=== PATIENT | female | born 1955 | race Caucasian/White ===

== ENCOUNTER 2020-04-21 20:27 | Emergency (ER) | payer BC, SELFPAY ==
[2020-04-21 20:29] VITALS: BP 122/68; PULSE 72; RESP 17; TEMP 36.3; O2SAT 94; BMI 30.5
--- NOTE | 2020-04-21 20:32 | ED_ITS ---
HPI - Seizure General: Chief Complaint: Seizure Stated Complaint: possible seizures Time Seen by Provider: 04/21/20 20:28 Source: patient and EMS Mode of arrival: EMS Limitations: no limitations History of Present Illness: HPI Narrative: 64-year-old female who is here from group home with a seizure. Patient has a history of seizures from a brain tumor removal and is on Keppra. She had a seizure last roughly 2 minutes. Patient is now awake and alert and at baseline. Denies any worsening improving factors. Denies any headache. complaint: seizure Onset (ago): hour(s) Description of Episode: tonic-clonic movement -: minutes(s) Witnessed: Yes - by Bystander Seizure History: Yes Associated symptoms: Deny chest pain, chills or fever(s) Review of Systems Const: Denies: fever(s), chills, body aches or change in appetite Eyes: Denies: blurry vision or eye discomfort ENMT: Denies: throat pain or dental pain Card: Denies: chest pain Resp: Denies: dyspnea GI: Denies: abdominal pain, nausea, vomiting or diarrhea : Denies: dysuria Musc: Denies: neck pain or back pain Skin/Breast: Denies: rash Neuro: Reports: seizure-like activity Psych: Denies: depression Haim/Lymph: Denies: easy bruising All/Imm: Denies: urticaria PFSH ED PFSH: Medical History Acid reflux Anxiety Cognitive impairment Dependent for wheelchair mobility Dependent on walker for ambulation Fibromyalgia Generalized epilepsy Hemiparesis affecting left side as late effect of cerebrovascular accident Hypothyroidism, unspecified Lives in assisted living facility Metabolic syndrome Surgical History History of bilateral tubal ligation 1986 History of brain surgery 2002 History of cholecystectomy August 2005 History of colonoscopy 2006 and 2012 History of eye surgery Right 2004 History of hysterectomy with unilateral oophorectomy Right 1991 History of removal of Port-a-Cath 2004 Family History Father Hypertension Mother Hypertension CAD (coronary artery disease) Social History Smoking and tobacco status: never smoked Alcohol intake: never Lives independently: No Housing: Assisted Living Facility Marital status: Number of children: 2 Current gender identity: Female Physical Exam Const: COMMON NORMALS: no acute distress, patient oriented x3 and healthy appearing HENMT: COMMON NORMALS: normocephalic and atraumatic HEAD & SCALP: normocephalic and atraumatic Eye: COMMON NORMALS: Equal, round and reactive pupils present and EOMs intact bilaterally PUPIL: Yes Equal, round and reactive pupils present Neck/C-Spine: COMMON NORMALS: full ROM and supple Chest: COMMONS NORMALS: normal inspection of the chest and normal palpation of entire chest wall Resp: COMMON NORMALS: normal respiratory effort, No retractions, No use of accessory muscles and clear to auscultation bilaterally AUSCULTATION: clear t o auscultation bilaterally Cardio: COMMON NORMALS: regular rate, regular rhythm and No murmurs present (Cardio) RATE: regular rate RHYTHM: regular rhythm GI: COMMON NORMALS: Normal to inspection, nondistended, normoactive bowel sounds present, Soft to palpation, non-tender and no masses PALPATION: Yes Soft to palpation Extremity: COMMON NORMALS: normal to inspection and full ROM Neuro: COMMON NORMALS: patient oriented x3, moves all extremities and no focal motor deficits Psych: COMMON NORMALS: mental status grossly normal, Normal thought process present and cooperative THOUGHT PROCESS: Normal thought process present Skin: COMMON NORMALS: no rashes or lesions noted and no wounds GENERAL SKIN EXAM: no rashes or lesions noted Course Vital Signs: Vital signs: Vital Signs Temperature 97.3 F L 04/21/20 20:29 Pulse Rate 60 04/21/20 21:23 Respiratory Rate 16 04/21/20 21:23 Blood Pressure 99/69 04/21/20 21:23 Pulse Oximetry 96 04/21/20 21:23 MDM - Seizure MDM Narrative: Medical decision making narrative: Jayde presents here with seizure and does have a history of seizures. Patient is back to baseline here and CT head and electrolytes are normal. Patient is stable for discharge back to group home. Patient is to return if worsening. Lab Data: Labs: Lab Results 04/21/20 Range/Units 20:44 Sodium 140 (136-145) mmol/L Potassium 4.6 (3.5-5.1) mmol/L Chloride 102 (98-107) mmol/L Carbon Dioxide 29 (22-29) mmol/L Anion Gap 13.6 (5-19) BUN 18 (8-23) mg/dL Creatinine 1.0 H (0.5-0.9) mg/dL GFR Calculation 56.0 L (90-130) mL/min Glucose 113 (65-115) mg/dL Calculated Osmolal ity 287 (285-295) mOsm/k g Calcium 9.1 (8.5-10.5) mg/dL Imaging Data^: CT Head: Attestation: I personally reviewed and interpreted this imaging study as follows: Radiologist's impression: [address] [place] [address] CT Scan Report Signed Patient: Jayde Curtis Unit #: [id number] : 1955 Age/Sex: 64 / F ADM Date: 04/21/20 Loc: ER Room/Bed: Attending Dr: Ordering Provider/Ordering MD: Viv Castorena MD Date of Service: 04/21/20 Procedure(s): CT head wo con* [id number] Accession Number(s): [id number] Report Number: [id number] PROCEDURE INFORMATION: Exam: CT Head Without Contrast Exam date and time: 04/21/2020 8:38 PM Age: 64 years old Clinical indication: Condition or disease; Convulsions or seizures; Prior surgery; Surgery type: Brain; Additional info: Seizure TECHNIQUE: Imaging protocol: Computed tomography of the head without contrast. Radiation optimization: All CT scans at this facility use at least one of these dose optimization techniques: automated exposure control; mA and/or kV adjustment per patient size (includes targeted exams where dose is matched to clinical indication); or iterative reconstruction. COMPARISON: CT head wo con* [id number] 09/14/2017 9:49 AM RADIATION DOSE METRICS: Total DLP (mGy-cm): 774.86 FINDINGS: Brain: Moderate diffuse cortical volume loss. Stable encephalomalacia in the right temporal and frontal lobes. Patchy moderate hypodensities throughout supratentorial periventricular and subcortical white matter. Stable calcifications in the shana. No intracranial hemorrhage. Ventricles: Normal. No ventriculomegaly. Bones/joints: Chronic right craniotomy defect. Sinuses: Visualized sinuses are unremarkable. No fluid levels. Mastoid air cells: Visualized mastoid air cells are well aerated. Vasculature: No hyperdense artery. Soft tissues: Unremarkable. CT/CT head wo con* [id number] IMPRESSION: 1. No acute intracranial abnormality. 2. Moderate microangiopathy. 3. Stable encephalomalacia in the right temporal and frontal lobes. Discharge Plan Discharge Patient Disposition: Home Clinical Impression: Generalized seizure Condition: Stable Prescriptions: No Action calcium carbonate [Calcium 600] 600 mg calcium (1,500 mg) tablet 600 mg PO QDAY RF: 0 carbidopa-levodopa [Sinemet] 25-100 mg tablet 2 tab PO TID RF: 0 clopidogrel [Plavix] 75 mg tablet 75 mg PO QDAY RF: 0 donepezil [Aricept] 10 mg tablet 10 mg PO QDAY RF: 0 estradiol 10 mcg insert 10 mcg VAGINAL .Q3day RF: 0 famotidine 20 mg tablet 20 mg PO BID RF: 0 fluoxetine 40 mg capsule 40 mg PO QAM RF: 0 levetiracetam [Keppra] 750 mg tablet 750 mg PO TID RF: 0 magnesium oxide 400 mg magnesium capsule 400 mg PO QDAY RF: 0 meclizine 12.5 mg tablet 12.5 mg PO BID RF: 0 metformin 500 mg tablet 500 mg PO BID RF: 0 metoprolol tartrate 25 mg tablet 25 mg PO BID RF: 0 multivitamin [Daily Multi-Vitamin] Tablet 1 tab PO QAM RF: 0 simvastatin 40 mg tablet 40 mg PO BEDTIME RF: 0 acetaminophen 500 mg tablet 1,000 mg PO Q6H PRN (Reason: Pain) RF: 0 triamcinolone acetonide 0.1 % cream 1 applic TOPICAL BID PRN (Reason: UNKNOWN) RF: 0 nystatin 100,000 unit/gram cream 1 applic TOPICAL BID RF: 0 guaifenesin [Diana-Tussin] 100 mg/5 mL liquid 200 mg PO Q4H PRN (Reason: Cough) RF: 0 bismuth subsalicylate [Bismatrol] 262 mg tablet,chewable 2 tab PO BID PRN (Reason: UNKNOWN) RF: 0 [id number] See Rx Instructions .ROUTE .COMPLEX RF: 0 loperamide 2 mg Capsule 2 mg PO Q4H PRN (Reason: UNKNOWN) RF: 0 cetirizine 10 mg Tablet 10 mg PO BID PRN (Reason: ITCH/HIVE) RF: 0 Scalpicin Anti-Itch 1 % Solution 1 applic TOPICAL BID PRN (Reason: Itching) RF: 0 Tums E-X 300 mg (750 mg) Tablet,Chewable See Rx Instructions .ROUTE .COMPLEX RF: 0 Vitamin D3 25 mcg (1,000 unit) Tablet 5,000 unit PO DAILY RF: 0 Systane Gel 0.4-0.3 % Drops,Gel 1 drp OPHTHALMIC (EYE) BID RF: 0 [employer] 1 cap PO DAILY RF: 0 levothyroxine 75 mcg tablet 75 mcg PO DAILY RF: 0 Sterile Lubricant 0.7 % drops, liquid gel 1 drop ophthalmic (eye) BID RF: 0 Discharge Orders: Discharge Order (Routine); Ordered 04/21/20 Ordered By: Viv Castorena Referrals: Candido Higginbotham, LANCE CREWMEMBER/MLRS SERGEANT-C [Primary Care Provider] - Discharge Diet: Advance as tolerated Discharge Activity: Resume usual activity Patient Instructions: Recurrent Seizures Adult (ED) Coding Level of Care Code ED Paperhanger And Painter for Chg Fwd Exam Comprehensive
[2020-04-21 20:38] VITALS: BP 102/67; PULSE 68; RESP 16; O2SAT 98
[2020-04-21 21:23] VITALS: BP 99/69; PULSE 60; RESP 16; O2SAT 96
[2020-04-21 21:24] LABS: Blood Urea Nitrogen 18 mg/dL (8-23); Calcium 9.1 mg/dL (8.5-10.5); Carbon Dioxide 29 mmol/L (22-29); Chloride 102 mmol/L (98-107); Glucose 113 mg/dL (65-115); Osmolality Calculated 287 mOsm/kg (285-295); Sodium 140 mmol/L (136-145)
[2020-04-21 21:25] LABS: Anion Gap 13.6 (5-19); Potassium 4.6 mmol/L (3.5-5.1)
[2020-04-21 22:00] VITALS: BP 99/57; PULSE 64; RESP 16; O2SAT 94
== END 2020-04-21 22:29 | disposition home or self-care (01) ==
PROVIDERS: Emergency Provider Emergency Medicine; PCP Nurse Practitioner
DX: G40.89 Other seizures (principal); Z79.02 Long term (current) use of antithrombotics/antiplatelets
CPT/HCPCS: 12345; 70450; 80048; 99283

== ENCOUNTER → 2021-05-24 15:29 | Outpatient (BNVA) | payer MEDICARE, SELFPAY | PROVIDERS: PCP Nurse Practitioner; Visit Provider Nurse Practitioner | DX: E03.9 Hypothyroidism, unspecified (principal); E88.81 Metabolic syndrome and other insulin resistance | CPT/HCPCS: 80053; 80061; 83721; 84443 ==

== ENCOUNTER → 2022-03-28 12:54 | Outpatient (BNVA) | payer MEDICARE, SELFPAY | PROVIDERS: PCP Nurse Practitioner; Visit Provider Nurse Practitioner | DX: E88.81 Metabolic syndrome and other insulin resistance (principal); E03.9 Hypothyroidism, unspecified | CPT/HCPCS: 80053; 80061; 83721; 84443; 85025 ==

== ENCOUNTER 2022-05-10 15:08 | Inpatient (IN) | payer MEDICARE, SELFPAY ==
[2022-05-10] VITALS (8 sets, daily range): BP systolic 110–186; BP diastolic 66–103; PULSE 70–106; RESP 16–21; TEMP 36.5–37.4; O2SAT 91–96; BMI 34.7
--- NOTE | 2022-05-10 15:18 | W.ED.AMS ---
HPI - Altered Mental Status General: Stated Complaint: AMS Time Seen by Provider: 05/10/22 15:09 Source: patient Mode of arrival: ambulatory Limitations: no limitations History of Present Illness: Associated symptoms: Deny depression Review of Systems Const: Denies: fever(s), chills, body aches or change in appetite Eyes: Denies: blurry vision or eye discomfort ENMT: Denies: throat pain or dental pain Card: Denies: chest pain Resp: Denies: dyspnea GI: Denies: abdominal pain, nausea, vomiting or diarrhea : Denies: dysuria Musc: Denies: neck pain or back pain Skin/Breast: Denies: rash Neuro: Denies: headache(s) Psych: Denies: depression Haim/Lymph: Denies: easy bruising All/Imm: Denies: urticaria PFSH ED PFSH: Medical History Acid reflux Anxiety Cognitive impairment Dependent for wheelchair mobility Dependent on walker for ambulation Fibromyalgia Generalized epilepsy Hypothyroidism, unspecified Lives in assisted living facility Metabolic syndrome Obesity (BMI 30-39.9) Refused influenza vaccine Surgical History History of bilateral tubal ligation 1986 History of brain surgery 2002 History of cholecystectomy August 2005 History of colonoscopy 2006 and 2012 History of eye surgery Right 2004 History of hysterectomy with unilateral oophorectomy Right 1991 History of removal of Port-a-Cath 2004 Family History Father Hypertension Mother Hypertension CAD (coronary artery disease) Social History Smoking and tobacco status: never smoked Second hand smoke exposure: No Smoking risk assessment/counseling performed?: No Alcohol intake: never Desire information about alcohol rehabilitation?: No Counseling given: No Desire information about substance/drug rehabilitation?: No Counseling given: No Adopted: No Caregiver/support person: Yes Lives independently: No Household members: other Housing: Assisted Living Facility Marital status: Number of children: 2 service: No Current occupational status: disabled Current occupational exposures/hazards: No Pets and animals: No History of recent travel: No Current gender identity: Female Discharge Plan Discharge Condition: Stable Prescriptions: No Action famotidine [Pepcid] 20 mg tablet 20 mg PO BID calcium carbonate [Calcium 600] 600 mg calcium (1,500 mg) tablet 600 mg PO QDAY Rx Instructions: PT UNABLE TO CONFIRM MEDICATION, GOING BY MAR FROM [facility]. carbidopa-levodopa [Sinemet] 25-100 mg tablet 2 tab PO TID Rx Instructions: PT UNABLE TO CONFIRM MEDICATION, GOING BY MAR [facility]. clopidogrel [Plavix] 75 mg tablet 75 mg PO QDAY Rx Instructions: PT UNABLE TO CONFIRM MEDICATION, GOING BY MAR [facility]. donepezil [Aricept] 10 mg tablet 10 mg PO QDAY Rx Instructions: PT UNABLE TO CONFIRM MEDICATION, GOING BY MAR FROM [facility]. fluoxetine 40 mg capsule 40 mg PO QAM Rx Instructions: PT UNABLE TO CONFIRM MEDICATION, GOING BY MAR FROM [facility]. levetiracetam [Keppra] 750 mg tablet 750 mg PO TID Rx Instructions: 3 tabs po in the morning PT UNABLE TO CONFIRM MEDICATION, GOING BY [facility] FROM [facility]. magnesium oxide 400 mg magnesium capsule 400 mg PO QDAY meclizine 12.5 mg tablet 12.5 mg PO BID metoprolol tartrate 25 mg tablet 25 mg PO BID Rx Instructions: PT UNABLE TO CONFIRM MEDICATION, GOING BY MAR FROM [facility]. multivitamin [Daily Multi-Vitamin] Tablet 1 tab PO QAM Rx Instructions: PT UNABLE TO CONFIRM MEDICATION, GOING BY [facility]. simvastatin 40 mg tablet 40 mg PO BEDTIME Rx Instructions: PT UNABLE TO CONFIRM MEDICATION, GOING BY [facility]. acetaminophen 500 mg tablet 1,000 mg PO Q6H PRN (Reason: Pain) Rx Instructions: PT UNABLE TO CONFIRM MEDICATION, GOING BY MAR FROM [facility]. triamcinolone acetonide 0.1 % cream 1 applic TOPICAL BID PRN (Reason: UNKNOWN) Rx Instructions: PT UNABLE TO CONFIRM MEDICATION, GOING BY MAR FROM [facility]. guaifenesin [Diana-Tussin] 100 mg/5 mL liquid 200 mg PO Q4H PRN (Reason: Cough) Rx Instructions: PT UNABLE TO CONFIRM MEDICATION, GOING BY MAR FROM [facility]. bismuth subsalicylate [Bismatrol] 262 mg tablet,chewable 2 tab PO BID PRN (Reason: UNKNOWN) Rx Instructions: PT UNABLE TO CONFIRM MEDICATION, GOING BY MAR FROM [facility]. nystatin 100,000 unit/gram cream 1 applic TOPICAL BID metformin 500 mg tablet 500 mg PO BID [id number] See Rx Instructions .ROUTE .COMPLEX Rx Instructions: orally USE DIRECTED. [employer] 86 % solution 10 ml topical .2 times day PRN Qty: 473 0RF levothyroxine 75 mcg tablet 75 mcg PO DAILY Qty: 30 5RF Rx Instructions: use 7 days week cetirizine 10 mg Tablet 10 mg PO BID PRN (Reason: ITCH/HIVE) Rx Instructions: DO NOT TAKE WITH BENADRYL PT UNABLE TO CONFIRM MEDICATION, GOING BY MAR FROM [facility]. Scalpicin Anti-Itch 1 % Solution 1 applic TOPICAL BID PRN (Reason: Itching) Rx Instructions: PT UNABLE TO CONFIRM MEDICATION, GOING BY MAR FROM [facility]. Vitamin D3 25 mcg (1,000 unit) Tablet 5,000 unit PO DAILY Rx Instructions: PT UNABLE TO CONFIRM MEDICATION, GOING BY MAR FROM [facility]. Systane Gel 0.4-0.3 % Drops,Gel 1 drp OPHTHALMIC (EYE) BID Rx Instructions: PT UNABLE TO CONFIRM MEDICATION, GOING BY MAR FROM [facility]. [employer] [facility] 1 cap PO DAILY Rx Instructions: PT UNABLE TO CONFIRM MEDICATION, GOING BY MAR FROM [facility]. Sterile Lubricant 0.7 % drops, liquid gel 1 drop ophthalmic (eye) BID Rx Instructions: use in both eyes loperamide 2 mg capsule 2 mg PO Q4H PRN Tums E-X 300 mg (750 mg) tablet,chewable See Rx Instructions .ROUTE .COMPLEX Rx Instructions: 750 mg orally as needed Referrals: Candido Higginbotham, AVIONICS SYSTEM ENGINEER-C [Primary Care Provider] - Coding Level of Care Code ED Aluminum Boat Inspector for [place]
--- NOTE | 2022-05-10 15:20 | XR_ITS ---
WS: [id number] Portable AP upright chest, 05/10/2022 Clinical Data: ams Comparison: Portable chest, 09/14/2017. Findings: No nodules, masses or effusions are seen. The heart is slightly enlarged. The pulmonary vas cularity is not increased. No pneumonia or pneumothorax is seen. The right diaphragm is elevated. XR/XR chest 1V portable [id number] Impression: Cardiomegaly.
--- NOTE | 2022-05-10 15:20 | CT_ITS ---
WS: [id number] CT head wo con* [id number] REASON FOR EXAM: ams IV CONTRAST ADMINISTERED: None. TOTAL EXAM DLP: 1110.[address] scans at [facility] use at least one of these dose optimization techniques: automat ed exposure control; mA and/or kV adjustment per patient size (includes targeted exams where dose is matched to clinical indication); or iterative reconstruction. FINDINGS: The examination is unchanged compared to 04/21/2020. There is no midline shift or other significant mass effect. There are no findings of intracranial hemorrhage. No acute brain parenchymal abnormality. Large area of encephalomalacia in the temporal lobe with ipsilateral ventricular dilatation. There is a craniotomy overlying the temporal lobe abnormality. Multiple calcifications in the central shana. Moderate global atrophy. Low-attenuation in the periventricular white matter compatible with small vessel chronic ischemic dem yelination. CT/CT head wo con* [id number] IMPRESSION: No acute intracranial abnormality. Stable abnormal brain status post right craniotomy. Incidental note is made of opacification of the left right maxillary sinus and mucosal thickening in the left maxillary sinus. Opacification of the ethmoid si nuses and air-fluid levels in the sphenoid sinus. These findings are indicative of chronic sinusitis and possibly acute sinusitis in the sphenoid sinus. The f indings were not present on the previous examination.
--- NOTE | 2022-05-10 15:22 | ECG_ITS ---
[facility] Test Date: 2022-05-10 Pat Name: Jayde Curtis Department: Room: Gender: Female Athletic Scout: : 1955 Requested By: Viv Castorena Order Number: [id number] Ayaka MD: Campbell Mchugh M.D. Measurements Intervals Meredith Rate: 98 P: 243 RI: 160 QRS: 114 QRSD: 92 T: 185 QT: 344 QTc: 440 Interpretive Statements ECTOPIC ATRIAL RHYTHM INDETERMINATE AXIS LOW QRS VOLTAGE IN PRECORDIAL LEADS [QRS DEFLECTION < 1.0 mV IN CHEST LEADS] PATTERN CONSISTENT WITH PULMONARY DISEASE POSSIBLE RIGHT VENTRICULAR CONDUCTION DELAY [RSR (QR) IN V1/V2] Compared to ECG 09/14/2017 10:19:04 Ectopic atrial rhythm now present Sinus rhythm no longer present Incomplete right bundle-branch block no longer present T-wave abnormality no longer present Possible ischemia no longer present Electronically Signed On 05-11-2022 0:18:13 CDT by Campbell Mchugh M.D. [id number]
--- NOTE | 2022-05-10 15:35 | ED_ITS ---
HPI - Altered Mental Status General: Chief Complaint: Altered Mental Status Stated Complaint: AMS Time Seen by Provider: 05/10/22 15:09 Source: EMS Mode of arrival: EMS Limitations: altered mental status History of Present Illness: 67-year-old female who lives at [facility] patient's daughter picked her up today because she was altered but her last known normal was yesterday took her to the clinic patient's clinic called EMS because patient's unresponsive per EMS patient will respond to painful stimuli here she will open her eyes but does not make any purposeful movements does not answer any questions she does have a history of seizures family is unsure if she had a seizure Review of Systems General: Reports: ROS unobtainable due to mental status PFSH ED PFSH: Medical History Acid reflux Anxiety Cognitive impairment Dependent for wheelchair mobility Dependent on walker for ambulation Fibromyalgia Generalized epilepsy Hypothyroidism, unspecified Lives in assisted living facility Metabolic syndrome Obesity (BMI 30-39.9) Refused influenza vaccine Surgical History History of bilateral tubal ligation 1986 History of brain surgery 2002 History of cholecystectomy August 2005 History of colonoscopy 2006 and 2012 History of eye surgery Right 2004 History of hysterectomy with unilateral oophorectomy Right 1991 History of removal of Port-a-Cath 2004 Family History Father Hypertension Mother Hypertension CAD (coronary artery disease) Social History Smoking and tobacco status: never smoked Second hand smoke exposure: No Smoking risk assessment/counseling performed?: No Alcohol intake: never Desire information about alcohol rehabilitation?: No Counseling given: No Desire information about substance/drug rehabilitation?: No Counseling given: No Adopted: No Caregiver/support person: Yes Lives independently: No Household members: other Housing: Assisted Living Facility Marital status: Number of children: 2 service: No Current occupational status: disabled Current occupational exposures/hazards: No Pets and animals: No History of recent travel: No Current gender identity: Female Physical Exam Const: GENERAL APPEARANCE: ill appearing HENMT: COMMON NORMALS: normocephalic HEAD & SCALP: normocephalic OTHER: TM on right is normal she does have blood in her canal on the left unable to see her tympanic membrane Eye: COMMON NORMALS: Equal, round and reactive pupils present PUPIL: Yes Equal, round and reactive pupils present Neck/C-Spine: COMMON NORMALS: full ROM and no meningeal signs Lymph: LYMPHATIC: no lymphadenopathy noted Chest: COMMONS NORMALS: normal inspection of the chest and normal palpation of entire chest wall Resp: COMMON NORMALS: normal respiratory effort and clear to auscultation bilaterally AUSCULTATION: clear to auscultation bilaterally Cardio: COMMON NORMALS: regular rate and regular rhythm RATE: regular rate RHYTHM: regular rhythm GI: COMMON NORMALS: Normal to inspection, nondistended, normoactive bowel sounds present, Soft to palpation and non-tender PALPATION: Yes Soft to palpation Extremity: COMMON NORMALS: normal to inspection Neuro: MENINGEAL SIGNS: Yes no meningeal signs OTHER: Patient will respond to painful stimuli open her eyes is not able answer any questions does not give any verbal responses does not make any purposeful movements Psych: COMMON NORMALS: negative for mental status grossly normal Skin: COMMON NORMALS: no rashes or lesions noted GENERAL SKIN EXAM: no rashes or lesions noted Course Vital Signs: Vital signs: Vital Signs Temperature 97.7 F 05/10/22 15:15 Pulse Rate 70 05/10/22 17:10 Respiratory Rate 16 05/10/22 17:10 Blood Pressure 186/103 05/10/22 17:10 Pulse Oximetry 96 05/10/22 17:10 Oxygen Delivery Me thod 05/10/22 15:15 MDM - Altered Mental Status Medical Decision Making Patient presents here with altered mental status she does have a history of seizures she had no witnessed seizure did give her a loading dose of Keppra here she had minimal responsiveness here will open her eyes to painful stimuli head CT here showed no acute abnormality she does have a sinusitis likely causing her tympanic membrane rupture on the left patient given Jahaira spoke to hospitalist will admit at this time for her multiple status. Lab Data : 05/10/22 15:30 05/10/22 15:30 Radiology Impressions Chest X-Ray 05/10/22 15:20 Impression: Cardiomegaly. Head CT 05/10/22 15:20 IMPRESSION: No acute intracranial abnormality. Stable abnormal brain status post right craniotomy. Incidental note is made of opacification of the left right maxillary sinus and mucosal thickening in the left maxillary sinus. Opacification of the ethmoid sinuses and air-fluid levels in the sphenoid sinus. These findings are indicative of chronic sinusitis and possibly acute sinusitis in the sphenoid sinus. The findings were not present on the previous examination. Laboratory Results WBC 9.7 10^3/uL (4.0-10.0) 05/10/22 15:30 RBC 4.73 10^6/uL (4.1-5.3) 05/10/22 15: Hgb 14.7 g/dL (11.5-15.3) 05/10/22: Hct 45.3 % (37.0-47.0) 05/10/22: MCV 95.8 fl (81-99) 05/10/22: MCH 31.1 pg (28.0-34.0) 05/10/22: MCHC 32.5 g/dL (30.0-36.0) 05/10/22: RDW 12.2 % (12.1-15.1) 05/10/22: Plt Count 349 10^3/cmm (130-400) 05/10/22: MPV 9.3 fL (7.4-10.4) 05/10/22:30 Neut % (Auto) 75.7 % 05/10/22:30 Lymph % (Auto) 11.6 % 05/10/22:30 Taney % (Auto) 10.8 % 05/10/22:30 Eos % (Auto) 1.1 % 05/10/22: Baso % (Auto) 0.4 % 05/10/22:30 Neut # (Auto) 7.33 10^3/uL (1.8-7.7) 05/10/22:30 Lymph # (Auto) 1.1 10^3/uL (0.8-4.8) 05/10/22:30 Taney # (Auto) 1.1 10^3/uL (0.2-0.9) H 05/10/22:30 Eos # (Auto) 0.1 10^3/uL (0.0-0.8) 05/10/22 15:30 Baso # (Auto) 0.0 10^3/uL (0.0-0.1) 05/10/22 15:30 Nucleated RBC % (auto) 0 % 05/10/22 15:30 Nucleated RBCs # 0.0 /100WBC 05/10/22 15:30 Specimen Type Arterial 05/10/22 16:20 Sample Site Radial, left 05/10/22 16:20 ABG pH 7.50 (7.35-7.45) H 05/10/22 16:20 ABG pCO2 28.4 mmHg (35-45) L 05/10/22 16:20 ABG pO2 117.0 mmHg (80.0-100.0) H 05/10/22 16:20 ABG HCO3 22.3 mmol/L (22-26) 05/10/22 16:20 ABG Base Excess 0.5 mmol/L (-2.0-2.0) 05/10/22 16:20 Ethan Test Pos 05/10/22 16:20 Hematocrit 47.3 % (37-47) H 05/10/22 16:20 O2 Delivery Device None 05/10/22 16:20 FiO2 21.0 % 05/10/22 16:20 Postdoctoral Scientist ID [id number] 05/10/22 16:20 Sodium 141 mmol/L (136-145) 05/10/22 15:30 Potassium 4.5 mmol/L (3.5-5.1) 05/10/22 15:30 Chloride 102 mmol/L (98-107) 05/10/22 15:30 Carbon Dioxide 24 mmol/L (22-29) 05/10/22 15:30 Anion Gap 19.5 (5-19) H 05/10/22 15:30 BUN 12 mg/dL (8-23) 05/10/22 15:30 Creatinine 0.7 mg/dL (0.5-0.9) 05/10/22 15:30 GFR Calculation 83.7 mL/min (90-130) L 05/10/22 15:30 Glucose 158 mg/dL (65-115) H 05/10/22 15:30 Calculated Osmolality 295 mOsm/kg (285-295) 05/10/22 15:30 Calcium 9.2 mg/dL (8.5-10.5) 05/10/22 15:30 Magnesium 2.0 mg/dL (1.7-2.3) 05/10/22 15:30 Total Bilirubin 0.6 mg/dL (0.15-1.2) 05/10/22 15:30 AST 14 U/L (0-32) 05/10/22 15:30 ALT 21 U/L (0-33) 05/10/22 15:30 Alkaline Phosphatase 153 U/L (35-105) H 05/10/22 15:30 Ammonia 22 umol/L (11-51) 05/10/22 16:00 Troponin T Baseline 6 ng/L (0-10) 05/10/22 15:30 Total Protein 7.2 g/dL (6.6-8.7) 05/10/22 15:30 Albumin 3.6 g/dL (3.5-5.2) 05/10/22 15:30 Globulin 3.6 g/dL (1.3-4.6) 05/10/22 15:30 Lipase 16 U/L (13-60) 05/10/22 15:30 TSH 4.21 uIU/mL (0.27-4.20) H 05/10/22 15:30 Urine Color Other (Yellow) 05/10/22 15:55 Urine Appearance Clear (CLEAR) 05/10/22 15:55 Urine pH 5 (5-7) 05/10/22 15:55 Ur Specific [place] 1.025 (1.005-1.030) 05/10/22 15:55 Urine Protein 1+ (Negative) H 05/10/22 15:55 Urine Glucose (UA) Norm (Normal) 05/10/22 15:55 Urine Ketones 1+ (Negative) H 05/10/22 15:55 Urine Blood 2+ (Negative) H 05/10/22 15:55 Urine Nitrate Negative (Negative) 05/10/22 15:55 Urine Bilirubin 1+ (Negative) H 05/10/22 15:55 Urine Urobilinogen 4 mg/dL (Negative) H 05/10/22 15:55 Ur Leukocyte Esterase Negative (Negative) 05/10/22 15:55 Urine RBC 0-4 /hpf (0-2) H 05/10/22 15:55 Urine WBC 15-25 /hpf (0-5) H 05/10/22 15:55 Ur Squamous Epith Cells 15-25 /hpf (0-5) H 05/10/22 15:55 Amorphous Sediment Not Reportable 05/10/22 15:55 Urine Bacteria 3+ /hpf (NONE) H 05/10/22 15:55 Urine Mucus Trace /hpf 05/10/22 15:55 Salicylates < 0.3 mg/dL (3-10) L 05/10/22 15:30 Urine Opiates Screen Negative ng/mL (Negative) 05/10/22 15:55 Acetaminophen < 5.0 ug/mL (10-30) L 05/10/22 15:30 Ur Barbiturates Screen Negative ng/mL (Negative) 05/10/22 15:55 Ur Phencyclidine Scrn Negative ng/mL (Negative) 05/10/22 15:55 Ur Amphetamines Screen Negative ng/mL (Negative) 05/10/22 15:55 U Benzodiazepines Scrn Positive ng/mL (Negative) H 05/10/22 15:55 Urine Cocaine Screen Negative ng/mL (Negative) 05/10/22 15:55 U Marijuana (THC) Screen Negative ng/mL (Negative) 05/10/22 15:55 Ethyl Alcohol < 10 mg/dL (0-10) 05/10/22 15:30 EKG Data EKG 1: I personally reviewed and interpreted this EKG as follows: EKG interpretation date: 05/10/22 EKG interpretation time: 17:18 Interpretation: nsr hr [address] or t wave abnormalities qrs 92 qtc 399 Discharge Plan Discharge Patient Disposition: Admitted As Inpatient Clinical Impression: Altered mental status, Sinusitis Condition: Stable Coding Level of Care Code ED Magazine Keeper for Pierce Fwd Exam Comprehensive
[2022-05-10 15:55] LABS: Basophils % 0.4 %; Eosinophils # 0.1 10^3/uL (0.0-0.8); Eosinophils % 1.1 %; Hematocrit 45.3 % (37.0-47.0); Hemoglobin 14.7 g/dL (11.5-15.3); Lymphocytes # 1.1 10^3/uL (0.8-4.8); Lymphocytes % 11.6 %; Mean Corpuscular HGB Conc 32.5 g/dL (30.0-36.0); Mean Corpuscular Hemoglobin 31.1 pg (28.0-34.0); Mean Corpuscular Volume 95.8 fl (81-99); Mean Platelet Volume 9.3 fL (7.4-10.4); Monocytes # 1.1 10^3/uL (0.2-0.9); Monocytes % 10.8 %; Neutrophils # 7.33 10^3/uL (1.8-7.7); Neutrophils % 75.7 %; Nucleated Red Blood Cells % 0 %; Platelet Count 349 10^3/cmm (130-400); Red Blood Count 4.73 10^6/uL (4.1-5.3); Red Cell Distribution Width 12.2 % (12.1-15.1); White Blood Count 9.7 10^3/uL (4.0-10.0)
[2022-05-10] MEDS: sodium chloride 0.9% 1,000 ML 999 ML IV (16:08)
[2022-05-10 16:29] LABS: ABG PCO2 28.4 mmHg (35-45); Arterial Blood Gas Hematocrit 47.3 % (37-47); Base Excess ABG 0.5 mmol/L (-2.0-2.0); Blood Gas Allen Test Pos; Blood Gas Operator Identificat glc; Blood Gas Sample Site Radial, left; Blood Gas Sample Type Arterial; HCO3 ABG 22.3 mmol/L (22-26)
[2022-05-10 16:30] LABS: Troponin(5th) Baseline 6 ng/L (0-10)
[2022-05-10 16:33] LABS: Ammonia 22 umol/L (11-51)
[2022-05-10 16:34] LABS: Alanine Aminotransferase 21 U/L (0-33); Albumin Level 3.6 g/dL (3.5-5.2); Alkaline Phosphatase 153 U/L (35-105); Anion Gap 19.5 (5-19); Aspartate Amino Transferase 14 U/L (0-32); Blood Urea Nitrogen 12 mg/dL (8-23); Calcium 9.2 mg/dL (8.5-10.5); Carbon Dioxide 24 mmol/L (22-29); Chloride 102 mmol/L (98-107); Globulin 3.6 g/dL (1.3-4.6); Glomerular Filtration Rate 83.7 mL/min (90-130); Glucose 158 mg/dL (65-115); Lipase 16 U/L (13-60); Osmolality Calculated 295 mOsm/kg (285-295); Potassium 4.5 mmol/L (3.5-5.1); Sodium 141 mmol/L (136-145); Thyroid Stimulating Hormone 4.21 uIU/mL (0.27-4.20); Total Bilirubin 0.6 mg/dL (0.15-1.2); Total Protein 7.2 g/dL (6.6-8.7)
[2022-05-10 16:35] LABS: Acetaminophen < 5.0 ug/mL (10-30); Alcohol Level < 10 mg/dL (0-10); Salicylate < 0.3 mg/dL (3-10)
[2022-05-10 17:08] LABS: Amphetamines Screen Urine Negative (Negative); Barbiturates Screen Urine Negative (Negative); Benzodiazepines Screen Urine Positive (Negative); Cocaine Screen Urine Negative (Negative); Opiate Screen Urine Negative (Negative); PCP Screen Urine Negative (Negative); THC Screen Urine Negative (Negative)
--- NOTE | 2022-05-10 17:16 | PC.NURSE ---
Please remove discharge assessment by this RN. This was entered in error.
[2022-05-10 17:24] LABS: Urine Appearance Clear (CLEAR); Urine Color Other (Yellow)
[2022-05-10 17:25] LABS: Add Urine Culture? No; Add Urine Microscopic? YES; Bacteria Urine 3+ /hpf; Bilirubin Urine 1+ (Negative); Blood Urine 2+ (Negative); Glucose Urine UA Norm (Normal); Ketones Urine 1+ (Negative); Leukocyte Esterase Urine Negative (Negative); Mucus Urine TRACE /hpf; Nitrate Urine Negative (Negative); Protein Urine 1+ (Negative); RBC Urine 0-4 /hpf (0-2); Specific Gravity, Urine 1.025 (1.005-1.030); Squamous Epithelial Cell Urine 15-25 /hpf (0-5); Urobilinogen Urine 4 mg/dL (Negative); WBC Urine 15-25 /hpf (0-5); pH Urine 5 (5-7)
[2022-05-10] MEDS: cefTRIAXone 1,000 MG in sodium chloride 0.9% (plus) 50 ML 100 MG IV (17:56)
--- NOTE | 2022-05-10 18:55 | PM.HP ---
Providers/Chief Complaint Primary Care Provider: Candido Higginbotham, HUNTERC Chief Complaint: AMS History of Present Illness 67-year-old lady with history of chronic neurologic deficits with remote history of craniotomy, brain tumor removal, cognitive impairment, epilepsy, with normally ambulation limited to short distances or transfers, with some chronic left side weakness, with epilepsy usually with generalized tonic-clonic seizures, hypothyroidism, fibromyalgia, living in assisted living, sometimes having difficulty with communication when spoken to quickly, per report may then ignore what is being said. She is brought in for assessment from assisted living today due to altered mental status this morning, with last known well last night. This morning was less cooperative, responsive, confused. It is unknown if she had had a seizure recently, there was no witnessed seizure. She reportedly had complained of a headache on 05/08 and 05/09 for which received Tylenol. Some bleeding was noted in left ear, with noted sinusitis on CT likely causing tympanic membrane rupture. Due to this in ER she received Rocephin. Subsequently additionally UA somewhat equivocal, 15-25 WBC, but also 15-25 squamous Pelo cells. 3+ bacteria. Nitrate negative. TSH minimally elevated 4.21. She herself opens her eyes, tracks when changing position, does appear to attempt answer some questions, nods no when asked if she is in pain. Does not really answer other questions, does not follow directions. Review of Systems General: Reports: ROS unobtainable due to mental status Medications/Allergies Home Medications Medication Instructions Recorded Confirmed Last Taken Type acetaminophen 500 mg tablet 1,000 mg PO Q6H PRN Pain 09/11/19 05/10/22 Unknown History bismuth subsalicylate 262 mg 2 tab PO BID PRN UNKNOWN 09/11/19 05/10/22 Unknown History chewable tablet (Bismatrol) calcium carbonate 600 mg calcium 600 mg PO QDAY 09/11/19 05/10/22 05/10/22 History (1,500 mg) tablet (Calcium) carbidopa 25 mg-levodopa 100 mg 2 tab PO TID 09/11/19 05/10/22 05/10/22 History tablet (Sinemet) clopidogrel 75 mg tablet (Plavix) 75 mg PO QDAY 09/11/19 05/10/22 05/10/22 History donepezil 10 mg tablet (Aricept) 10 mg PO BEDTIME 09/11/19 05/10/22 05/09/22 History fluoxetine 40 mg capsule 40 mg PO QAM 09/11/19 05/10/22 05/10/22 History guaifenesin 100 mg/5 mL oral 200 mg PO Q4H PRN Cough 09/11/19 05/10/22 Unknown History liquid (Diana-Tussin) levetiracetam 750 mg tablet 1,500 mg PO BID 09/11/19 05/10/22 05/10/22 History (Keppra) magnesium oxide 400 mg PO QDAY 09/11/19 05/10/22 05/10/22 History meclizine 12.5 mg tablet 12.5 mg PO BID 09/11/19 05/10/22 05/10/22 History metoprolol tartrate 25 mg tablet 25 mg PO BID 09/11/19 05/10/22 05/10/22 History multivitamin (Daily Multi-Vitamin) 1 tab PO QAM 09/11/19 05/10/22 05/10/22 History simvastatin 40 mg tablet 40 mg PO BEDTIME 09/11/19 05/10/22 05/09/22 History triamcinolone acetonide 0.1 % 1 applic topical BID PRN Rash 09/11/19 05/10/22 Unknown History topical cream carboxymethylcellulose sodium 0.7 1 drop ophthalmic (eye) BID 04/21/20 05/10/22 05/10/22 History % eye liquid gel drops (Sterile Lubricant) cetirizine 10 mg tablet 10 mg PO BID PRN ITCH/HIVE 04/21/20 05/10/22 Unknown History cholecalciferol (vitamin D3) 25 5,000 unit PO DAILY 04/21/20 05/10/22 05/10/22 History mcg (1,000 unit) tablet (Vitamin D3) peg 400-propylene glycol 0.4 %-0.3 1 drp ophthalmic (eye) BID 04/21/20 05/10/22 05/10/22 History % eye gel drops (Systane Gel) witch remedios 86 % topical solution 10 ml topical .2 times day PRN 07/24/20 05/10/22 05/10/22 Rx #473 mL famotidine 20 mg tablet (Pepcid) 20 mg PO BID 12/21/20 05/10/22 05/10/22 History calcium carbonate 300 mg (750 mg) 3 - 4 tab PO PRN PRN Acid Reflux 02/15/21 05/10/22 Unknown History chewable tablet (Tums E-X) loperamide 2 mg capsule 2 mg PO Q4H PRN Constipation 02/15/21 05/10/22 Unknown History metformin 500 mg tablet 500 mg PO BID 02/15/21 05/10/22 05/10/22 History nystatin 100,000 unit/gram topical 1 applic topical BID 02/15/21 05/10/22 Unknown History cream levothyroxine 75 mcg tablet 75 mcg PO DAILY #30 tabs 04/26/22 05/10/22 05/10/22 Rx Lactobacills gasseri-Bifidobac 1 cap PO DAILY 05/10/22 05/10/22 05/10/22 History bifidum,longum 1.5 billion cell capsule (Nobel Hygiene) zeajy-k-blublkdfzwvqa 300 unit 300 unit PO 6XD PRN 05/10/22 05/10/22 Unknown History disintegrating tablet (Beano) Gastrointestinal Spasms Or Cramping hydrocortisone 1 % topical solution 1 applic topical BID PRN Itching 05/10/22 05/10/22 Unknown History lorazepam 1 mg tablet 1 mg PO DAILY PRN Seizures 05/10/22 05/10/22 Unknown History magnesium hydroxide 400 mg/5 mL 16 ml PO BID PRN Constipation 05/10/22 05/10/22 Unknown History oral suspension (Milk of Magnesia) oxyquinoline-white 1 ea topical BEDTIME 05/10/22 05/10/22 05/09/22 History petrolatum-lanolin 0.3 % topical ointment Allergies Allergy/AdvReac Type Severity Reaction Status Date / Time amoxicillin Allergy Unknown Verified 05/10/22 16:59 aspirin Allergy Unknown Verified 05/10/22 16:59 doxepin Allergy Unknown Verified 05/10/22 16:59 hydrocodone Allergy Unknown Verified 05/10/22 16:59 metronidazole [From Flagyl] Allergy Unknown Verified 05/10/22 16:59 ondansetron [From Zofran] Allergy Unknown Verified 05/10/22 16:59 Penicillins Allergy ALGY-Hives Verified 05/10/22 16:59 Sulfa (Sulfonamide Allergy Unknown Verified 05/10/22 16:59 Antibiotics) nitrofurantoin AdvReac ADR-Itching Verified 05/10/22 16:59 [From Macrobid] PFSH Acute PFSH: Medical History Acid reflux Anxiety Cognitive impairment Dependent for wheelchair mobility Dependent on walker for ambulation Fibromyalgia Generalized epilepsy Hypothyroidism, unspecified Lives in assisted living facility Metabolic syndrome Obesity (BMI 30-39.9) Refused influenza vaccine Surgical History History of bilateral tubal ligation 1986 History of brain surgery 2002 History of cholecystectomy August 2005 History of colonoscopy 2006 and 2011 History of eye surgery Right 2004 History of hysterectomy with unilateral oophorectomy Right 1991 History of removal of Port-a-Cath 2004 Family History Father Hypertension Mother Hypertension CAD (coronary artery disease) Social History Smoking and tobacco status: never smoked Second hand smoke exposure: No Smoking risk assessment/counseling performed?: No Alcohol intake: never Desire information about alcohol rehabilitation?: No Counseling given: No Desire information about substance/drug rehabilitation?: No Counseling given: No Adopted: No Caregiver/support person: Yes Lives independently: No Household members: other Housing: Assisted Living Facility Marital status: Number of children: 2 service: No Current occupational status: disabled Current occupational exposures/hazards: No Pets and animals: No History of recent travel: No Current gender identity: Female Vitals/I&O/Wt Last Vital Signs Temp 97.7 F 05/10/22 15:15 Pulse 101 H 05/10/22 18:47 Resp 21 H 05/10/22 18:47 BP 144/72 05/10/22 18:47 Pulse Ox 92 05/10/22 18:47 O2 Del Method 05/10/22 18:47 05/10/22 05/10/22 05/10/22 06:59 14:59 22:59 Intake Total 1160 / 1160 Balance 1160 / 1160 Weight last 48 hrs Weight 86.183 kg Physical Exam Const: GENERAL APPEARANCE: not cooperative ORIENTATION/CONSCIOUSNESS: Yes awake and Yes confused HENMT: COMMON NORMALS: oropharynx normal Neck/C-Spine: COMMON NORMALS: no JVD Resp: COMMON NORMALS: normal respiratory effort and clear to auscultation bilaterally AUSCULTATION: clear to auscultation bilaterally Cardio: COMMON NORMALS: no JVD, regular rhythm, S1 normal heart sound present, S2 normal heart sound present and No murmurs present (Cardio) RHYTHM: regular rhythm HEART SOUNDS: S1 normal heart sound present and S2 normal heart sound present GI: COMMON NORMALS: Normal to inspection, nondistended, normoactive bowel sounds present, Soft to palpation and non-tender PALPATION: Yes Soft to palpation Extremity: COMMON NORMALS: no joint enlargement and no pedal edema Neuro: SENSORIUM/ORIENTATION: Yes alert OTHER: Very limited exam, does appear to track my face side to side, does not follow directions. Does appear to attempt hold of her left arm, some spontaneous movement on the right, definitely left side weaker. Appears to have right-sided facial droop. Skin: COMMON NORMALS: no rashes or lesions noted GENERAL SKIN EXAM: no rashes or lesions noted, dry skin and other (Backside was not seen) Urinary Catheter Management: Jay: Cath Placed During This Visit: yes Urinary Catheter Date of Insertion: 05/10/22 Urinary Catheter Time of Insertion: 15:58 Data : 05/10/22 15:30 05/10/22 15:30 A&P Assessment and plan (1) Acute encephalopathy: She is awake, but appears confused, at times answers to questions, but unclear how reliable her answers are. Does not really follow directions. Acute encephalopathy, unclear cause. Possible postictal state after seizure or less likely subacute neurologic event. Noted some chronic neurologic deficits. CT head with noted sinusitis. Possible UTI. Concern for left-sided otitis media. Per report 100 medications today except for carbidopa-levodopa. Cannot exclude possible postictal state. Cannot exclude possible CVA, although he is outside of tPA window. I do not readily appreciate additional neurologic deficits. Did complain of headache on 05/08 on 05/09 as per SNF and received Tylenol. At this time less likely but cannot entirely exclude MAP MOUNTER infection. She is afebrile, without leukocytosis. For now empiric coverage with ceftriaxone, vancomycin. Acyclovir. For now also transition Keppra to IV. For now n.p.o. until mental status improves, less risk of aspiration. Coverage for UTI with Rocephin. UA somewhat equivocal. We will request urine culture to be added. Status: Acute (2) Sinusitis: As above. Status: Acute (3) Otitis media: Possible otitis media. As above. Assess CT temporal bones. Status: Acute Plan Hypothyroidism: Borderline TSH. Chronic neurologic deficits Cognitive impairment Epilepsy Fibromyalgia Hypothyroidism Other comorbidities noted. Attestations Medical Necessity Statement*: Admission of over 2 midnights is anticipated for assessment of management of acute encephalopathy, possible postictal state, or possible infectious cause. Coding Level of Care Code Acute Living Manager for [facility] Ivana Diagnoses Acute encephalopathy G93.40 Sinusitis J32.9 Otitis media H66.90
[2022-05-10 20:26] LABS: Glucose Point of Care 146 mg/dL (70-110)
--- NOTE | 2022-05-10 20:39 | CTR_ITS ---
PROCEDURE INFORMATION: Exam: CT Temporal Bones Without Contrast. Exam date and time: 05/10/2022 8:50 PM Age: 67 years old Clinical indication: Prior surgery; Surgery type: Craniotomy. RT tympanic membrane; Patient HX: Left tympanic membrane perforation. History of brain cancer. ; Additional info: AMS, sinusitis TECHNIQUE: Imaging protocol: Computed tomography of the temporal bones without contrast. Radiation optimization: All CT scans at this facility use at least one of these dose optimization techniques: automated exposure control; mA and/or kV adjustment per patient size (includes targeted exams where dose is matched to clinical indication); or iterative reconstruction. COMPARISON: No relevant prior studies available. RADIATION DOSE METRICS: Total DLP (mGy-cm): 322.68 FINDINGS: Right temporal craniotomy changes are noted. Fluid is noted in maxillary, sphenoid, ethmoid, and lower frontal sinuses. Mastoid air cells are unremarkable. Material is seen in both external auditory canals at least some of which relates to cerumen. There is some extension of material into the lateral aspect of middle ear on the left which may represent small clot in the setting of tympanic membrane perforation. Otherwise, middle ears are well aerated. CT/CT temporal bone wo con* [id number] IMPRESSION: Pansinusitis. Bilateral external auditory canal material as above with a small quantity of material laterally in the left middle ear that may represent small clot in the setting of tympanic membrane perforation.
--- NOTE | 2022-05-10 21:13 | PC.PHAR ---
Vancomycin is dosed at 1500 mg IVPB every 18 hours to produce a predicted trough level of 14.74 (population based pharmacokinetic analysis). A trough level has been ordered from the lab to be obtained before the fourth dose to confirm and adjust if needed.
[2022-05-10] MEDS: heparin 5,000 unit/mL INJ 1 mL 5000 UNIT SUBCUT (21:14)
[2022-05-10 22:03] LABS: Troponin 5 6HR 6.13 ng/L (0-10)
[2022-05-10 22:08] LABS: Troponin 5 6HR Delta 0.13 ng/L (0-12)
[2022-05-10] MEDS: vancomycin 1,500 MG/300 ML PIGGYBACK 150 MG IV (22:11)
[2022-05-11] VITALS (7 sets, daily range): BP systolic 104–110; BP diastolic 60–67; PULSE 106–121; RESP 18; TEMP 37.3–37.7; O2SAT 92–99
[2022-05-11] MEDS: cefTRIAXone 2,000 MG in sodium chloride 0.9% (plus) 50 ML 100 MG IV ×2 (05:47→21:52)
[2022-05-11 07:28] LABS: Basophils % 0.3 %; Eosinophils # 0.5 10^3/uL (0.0-0.8); Eosinophils % 5.3 %; Hematocrit 40.2 % (37.0-47.0); Hemoglobin 12.9 g/dL (11.5-15.3); Lymphocytes # 1.3 10^3/uL (0.8-4.8); Lymphocytes % 13.8 %; Mean Corpuscular HGB Conc 32.1 g/dL (30.0-36.0); Mean Corpuscular Hemoglobin 31.5 pg (28.0-34.0); Mean Platelet Volume 9.1 fL (7.4-10.4); Monocytes % 10.4 %; Neutrophils % 69.9 %; Nucleated Red Blood Cells % 0 %; Platelet Count 297 10^3/cmm (130-400); Red Cell Distribution Width 12.2 % (12.1-15.1); White Blood Count 9.6 10^3/uL (4.0-10.0)
[2022-05-11 07:48] LABS: Alanine Aminotransferase 20 U/L (0-33); Albumin Level 2.7 g/dL (3.5-5.2); Alkaline Phosphatase 129 U/L (35-105); Aspartate Amino Transferase 9 U/L (0-32); Blood Urea Nitrogen 11 mg/dL (8-23); Calcium 8.6 mg/dL (8.5-10.5); Carbon Dioxide 22 mmol/L (22-29); Chloride 102 mmol/L (98-107); Globulin 3.7 g/dL (1.3-4.6); Glucose 142 mg/dL (65-115); Magnesium 1.9 mg/dL (1.7-2.3); Osmolality Calculated 286 mOsm/kg (285-295); Phosphorus 3.2 mg/dL (2.5-4.5); Sodium 137 mmol/L (136-145); Total Bilirubin 0.4 mg/dL (0.15-1.2); Total Protein 6.4 g/dL (6.6-8.7)
[2022-05-11] MEDS: heparin 5,000 unit/mL INJ 1 mL 5000 UNIT SUBCUT ×2 (08:06→21:53)
--- NOTE | 2022-05-11 11:27 | PM.PN ---
Subjective Subjective: Sleeping, opens eyes to voice, shoulder, some unintelligible soft speech, otherwise not communicative. Appears to not know when asked if she is in pain. Does not follow directions. Vitals/I&O/Wt Last Vital Signs Temp 99.2 F 05/11/22 11:22 Pulse 117 H 05/11/22 11:22 Resp 18 05/11/22 11:22 BP 106/64 05/11/22 11:22 Pulse Ox 96 05/11/22 11:22 O2 Del Method 05/11/22 11:22 05/10/22 05/11/22 05/11/22 22:59 06:59 14:59 Intake Total 1382.2 / 1382.2 582.2 / 1964.4 Output Total 500 / 500 Balance 1382.2 / 1382.2 82.2 / 1464.4 Weight last 48 hrs Weight 83.007 kg Weight 86.183 kg Physical Exam Const: COMMON NORMALS: alert; negative for patient oriented x3 GENERAL APPEARANCE: not cooperative ORIENTATION/CONSCIOUSNESS: Yes awake and Yes confused HENMT: COMMON NORMALS: oropharynx normal Neck/C-Spine: COMMON NORMALS: no JVD Resp: COMMON NORMALS: normal respiratory effort and clear to auscultation bilaterally AUSCULTATION: clear to auscultation bilaterally Cardio: COMMON NORMALS: no JVD, regular rhythm, S1 normal heart sound present, S2 normal heart sound present and No murmurs present (Cardio) RHYTHM: regular rhythm HEART SOUNDS: S1 normal heart sound present and S2 normal heart sound present GI: COMMON NORMALS: Normal to inspection, nondistended, normoactive bowel sounds present, Soft to palpation and non-tender PALPATION: Yes Soft to palpation Extremity: COMMON NORMALS: no joint enlargement and no pedal edema Neuro: COMMON NORMALS: moves all extremities; negative for patient oriented x3 SENSORIUM/ORIENTATION: Yes alert OTHER: Very limited exam, does appear to track my face side to side, does not follow directions. Does appear to attempt hold of her left arm, some spontaneous movement on the right, definitely left side weaker. Appears to have right-sided facial droop. Skin: COMMON NORMALS: no rashes or lesions noted GENERAL SKIN EXAM: no rashes or lesions noted, dry skin and other (Backside was not seen) Urinary Catheter Management: Jay: Cath Placed During This Visit: no Data : 05/11/22 07:10 05/11/22 07:10 A&P Assessment and plan (1) Acute encephalopathy: Without improvement in her mental status so far. Temporal bone CT with pansinusitis. Bilateral external auditory canal material with small quantity of material laterally in the left ear possibly small clot, in setting of tympanic membrane perforation. As otherwise so far medical is not improved, additional assessment with LP, seizure less likely, but will see if can set up for EEG given history of epilepsy, temporal lobe encephalomalacia. Continue empiric antibiotic coverage including for pansinusitis, otitis media. Possible UTI. She is awake, but appears confused, at times answers to questions, but unclear how reliable her answers are. Does not really follow directions. Acute encephalopathy, unclear cause. Possible postictal state after seizure or less likely subacute neurologic event. Noted some chronic neurologic deficits. Cannot exclude possible postictal state. Cannot exclude possible CVA, although he is outside of tPA window. I do not readily appreciate additional neurologic deficits. Did complain of headache on 05/08 on 05/09 as per SNF and received Tylenol. Status: Acute (2) Sinusitis: As above. Status: Acute (3) Otitis media: Possible otitis media. As above. Assess CT temporal bones. Status: Acute Plan Hypothyroidism: Borderline TSH. Chronic neurologic deficits Cognitive impairment Epilepsy Fibromyalgia Hypothyroidism Other comorbidities noted. Attestations Medical Necessity Statement*: Continue assessment of management of acute encephalopathy as above. 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
--- NOTE | 2022-05-11 12:24 | FL_ITS ---
WS: [id number] LUMBAR PUNCTURE CLINICAL INFORMATION: AMS COMPARISON: None. TECHNIQUE: Informed consent: The procedure and its potential risk and complications were discussed with the jamin ent. Verbal and written consent was obtained. Timeout: A timeout was performed to confirm correct patient, procedure, and site. Patient was prepped and draped in the usual sterile fashion. Lidocaine 1% was used for local anesthes ia. Utilizing fluoroscopic guidance, a 3.5 inch 22-gauge spinal needle was advanced into the subarach noid space at L2-L3 via right oblique sublaminar approach. Free flow of clear CSF was obtained. 8 cc of CSF was collected and sent the lab for further analysis. FLUOROSCOPIC TIME: 1min [id number] # of spot films: 1 FL/FL guided lumbarpunc dx* [id number] IMPRESSION: Fluoroscopically guided lumbar puncture. No immediate complications
--- NOTE | 2022-05-11 13:12 | PC.CHAP ---
Pastoral Care Encounter/Spiritual Assessment Type of Contact [] Declined solar project engineer visit [] Patient/Family/Request visit [] Outpatient visit [] Follow-up visit [] Physician referral [] Code/Alert [x] Routine visit [] Staff referral [] Actively dying [] Patient sleeping [] Family support [] [] Out of room [] Palliative care [] [] Receiving care in room [] Pre-surgical visit [] Trauma [] Long length of stay [] ICU visit [] Other: Relational/Emotional Strength [x] Patient feels connected with others/family/visitors/staff [] Distress [] Loneliness/isolation [] Abandonment Spirituality of Patient [x] Person of [place] [] Attends Pentecostal of their [place] [x] Believes in Prayer [] Reads Bible or Hindu materials [] There are Spiritual issues to be addressed Polymer Specialist Interventions x Active listening [x] Non-anxious presence [x] Spiritual/emotional support [] Crisis/trauma care [] Spiritual counseling [] Bereavement support [] Provided bereavement packet [] Provided Bible/devotional materials [] Provided toy/stuffed animal, coloring book to patient or family member [] Provided Communion [] Anointing/[place] [] Salvation [x] Completed spiritual assessment [] Other: Impact on Illness or Injury [] Angry [] Fearful [] Anxious [] Often cries [] Exhaustion [] Unable to work [] Unable to attend samaritan [] Unable to walk/stand [] Unable to read [] Unable to drive [] Unable to eat/drink [] Unable to sleep [] Unable to be with family [] Patient intubated [] Other: n Summary Time spent with patient 10 mi
[2022-05-11] MEDS: vancomycin 1,500 MG/300 ML PIGGYBACK 150 MG IV (16:54)
[2022-05-11 18:54] LABS: CSF Mononuclear # 0.001 10^3/uL (50-90); Mononuclear WBC CSF % 50 % (50-90); Polynuclear Cells ,CSF # 0.001 10^3/uL (0-10); Polynuclear WBC CSF % 50 % (0-10); Red Blood Cell CSF 0 10^3/uL (0-0); White Blood Cell CSF 2 /uL (0-5)
[2022-05-11 18:57] LABS: Appearance CSF CLEAR (CLEAR); Color CSF COLORLESS (COLORLESS)
[2022-05-11 19:03] LABS: Glucose CSF 77 mg/dL (40-70); Total Protein CSF 100 mg/dL (15-45)
[2022-05-11 19:19] LABS: Cyto Order Verification No Order
[2022-05-12] VITALS (8 sets, daily range): BP systolic 120–133; BP diastolic 63–89; PULSE 98–120; RESP 16–24; TEMP 36.4–37; O2SAT 88–98
[2022-05-12 05:14] LABS: Basophils % 0.3 %; Eosinophils # 0.5 10^3/uL (0.0-0.8); Hematocrit 41.1 % (37.0-47.0); Hemoglobin 12.8 g/dL (11.5-15.3); Lymphocytes # 1.6 10^3/uL (0.8-4.8); Lymphocytes % 17.2 %; Mean Corpuscular HGB Conc 31.1 g/dL (30.0-36.0); Mean Corpuscular Hemoglobin 31.3 pg (28.0-34.0); Mean Corpuscular Volume 100.5 fl (81-99); Mean Platelet Volume 9.1 fL (7.4-10.4); Monocytes # 0.7 10^3/uL (0.2-0.9); Monocytes % 7.4 %; Neutrophils # 6.18 10^3/uL (1.8-7.7); Neutrophils % 68.5 %; Nucleated Red Blood Cells % 0 %; Platelet Count 303 10^3/cmm (130-400); Red Blood Count 4.09 10^6/uL (4.1-5.3); Red Cell Distribution Width 12.3 % (12.1-15.1)
[2022-05-12 05:41] LABS: Alanine Aminotransferase 19 U/L (0-33); Albumin Level 2.9 g/dL (3.5-5.2); Alkaline Phosphatase 148 U/L (35-105); Anion Gap 16.7 (5-19); Aspartate Amino Transferase 10 U/L (0-32); Blood Urea Nitrogen 9 mg/dL (8-23); Calcium 8.5 mg/dL (8.5-10.5); Carbon Dioxide 22 mmol/L (22-29); Chloride 104 mmol/L (98-107); Globulin 3.6 g/dL (1.3-4.6); Glomerular Filtration Rate 123.4 mL/min (90-130); Glucose 125 mg/dL (65-115); Osmolality Calculated 288 mOsm/kg (285-295); Potassium 3.7 mmol/L (3.5-5.1); Sodium 139 mmol/L (136-145); Total Bilirubin 0.3 mg/dL (0.15-1.2); Total Protein 6.5 g/dL (6.6-8.7)
[2022-05-12] MEDS: cefTRIAXone 2,000 MG in sodium chloride 0.9% (plus) 50 ML 100 MG IV ×2 (06:02→17:56)
[2022-05-12] MEDS: heparin 5,000 unit/mL INJ 1 mL 5000 UNIT SUBCUT ×2 (09:08→21:37)
[2022-05-12] MEDS: vancomycin 1,500 MG/300 ML PIGGYBACK 150 MG IV (09:08)
--- NOTE | 2022-05-12 16:30 | P.PN_ITS ---
Subjective Subjective: Today she is doing perhaps very slightly better. She opens her eyes, makes eye contact, still unable to answer questions well. Appears to mumble when attempting to speak. Does not follow commands readily, but does mimic when shown to squeeze her hands, tends to squeeze her right hand, weaker in the left hand. Does not follow other directions for me. Vitals/I&O/Wt Last Vital Signs Temp 97.9 F 05/12/22 15:54 Pulse 98 05/12/22 15:54 Resp 18 05/12/22 15:54 BP 128/79 05/12/22 15:54 Pulse Ox 98 05/12/22 15:54 O2 Del Method 05/12/22 15:54 O2 Flow Rate 2 05/12/22 08:00 05/12/22 05/12/22 05/12/22 06:59 14:59 22:59 Intake Total 399.4 / 981.6 417.2 / 417.2 Balance 399.4 / 331.6 417.2 / 417.2 Weight last 48 hrs Weight 86.324 kg Weight 83.007 kg Physical Exam Const: COMMON NORMALS: alert; negative for patient oriented x3 GENERAL APPEARANCE: not cooperative ORIENTATION/CONSCIOUSNESS: Yes awake and Yes confused OTHER: More awake today. HENMT: COMMON NORMALS: oropharynx normal Neck/C-Spine: COMMON NORMALS: no JVD Resp: COMMON NORMALS: normal respiratory effort and clear to auscultation bilaterally AUSCULTATION: clear to auscultation bilaterally Cardio: COMMON NORMALS: no JVD, regular rhythm, S1 normal heart sound present, S2 normal heart sound present and No murmurs present (Cardio) RHYTHM: regular rhythm HEART SOUNDS: S1 normal heart sound present and S2 normal heart sound present GI: COMMON NORMALS: Normal to inspection, nondistended, normoactive bowel s ounds present, Soft to palpation and non-tender PALPATION: Yes Soft to pa lpation Extremity: COMMON NORMALS: no joint enlargement and no pedal edema Neuro: COMMON NORMALS: moves all extremities; negative for patient oriented x3 SENSORIUM/ORIENTATION: Yes alert OTHER: Very limited exam, does appear to track my face side to side, does not follow directions. Does appear to attempt hold of her left arm, some spontaneous movement on the right, definitely left side weaker. Appears to have right-sided facial droop. Skin: COMMON NORMALS: no rashes or lesions noted GENERAL SKIN EXAM: no rashes or lesions noted, dry skin and other (Backside was not seen) Urinary Catheter Management: Jay: Cath Placed During This Visit: yes Reason for Continuing Indwelling Catheter: Acute Urinary Retention or Obstruction Urinary Catheter Date of Insertion: 05/10/22 Urinary Catheter Time of Insertion: 15:58 Data : 05/12/22 04:17 05/12/22 04:17 Micro: Microbiology 05/11/22 13:03 Urine Culture - Preliminary Urine,Clean Catch A&P Assessment and plan (1) Acute encephalopathy: Slight improvement in mental status today, although very slow improvement. Follow-up culture results appreciated, does not appear to have true meningitis, also less likely viral meningitis. With possible encephalopathy secondary to infection, pansinusitis, continue antibiotics for now with ceftriaxone, vancomycin. Given speech impairment for now continue acyclovir. Change HSV culture to viral culture. Assess MRI, MRV brain. 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 We will at this time load with phenytoin for possible nonconvulsive seizure. In case improving continue phenytoin in addition to Keppra. Otherwise transferred to [facility] for further assessment by EEG, neurology, medication titration. Discussed with her daughter. Without improvement in her mental status so far. Temporal bone CT with pansinusitis. Bilateral external auditory canal material with small quantity of material laterally in the left ear possibly small clot, in setting of tympanic membrane perforation. Continue empiric antibiotic coverage including for pansinusitis, otitis media. Possible UTI. Status: Acute (2) Sinusitis: As above. Status: Acute (3) Otitis media: Possible otitis media. As above. With tympanic membrane perforation. Continue ceftriaxone, vancomycin. Pansinusitis on CT temporal bones. Status: Acute Plan Hypothyroidism: Borderline TSH. Chronic neurologic deficits Cognitive impairment Epilepsy Fibromyalgia Hypothyroidism Other comorbidities noted. Attestations Medical Necessity Statement*: Continue admission for assessment of management of acute encephalopathy of unclear etiology, possible infectious etiology, possible other cause, including possible nonconvulsive seizure. 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
[2022-05-12 23:20] LABS: Adenovirus Not Detected (NOT DETECT); Chlamydia Pneumoniae Not Detected (NOT DETECT); Coronavirus 229E,HKU1,NL63,OC4 Not Detected (NOT DETECT); Human Metapneumovirus Not Detected (NOT DETECT); Human Rhinovirus/Enterovirus Not Detected (NOT DETECT); Influenza A Not Detected (NOT DETECT); Influenza A H1 Not Detected (NOT DETECT); Influenza A H1-2009 Not Detected (NOT DETECT); Influenza A H3 Not Detected (NOT DETECT); Influenza B Not Detected (NOT DETECT); Mycoplasma Pneumoniae Not Detected (NOT DETECT); Parainfluenza Virus Type 1 Not Detected (NOT DETECT); Parainfluenza Virus Type 2 Not Detected (NOT DETECT); Parainfluenza Virus Type 3 Not Detected (NOT DETECT); Parainfluenza Virus Type 4 Not Detected (NOT DETECT); Respiratory Syncytial Virus A Not Detected (NOT DETECT); Respiratory Syncytial Virus B Not Detected (NOT DETECT); SARS-COV-2 Not Detected (NOT DETECT)
[2022-05-13] VITALS (8 sets, daily range): BP systolic 125–146; BP diastolic 62–82; PULSE 96–111; RESP 14–18; TEMP 36.3–37.2; O2SAT 90–92
[2022-05-13] MEDS: vancomycin 1,500 MG/300 ML PIGGYBACK 150 MG IV (03:29)
[2022-05-13 04:05] LABS: Basophils % 0.2 %; Eosinophils # 0.6 10^3/uL (0.0-0.8); Eosinophils % 6.6 %; Hematocrit 38.2 % (37.0-47.0); Hemoglobin 12.2 g/dL (11.5-15.3); Lymphocytes # 1.9 10^3/uL (0.8-4.8); Lymphocytes % 20.1 %; Mean Corpuscular HGB Conc 31.9 g/dL (30.0-36.0); Mean Corpuscular Hemoglobin 30.9 pg (28.0-34.0); Mean Corpuscular Volume 96.7 fl (81-99); Mean Platelet Volume 9.5 fL (7.4-10.4); Monocytes # 0.7 10^3/uL (0.2-0.9); Monocytes % 7.1 %; Neutrophils # 6.21 10^3/uL (1.8-7.7); Neutrophils % 65.1 %; Nucleated Red Blood Cells % 0 %; Platelet Count 338 10^3/cmm (130-400); Red Blood Count 3.95 10^6/uL (4.1-5.3); White Blood Count 9.6 10^3/uL (4.0-10.0)
[2022-05-13 04:28] LABS: Alanine Aminotransferase 19 U/L (0-33); Alkaline Phosphatase 149 U/L (35-105); Anion Gap 17.6 (5-19); Aspartate Amino Transferase 12 U/L (0-32); Blood Urea Nitrogen 8 mg/dL (8-23); Calcium 8.7 mg/dL (8.5-10.5); Carbon Dioxide 23 mmol/L (22-29); Chloride 102 mmol/L (98-107); Globulin 3.5 g/dL (1.3-4.6); Glucose 114 mg/dL (65-115); Osmolality Calculated 287 mOsm/kg (285-295); Potassium 3.6 mmol/L (3.5-5.1); Sodium 139 mmol/L (136-145); Total Bilirubin 0.2 mg/dL (0.15-1.2); Total Protein 6.5 g/dL (6.6-8.7)
[2022-05-13 04:32] LABS: Vancomycin Trough 7.1 ug/mL (10-15)
--- NOTE | 2022-05-13 04:49 | PC.PHAR ---
Vancomycin trough on dosage of 1500mg IVPB every 18 hours is 7.1. Dosage is increased to 1250mg IVPB every 12 hours with another trough level to be obtained before the fourth 1250mg dose.
[2022-05-13] MEDS: cefTRIAXone 2,000 MG in sodium chloride 0.9% (plus) 50 ML 100 MG IV ×2 (06:29→17:49)
[2022-05-13 07:12] LABS: Glucose Point of Care 115 mg/dL (70-110)
[2022-05-13] MEDS: heparin 5,000 unit/mL INJ 1 mL 5000 UNIT SUBCUT ×2 (09:19→19:51)
--- NOTE | 2022-05-13 10:34 | PC.SOCIAL ---
IMM Update IMM updated. Message left w/ patients daughter Maryan to updated IMM. Copy left in room. Copy dated, initialed and placed in chart.
--- NOTE | 2022-05-13 14:34 | P.PN_ITS ---
Subjective Subjective: She appears to be further improving today. She is awake, looks at me as soon as a walk-in. She is now responding, although requires repetition of questions several times. She tells me she has a cold, pointing to her nose and lower forehead. States that she is very congested. Denies headache otherwise. Follows directions to squeeze her right hand, does attempt to also squeeze left, but much weaker. Vitals/I&O/Wt Last Vital Signs Temp 99.0 F 05/13/22 12:00 Pulse 96 05/13/22 12:00 Resp 18 05/13/22 12:00 BP 131/82 05/13/22 12:00 Pulse Ox 90 05/13/22 12:00 O2 Del Method 05/13/22 12:00 O2 Flow Rate 1.5 05/13/22 00:00 05/12/22 05/13/22 05/13/22 22:59 06:59 14:59 Intake Total 542.2 / 959.4 417.2 / 1376.6 185 / 185 Output Total 1000 / 1000 525 / 1525 Balance -457.8 / -40.6 -107.8 / -148.4 185 / 185 Weight last 48 hrs Weight 85.956 kg Weight 86.324 kg Physical Exam Const: COMMON NORMALS: alert; negative for patient oriented x3 ORIENTATION/CONSCIOUSNESS: Yes awake OTHER: Mental status continues to improve. HENMT: COMMON NORMALS: oropharynx normal Neck/C-Spine: COMMON NORMALS: no JVD Resp: COMMON NORMALS: normal respiratory effort and clear to auscultation bilaterally AUSCULTATION: clear to auscultation bilaterally Cardio: COMMON NORMALS: no JVD, regular rhythm, S1 normal heart sound present, S2 normal heart sound present and No murmurs present (Cardio) RHYTHM: regular rhythm HEART SOUNDS: S1 normal heart sound present and S2 normal heart sound present GI: COMMON NORMALS: Normal to inspection, nondistended, normoactive bowel sounds present, Soft to palpation and non-tender PALPATION: Yes Soft to palpation Extremity: COMMON NORMALS: no joint enlargement and no pedal edema Neuro: COMMON NORMALS: moves all extremities; negative for patient oriented x3 SENSORIUM/ORIENTATION: Yes alert OTHER: Does not follow directions very well. Does move her right side. Left side tend s to squeeze her hand, but is weaker. Unclear how much worse this is compared to her usual left-sided deficit. Skin: COMMON NORMALS: no rashes or lesions noted GENERAL SKIN EXAM: no rashes or lesions noted, dry skin and other (Backside was not seen) Urinary Catheter Management: Jay: Cath Placed During This Visit: yes Reason for Continuing Indwelling Catheter: Chronic Indwelling Urinary Catheter on Admission Urinary Catheter Date of Insertion: 05/10/22 Urinary Catheter Time of Insertion: 15:58 Data : 05/13/22 02:45 05/13/22 02:45 Micro: Microbiology 05/11/22 15:10 CSF Culture - Preliminary Cerebrospinal Fluid 05/11/22 13:03 Urine Culture - Final Urine,Clean Catch A&P Assessment and plan (1) Acute encephalopathy: Today she is showing more improvement. She does require repetition of directions, does not follow directions very well, but does do so after some encouragement. Answer some basic questions. Tells me she is having a cold with congestion, no other headache. At this time continue empiric antibiotics for pansinusitis suspected otitis media. For now continue empiric antiepileptics with Keppra, phenytoin. EEG on Saturday. With left side weakness, appears may be worse compared to baseline MRI, MRV are requested. ST assessment, may be able to resume oral intake and medications. Temporal bone CT with pansinusitis. Bilateral external auditory canal material with small quantity of material laterally in the left ear possibly small clot, in setting of tympanic membrane perforation. Possible UTI but culture unrevealing. Status: Acute (2) Sinusitis: As above. Status: Acute (3) Otitis media: Possible otitis media. As above. With tympanic membrane perforation. Continue ceftriaxone, vancomycin. Pansinusitis on CT temporal bones. Status: Acute Plan Hypothyroidism: Borderline TSH. Chronic neurologic deficits Cognitive impairment Epilepsy Fibromyalgia Hypothyroidism Other comorbidities noted. Attestations Medical Necessity Statement*: Continue admission for assessment management of acute encephalopathy, further assessment of worse left-sided weakness compared to baseline. 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
[2022-05-13] MEDS: vancomycin 1,250 MG/250 ML PIGGYBACK 125 MG IV (15:50)
[2022-05-14] VITALS (7 sets, daily range): BP systolic 126–146; BP diastolic 76–80; PULSE 85–114; RESP 18; TEMP 36.5–37.2; O2SAT 90–99
[2022-05-14] MEDS: vancomycin 1,250 MG/250 ML PIGGYBACK 125 MG IV (03:06)
[2022-05-14 05:03] LABS: Basophils % 0.4 %; Eosinophils # 0.7 10^3/uL (0.0-0.8); Eosinophils % 7.5 %; Hematocrit 36.9 % (37.0-47.0); Hemoglobin 11.9 g/dL (11.5-15.3); Lymphocytes # 1.7 10^3/uL (0.8-4.8); Lymphocytes % 19.3 %; Mean Corpuscular HGB Conc 32.2 g/dL (30.0-36.0); Mean Corpuscular Hemoglobin 31.2 pg (28.0-34.0); Mean Corpuscular Volume 96.9 fl (81-99); Mean Platelet Volume 8.9 fL (7.4-10.4); Monocytes # 0.7 10^3/uL (0.2-0.9); Monocytes % 7.8 %; Neutrophils # 5.66 10^3/uL (1.8-7.7); Neutrophils % 62.9 %; Nucleated Red Blood Cells % 0 %; Platelet Count 309 10^3/cmm (130-400); Red Blood Count 3.81 10^6/uL (4.1-5.3); Red Cell Distribution Width 12.1 % (12.1-15.1)
[2022-05-14 05:28] LABS: Alanine Aminotransferase 17 U/L (0-33); Albumin Level 2.8 g/dL (3.5-5.2); Alkaline Phosphatase 150 U/L (35-105); Anion Gap 15.6 (5-19); Aspartate Amino Transferase 12 U/L (0-32); Blood Urea Nitrogen 9 mg/dL (8-23); Calcium 8.5 mg/dL (8.5-10.5); Carbon Dioxide 22 mmol/L (22-29); Chloride 105 mmol/L (98-107); Globulin 3.5 g/dL (1.3-4.6); Glomerular Filtration Rate 123.4 mL/min (90-130); Glucose 112 mg/dL (65-115); Osmolality Calculated 287 mOsm/kg (285-295); Potassium 3.6 mmol/L (3.5-5.1); Sodium 139 mmol/L (136-145); Total Bilirubin 0.2 mg/dL (0.15-1.2); Total Protein 6.3 g/dL (6.6-8.7)
[2022-05-14] MEDS: cefTRIAXone 2,000 MG in sodium chloride 0.9% (plus) 50 ML 100 MG IV (05:37)
--- NOTE | 2022-05-14 09:30 | MR_ITS ---
WS: [id number] MR VENOGRAPHY HEAD 3-D noncontrast imaging performed through the cerebral veins. All imaging is reviewed. HISTORY: AMS, pansinusitis COMPARISON: 03/20/2018 MRI brain with and without contrast. Normal appearance of the superior sagittal sinus, RIGHT transverse and sigmoid sinus and jugular vein . Normal signal is evident. There is lack of signal within the LEFT transverse sinus into the sigmoid sinus and jugular vein. 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 Review of the prior CT angiogram from 09/14/2017 which demonstrated a very small LEFT white sverse sinus. Also the LEFT jugular foramen is small compared to the RIGHT suggesting this is a conge nital abnormality. Also no signal abnormality was noted on the noncontrast MRI the brain in the regio n of the sinuses. LEFT jugular vein is smaller than the RIGHT. MR/[place] [id number] IMPRESSION: 1. Lack of signal and flow in the LEFT transverse sinus through the sigmoid si nus and a small caliber LEFT jugular vein. 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 Small caliber LEFT transverse sinus and sigmoid s inus was noted also on a CT angiogram from 09/14/2017. No signal abnormalities a re noted on the noncontrast MRI brain. No acute infarcts were noted on the rece nt MRI brain. 2. Normal superior sagittal sinus and RIGHT transverse sinus.
[2022-05-14] MEDS: heparin 5,000 unit/mL INJ 1 mL 5000 UNIT SUBCUT ×2 (09:50→21:42)
--- NOTE | 2022-05-14 12:33 | PM.PN ---
Subjective Subjective: This morning patient is noted noticing new complaints MRI MRV unremarkable No signs of acute stroke Most likely her encephalopathy was related to seizure Lumbar puncture CSF study negative for malignancy Vitals/I&O/Wt Last Vital Signs Temp 98.3 F 05/14/22 11:51 Pulse 100 05/14/22 11:51 Resp 18 05/14/22 11:51 BP 145/76 05/14/22 11:51 Pulse Ox 91 05/14/22 11:51 O2 Del Method 05/14/22 11:51 O2 Flow Rate 2 05/13/22 20:00 05/13/22 05/14/22 05/14/22 22:59 06:59 14:59 Intake Total 669.4 / 854.4 552.2 / 1406.6 Output Total 1000 / 1000 Balance 669.4 / 854.4 -447.8 / 406.6 Weight last 48 hrs Weight 86.908 kg Weight 85.956 kg Physical Exam Narrative: Patient is able to shake hands with right hand Left side is much weaker as compared to right, she was able to fold her right knee and lift her right leg in the air for about few seconds Left leg is much weaker No signs of edema Abdomen soft Currently on room air Right-sided mild facial droop Currently she is on room air Abdomen soft S1, S2 Afebrile No signs of meningitis or encephalitis No signs of confusion Urinary Catheter Management: Jay: Cath Placed During This Visit: yes Reason for Continuing Indwelling Catheter: Other Urinary Catheter Date of Insertion: 05/10/22 Urinary Catheter Time of Insertion: 15:58 Data : 05/14/22 04:46 05/14/22 04:46 Micro: Microbiology 05/11/22 15:10 Gram Stain - Final Cerebrospinal Fluid CSF Culture - Final 05/11/22 13:03 Urine Culture - Final Urine,Clean Catch A&P Assessment and plan (1) Otitis media: Status: Acute (2) Acute encephalopathy: Status: Acute (3) Altered mental status: Status: Acute (4) Sinusitis: Status: Acute (5) Obesity (BMI 30-39.9): Status: Chronic (6) Fibromyalgia: Status: Chronic (7) Slow transit constipation: Status: Chronic (8) Generalized epilepsy: Status: Chronic (9) Hypothyroidism, unspecified: Status: Chronic Qualifiers: Hypothyroidism type: acquired Qualified Code(s): E03.9 - Hypothyroidism, unspecified (10) Lives in assisted living facility: Status: Chronic (11) Cognitive impairment: Status: Chronic Plan Encephalopathy: Resolved Mild cognitive impairment CSF negative Had MRI MRV negative No signs of stroke However she does have right-sided weakness, right-sided facial droop, Mastoiditis No signs of encephalitis or meningitis Most likely her symptoms are related to breakthrough seizure and postictal confusion She is full code Will advance diet after speech therapy evaluation She has been getting Keppra and phenytoin She is also on acyclovir ceftriaxone and vancomycin: These antibiotics were given as empirical treatment for possible aseptic meningitis I will discontinue antibiotics and continue ceftriaxone for left mastoid effusion and otitis media 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
[2022-05-14 14:00] LABS: Prolactin 43.84 ng/mL (4.8-23.3)
--- NOTE | 2022-05-14 14:34 | MR_ITS ---
WS: [id number] MRI BRAIN WITHOUT CONTRAST HISTORY: AMS, history of tumor removal. COMPARISON: 02/23/2019, 03/20/2018, head CT 05/10/2022 TECHNIQUE: Diffusion imaging, multiplanar T1, T2 and FLAIR imaging obtained. Diffusion-weighted images are normal. Stable postoperative changes from a prior RIGHT frontotemporal craniotomy. 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 There is encephalomalaci a and fluid signal filling the resection site. No contrast was given for this examination. The enceph alomalacia and the adjacent T2 and FLAIR signal hyperintensities are unchanged in signal and extent s tom 02/23/2019. Moderate small vessel ischemic disease confluent around the ventricles. Mild ventriculomegaly of the RIGHT lateral ventricle. There is mild volume loss and atrophy of the br ain. Extra-axial spaces are prominent but stable. Previously described RIGHT frontal subdural hygroma is decreased as compared to the prior examination. No inferior displacement of cerebellar tonsils. The sella turcica and pituitary gland are unremarkabl e. On this unenhanced examination no signal abnormalities are noted along the dural venous sinuses of th e [place]. There is motion artifact causing some limitation. Paranasal sinuses: Extensive mucoperiosteal thickening and fluid in the maxillary and ethmoid air tino ls. There is also extension to the sphenoid air cells. These findings were recently described on a he ad CT and temporal bone CT. New since the MRI of 02/23/2019. Mastoid air cells: Small amount of fluid in the LEFT mastoid air cells. New since 02/23/2019. Calvarium and scalp: Prior RIGHT frontotemporal craniotomy. MR/MR head wo con* [id number] IMPRESSION: 1. No acute infarct or hemorrhage. 2. Stable postoperative changes in the RIGHT temporal lobe with resection of a prior tumor. The RIGHT frontal temporal craniotomy is stable. No significant c hange in the signal but this study was performed without IV contrast. Stable si nce 02/23/2019. 3. No signal abnormalities noted along the dural venous sinuses. 4. Extensive new pansinusitis predominantly involving the ethmoid, maxillary s phenoid sinuses. 5. New LEFT mastoid effusion.
[2022-05-15] VITALS (7 sets, daily range): BP systolic 129–147; BP diastolic 74–85; PULSE 90–106; RESP 16–20; TEMP 36.5–37.4; O2SAT 87–94
[2022-05-15 04:58] LABS: Basophils # 0.1 10^3/uL (0.0-0.1); Basophils % 0.8 %; Eosinophils # 0.7 10^3/uL (0.0-0.8); Eosinophils % 7.9 %; Hematocrit 37.7 % (37.0-47.0); Hemoglobin 12.3 g/dL (11.5-15.3); Lymphocytes % 21.7 %; Mean Corpuscular HGB Conc 32.6 g/dL (30.0-36.0); Mean Corpuscular Hemoglobin 31.2 pg (28.0-34.0); Mean Corpuscular Volume 95.7 fl (81-99); Mean Platelet Volume 9.3 fL (7.4-10.4); Monocytes # 0.7 10^3/uL (0.2-0.9); Monocytes % 7.9 %; Neutrophils # 5.27 10^3/uL (1.8-7.7); Neutrophils % 56.5 %; Nucleated Red Blood Cells % 0.2 %; Platelet Count 349 10^3/cmm (130-400); Positive C 1; Positive M 1; Red Blood Count 3.94 10^6/uL (4.1-5.3); Red Cell Distribution Width 11.9 % (12.1-15.1); White Blood Count 9.3 10^3/uL (4.0-10.0)
[2022-05-15 05:25] LABS: Vancomycin Trough 6.5 ug/mL (10-15)
[2022-05-15 05:27] LABS: Alanine Aminotransferase 17 U/L (0-33); Albumin Level 2.9 g/dL (3.5-5.2); Alkaline Phosphatase 154 U/L (35-105); Anion Gap 17.5 (5-19); Aspartate Amino Transferase 13 U/L (0-32); Blood Urea Nitrogen 10 mg/dL (8-23); Calcium 8.9 mg/dL (8.5-10.5); Carbon Dioxide 22 mmol/L (22-29); Chloride 101 mmol/L (98-107); Globulin 3.7 g/dL (1.3-4.6); Glucose 90 mg/dL (65-115); Osmolality Calculated 283 mOsm/kg (285-295); Potassium 3.5 mmol/L (3.5-5.1); Sodium 137 mmol/L (136-145); Total Bilirubin 0.2 mg/dL (0.15-1.2); Total Protein 6.6 g/dL (6.6-8.7)
[2022-05-15 05:43] LABS: Slide Review Slide Review Perform
[2022-05-15] MEDS: cefTRIAXone 1,000 MG in sodium chloride 0.9% (plus) 50 ML 100 MG IV (10:12)
[2022-05-15] MEDS: heparin 5,000 unit/mL INJ 1 mL 5000 UNIT SUBCUT ×2 (10:15→23:13)
--- NOTE | 2022-05-15 10:23 | PC.SOCIAL ---
IMM Update pg 2 of IMM updated and reviewed w/ patients daughter. Copy provided and Copy in chart dated and initialed. Copy left @ bedside.
--- NOTE | 2022-05-15 10:48 | PM.PN ---
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 Vitals/I&O/Wt Last Vital Signs Temp 98.7 F 05/15/22 08:00 Pulse 92 05/15/22 08:00 Resp 18 05/15/22 08:00 BP 131/78 05/15/22 08:00 Pulse Ox 94 05/15/22 08:00 O2 Del Method 05/15/22 08:00 O2 Flow Rate 0.5 05/15/22 08:00 05/14/22 05/15/22 05/15/22 22:59 06:59 14:59 Intake Total 255 / 275 135 / 410 Output Total 650 / 650 Balance 255 / 275 -515 / -240 Weight last 48 hrs Weight 87.453 kg Weight 86.908 kg Physical Exam Narrative: Patient laying supine She is being spoon fed by the TRUCK DRIVING INSTRUCTOR No signs of aspiration or choking Bilateral good breath sounds She is on room air She is able to raise her right hand and shake my hand She has some movement of right leg, left leg is more weaker Does not look dehydrated Abdomen is soft eomi perrla Urinary Catheter Management: Jay: Cath Placed During This Visit: yes Reason for Continuing Indwelling Catheter: Acute Urinary Retention or Obstruction Urinary Catheter Date of Insertion: 05/10/22 Urinary Catheter Time of Insertion: 15:58 Data : 05/15/22 04:06 05/15/22 04:06 Micro: Microbiology 05/11/22 15:10 Gram Stain - Final Cerebrospinal Fluid CSF Culture - Final A&P Assessment and plan (1) Otitis media: Status: Acute (2) Acute encephalopathy: Status: Acute (3) Altered mental status: Status: Acute (4) Sinusitis: Status: Acute (5) Fibromyalgia: Status: Chronic (6) Slow transit constipation: Status: Chronic Plan Breakthrough seizure: Uncontrolled I will switch her to p.o. antiepileptic regimen Mastoid effusion I will keep her on Augmentin She is able to tolerate p.o. 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
[2022-05-15] MEDS: phenytoin ER 100 mg Capsule 200 MG PO ×2 (12:28→17:32)
[2022-05-15] MEDS: levETIRAcetam 500 mg Tablet 1000 MG PO ×2 (12:28→17:33)
[2022-05-15] MEDS: lanolin oint 7 gm 1 APPLIC TOPICAL (23:14)
[2022-05-16] VITALS: BP 142/80; PULSE 90; RESP 18; TEMP 37; O2SAT 95
[2022-05-16 03:39] LABS: SARS Covid-2 Antigen Negative (Negative)
[2022-05-16 04:00] VITALS: BP 143/79; PULSE 90; RESP 17; TEMP 36.4; O2SAT 93
[2022-05-16 07:49] VITALS: BP 130/80; PULSE 95; RESP 18; TEMP 36.7; O2SAT 91
[2022-05-16] MEDS: levETIRAcetam 500 mg Tablet 1000 MG PO (08:51)
[2022-05-16] MEDS: cefTRIAXone 1,000 MG in sodium chloride 0.9% (plus) 50 ML 100 MG IV (08:51)
[2022-05-16] MEDS: phenytoin ER 100 mg Capsule 200 MG PO (08:51)
[2022-05-16] MEDS: heparin 5,000 unit/mL INJ 1 mL 5000 UNIT SUBCUT (08:51)
--- NOTE | 2022-05-16 10:35 | PM.DCS ---
Discharge Providers Date of Admission: 05/10/22 20:39 Date of Discharge: May 16, 2022 Attending Provider at Admission: Kody De La Fuente Attending Provider at Discharge: Elzbieta Wagner MD Primary Care Provider: CHAIM Elizalde Diagnoses at Discharge Discharge Diagnosis (1) Otitis media: Status: Acute (2) Acute encephalopathy: Status: Acute (3) Altered mental status: Status: Acute (4) Sinusitis: Status: Acute (5) Fibromyalgia: Status: Chronic (6) Slow transit constipation: Status: Chronic Reason for Visit Reason for Visit: AMS Brief History: This H&P was done by admitting physician Dr. De La Fuente 67-year-old lady with history of chronic neurologic deficits with remote history of craniotomy, brain tumor removal, cognitive impairment, epilepsy, with normally ambulation limited to short distances or transfers, with some chronic left side weakness, with epilepsy usually with generalized tonic-clonic seizures, hypothyroidism, fibromyalgia, living in assisted living, sometimes having difficulty with communication when spoken to quickly, per report may then ignore what is being said. She is brought in for assessment from assisted living today due to altered mental status this morning, with last known well last night.? This morning was less cooperative, responsive, confused.? It is unknown if she had had a seizure recently, there was no witnessed seizure. She reportedly had complained of a headache on 05/08 and 05/09 for which received Tylenol.? Some bleeding was noted in left ear, with noted sinusitis on CT likely causing tympanic membrane rupture.? Due to this in ER she received Rocephin.? Subsequently additionally UA somewhat equivocal, 15-25 WBC, but also 15-25 squamous Pelo cells.? 3+ bacteria.? Nitrate negative. TSH minimally elevated 4.21. She herself opens her eyes, tracks when changing position, does appear to attempt answer some questions, nods no when asked if she is in pain.? Does not really answer other questions, does not follow directions. Hospital Course Hospital Course Patient was admitted for management evaluation of encephalopathy, her likely etiology was postictal confusion. She carries history of epilepsy takes Keppra. Lumbar puncture was unremarkable other than high protein she was kept on empirical antiviral and antibiotic coverage for possible meningoencephalitis however with initiation of antiepileptics her mentation improved significantly. 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 She is able to follow commands, she is getting dysphagia level 4 extremely thick. Diet with nectar thick liquid consistency. MRI head was done which was unremarkable without any acute infarctive changes. MRV was also unremarkable. 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 She remained afebrile. Temporal bone CT scan did show pansinusitis, cerumen impaction. Physical Exam Narrative: Patient laying supine No signs of aspiration or choking Bilateral good breath sounds She is on room air She is able to raise her right hand and shake my hand She has some movement of right leg, left leg is more weaker Does not look dehydrated Abdomen is soft eomi perrla Urinary Catheter Management: Jay: Cath Placed During This Visit: yes Reason for Continuing Indwelling Catheter: Acute Urinary Retention or Obstruction Urinary Catheter Date of Insertion: 05/10/22 Urinary Catheter Time of Insertion: 15:58 Discharge Data Studies Completed and Pending Completed Studies During Hospitalization Category Date Time Status CT head wo con* [id number] Stat Cat Scan 05/10/22 15:[address] temporal bone wo con* [id number] Stat Cat Scan 05/10/22 20:39 Completed Fluoro guided lumbar puncture [FL guided lumbarpunc dx* Exams 05/11/22 12:24 Completed [id number]] Routine XR chest 1V portable [id number] Stat Exams 05/10/22 15:20 Completed MR head wo con* [id number] Routine MRI 05/14/22 14:34 [place] [id number] Routine MRI 05/14/22 09:30 Completed Pending at discharge Category Date Time Status EEG electroencephalogram Routine Exams 05/11/22 11:24 Ordered Complete Blood Count w/Auto AM LABS Lab 05/16/22 04:00 Ordered Comprehensive Metabolic Panel AM LABS Lab 05/16/22 04:00 Ordered Herpes Simplex Virus DNA Routine Lab 05/11/22 15:10 Received Viral Culture Body Flds,Tissue Routine Lab 05/11/22 15:08 Received Radiology Impressions Chest X-Ray 05/10/22 15:20 Impression: Cardiomegaly. Head CT 05/10/22 15:20 IMPRESSION: No acute intracranial abnormality. Stable abnormal brain status post right craniotomy. Incidental note is made of opacification of the left right maxillary sinus and mucosal thickening in the left maxillary sinus. Opacification of the ethmoid sinuses and air-fluid levels in the sphenoid sinus. These findings are indicative of chronic sinusitis and possibly acute sinusitis in the sphenoid sinus. The findings were not present on the previous examination. Temporal Bone CT 05/10/22 20:39 IMPRESSION: Pansinusitis. Bilateral external auditory canal material as above with a small quantity of material laterally in the left middle ear that may represent small clot in the setting of tympanic membrane perforation. Lumbar Puncture Fluoroscopy 05/11/22 12:24 IMPRESSION: Fluoroscopically guided lumbar puncture. No immediate complications Head/Brain Mag Res Venography 05/14/22 09:30 IMPRESSION: 1. Lack of signal and flow in the LEFT transverse sinus through the sigmoid sinus and a small caliber LEFT jugular vein. 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 Small caliber LEFT transverse sinus and sigmoid sinus was noted also on a CT angiogram from 09/14/2017. No signal abnormalities are noted on the noncontrast MRI brain. No acute infarcts were noted on the recent MRI brain. 2. Normal superior sagittal sinus and RIGHT transverse sinus. Head MRI 05/14/22 14:34 IMPRESSION: 1. No acute infarct or hemorrhage. 2. Stable postoperative changes in the RIGHT temporal lobe with resection of a prior tumor. The RIGHT frontal temporal craniotomy is stable. No significant change in the signal but this study was performed without IV contrast. Stable since 02/23/2019. 3. No signal abnormalities noted along the dural venous sinuses. 4. Extensive new pansinusitis predominantly involving the ethmoid, maxillary sphenoid sinuses. 5. New LEFT mastoid effusion. Laboratory Results WBC 9.3 10^3/uL (4.0-10.0) 05/15/22 04:06 Corrected WBC Cancelled 05/15/22 02:48 RBC 3.94 10^6/uL (4.1-5.3) L 05/15/22 04:06 Hgb 12.3 g/dL (11.5-15.3) 05/15/22 04:06 Hct 37.7 % (37.0-47.0) 05/15/22 04:06 MCV 95.7 fl (81-99) 05/15/22 04:06 MCH 31.2 pg (28.0-34.0) 05/15/22 04:06 MCHC 32.6 g/dL (30.0-36.0) 05/15/22 04:06 RDW 11.9 % (12.1-15.1) L 05/15/22 04:06 Plt Count 349 10^3/cmm (130-400) 05/15/22 04:06 MPV 9.3 fL (7.4-10.4) 05/15/22 04:06 Gran % Cancelled 05/15/22 02:48 Neut % (Auto) 56.5 % 05/15/22 04:06 Lymph % (Auto) 21.7 % 05/15/22 04:06 Yell % (Auto) 7.9 % 05/15/22 04:06 Eos % (Auto) 7.9 % 05/15/22 04:06 Baso % (Auto) 0.8 % 05/15/22 04:06 Neut # (Auto) 5.27 10^3/uL (1.8-7.7) 05/15/22 04:06 Lymph # (Auto) 2.0 10^3/uL (0.8-4.8) 05/15/22 04:06 Yell # (Auto) 0.7 10^3/uL (0.2-0.9) 05/15/22 04:06 Eos # (Auto) 0.7 10^3/uL (0.0-0.8) 05/15/22 04:06 Baso # (Auto) 0.1 10^3/uL (0.0-0.1) 05/15/22 04:06 Absolute Gran (auto) Cancelled 05/15/22 02:48 Nucleated RBC % (auto) 0.2 % 05/15/22 04:06 Nucleated RBCs # 0.0 /100WBC 05/15/22 04:06 Specimen Type Arterial 05/10/22 16:20 Sample Site Radial, left 05/10/22 16:20 ABG pH 7.50 (7.35-7.45) H 05/10/22 16:20 ABG pCO2 28.4 mmHg (35-45) L 05/10/22 16:20 ABG pO2 117.0 mmHg (80.0-100.0) H 05/10/22 16:20 ABG HCO3 22.3 mmol/L (22-26) 05/10/22 16:20 ABG Base Excess 0.5 mmol/L (-2.0-2.0) 05/10/22 16:20 Ethan Test Pos 05/10/22 16:20 Hematocrit 47.3 % (37-47) H 05/10/22 16:20 O2 Delivery Device None 05/10/22 16:20 FiO2 21.0 % 05/10/22 16:20 Pantograph Transferrer ID glc 05/10/22 16:20 Sodium 137 mmol/L (136-145) 05/15/22 04:06 Potassium 3.5 mmol/L (3.5-5.1) 05/15/22 04:06 Chloride 101 mmol/L (98-107) 05/15/22 04:06 Carbon Dioxide 22 mmol/L (22-29) 05/15/22 04:06 Anion Gap 17.5 (5-19) 05/15/22 04:06 BUN 10 mg/dL (8-23) 05/15/22 04:06 Creatinine 0.6 mg/dL (0.5-0.9) 05/15/22 04:06 GFR Calculation 100.0 mL/min (90-130) 05/15/22 04:06 Glucose 90 mg/dL (65-115) 05/15/22 04:06 POC Glucose 115 mg/dL (70-110) H 05/13/22 06:54 Calculated Osmolality 283 mOsm/kg (285-295) L 05/15/22 04:06 Calcium 8.9 mg/dL (8.5-10.5) 05/15/22 04:06 Phosphorus 3.2 mg/dL (2.5-4.5) 05/11/22 07:10 Magnesium 1.9 mg/dL (1.7-2.3) 05/11/22 07:10 Total Bilirubin 0.2 mg/dL (0.15-1.2) 05/15/22 04:06 AST 13 U/L (0-32) 05/15/22 04:06 ALT 17 U/L (0-33) 05/15/22 04:06 Alkaline Phosphatase 154 U/L (35-105) H 05/15/22 04:06 Ammonia 22 umol/L (11-51) 05/10/22 16:00 Troponin T Baseline 6 ng/L (0-10) 05/10/22 15:30 Troponin T Hi Sens 6Hr 6.13 ng/L (0-10) 05/10/22 21:20 Troponin T Hi Sens 6Hr Delta 0.13 ng/L (0-12) 05/10/22 21:20 Total Protein 6.6 g/dL (6.6-8.7) 05/15/22 04:06 Albumin 2.9 g/dL (3.5-5.2) L 05/15/22 04:06 Globulin 3.7 g/dL (1.3-4.6) 05/15/22 04:06 Lipase 16 U/L (13-60) 05/10/22 15:30 TSH 4.21 uIU/mL (0.27-4.20) H 05/10/22 15:30 Prolactin 43.84 ng/mL (4.8-23.3) H 05/14/22 04:46 Urine Color Other (Yellow) 05/10/22 15:55 Urine Appearance Clear (CLEAR) 05/10/22 15:55 Urine pH 5 (5-7) 05/10/22 15:55 Ur Specific [place] 1.025 (1.005-1.030) 05/10/22 15:55 Urine Protein 1+ (Negative) H 05/10/22 15:55 Urine Glucose (UA) Norm (Normal) 05/10/22 15:55 Urine Ketones 1+ (Negative) H 05/10/22 15:55 Urine Blood 2+ (Negative) H 05/10/22 15:55 Urine Nitrate Negative (Negative) 05/10/22 15:55 Urine Bilirubin 1+ (Negative) H 05/10/22 15:55 Urine Urobilinogen 4 mg/dL (Negative) H 05/10/22 15:55 Ur Leukocyte Esterase Negative (Negative) 05/10/22 15:55 Urine RBC 0-4 /hpf (0-2) H 05/10/22 15:55 Urine WBC 15-25 /hpf (0-5) H 05/10/22 15:55 Ur Squamous Epith Cells 15-25 /hpf (0-5) H 05/10/22 15:55 Amorphous Sediment Not Reportable 05/10/22 15:55 Urine Bacteria 3+ /hpf (NONE) H 05/10/22 15:55 Urine Mucus Trace /hpf 05/10/22 15:55 CSF Appearance Clear (CLEAR) 05/11/22 15:10 CSF Color Colorless (COLORLESS) 05/11/22 15:10 CSF WBC 2 /uL (0-5) 05/11/22 15:10 CSF RBC 0 10^3/uL (0-0) 05/11/22 15:10 CSF Mononuclear # Auto 0.001 10^3/uL (50-90) L 05/11/22 15:10 CSF Mononuclear WBCs % 50 % (50-90) 05/11/22 15:10 CSF Polynuclear WBCs # 0.001 10^3/uL (0-10) 05/11/22 15:10 CSF Polynuclear WBCs % 50 % (0-10) H 05/11/22 15:10 CSF Glucose 77 mg/dL (40-70) H 05/11/22 15:10 CSF Total Protein 100 mg/dL (15-45) H 05/11/22 15:10 Vancomycin Trough 6.5 ug/mL (10-15) L 05/15/22 04:06 Salicylates < 0.3 mg/dL (3-10) L 05/10/22 15:30 Urine Opiates Screen Negative ng/mL (Negative) 05/10/22 15:55 Acetaminophen < 5.0 ug/mL (10-30) L 05/10/22 15:30 Ur Barbiturates Screen Negative ng/mL (Negative) 05/10/22 15:55 Ur Phencyclidine Scrn Negative ng/mL (Negative) 05/10/22 15:55 Ur Amphetamines Screen Negative ng/mL (Negative) 05/10/22 15:55 U Benzodiazepines Scrn Positive ng/mL (Negative) H 05/10/22 15:55 Urine Cocaine Screen Negative ng/mL (Negative) 05/10/22 15:55 U Marijuana (THC) Screen Negative ng/mL (Negative) 05/10/22 15:55 Ethyl Alcohol < 10 mg/dL (0-10) 05/10/22 15:30 Coronavirus 229E (PCR) Not detected (NOT DETECT) 05/12/22 18:10 SARS-CoV-2 (PCR) Not detected (NOT DETECT) 05/12/22 18:10 SARS-CoV-2 Ag (Rapid) Negative (Negative) 05/16/22 02:55 Vitals Last Vital Signs Temp 98.1 F 05/16/22 07:49 Pulse 95 05/16/22 07:49 Resp 18 05/16/22 07:49 BP 130/80 05/16/22 07:49 Pulse Ox 91 05/16/22 07:49 O2 Del Method 05/16/22 07:49 O2 Flow Rate 1 05/16/22 04:00 Discharge Plan Discharge Patient Disposition: Xfer SNF Condition: Stable Prescriptions: New phenytoin sodium extended 100 mg Capsule 200 mg PO BID Qty: 60 3RF Continued famotidine [Pepcid] 20 mg tablet 20 mg PO BID calcium carbonate [Calcium 600] 600 mg calcium (1,500 mg) tablet 600 mg PO QDAY carbidopa-levodopa [Sinemet] 25-100 mg tablet 2 tab PO TID clopidogrel [Plavix] 75 mg tablet 75 mg PO QDAY donepezil [Aricept] 10 mg tablet 10 mg PO BEDTIME fluoxetine 40 mg capsule 40 mg PO QAM magnesium oxide 400 mg magnesium capsule 400 mg PO QDAY meclizine 12.5 mg tablet 12.5 mg PO BID metoprolol tartrate 25 mg tablet 25 mg PO BID multivitamin [Daily Multi-Vitamin] Tablet 1 tab PO QAM simvastatin 40 mg tablet 40 mg PO BEDTIME acetaminophen 500 mg tablet 1,000 mg PO Q6H PRN (Reason: Pain) triamcinolone acetonide 0.1 % cream 1 applic TOPICAL BID PRN (Reason: Rash) guaifenesin [Diana-Tussin] 100 mg/5 mL liquid 200 mg PO Q4H PRN (Reason: Cough) bismuth subsalicylate [Bismatrol] 262 mg tablet,chewable 2 tab PO BID PRN (Reason: UNKNOWN) nystatin 100,000 unit/gram cream 1 applic TOPICAL BID metformin 500 mg tablet 500 mg PO BID witch remedios 86 % solution 10 ml topical .2 times day PRN Qty: 473 0RF levothyroxine 75 mcg tablet 75 mcg PO DAILY Qty: 30 5RF cetirizine 10 mg Tablet 10 mg PO BID PRN (Reason: ITCH/HIVE) cholecalciferol (vitamin D3) [Vitamin D3] 25 mcg (1,000 unit) Tablet 5,000 unit PO DAILY Systane Gel 0.4-0.3 % Drops,Gel 1 drp OPHTHALMIC (EYE) BID Sterile Lubricant 0.7 % drops, liquid gel 1 drop ophthalmic (eye) BID Rx Instructions: use in both eyes loperamide 2 mg capsule 2 mg PO Q4H PRN (Reason: Constipation) hydrocortisone 1 % Solution 1 applic TOPICAL BID PRN (Reason: Itching) Milk of Magnesia 400 mg/5 mL Suspension 16 ml PO BID PRN (Reason: Constipation) lorazepam 1 mg Tablet 1 mg PO DAILY PRN (Reason: Seizures) Beano 300 unit Tablet,Disintegrating 300 unit PO 6XD PRN (Reason: Gastrointestinal Spasms Or Cramping) oxyquinoline-white pet-lanolin 0.3 % Ointment 1 ea TOPICAL BEDTIME Soft Machines 1.5 billion cell Capsule 1 cap PO DAILY Changed Keppra 750 mg tablet 1,000 mg PO BID Qty: 60 3RF Discontinued Tums E-X 300 mg (750 mg) tablet,chewable 3 - 4 tab PO PRN PRN (Reason: Acid Reflux) Discharge Orders: Discharge Order (Routine); Ordered 05/16/22 Ordered By: Elzbieta Wagner Referrals: [facility] [Outside] Candido Higginbotham, STAGE TECHNICIAN-C [Primary Care Provider] - 05/22/22 10:40 am Discharge Diet: As Directed Patient Instructions: Opioid Safety, Pain Management Activity Restrictions/Additional Instructions: Patient will take Keppra 1000 mg twice a day along phenytoin 200 mg twice daily She will get dysphagia level 4 diet which is extremely thick pur?ed diet with nectar thick liquids Discharge Attestations Time Spent in Discharge Care*: less than 30 min Quality Metrics Clinical Quality Measures [ No reported AMI, CVA or VTE this stay] Coding Level of Care Code Acute Chg FW DC note Diagnoses Otitis media H66.90 Acute encephalopathy G93.40 Altered mental status R41.82 Sinusitis J32.9 Fibromyalgia M79.7 Slow transit constipation K59.01
[2022-05-16 12:16] VITALS: BP 130/80; PULSE 95; RESP 18; TEMP 36.7; O2SAT 91
--- NOTE | 2022-05-16 12:18 | PC.NURSE ---
Discharge Note Patient discharged to SNF via ambulance personnel accompanied by personnel. Discharge instructions reviewed with patient and/or manufacturers service representative. Mobile pharmacy medications and/or prescriptions provided. Belongings/home medications returned.
[2022-05-17 09:49] LABS: HSV 1 DNA NOT DETECTED; HSV 2 DNA NOT DETECTED; HSV Source CEREBROSPINAL FLUID
== END 2022-05-16 12:17 | disposition skilled nursing facility (03) | DRG 101 ==
LOC: ER 17:25 → MEDSURG 20:42
PROVIDERS: Admitting Provider Internal Medicine; Emergency Provider Emergency Medicine; PCP Nurse Practitioner; Visit Provider Internal Medicine
DX: G40.409 Other generalized epilepsy and epileptic syndromes, not intractable, without status epilepticus (principal); G93.40 Encephalopathy, unspecified; I69.954 Hemiplegia and hemiparesis following unspecified cerebrovascular disease affecting left non-dominant side; G31.84 Mild cognitive impairment of uncertain or unknown etiology; E03.9 Hypothyroidism, unspecified; M79.7 Fibromyalgia; J32.4 Chronic pansinusitis; F41.9 Anxiety disorder, unspecified; Z99.3 Dependence on wheelchair; E66.9 Obesity, unspecified; Z68.35 Body mass index [BMI] 35.0-35.9, adult; H66.92 Otitis media, unspecified, left ear; Z79.02 Long term (current) use of antithrombotics/antiplatelets; R13.10 Dysphagia, unspecified; K59.01 Slow transit constipation; H70.90 Unspecified mastoiditis, unspecified ear; I69.992 Facial weakness following unspecified cerebrovascular disease; I69.991 Dysphagia following unspecified cerebrovascular disease
CPT/HCPCS: 36415; 36416; 36600; 51702; 62328; 70450; 70480; 70544; 70551; 71045; 80053; 80202; 80306; 80307; 80503; 81001; 82140; 82803; 82945; 82962; 83690; 83735; 84100; 84146; 84157; 84443; 84484; 85025; 87070; 87075; 87086; 87205; 87252; 87255; 87426; 87530; 87635; 89050; 92523; 92526; 92610; 93005; 96372; 97110; 97162; 97530; 99285; J0133; J0696; J1165; J1644; J1953; J3370; J7030; J7050

== ENCOUNTER 2022-08-20 13:50 | Emergency (ER) | payer MEDICARE, SELFPAY ==
--- NOTE | 2022-08-20 13:56 | XRR_ITS ---
PROCEDURE INFORMATION: Exam: XR Chest Exam date and time: 08/20/2022 2:02 PM Age: 67 years old Clinical indication: Dyspnea; Patient HX: Generalized weakness. Noted with hypoxia tachycardia and adventitious breath sounds on the right. ; Additional info: Dyspnea/cough TECHNIQUE: Imaging protocol: Radiologic exam of the chest. Views: 1 view. COMPARISON: CR XR chest 1V portable [id number] 05/10/2022 3:38 PM FINDINGS: Lungs: No consolidation. Pleural spaces: No pleural effusion. No pneumothorax. Heart/Mediastinum: Similar mild cardiomegaly. Bones/joints: Visualized osseous structures are intact. XR/XR chest 1V portable [id number] IMPRESSION: No acute findings.
[2022-08-20 13:58] VITALS: BP 122/86; PULSE 97; RESP 16; TEMP 36.6; O2SAT 93
--- NOTE | 2022-08-20 14:07 | W.ED.GENADLT ---
HPI - General Adult General: Chief complaint: Weakness Stated complaint: Weakness Time Seen by Provider: 08/20/22 13:56 Source: patient Mode of arrival: ambulatory History of Present Illness: 67-year-old female who [facility] with generalized weakness. Noted with hypoxia tachycardia and adventitious breath sounds on the right. She has a history of epilepsy according to the chart has some hemiparesis. She had previously had a craniotomy with a brain tumor resection. She has impaired cognitive function and limited functional status currently penitentiary note she is an assist of 1 or 2. She has some chronic left-sided weakness. Review through her note she has difficulty communication unless spoken to a very slowly evidently at times will just ignore verbal input. She is difficult to arouse in the exam room vital signs at this time are stable she is satting 92% on room air blood pressure 120/81. She does not give any verbal response. She has obvious left-sided facial weakness and left arm compared to right arm weakness according to records is pre-existing there is no complaint of sudden worsening in the penitentiary report. Onset (ago): hour(s) Location: chest Severity: mild Relieving factors: none Exacerbating factors: none Associated symptoms: Reports dyspnea, short of breath and weakness; Deny cough, decreased appetite, fevers/chills or seizures Treatments prior to arrival: none Review of Systems General: Reports: ROS unobtainable due to mental status (Limited review of system from penitentiary notes) Const: Reports: fever(s) Resp: Reports: dyspnea PFSH ED PFSH: Medical History Acid reflux Acute encephalopathy Altered mental status Anxiety Cognitive impairment Dependent for wheelchair mobility Dependent on walker for ambulation Fibromyalgia Generalized epilepsy Hypothyroidism, unspecified Lives in assisted living facility Metabolic syndrome Obesity (BMI 30-39.9) Otitis media Refused influenza vaccine Sinusitis Slow transit constipation Surgical History History of bilateral tubal ligation 1986 History of brain surgery 2002 History of cholecystectomy August 2005 History of colonoscopy 2006 and 2012 History of eye surgery Right 2004 History of hysterectomy with unilateral oophorectomy Right 1991 History of removal of Port-a-Cath 2004 Family History Father Hypertension Mother Hypertension CAD (coronary artery disease) Social History Smoking and tobacco status: never smoked Second hand smoke exposure: No Smoking risk assessment/counseling performed?: No Alcohol intake: never Desire information about alcohol rehabilitation?: No Counseling given: No Desire information about substance/drug rehabilitation?: No Counseling given: No Adopted: No Caregiver/support person: Yes Lives independently: No Household members: other Housing: Assisted Living Facility Marital status: Number of children: 2 service: No Current occupational status: disabled Current occupational exposures/hazards: No Pets and animals: No History of recent travel: No Current gender identity: Female Physical Exam Const: GENERAL APPEARANCE: comfortable ORIENTATION/CONSCIOUSNESS: Yes awake HENMT: COMMON NORMALS: normocephalic, atraumatic and hearing grossly normal bilaterally HEAD & SCALP: normocephalic and atraumatic Resp: COMMON NORMALS: normal respiratory effort, No retractions, No use of accessory muscles and clear to auscultation bilaterally AUSCULTATION: clear to auscultation bilaterally Cardio: COMMON NORMALS: regular rate, regular rhythm and No murmurs present (Cardio) RATE: regular rate RHYTHM: regular rhythm GI: COMMON NORMALS: Soft to palpation and No hepatosplenomegaly present AUSCULTATION: Yes normoactive bowel sounds PALPATION: Yes Soft to palpation, No Tenderness to palpation present (GI), No Guarding due to palpation present (GI) and Yes No hepatosplenomegaly present Extremity: COMMON NORMALS: normal to inspection, capillary refill normal, no clubbing, cyanosis or edema, no calf tenderness and no pedal edema Neuro: OTHER: Left-sided facial weakness left arm weakness Skin: COMMON NORMALS: no rashes or lesions noted GENERAL SKIN EXAM: no rashes or lesions noted Course Vital Signs: Vital signs: Vital Signs Temperature 97.8 F 08/20/22 13:58 Pulse Rate 82 08/20/22 17:15 Respiratory Rate 18 08/20/22 17:15 Blood Pressure 141/70 08/20/22 17:15 Pulse Oximetry 96 08/20/22 17:15 Oxygen Delivery Me thod 08/20/22 17:00 Oxygen Flow Rate 2 08/20/22 16:07 [facility] - General Adult Medical Decision Making Labs and chest x-ray are unremarkable. When I seen the patient did turn the oxygen off. She remained sats in the mid 90s throughout that time. Reviewing the vital sheet it still listed as an O2 right of 2 L/min however that is incorrect patient was on room air. The delivery system is noted as room air but the flow rate still since 2. Patient is otherwise been stable. No significant findings indicating acute emergent ongoing process we will discharge patient back to the [facility]itentiary at this time return if is further problems. Medical Records I reviewed the patient's medical records. Lab Data I reviewed the patient's lab results. 08/20/22 14:10 08/20/22 14:10 Radiology Impressions Chest X-Ray 08/20/22 13:56 IMPRESSION: No acute findings. Laboratory Results WBC 11.5 10^3/uL (4.0-10.0) H 08/20/22 14:10 RBC 4.25 10^6/uL (4.1-5.3) 08/20/22 14:10 Hgb 13.4 g/dL (11.5-15.3) 08/20/22 14:10 Hct 41.2 % (37.0-47.0) 08/20/22 14:10 MCV 96.9 fl (81-99) 08/20/22 14:10 MCH 31.5 pg (28.0-34.0) 08/20/22 14:10 MCHC 32.5 g/dL (30.0-36.0) 08/20/22 14:10 RDW 13.3 % (12.1-15.1) 08/20/22 14:10 Plt Count 257 10^3/cmm (130-400) 08/20/22 14:10 MPV 8.9 fL (7.4-10.4) 08/20/22 14:10 Neut % (Auto) 78.6 % 08/20/22 14:10 Lymph % (Auto) 11.8 % 08/20/22 14:10 [place] % (Auto) 6.7 % 08/20/22 14:10 Eos % (Auto) 1.7 % 08/20/22 14:10 Baso % (Auto) 0.5 % 08/20/22 14:10 Neut # (Auto) 9.04 10^3/uL (1.8-7.7) H 08/20/22 14:10 Lymph # (Auto) 1.4 10^3/uL (0.8-4.8) 08/20/22 14:10 [place] # (Auto) 0.8 10^3/uL (0.2-0.9) 08/20/22 14:10 Eos # (Auto) 0.2 10^3/uL (0.0-0.8) 08/20/22 14:10 Baso # (Auto) 0.1 10^3/uL (0.0-0.1) 08/20/22 14:10 Nucleated RBC % (auto) 0 % 08/20/22 14:10 Nucleated RBCs # 0.0 /100WBC 08/20/22 14:10 Sodium 137 mmol/L (136-145) 08/20/22 14:10 Potassium 4.0 mmol/L (3.5-5.1) 08/20/22 14:10 Chloride 102 mmol/L (98-107) 08/20/22 14:10 Carbon Dioxide 25 mmol/L (22-29) 08/20/22 14:10 Anion Gap 14.0 (5-19) 08/20/22 14:10 BUN 10 mg/dL (8-23) 08/20/22 14:10 Creatinine 0.5 mg/dL (0.5-0.9) 08/20/22 14:10 GFR Calculation 123.4 mL/min (90-130) 08/20/22 14:10 Glucose 123 mg/dL (65-115) H 08/20/22 14:10 Calculated Osmolality 284 mOsm/kg (285-295) L 08/20/22 14:10 Calcium 9.2 mg/dL (8.5-10.5) 08/20/22 14:10 Total Bilirubin 0.2 mg/dL (0.15-1.2) 08/20/22 14:10 AST 19 U/L (0-32) 08/20/22 14:10 ALT 15 U/L (0-33) 08/20/22 14:10 Alkaline Phosphatase 190 U/L (35-105) H 08/20/22 14:10 Creatine Kinase 27 U/L (26-192) 08/20/22 14:10 Total Protein 7.3 g/dL (6.6-8.7) 08/20/22 14:10 Albumin 3.6 g/dL (3.5-5.2) 08/20/22 14:10 Globulin 3.7 g/dL (1.3-4.6) 08/20/22 14:10 Urine Color Yellow (Yellow) 08/20/22 16:10 Urine Appearance Clear (CLEAR) 08/20/22 16:10 Urine pH 6 (5-7) 08/20/22 16:10 Ur Specific [place] 1.020 (1.005-1.030) 08/20/22 16:10 Urine Protein Neg (Negative) 08/20/22 16:10 Urine Glucose (UA) Norm (Normal) 08/20/22 16:10 Urine Ketones Negative (Negative) 08/20/22 16:10 Urine Blood Trace (Negative) H 08/20/22 16:10 Urine Nitrate Negative (Negative) 08/20/22 16:10 Urine Bilirubin Neg (Negative) 08/20/22 16:10 Urine Urobilinogen Norm mg/dL (Negative) 08/20/22 16:10 Ur Leukocyte Esterase Negative (Negative) 08/20/22 16:10 Urine RBC 0-4 /hpf (0-2) H 08/20/22 16:10 Urine WBC None /hpf (0-5) 08/20/22 16:10 Ur Squamous Epith Cells 0-4 /hpf (0-5) H 08/20/22 16:10 Amorphous Sediment Not Reportable 08/20/22 16:10 Urine Bacteria None /hpf (NONE) 08/20/22 16:10 Coronavirus 229E (PCR) Not detected (NOT DETECT) 08/20/22 14:10 Influenza Type A Ag negative (Negative) 08/20/22 14:10 Influenza Type B Ag negative (Negative) 08/20/22 14:10 SARS-CoV-2 (PCR) Not detected (NOT DETECT) 08/20/22 14:10 Discharge Plan Discharge Patient Disposition: Home Clinical Impression: Cognitive impairment, Lives in assisted living facility Condition: Stable Prescriptions: No Action famotidine [Pepcid] 20 mg tablet 20 mg PO BID calcium carbonate [Calcium 600] 600 mg calcium (1,500 mg) tablet 600 mg PO QDAY carbidopa-levodopa [Sinemet] 25-100 mg tablet 2 tab PO TID clopidogrel [Plavix] 75 mg tablet 75 mg PO QDAY donepezil [Aricept] 10 mg tablet 10 mg PO BEDTIME Hold Instructions: Patient No Longer Taking fluoxetine 40 mg capsule 40 mg PO QAM magnesium oxide 400 mg magnesium capsule 400 mg PO QDAY meclizine 12.5 mg tablet 12.5 mg PO BID metoprolol tartrate 25 mg tablet 25 mg PO BID multivitamin [Daily Multi-Vitamin] Tablet 1 tab PO QAM simvastatin 40 mg tablet 40 mg PO BEDTIME acetaminophen 500 mg tablet 1,000 mg PO Q6H PRN (Reason: Pain) triamcinolone acetonide 0.1 % cream 1 applic TOPICAL BID PRN (Reason: Rash) guaifenesin [Diana-Tussin] 100 mg/5 mL liquid 200 mg PO Q4H PRN (Reason: Cough) bismuth subsalicylate [Bismatrol] 262 mg tablet,chewable 2 tab PO BID PRN (Reason: UNKNOWN) nystatin 100,000 unit/gram cream 1 applic TOPICAL BID metformin 500 mg tablet 500 mg PO BID witch remedios 86 % solution 10 ml topical .2 times day PRN Qty: 473 0RF levothyroxine 75 mcg tablet 75 mcg PO DAILY Qty: 30 5RF levetiracetam [Keppra] 1,000 mg tablet 1,000 mg PO Q12H cholecalciferol (vitamin D3) 125 mcg (5,000 unit) capsule 125 mcg PO DAILY cetirizine 10 mg tablet 10 mg PO DAILY Qty: 30 0RF Systane Gel 0.4-0.3 % Drops,Gel 1 drp OPHTHALMIC (EYE) BID Sterile Lubricant 0.7 % drops, liquid gel 1 drop ophthalmic (eye) BID Rx Instructions: use in both eyes loperamide 2 mg capsule 2 mg PO Q4H PRN (Reason: Constipation) hydrocortisone 1 % Solution 1 applic TOPICAL BID PRN (Reason: Itching) Milk of Magnesia 400 mg/5 mL Suspension 16 ml PO BID PRN (Reason: Constipation) lorazepam 1 mg Tablet 1 mg PO DAILY PRN (Reason: Seizures) Beano 300 unit Tablet,Disintegrating 300 unit PO 6XD PRN (Reason: Gastrointestinal Spasms Or Cramping) oxyquinoline-white pet-lanolin 0.3 % Ointment 1 ea TOPICAL BEDTIME MyCheck 1.5 billion cell Capsule 1 cap PO DAILY phenytoin sodium extended 100 mg Capsule 200 mg PO BID Qty: 60 3RF Discharge Orders: Discharge ED (Routine); Ordered 08/20/22 Ordered By: Juan Lopez Referrals: Candido Higginbotham, CHAIM [Primary Care Provider] - Discharge Diet: Usual diet Discharge Activity: Increase activity as tolerated Patient Instructions: Opioid Safety, Pain Management Activity Restrictions/Additional Instructions: Your evaluated in the emergency room. Your vital signs are normal your oxygen levels are normal on room air. Your EKG and lab work were unremarkable. He will be [facility] to the [facility] on your same medications. Coding Level of Care Code ED Wet End Operator for Pierce Fwd Exam Detailed
[2022-08-20 14:16] LABS: Basophils # 0.1 10^3/uL (0.0-0.1); Basophils % 0.5 %; Eosinophils # 0.2 10^3/uL (0.0-0.8); Eosinophils % 1.7 %; Hematocrit 41.2 % (37.0-47.0); Hemoglobin 13.4 g/dL (11.5-15.3); Lymphocytes # 1.4 10^3/uL (0.8-4.8); Lymphocytes % 11.8 %; Mean Corpuscular HGB Conc 32.5 g/dL (30.0-36.0); Mean Corpuscular Hemoglobin 31.5 pg (28.0-34.0); Mean Corpuscular Volume 96.9 fl (81-99); Mean Platelet Volume 8.9 fL (7.4-10.4); Monocytes # 0.8 10^3/uL (0.2-0.9); Monocytes % 6.7 %; Neutrophils # 9.04 10^3/uL (1.8-7.7); Neutrophils % 78.6 %; Nucleated Red Blood Cells % 0 %; Platelet Count 257 10^3/cmm (130-400); Red Blood Count 4.25 10^6/uL (4.1-5.3); Red Cell Distribution Width 13.3 % (12.1-15.1); White Blood Count 11.5 10^3/uL (4.0-10.0)
[2022-08-20 14:34] LABS: Alanine Aminotransferase 15 U/L (0-33); Albumin Level 3.6 g/dL (3.5-5.2); Alkaline Phosphatase 190 U/L (35-105); Aspartate Amino Transferase 19 U/L (0-32); Blood Urea Nitrogen 10 mg/dL (8-23); Calcium 9.2 mg/dL (8.5-10.5); Carbon Dioxide 25 mmol/L (22-29); Chloride 102 mmol/L (98-107); Creatine Phosphokinase 27 U/L (26-192); Globulin 3.7 g/dL (1.3-4.6); Glomerular Filtration Rate 123.4 mL/min (90-130); Glucose 123 mg/dL (65-115); Osmolality Calculated 284 mOsm/kg (285-295); Sodium 137 mmol/L (136-145); Total Bilirubin 0.2 mg/dL (0.15-1.2); Total Protein 7.3 g/dL (6.6-8.7)
[2022-08-20 14:53] LABS: Influenza A by IFA negative (Negative); Influenza B by IFA negative (Negative)
--- NOTE | 2022-08-20 15:39 | ECG_ITS ---
[facility] Test Date: 2022-08-20 Pat Name: Jayde Curtis Department: Room: Gender: Female Cook Starch: : 1955 Requested By: Juan Mason Order Number: [id number] Ayaka MD: Ynes Aguilera M.D. Measurements Intervals [place] Rate: 97 P: 50 GA: 167 QRS: 189 QRSD: 92 T: 47 QT: 332 QTc: 424 Interpretive Statements SINUS RHYTHM WITH SINUS ARRHYTHMIA INDETERMINATE AXIS LOW QRS VOLTAGE IN PRECORDIAL LEADS [QRS DEFLECTION < 1.0 mV IN CHEST LEADS] INCOMPLETE RIGHT BUNDLE BRANCH BLOCK [90+ ms QRS DURATION, TERMINAL R IN V1/V2, 40+ ms S IN I/aVL/V4/V5/V6] POSSIBLE ANTERIOR MYOCARDIAL INFARCTION , OF INDETERMINATE AGE [30 ms Q WAVE IN V3/V4, OR R < 0.2 mV IN V4] Compared to ECG 05/10/2022 17:07:29 Incomplete right bundle-branch block now present Myocardial infarct finding now present Ectopic atrial rhythm no longer present Electronically Signed On 08-21-2022 8:02:17 VETERINARY MICROBIOLOGIST by Ynes Aguilera M.D. [id number]
[2022-08-20 16:07] VITALS: BP 139/90; RESP 16; O2SAT 96
[2022-08-20 16:21] LABS: Adenovirus Not Detected (NOT DETECT); Chlamydia Pneumoniae Not Detected (NOT DETECT); Coronavirus 229E,HKU1,NL63,OC4 Not Detected (NOT DETECT); Human Metapneumovirus Not Detected (NOT DETECT); Human Rhinovirus/Enterovirus Not Detected (NOT DETECT); Influenza A Not Detected (NOT DETECT); Influenza A H1 Not Detected (NOT DETECT); Influenza A H1-2009 Not Detected (NOT DETECT); Influenza A H3 Not Detected (NOT DETECT); Influenza B Not Detected (NOT DETECT); Mycoplasma Pneumoniae Not Detected (NOT DETECT); Parainfluenza Virus Type 1 Not Detected (NOT DETECT); Parainfluenza Virus Type 2 Not Detected (NOT DETECT); Parainfluenza Virus Type 3 Not Detected (NOT DETECT); Parainfluenza Virus Type 4 Not Detected (NOT DETECT); Respiratory Syncytial Virus A Not Detected (NOT DETECT); Respiratory Syncytial Virus B Not Detected (NOT DETECT); SARS-COV-2 Not Detected (NOT DETECT)
[2022-08-20 16:38] LABS: Add Urine Microscopic? YES; Bilirubin Urine Neg (Negative); Blood Urine Trace (Negative); Glucose Urine UA Norm (Normal); Ketones Urine Negative (Negative); Leukocyte Esterase Urine Negative (Negative); Nitrate Urine Negative (Negative); Protein Urine Neg (Negative); Urine Appearance Clear (CLEAR); Urine Color Yellow (Yellow); Urobilinogen Urine Norm (Negative); pH Urine 6 (5-7)
[2022-08-20 16:39] LABS: Add Urine Culture? No; RBC Urine 0-4 /hpf (0-2); Squamous Epithelial Cell Urine 0-4 /hpf (0-5)
[2022-08-20 17:00] VITALS: BP 141/70; RESP 18; O2SAT 96
[2022-08-20 17:15] VITALS: BP 141/70; PULSE 82; RESP 18; O2SAT 96
== END 2022-08-20 17:17 | disposition home or self-care (01) ==
PROVIDERS: Emergency Provider Family Medicine; PCP Nurse Practitioner
DX: G31.84 Mild cognitive impairment of uncertain or unknown etiology (principal); Z79.02 Long term (current) use of antithrombotics/antiplatelets; Z79.84 Long term (current) use of oral hypoglycemic drugs; Z20.822 Contact with and (suspected) exposure to COVID-19
CPT/HCPCS: 36415; 71045; 80053; 81001; 82550; 85025; 87040; 87635; 87804; 93005; 99285

== ENCOUNTER 2022-08-24 00:57 | Inpatient (IN) | payer MEDICARE, SELFPAY ==
[2022-08-24] VITALS (15 sets, daily range): BP systolic 114–156; BP diastolic 74–89; PULSE 96–117; RESP 16–25; TEMP 36.6–38.1; O2SAT 91–99; BMI 29.2
--- NOTE | 2022-08-24 01:02 | XRR_ITS ---
PROCEDURE INFORMATION: Exam: XR Chest Exam date and time: 08/24/2022 1:09 AM Age: 67 years old Clinical indication: Cough and shortness of breath and wheezing; Patient HX: From halfway via EMS for possible aspiration pneumonia. Hypoxic on monitor with cough and audible wheezing. ; Additional info: SOB TECHNIQUE: Imaging protocol: Radiologic exam of the chest. Views: 1 view. COMPARISON: CR XR chest 1V portable [id number] 08/20/2022 2:02 PM FINDINGS: Lungs: Minor lung base atelectasis or scarring. No focal pneumonia. Pleural spaces: Unremarkable. No pleural effusion. No pneumothorax. Heart/Mediastinum: The heart is mildly enlarged. Bones/joints: Unremarkable. Organs: Absent gallbladder. XR/XR chest 1V portable [id number] IMPRESSION: Stable chest, no acute finding. No significant change from 4 days ago.
--- NOTE | 2022-08-24 01:03 | ECG_ITS ---
[facility] Test Date: 2022-08-24 Pat Name: Jayde Curtis Department: Room: Gender: Female Veterinary Radiologist: : 1955 Requested By: Viv Castorena Order Number: [id number] Ayaka MD: Ynes Aguilera M.D. Measurements Intervals [place] Rate: 114 P: 62 MN: 162 QRS: 161 QRSD: 85 T: 53 QT: 305 QTc: 420 Interpretive Statements SINUS TACHYCARDIA INDETERMINATE AXIS LOW QRS VOLTAGE IN PRECORDIAL LEADS POSSIBLE RIGHT VENTRICULAR CONDUCTION DELAY [RSR (QR) IN V1/V2] Compared to ECG 08/20/2022 15:39:07 Sinus rhythm no longer present Sinus arrhythmia no longer present Incomplete right bundle-branch block no longer present Myocardial infarct finding no longer present Electronically Signed On 08-24-2022 19:08:42 STEFFEN HOUSE SUPERVISOR by Ynes Aguilera M.D. [id number]
--- NOTE | 2022-08-24 01:08 | W.ED.GENADLT ---
HPI - General Adult General: Chief complaint: General Medical Stated complaint: cough Time Seen by Provider: 08/24/22 00:59 Source: EMS Mode of arrival: EMS Limitations: altered mental status History of Present Illness: 67-year-old female who is [facility] for concern of aspiration pneumonia he states she aspirated on Saturday and has had congestion and cough since then and states she is having some hypoxia along with a fever tonight. Patient's had a history of stroke she is nonverbal no history is available from her she is also bedbound she had no vomiting or diarrhea. Review of Systems General: Reports: ROS unobtainable due to mental status PFS ED PFSH: Medical History Acid reflux Acute encephalopathy Altered mental status Anxiety Cognitive impairment Dependent for wheelchair mobility Dependent on walker for ambulation Fibromyalgia Generalized epilepsy Hypothyroidism, unspecified Lives in assisted living facility Metabolic syndrome Obesity (BMI 30-39.9) Otitis media Refused influenza vaccine Sinusitis Slow transit constipation Surgical History History of bilateral tubal ligation 1986 History of brain surgery 2002 History of cholecystectomy August 2005 History of colonoscopy 2006 and 2012 History of eye surgery Right 2004 History of hysterectomy with unilateral oophorectomy Right 1991 History of removal of Port-a-Cath 2004 Family History Father Hypertension Mother Hypertension CAD (coronary artery disease) Social History Smoking and tobacco status: never smoked Second hand smoke exposure: No Smoking risk assessment/counseling performed?: No Alcohol intake: never Desire information about alcohol rehabilitation?: No Counseling given: No Desire information about substance/drug rehabilitation?: No Counseling given: No Adopted: No Caregiver/support person: Yes Lives independently: No Household members: other Housing: Assisted Living Facility Marital status: Number of children: 2 service: No Current occupational status: disabled Current occupational exposures/hazards: No Pets and animals: No History of recent travel: No Current gender identity: Female Physical Exam Const: COMMON NORMALS: negative for patient oriented x3 HENMT: COMMON NORMALS: normocephalic and atraumatic HEAD & SCALP: normocephalic and atraumatic Eye: COMMON NORMALS: Equal, round and reactive pupils present and EOMs intact bilaterally PUPIL: Yes Equal, round and reactive pupils present Neck/C-Spine: COMMON NORMALS: full ROM and supple Chest: COMMONS NORMALS: normal inspection of the chest and normal palpation of entire chest wall Resp: COMMON NORMALS: No retractions and No use of accessory muscles AUSCULTATION: rales Cardio: COMMON NORMALS: regular rate, regular rhythm and No murmurs present (Cardio) RATE: regular rate RHYTHM: regular rhythm GI: COMMON NORMALS: Normal to inspection, nondistended, normoactive bowel sounds present, Soft to palpation, non-tender and no masses PALPATION: Yes Soft to palpation Extremity: COMMON NORMALS: normal to inspection and full ROM Neuro: COMMON NORMALS: negative for patient oriented x3 Psych: COMMON NORMALS: cooperative Skin: COMMON NORMALS: no rashes or lesions noted and no wounds GENERAL SKIN EXAM: no rashes or lesions noted Course Vital Signs: Vital signs: Vital Signs Temperature 100.5 F H 08/24/22 00:59 Pulse Rate 113 H 08/24/22 00:59 Respiratory Rate 16 08/24/22 00:59 Blood Pressure 137/87 08/24/22 00:59 Pulse Oximetry 91 08/24/22 00:59 Oxygen Delivery Me thod 08/24/22 00:59 MDM - General Adult Medical Decision Making Patient presents here with likely aspiration pneumonia she had aspirated earlier this week tonight she has had cough fever and hypoxia patient is nonverbal she is requiring oxygen here was febrile with an elevated white count no signs of UTI we will admit at this time Lab Data 08/24/22 01:39 08/24/22 01:39 Radiology Impressions Chest X-Ray 08/24/22 01:02 IMPRESSION: Stable chest, no acute finding. No significant change from 4 days ago. Laboratory Results WBC 18.0 10^3/uL (4.0-10.0) H 08/24/22 01:39 RBC 4.23 10^6/uL (4.1-5.3) 08/24/22 01:39 Hgb 13.3 g/dL (11.5-15.3) 08/24/22 01:39 Hct 42.0 % (37.0-47.0) 08/24/22 01:39 MCV 99.3 fl (81-99) H 08/24/22 01:39 MCH 31.4 pg (28.0-34.0) 08/24/22 01:39 MCHC 31.7 g/dL (30.0-36.0) 08/24/22 01:39 RDW 13.2 % (12.1-15.1) 08/24/22 01:39 Plt Count 332 10^3/cmm (130-400) 08/24/22 01:39 MPV 9.1 fL (7.4-10.4) 08/24/22 01:39 Neut % (Auto) 79.9 % 08/24/22 01:39 Lymph % (Auto) 8.9 % 08/24/22 01:39 [place] % (Auto) 9.0 % 08/24/22 01:39 Eos % (Auto) 0.7 % 08/24/22 01:39 Baso % (Auto) 0.5 % 08/24/22 01:39 Neut # (Auto) 14.41 10^3/uL (1.8-7.7) H 08/24/22 01:39 Lymph # (Auto) 1.6 10^3/uL (0.8-4.8) 08/24/22 01:39 [place] # (Auto) 1.6 10^3/uL (0.2-0.9) H 08/24/22 01:39 Eos # (Auto) 0.1 10^3/uL (0.0-0.8) 08/24/22 01:39 Baso # (Auto) 0.1 10^3/uL (0.0-0.1) 08/24/22 01:39 Nucleated RBC % (auto) 0 % 08/24/22 01:39 Nucleated RBCs # 0.0 /100WBC 08/24/22 01:39 Sodium 139 mmol/L (136-145) 08/24/22 01:39 Potassium 4.3 mmol/L (3.5-5.1) 08/24/22 01:39 Chloride 103 mmol/L (98-107) 08/24/22 01:39 Carbon Dioxide 23 mmol/L (22-29) 08/24/22 01:39 Anion Gap 17.3 (5-19) 08/24/22 01:39 BUN 12 mg/dL (8-23) 08/24/22 01:39 Creatinine 0.5 mg/dL (0.5-0.9) 08/24/22 01:39 GFR Calculation 123.4 mL/min (90-130) 08/24/22 01:39 Glucose 155 mg/dL (65-115) H 08/24/22 01:39 Calculated Osmolality 291 mOsm/kg (285-295) 08/24/22 01:39 Lactate 1.8 mmol/L (0.5-2.2) 08/24/22 01:39 Calcium 9.5 mg/dL (8.5-10.5) 08/24/22 01:39 Total Bilirubin 0.3 mg/dL (0.15-1.2) 08/24/22 01:39 AST 19 U/L (0-32) 08/24/22 01:39 ALT < 5 U/L (0-33) 08/24/22 01:39 Alkaline Phosphatase 212 U/L (35-105) H 08/24/22 01:39 Total Protein 7.8 g/dL (6.6-8.7) 08/24/22 01:39 Albumin 3.6 g/dL (3.5-5.2) 08/24/22 01:39 Globulin 4.2 g/dL (1.3-4.6) 08/24/22 01:39 Urine Color Yellow (Yellow) 08/24/22 03:00 Urine Appearance Hazy (CLEAR) A 08/24/22 03:00 Urine pH 5 (5-7) 08/24/22 03:00 Ur Specific [place] 1.025 (1.005-1.030) 08/24/22 03:00 Urine Protein 1+ (Negative) H 08/24/22 03:00 Urine Glucose (UA) Norm (Normal) 08/24/22 03:00 Urine Ketones Negative (Negative) 08/24/22 03:00 Urine Blood 2+ (Negative) H 08/24/22 03:00 Urine Nitrate Negative (Negative) 08/24/22 03:00 Urine Bilirubin 1+ (Negative) H 08/24/22 03:00 Urine Urobilinogen 1 mg/dL (Negative) H 08/24/22 03:00 Ur Leukocyte Esterase Trace (Negative) H 08/24/22 03:00 Urine RBC 5-10 /hpf (0-2) H 08/24/22 03:00 Urine WBC 0-4 /hpf (0-5) H 08/24/22 03:00 Ur Squamous Epith Cells 15-25 /hpf (0-5) H 08/24/22 03:00 Amorphous Sediment Not Reportable 08/24/22 03:00 Urine Bacteria Trace /hpf (NONE) 08/24/22 03:00 Influenza Type A Ag negative (Negative) 08/24/22 03:00 Influenza Type B Ag negative (Negative) 08/24/22 03:00 SARS-CoV-2 Ag (Rapid) negative (Negative) 08/24/22 03:00 Discharge Plan Discharge Patient Disposition: Admitted As Inpatient Clinical Impression: Fever, Aspiration pneumonia Condition: Stable Prescriptions: No Action famotidine [Pepcid] 20 mg tablet 20 mg PO BID calcium carbonate [Calcium 600] 600 mg calcium (1,500 mg) tablet 600 mg PO QDAY carbidopa-levodopa [Sinemet] 25-100 mg tablet 2 tab PO TID clopidogrel [Plavix] 75 mg tablet 75 mg PO QDAY donepezil [Aricept] 10 mg tablet 10 mg PO BEDTIME Hold Instructions: Patient No Longer Taking fluoxetine 40 mg capsule 40 mg PO QAM magnesium oxide 400 mg magnesium capsule 400 mg PO QDAY meclizine 12.5 mg tablet 12.5 mg PO BID metoprolol tartrate 25 mg tablet 25 mg PO BID multivitamin [Daily Multi-Vitamin] Tablet 1 tab PO QAM simvastatin 40 mg tablet 40 mg PO BEDTIME acetaminophen 500 mg tablet 1,000 mg PO Q6H PRN (Reason: Pain) triamcinolone acetonide 0.1 % cream 1 applic TOPICAL BID PRN (Reason: Rash) guaifenesin [Diana-Tussin] 100 mg/5 mL liquid 200 mg PO Q4H PRN (Reason: Cough) bismuth subsalicylate [Bismatrol] 262 mg tablet,chewable 2 tab PO BID PRN (Reason: UNKNOWN) nystatin 100,000 unit/gram cream 1 applic TOPICAL BID metformin 500 mg tablet 500 mg PO BID witch remedios 86 % solution 10 ml topical .2 times day PRN Qty: 473 0RF levothyroxine 75 mcg tablet 75 mcg PO DAILY Qty: 30 5RF levetiracetam [Keppra] 1,000 mg tablet 1,000 mg PO Q12H cholecalciferol (vitamin D3) 125 mcg (5,000 unit) capsule 125 mcg PO DAILY cetirizine 10 mg tablet 10 mg PO DAILY Qty: 30 0RF Systane Gel 0.4-0.3 % Drops,Gel 1 drp OPHTHALMIC (EYE) BID Sterile Lubricant 0.7 % drops, liquid gel 1 drop ophthalmic (eye) BID Rx Instructions: use in both eyes loperamide 2 mg capsule 2 mg PO Q4H PRN (Reason: Constipation) hydrocortisone 1 % Solution 1 applic TOPICAL BID PRN (Reason: Itching) Milk of Magnesia 400 mg/5 mL Suspension 16 ml PO BID PRN (Reason: Constipation) lorazepam 1 mg Tablet 1 mg PO DAILY PRN (Reason: Seizures) Beano 300 unit Tablet,Disintegrating 300 unit PO 6XD PRN (Reason: Gastrointestinal Spasms Or Cramping) oxyquinoline-white pet-lanolin 0.3 % Ointment 1 ea TOPICAL BEDTIME [email or web address] 1.5 billion cell Capsule 1 cap PO DAILY phenytoin sodium extended 100 mg Capsule 200 mg PO BID Qty: 60 3RF Referrals: Candido Higginbotham, SCREEN PRINTING CLOTH SPREADER-C [Primary Care Provider] - Coding Level of Care Code ED [place] Operations Specialist for Chg Fwd Exam Comprehensive
[2022-08-24] MEDS: acetaminophen 650 mg Supp PR (01:15)
[2022-08-24 01:52] LABS: Basophils # 0.1 10^3/uL (0.0-0.1); Basophils % 0.5 %; Eosinophils # 0.1 10^3/uL (0.0-0.8); Eosinophils % 0.7 %; Hemoglobin 13.3 g/dL (11.5-15.3); Lymphocytes # 1.6 10^3/uL (0.8-4.8); Lymphocytes % 8.9 %; Mean Corpuscular HGB Conc 31.7 g/dL (30.0-36.0); Mean Corpuscular Hemoglobin 31.4 pg (28.0-34.0); Mean Corpuscular Volume 99.3 fl (81-99); Mean Platelet Volume 9.1 fL (7.4-10.4); Monocytes # 1.6 10^3/uL (0.2-0.9); Neutrophils # 14.41 10^3/uL (1.8-7.7); Neutrophils % 79.9 %; Nucleated Red Blood Cells % 0 %; Platelet Count 332 10^3/cmm (130-400); Red Blood Count 4.23 10^6/uL (4.1-5.3); Red Cell Distribution Width 13.2 % (12.1-15.1)
[2022-08-24 02:09] LABS: Alanine Aminotransferase < 5 U/L (0-33); Albumin Level 3.6 g/dL (3.5-5.2); Alkaline Phosphatase 212 U/L (35-105); Anion Gap 17.3 (5-19); Aspartate Amino Transferase 19 U/L (0-32); Blood Urea Nitrogen 12 mg/dL (8-23); Calcium 9.5 mg/dL (8.5-10.5); Carbon Dioxide 23 mmol/L (22-29); Chloride 103 mmol/L (98-107); Creatinine Clr Calc Pharmacy 64.5271; Globulin 4.2 g/dL (1.3-4.6); Glomerular Filtration Rate 123.4 mL/min (90-130); Glucose 155 mg/dL (65-115); Osmolality Calculated 291 mOsm/kg (285-295); Potassium 4.3 mmol/L (3.5-5.1); Sodium 139 mmol/L (136-145); Total Bilirubin 0.3 mg/dL (0.15-1.2); Total Protein 7.8 g/dL (6.6-8.7)
[2022-08-24] MEDS: cefTRIAXone 1,000 MG in sodium chloride 0.9% (plus) 50 ML 100 MG IV (02:17)
[2022-08-24] MEDS: sodium chloride 0.9% 1,000 ML 999 ML IV (02:17)
[2022-08-24 02:19] LABS: Lactate (Lactic Acid level) 1.8 mmol/L (0.5-2.2)
[2022-08-24] MEDS: azithromycin 500 MG in sodium chloride 0.9% 250 ML 250 MG IV (02:20)
[2022-08-24 03:38] LABS: Influenza A by IFA negative (Negative); Influenza B by IFA negative (Negative); SARS Covid-2 Antigen negative (Negative)
[2022-08-24 03:58] LABS: Urine Color Yellow (Yellow)
[2022-08-24 03:59] LABS: Blood Urine 2+ (Negative); Glucose Urine UA Norm (Normal); Ketones Urine Negative (Negative); Protein Urine 1+ (Negative); Specific Gravity, Urine 1.025 (1.005-1.030); Urine Appearance Hazy (CLEAR); pH Urine 5 (5-7)
[2022-08-24 04:00] LABS: Add Urine Microscopic? YES; Bacteria Urine TRACE /hpf; Bilirubin Urine 1+ (Negative); Leukocyte Esterase Urine Trace (Negative); Nitrate Urine Negative (Negative); Squamous Epithelial Cell Urine 15-25 /hpf (0-5); Urobilinogen Urine 1 mg/dL (Negative); WBC Urine 0-4 /hpf (0-5)
[2022-08-24 04:01] LABS: Add Urine Culture? No
--- NOTE | 2022-08-24 04:05 | CT_ITS ---
WS: [id number] CT CHEST, ABDOMEN, AND PELVIS TECHNIQUE: Noncontrast CT of the chest, abdomen, and pelvis with coronal and sagittal reformatted nisreen ges. CLINICAL INFORMATION: fever COMPARISON: CT abdomen pelvis 2016 DLP: 1314.[address] scans at [facility] use at least one of these dose optimization techniques: automated e xposure control; mA and/or kV adjustment per patient size (includes targeted exams where dose is matc hed to clinical indication); or iterative reconstruction. CT CHEST: Shallow inspiration. Bibasilar atelectasis. Subsegmental atelectasis in the lung bases. Slight hazy o pacity in the LEFT upper lobe. No significant pleural fluid. No focal consolidation. Normal caliber t horacic aorta. Aortic calcification. No mediastinal or hilar lymphadenopathy. No axillary lymphadenop athy. Cholecystectomy clips. Low-attenuation lesion RIGHT hepatic lobe likely hepatic cyst measuring 11 mm. Adrenal glands are normal. Fatty atrophy of the pancreas. Small esophageal hiatal hernia. Mild thora cic curve. Mild thoracic kyphosis. CT ABDOMEN AND PELVIS: Mild hepatomegaly. Low-attenuation lesion RIGHT hepatic lobe likely hepatic cyst measuring 10 mm. Cho lecystectomy clips. Normal noncontrast spleen. Small esophageal hiatal hernia. Fatty atrophy of the p ancreas. Adrenal glands are normal. Jay catheter in place. IVC filter. Normal caliber abdominal aor ta. Adrenal glands are normal. No hydronephrosis in RIGHT kidney. Tiny calyceal tip calculi. No abdominal or pelvic lymphadenopathy.Normal sigmoid colon. Normal lumbar spine. CT/[place] [id number] IMPRESSION: 1. Shallow inspiration. Bibasilar atelectasis. No focal consolidation or pleur al fluid. 2. Mild hepatomegaly. 3. Cholecystectomy. 4. IVC filter. 5. Ajy catheter in place. 6. No evidence of high-grade small or large bowel obstruction. 7. No free fluid in the abdomen or pelvis. 8. No other acute findings.
--- NOTE | 2022-08-24 04:27 | P.HP_ITS ---
Providers/Chief Complaint Admitting Physician: Arnulfo Wyatt MD Primary Care Provider: Candido Higginbotham, JAILER-C Chief Complaint: cough History of Present Illness Jayde Curtis is a 67 year old female with a past medical history of epilepsy, fibromyalgia, history of craniotomy, brain tumor removal, cognitive impairment, at baseline is mostly nonverbal, can say a few words here and there, can nod, can ambulate with a walker, lives at assisted living facility, who according to halfway has had a week history of intermittent fevers, crackles on exam. Patient's symptoms started on Saturday when she had crackles on exam, had fevers, was less responsive. Her symptoms improved throughout the week, remained afebrile, responsiveness improved, however early this morning, she had episodes of tachycardia, low O2 sats, crackles on exam, thus she was sent to [facility] for evaluation. Currently she is alert to her name, she opens her eyes, but does not follow commands, she is requiring 2 L, temp is 100.5 tachycardic heart rate 113, blood pressure 137/87, diffuse crackles and wheezing on exam. Review of Systems General: Reports: ROS unobtainable due to medical condition and ROS unobt ainable due to mental status Medications/Allergies Home Medications Medication Instructions Recorded Confirmed Last Taken Type acetaminophen 500 mg tablet 1,000 mg PO Q6H PRN Pain 09/11/19 08/08/22 Unknown History bismuth subsalicylate 262 mg 2 tab PO BID PRN UNKNOWN 09/11/19 08/08/22 Unknown History chewable tablet (Bismatrol) calcium carbonate 600 mg calcium 600 mg PO QDAY 09/11/19 08/08/22 05/10/22 History (1,500 mg) tablet (Calcium) carbidopa 25 mg-levodopa 100 mg 2 tab PO TID 09/11/19 08/08/22 05/10/22 History tablet (Sinemet) clopidogrel 75 mg tablet (Plavix) 75 mg PO QDAY 09/11/19 08/08/22 05/10/22 History donepezil 10 mg tablet (Aricept) 10 mg PO BEDTIME 09/11/19 08/08/22 05/09/22 History fluoxetine 40 mg capsule 40 mg PO QAM 09/11/19 08/08/2205/10/22 History guaifenesin 100 mg/5 mL oral 200 mg PO Q4H PRN Cough 09/11/19 08/08/22 Unknown History liquid (Diana-Tussin) magnesium oxide 400 mg PO QDAY 09/11/19 08/08/22 05/10/22 History meclizine 12.5 mg tablet 12.5 mg PO BID 09/11/19 08/08/22 05/10/22 History metoprolol tartrate 25 mg tablet 25 mg PO BID 09/11/19 08/08/22 05/10/22 History multivitamin (Daily Multi-Vitamin 1 tab PO QAM 09/11/19 08/08/22 05/10/22 His tory tablet) simvastatin 40 mg tablet 40 mg PO BEDTIME 09/11/19 08/08/22 05/09/22 History triamcinolone acetonide 0.1 % 1 applic topical BID PRN Rash 09/11/19 08/08/22 Unknown History topical cream carboxymethylcellulose sodium 0.7 1 drop ophthalmic (eye) BID 04/21/20 08/08/22 05/10/22 History % eye liquid gel drops (Sterile Lubricant) peg 400-propylene glycol 0.4 %-0.3 1 drp ophthalmic (eye) BID 04/21/20 08/08/22 05/10/22 History % eye gel drops (Systane Gel) witch remedios 86 % topical solution 10 ml topical .2 times day PRN 07/24/20 08/08/22 05/10/22 Rx #473 mL famotidine 20 mg tablet (Pepcid) 20 mg PO BID 12/21/20 08/08/22 05/10/22 History loperamide 2 mg capsule 2 mg PO Q4H PRN Constipation 02/15/21 08/08/22 Unknown History metformin 500 mg tablet 500 mg PO BID 02/15/21 08/08/22 05/10/22 History nystatin 100,000 unit/gram topical 1 applic topical BID 02/15/21 08/08/22 Unknown History cream levothyroxine 75 mcg tablet 75 mcg PO DAILY #30 tabs 04/26/22 08/08/22 05/10/22 Rx Lactobacills gasseri-Bifidobac 1 cap PO DAILY 05/10/22 08/08/2205/10/22 History bifidum,longum 1.5 billion cell capsule (SunGard) knndy-m-salqenapmeslz 300 unit 300 unit PO 6XD PRN 05/10/22 08/08/22 Unknown History disintegrating tablet (Beano) Gastrointestinal Spasms Or Cramping hydrocortisone 1 % topical solution 1 applic topical BID PRN Itching 05/10/22 08/08/22 Unknown History lorazepam 1 mg tablet 1 mg PO DAILY PRN Seizures 05/10/22 08/08/22 Unknown History magnesium hydroxide 400 mg/5 mL 16 ml PO BID PRN Constipation 05/10/22 08/08/22 Unknown History oral suspension (Milk of Rexly) oxyquinoline-white 1 ea topical BEDTIME 05/10/22 08/08/22 05/09/22 History petrolatum-lanolin 0.3 % topical ointment phenytoin sodium extended 100 mg 200 mg PO BID #60 caps 05/16/22 08/08/22 Unknown Rx capsule cholecalciferol (vitamin D3) 125 125 mcg PO DAILY 07/18/22 08/08/22 Unknown History mcg (5,000 unit) capsule levetiracetam 1,000 mg tablet 1,000 mg PO Q12H 07/18/22 08/08/22 Unknown History (Kedidi) cetirizine 10 mg tablet 10 mg PO DAILY #30 tabs 07/22/22 08/08/22 Unknown Rx Allergies Allergy/AdvReac Type Severity Reaction Status Date / Time amoxicillin Allergy Unknown Verified 08/08/22 14:56 aspirin Allergy Unknown Verified 08/08/22 14:56 doxepin Allergy Unknown Verified 08/08/22 14:56 hydrocodone Allergy Unknown Verified 08/08/22 14:56 metronidazole [From Flagyl] Allergy Unknown Verified 08/08/22 14:56 ondansetron [From Zofran] Allergy Unknown Verified 08/08/22 14:56 Penicillins Allergy ALGY-Hives Verified 08/08/22 14:56 Sulfa (Sulfonamide Allergy Unknown Verified 08/08/22 14:56 Antibiotics) nitrofurantoin AdvReac ADR-Itching Verified 08/08/22 14:56 [From Macrobid] PFSH Acute PFSH: Medical History Acid reflux Acute encephalopathy Altered mental status Anxiety Cognitive impairment Dependent for wheelchair mobility Dependent on walker for ambulation Fibromyalgia Generalized epilepsy Hypothyroidism, unspecified Lives in assisted living facility Metabolic syndrome Obesity (BMI 30-39.9) Otitis media Refused influenza vaccine Sinusitis Slow transit constipation Surgical History History of bilateral tubal ligation 1986 History of brain surgery 2002 History of cholecystectomy August 2005 History of colonoscopy 2006 and 2011 History of eye surgery Right 2004 History of hysterectomy with unilateral oophorectomy Right 1991 History of removal of Port-a-Cath 2004 Family History Father Hypertension Mother Hypertension CAD (coronary artery disease) Social History Smoking and tobacco status: never smoked Second hand smoke exposure: No Smoking risk assessment/counseling performed?: No Alcohol intake: never Desire information about alcohol rehabilitation?: No Counseling given: No Desire information about substance/drug rehabilitation?: No Counseling given: No Adopted: No Caregiver/support person: Yes Lives independently: No Household members: other Housing: Assisted Living Facility Marital status: Number of children: 2 service: No Current occupational status: disabled Current occupational exposures/hazards: No Pets and animals: No History of recent travel: No Current gender identity: Female Vitals/I&O/Wt Last Vital Signs Temp 100.5 F H 08/24/22 00:59 Pulse 113 H 08/24/22 00:59 Resp 16 08/24/22 00:59 BP 137/87 08/24/22 00:59 Pulse Ox 91 08/24/22 00:59 O2 Del Method 08/24/22 00:59 Weight last 48 hrs Weight 72.575 kg Physical Exam Const: COMMON NORMALS: no acute distress EXAM LIMITATIONS: altered mental status ORIENTATION/CONSCIOUSNESS: Yes awake, Yes oriented to person and Yes confused; not oriented to place and not oriented to time HENMT: COMMON NORMALS: normocephalic HEAD & SCALP: normocephalic Eye: COMMON NORMALS: Equal, round and reactive pupils present Neck/C-Spine: COMMON NORMALS: no JVD Lymph: LYMPHATIC: no lymphadenopathy noted Resp: COMMON NORMALS: normal respiratory effort, No retractions and No use of accessory muscles AUSCULTATION: crackles and wheezes Cardio: COMMON NORMALS: regular rhythm, S1 normal heart sound present and S2 normal heart sound present RATE: tachycardic RHYTHM: regular rhythm HE ART SOUNDS: S1 normal heart sound present and S2 normal heart sound present GI: COMMON NORMALS: Normal to inspection, nondistended, normoactive bowel sounds present, Soft to palpation, non-tender and no masses PALPATION: Yes Soft to palpation Extremity: COMMON NORMALS: no pedal edema Neuro: OTHER: unable to do neuro testing, doesnot follow commands Psych: COMMON NORMALS: mental status grossly normal Data 08/24/22 01:39 08/24/22 01:39 Micro: Microbiology 08/24/22 01:55 Blood Culture - Preliminary Blood SPECIMEN COLLECTED 08/24/22 01:39 Blood Culture - Preliminary Blood SPECIMEN COLLECTED A&P Assessment and plan (1) Fever: (2) Aspiration pneumonia: (3) Generalized epilepsy: (4) Hypothyroidism, unspecified: Qualifiers: Hypothyroidism type: acquired Qualified Code(s): E03.9 - Hypothyr oidism, unspecified (5) Acute encephalopathy: (6) UTI (urinary tract infection): Plan Fevers -Crackles on examination -Possible aspiration pneumonia although chest x-ray no acute evidence -Does have leukocytosis -Pro-Butch, CRP pending -UA has some evidence of UTI -Has acute encephalopathy -Tachycardic, febrile Plan -We will do CT chest abdomen pelvis -Continue Rocephin, azithromycin -Tylenol for fevers -Monitor blood cultures, sputum cultures -Monitor respiratory status -Aspiration precautions, speech therapy eval -npo -Full code -Lovenox for DVT prophylaxis Type 2 diabetes mellitus, low-dose sliding scale Hypothyroidism continue home medications Generalized epilepsy continue home medications Attestations Medical Necessity Statement*: Patient requires hospitalization for acute encephalopathy, aspiration pneumonia, UTI, Coding Level of Care Code Acute Associate Vice President for [facility] Fwd Diagnoses Fever R50.9 Aspiration pneumonia J69.0 Generalized epilepsy G40.309 Hypothyroidism, unspecified E03.9 Hypothyroidism type: acquired Acute encephalopathy G93.40 UTI (urinary tract infection) N39.0
[2022-08-24 04:42] LABS: Troponin(5th) Baseline 8 ng/L (0-10)
[2022-08-24 04:49] LABS: NT Pro B Type Natriuretic Pept 250 pg/mL (0-125); Procalcitonin 0.15 ng/mL (0-0.5); Thyroid Stimulating Hormone 5.88 uIU/mL (0.27-4.20)
[2022-08-24 05:00] LABS: C Reactive Protein 284.7 mg/L (0.0-4.9)
[2022-08-24 05:17] LABS: Estmated Average Glucose 114; Hemoglobin A1C 5.6 % (4.0-6.0)
[2022-08-24] MEDS: pantoprazole 40 mg SDV IVP (05:40)
[2022-08-24] MEDS: enoxaparin 40 mg/0.4 mL Syringe SUBCUT (05:46)
--- NOTE | 2022-08-24 06:19 | ECG_ITS ---
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 Measurements Intervals [place] Rate: 109 P: 56 FL: 164 QRS: 146 QRSD: 89 T: 52 QT: 323 QTc: 435 Interpretive Statements SINUS TACHYCARDIA POSSIBLE RIGHT VENTRICULAR HYPERTROPHY Compared to ECG 08/24/2022 01:26:43 Atrial abnormality now present Indeterminate axis no longer present Electronically Signed On 08-24-2022 19:06:08 LEASING MANAGER by Ynes Aguilera M.D. [id number]
[2022-08-24 06:44] LABS: Glucose Point of Care 128 mg/dL (70-110)
--- NOTE | 2022-08-24 09:53 | PC.CHAP ---
Pastoral Care Encounter/Spiritual Assessment Type of Contact [] Declined shag truck driver visit [] Patient/Family/Request visit [] Outpatient visit [] Follow-up visit [] Physician referral [] Code/Alert [x] Routine visit [] Staff referral [] Actively dying [] Patient sleeping [] Family support [] [] Out of room [] Palliative care [] [x] Receiving care in room [] Pre-surgical visit [] Trauma [] Long length of stay [] ICU visit [] Other: Relational/Emotional Strength [] Patient feels connected with others/family/visitors/staff [] Distress [] Loneliness/isolation [] Abandonment Spirituality of Patient [] Person of Rocio [] Attends Adventism of their Rocio [] Believes in Prayer [] Reads Bible or Mosque materials [] There are Spiritual issues to be addressed Job Foreman Interventions [x] Prayer [] Active listening [] Non-anxious presence [] Spiritual/emotional support [] Crisis/trauma care [] Spiritual counseling [] Bereavement support [] Provided bereavement packet [] Provided Bible/devotional materials [] Provided toy/stuffed animal, coloring book to patient or family member [] Provided Communion [] Anointing/[place] [] Salvation [] Completed spiritual assessment [] Other: Impact on Illness or Injury [] Angry [] Fearful [] Anxious [] Often cries [] Exhaustion [] Unable to work [] Unable to attend advent [] Unable to walk/stand [] Unable to read [] Unable to drive [] Unable to eat/drink [] Unable to sleep [] Unable to be with family [] Patient intubated [] Other: Summary Time spent with patient
[2022-08-24 10:48] LABS: Glucose Point of Care 118 mg/dL (70-110)
--- NOTE | 2022-08-24 10:51 | PC.PHAR ---
Addendum entered by Suma Islas 08/24/22 12:22: RECIVED MAR FROM FACILITY AT 11:40 AM Original Note: REQUESTED MAR FROM [facility] AT 9:15 AM- CALLED AGAIN AT 10:50 AM TO REQUEST AGAIN, NURSE SHAHIDA SAID SHE WOULD TRY AGAIN.
--- NOTE | 2022-08-24 12:56 | PC.SLP ---
Two attempts have been made to assess patient's swallowing function. Patient is unable to remain awake to fully participate in her evaluation. Will continue to monitor and assess when patient is appropriate.
--- NOTE | 2022-08-24 13:53 | PM.MISC ---
Miscellaneous Note Purpose of Documentation: Overnight labs and H&P reviewed. CT of the chest abdomen and pelvis without any obvious source. T-max 100.5 overnight. Pending urine and blood cultures. Check respiratory viral panel PCR. Further orders based on results of pending testing and clinical course. swallow eval pending.
[2022-08-24 16:41] LABS: Glucose Point of Care 114 mg/dL (70-110)
[2022-08-25] VITALS (12 sets, daily range): BP systolic 115–132; BP diastolic 69–84; PULSE 87–108; RESP 14–20; TEMP 36.1–36.9; O2SAT 94–98
[2022-08-25] MEDS: azithromycin 500 MG in sodium chloride 0.9% 250 ML 250 MG IV (04:16)
[2022-08-25] MEDS: cefTRIAXone 1,000 MG in sodium chloride 0.9% (plus) 50 ML 100 MG IV (05:33)
[2022-08-25] MEDS: enoxaparin 40 mg/0.4 mL Syringe SUBCUT (05:34)
[2022-08-25] MEDS: pantoprazole 40 mg SDV IVP (05:34)
[2022-08-25 06:41] LABS: Glucose Point of Care 108 mg/dL (70-110)
[2022-08-25] MEDS: albuterol 2.5 mg/3 mL Neb INHALATION (10:27)
[2022-08-25 10:28] LABS: Basophils # 0.1 10^3/uL (0.0-0.1); Basophils % 0.5 %; Eosinophils # 0.5 10^3/uL (0.0-0.8); Eosinophils % 4.1 %; Hematocrit 35.7 % (37.0-47.0); Hemoglobin 11.5 g/dL (11.5-15.3); Lymphocytes # 1.8 10^3/uL (0.8-4.8); Mean Corpuscular HGB Conc 32.2 g/dL (30.0-36.0); Mean Corpuscular Hemoglobin 31.5 pg (28.0-34.0); Mean Corpuscular Volume 97.8 fl (81-99); Mean Platelet Volume 9.3 fL (7.4-10.4); Monocytes # 0.7 10^3/uL (0.2-0.9); Monocytes % 6.5 %; Neutrophils # 7.96 10^3/uL (1.8-7.7); Neutrophils % 71.7 %; Nucleated Red Blood Cells % 0 %; Platelet Count 323 10^3/cmm (130-400); Red Blood Count 3.65 10^6/uL (4.1-5.3); Red Cell Distribution Width 12.9 % (12.1-15.1); White Blood Count 11.1 10^3/uL (4.0-10.0)
[2022-08-25] MEDS: clopidogrel 75 mg Tablet PO (10:38)
[2022-08-25] MEDS: cetirizine 10 mg Tablet PO (10:38)
[2022-08-25] MEDS: levothyroxine 75 mcg Tablet PO (10:38)
[2022-08-25] MEDS: metoprolol tartrate 25 mg Tablet PO ×2 (10:38→18:26)
[2022-08-25] MEDS: cholecalciferol (vitamin D3) 5,000 unit Tablet 5000 UNIT PO (10:38)
[2022-08-25] MEDS: fluoxetine 20 mg Capsule 40 MG PO (10:40)
[2022-08-25] MEDS: phenytoin ER 100 mg Capsule 200 MG PO ×2 (10:40→18:26)
[2022-08-25] MEDS: carbidopa-levodopa 25-100mg Tablet 2 EACH PO ×3 (10:44→21:18)
[2022-08-25 10:50] LABS: Alanine Aminotransferase 28 U/L (0-33); Albumin Level 3.2 g/dL (3.5-5.2); Alkaline Phosphatase 234 U/L (35-105); Anion Gap 13.8 (5-19); Aspartate Amino Transferase 18 U/L (0-32); Blood Urea Nitrogen 11 mg/dL (8-23); Calcium 8.6 mg/dL (8.5-10.5); Carbon Dioxide 25 mmol/L (22-29); Chloride 104 mmol/L (98-107); Creatinine Clr Calc Pharmacy 64.5271; Globulin 3.9 g/dL (1.3-4.6); Glomerular Filtration Rate 159.7 mL/min (90-130); Glucose 118 mg/dL (65-115); Osmolality Calculated 288 mOsm/kg (285-295); Potassium 3.8 mmol/L (3.5-5.1); Sodium 139 mmol/L (136-145); Total Bilirubin 0.2 mg/dL (0.15-1.2); Total Protein 7.1 g/dL (6.6-8.7)
[2022-08-25 11:41] LABS: Glucose Point of Care 123 mg/dL (70-110)
[2022-08-25 13:14] LABS: Adenovirus Not Detected (NOT DETECT); Chlamydia Pneumoniae Not Detected (NOT DETECT); Coronavirus 229E,HKU1,NL63,OC4 Not Detected (NOT DETECT); Human Metapneumovirus Not Detected (NOT DETECT); Human Rhinovirus/Enterovirus Not Detected (NOT DETECT); Influenza A Not Detected (NOT DETECT); Influenza A H1 Not Detected (NOT DETECT); Influenza A H1-2009 Not Detected (NOT DETECT); Influenza A H3 Not Detected (NOT DETECT); Influenza B Not Detected (NOT DETECT); Mycoplasma Pneumoniae Not Detected (NOT DETECT); Parainfluenza Virus Type 1 Not Detected (NOT DETECT); Parainfluenza Virus Type 2 Not Detected (NOT DETECT); Parainfluenza Virus Type 3 Not Detected (NOT DETECT); Parainfluenza Virus Type 4 Not Detected (NOT DETECT); Respiratory Syncytial Virus A Not Detected (NOT DETECT); Respiratory Syncytial Virus B Not Detected (NOT DETECT); SARS-COV-2 Not Detected (NOT DETECT)
--- NOTE | 2022-08-25 15:32 | PC.NURSE ---
Patient knows self and date of . She does not know where she is. [facility] and does not know the current year or president
[2022-08-25 16:52] LABS: Glucose Point of Care 114 mg/dL (70-110)
--- NOTE | 2022-08-25 17:44 | P.PN_ITS ---
Subjective Subjective: Afebrile over the last 24 hours. No acute interim events overnight. Leukocytosis trending down. Swallow evaluation has been unable to be completed as patient has been somnolent. Medications: Reviewed: Yes Vitals/I&O/Wt Last Vital Signs Temp 98 F 08/25/22 14:00 Pulse 96 08/25/22 14:00 Resp 14 08/25/22 14:00 BP 115/69 08/25/22 14:00 Pulse Ox 94 08/25/22 12:00 O2 Del Method 08/25/22 12:00 O2 Flow Rate 2 08/25/22 12:00 08/25/22 08/25/22 08/25/22 06:59 14:59 22:59 Intake Total 300 / 410 110 / 110 Output Total 300 / 700 Balance 0 / -290 110 / 110 Weight last 48 hrs Weight 72.575 kg Physical Exam Narrative: General: No acute distress, lying in bed, unable to assess orientation HEENT: PERRLA, pupils bilaterally equal and reactive, pallors not present Chest: B/L conducted breath sounds CVS: S1-S2 regular, no murmurs, no tachycardia, no gallops, no rubs Abdomen: Soft, nontender, no organomegaly, bowel sounds present Neuro: No focal deficits, no facial deformity, AO x3, power 5/5 in all limbs Urinary Catheter Management: Jay: Cath Placed During This Visit: yes Reason for Continuing Indwelling Catheter: Other Urinary Catheter Date of Insertion: 08/24/22 Urinary Catheter Time of Insertion: 04:00 Data 08/25/22 09:35 08/25/22 09:35 Micro: Microbiology 08/24/22 01:55 Blood Culture - Preliminary Blood NEGATIVE TO DATE 08/24/22 01:39 Blood Culture - Preliminary Blood NEGATIVE TO DATE A&P Assessment and plan (1) Fever: (2) Aspiration pneumonia: (3) Generalized epilepsy: (4) Hypothyroidism, unspecified: Qualifiers: Hypothyroidism type: acquired Qualified Code(s): E03.9 - Hypothyroidism, unspecified (5) Acute encephalopathy: (6) UTI (urinary tract infection): Plan Fevers -Crackles on examination -Possible aspiration pneumonia although chest x-ray no acute evidence -Does have leukocytosis -Pro-Butch, CRP pending -UA has some evidence of UTI, pending urine cx -Has acute encephalopathy -Tachycardic, febrile CT chest abdomen pelvis ?Bibasilar atelectasis. No focal consolidation or pleural fluid. No acute abdominal process. -Continue Rocephin, azithromycin -Tylenol for fevers -Monitor blood cultures, sputum cultures -Monitor respiratory status -Aspiration precautions, speech therapy eval- currently stage 4 dysphagia diet Type 2 diabetes mellitus, low-dose sliding scale Hypothyroidism continue home medications Generalized epilepsy continue home medications Attestations Medical Necessity Statement*: iv abx, awaiting culture results Coding Level of Care Code Acute Fire Extinguisher Sprinkler Inspector for Chg Fwd Diagnoses Fever R50.9 Aspiration pneumonia J69.0 Generalized epilepsy G40.309 Hypothyroidism, unspecified E03.9 Hypothyroidism type: acquired Acute encephalopathy G93.40 UTI (urinary tract infection) N39.0
[2022-08-25 21:15] LABS: Glucose Point of Care 154 mg/dL (70-110)
[2022-08-25] MEDS: donepezil 5 MG Tablet 10 MG PO (21:18)
[2022-08-25] MEDS: atorvastatin 40 mg Tablet PO (21:19)
[2022-08-26] VITALS (15 sets, daily range): BP systolic 119–138; BP diastolic 80–85; PULSE 84–101; RESP 17–22; TEMP 36.6–37.1; O2SAT 90–93
[2022-08-26] MEDS: azithromycin 500 MG in sodium chloride 0.9% 250 ML 250 MG IV (03:40)
[2022-08-26] MEDS: enoxaparin 40 mg/0.4 mL Syringe SUBCUT (04:53)
[2022-08-26] MEDS: pantoprazole 40 mg SDV IVP (05:21)
[2022-08-26] MEDS: cefTRIAXone 1,000 MG in sodium chloride 0.9% (plus) 50 ML 100 MG IV (05:21)
[2022-08-26 06:15] LABS: Glucose Point of Care 111 mg/dL (70-110)
[2022-08-26] MEDS: cetirizine 10 mg Tablet PO (08:44)
[2022-08-26] MEDS: phenytoin ER 100 mg Capsule 200 MG PO ×2 (08:44→17:14)
[2022-08-26] MEDS: clopidogrel 75 mg Tablet PO (08:44)
[2022-08-26] MEDS: levothyroxine 75 mcg Tablet PO (08:44)
[2022-08-26] MEDS: metoprolol tartrate 25 mg Tablet PO ×2 (08:44→17:14)
[2022-08-26] MEDS: carbidopa-levodopa 25-100mg Tablet 2 EACH PO ×3 (08:44→21:27)
[2022-08-26] MEDS: cholecalciferol (vitamin D3) 5,000 unit Tablet 5000 UNIT PO (08:45)
[2022-08-26 11:54] LABS: Glucose Point of Care 189 mg/dL (70-110)
[2022-08-26] MEDS: insulin lispro 100 unit/1 mL SUBCUT (12:24)
--- NOTE | 2022-08-26 16:56 | P.PN_ITS ---
Subjective Subjective: Patient is much more alert and awake today. She has aphasia therefore very difficult to understand her language. She has been afebrile, hemodynamically stable, leukocytosis is improving. Was planned to be discharged today, however assisted living states that they would not be able to take care of her increased needs at the moment Medications: Reviewed: Yes Vitals/I&O/Wt Last Vital Signs Temp 97.9 F 08/26/22 14:00 Pulse 85 08/26/22 14:00 Resp 18 08/26/22 14:00 BP 119/80 08/26/22 14:00 Pulse Ox 93 08/26/22 12:00 O2 Del Method 08/26/22 10:06 O2 Flow Rate 2 08/26/22 07:21 08/26/22 08/26/22 08/26/22 06:59 14:59 22:59 Intake Total 410 / 640 340 / 340 Output Total 300 / 650 Balance 110 / -10 340 / 340 Physical Exam Narrative: General: Much more alert and awake today. Unable to understand language because of aphasia. She is eating today. HEENT: PERRLA, pupils bilaterally equal and reactive, pallors not present Chest: clear breath sounds bilaterally CVS: S1-S2 regular, no murmurs, no tachycardia, no gallops, no rubs Abdomen: Soft, nontender, no organomegaly, bowel sounds present Urinary Catheter Management: Jay: Cath Placed During This Visit: yes Reason for Continuing Indwelling Catheter: Other Urinary Catheter Date of Insertion: 08/24/22 Urinary Catheter Time of Insertion: 04:00 Data 08/25/22 09:35 08/25/22 09:35 Micro: Microbiology 08/24/22 03:00 Urine Culture - Preliminary Urine Catheterized A&P Assessment and plan (1) Fever: (2) Aspiration pneumonia: (3) Generalized epilepsy: (4) Hypothyroidism, unspecified: Qualifiers: Hypothyroidism type: acquired Qualified Code(s): E03.9 - Hypothyroidi sm, unspecified (5) Acute encephalopathy: (6) UTI (urinary tract infection): Plan -Crackles on examination -Possible aspiration pneumonia -UA has some evidence of UTI, Urine cx negative to date -Had acute encephalopathy, which is now resolved - fever resolved - CT chest abdomen pelvis ?Bibasilar atelectasis. No focal consolidation or pleural fluid. No acute abdominal process. -Continue Rocephin, azithromycin for treatment -Monitor blood cultures, sputum cultures -Monitor respiratory status -Aspiration precautions, speech therapy eval- currently stage 4 dysphagia diet Type 2 diabetes mellitus, low-dose sliding scale Hypothyroidism continue home medications Generalized epilepsy continue home medications Patient is clinically much improved, encephalopathy resolved. She is alert but difficult to assess orientation due to aphasia. Appreciate PT eval. Discussed with patient's assisted living that she is stable for discharge but they are unable to meet her increased needs. Will likely benefit from SNF Attestations Medical Necessity Statement*: appropriate dispotion planning, iv abx Coding Level of Care Code Acute Plug Making Operator for Chg Fwd Diagnoses Fever R50.9 Aspiration pneumonia J69.0 Generalized epilepsy G40.309 Hypothyroidism, unspecified E03.9 Hypothyroidism type: acquired Acute encephalopathy G93.40 UTI (urinary tract infection) N39.0
[2022-08-26 17:19] LABS: Glucose Point of Care 92 mg/dL (70-110)
[2022-08-26 21:23] LABS: Glucose Point of Care 203 mg/dL (70-110)
[2022-08-26] MEDS: donepezil 5 MG Tablet 10 MG PO (21:27)
[2022-08-26] MEDS: atorvastatin 40 mg Tablet PO (21:27)
[2022-08-26] MEDS: meclizine 25 mg tablet 12.5 MG PO (21:31)
[2022-08-27] VITALS (12 sets, daily range): BP systolic 120–148; BP diastolic 75–89; PULSE 69–93; RESP 15–24; TEMP 36.4–37.3; O2SAT 91–93
[2022-08-27] MEDS: azithromycin 500 MG in sodium chloride 0.9% 250 ML 250 MG IV (03:35)
[2022-08-27 04:14] LABS: Basophils # 0.1 10^3/uL (0.0-0.1); Basophils % 0.8 %; Eosinophils # 0.5 10^3/uL (0.0-0.8); Eosinophils % 7.8 %; Hemoglobin 12.4 g/dL (11.5-15.3); Lymphocytes % 30.5 %; Mean Corpuscular HGB Conc 31.8 g/dL (30.0-36.0); Mean Corpuscular Hemoglobin 30.8 pg (28.0-34.0); Mean Platelet Volume 9.4 fL (7.4-10.4); Monocytes # 0.4 10^3/uL (0.2-0.9); Monocytes % 6.2 %; Neutrophils # 3.33 10^3/uL (1.8-7.7); Neutrophils % 51.6 %; Nucleated Red Blood Cells % 0 %; Platelet Count 369 10^3/cmm (130-400); Red Blood Count 4.02 10^6/uL (4.1-5.3); Red Cell Distribution Width 12.5 % (12.1-15.1); White Blood Count 6.5 10^3/uL (4.0-10.0)
[2022-08-27] MEDS: cefTRIAXone 1,000 MG in sodium chloride 0.9% (plus) 50 ML 100 MG IV (05:19)
[2022-08-27] MEDS: enoxaparin 40 mg/0.4 mL Syringe SUBCUT (05:20)
[2022-08-27] MEDS: pantoprazole 40 mg SDV IVP (05:20)
[2022-08-27] MEDS: fluoxetine 20 mg Capsule 40 MG PO (05:24)
[2022-08-27 05:51] LABS: Alanine Aminotransferase < 5 U/L (0-33); Albumin Level 3.2 g/dL (3.5-5.2); Alkaline Phosphatase 219 U/L (35-105); Anion Gap 14.6 (5-19); Aspartate Amino Transferase 18 U/L (0-32); Blood Urea Nitrogen 12 mg/dL (8-23); Calcium 9.1 mg/dL (8.5-10.5); Carbon Dioxide 26 mmol/L (22-29); Chloride 108 mmol/L (98-107); Creatinine Clr Calc Pharmacy 64.5271; Globulin 4.1 g/dL (1.3-4.6); Glomerular Filtration Rate 123.4 mL/min (90-130); Glucose 102 mg/dL (65-115); Osmolality Calculated 300 mOsm/kg (285-295); Potassium 3.6 mmol/L (3.5-5.1); Sodium 145 mmol/L (136-145); Total Bilirubin 0.2 mg/dL (0.15-1.2); Total Protein 7.3 g/dL (6.6-8.7)
[2022-08-27 06:44] LABS: Glucose Point of Care 105 mg/dL (70-110)
[2022-08-27] MEDS: clopidogrel 75 mg Tablet PO (09:44)
[2022-08-27] MEDS: carbidopa-levodopa 25-100mg Tablet 2 EACH PO ×3 (09:44→20:51)
[2022-08-27] MEDS: levothyroxine 75 mcg Tablet PO (09:44)
[2022-08-27] MEDS: cetirizine 10 mg Tablet PO (09:44)
[2022-08-27] MEDS: phenytoin ER 100 mg Capsule 200 MG PO ×2 (09:44→17:34)
[2022-08-27] MEDS: metoprolol tartrate 25 mg Tablet PO ×2 (09:45→17:34)
[2022-08-27] MEDS: meclizine 25 mg tablet 12.5 MG PO ×2 (09:45→20:53)
[2022-08-27] MEDS: cholecalciferol (vitamin D3) 5,000 unit Tablet 5000 UNIT PO (09:45)
[2022-08-27 11:23] LABS: Glucose Point of Care 163 mg/dL (70-110)
[2022-08-27] MEDS: insulin lispro 100 unit/1 mL SUBCUT ×2 (12:52→17:34)
[2022-08-27 16:40] LABS: Glucose Point of Care 144 mg/dL (70-110)
[2022-08-27] MEDS: acetaminophen 325 mg Tablet 650 MG PO (17:36)
--- NOTE | 2022-08-27 18:58 | PM.PN ---
Subjective Subjective: Was seen and examined this morning, she is much more alert awake today, was able to tell me her name, she was also telling that she is hurting all over, which is not uncommon for her, has been afebrile, tolerating p.o. intake, working with physical therapy. Medications: Reviewed: Yes Medication Review Details: Generic Name Dose Route Start Last Admin Trade Name Satish PRN Reason Stop Dose Admin Acetaminophen 650 mg 08/24/22 05:13 08/27/22 17:36 Acetaminophen 32 5 Mg Tablet PO 650 mg Q6H PRN Administration Mild/Mod Pain Or Temp >/= 101 Albuterol Sulfate 2.5 mg 08/25/22 09:58 08/25/22 10:27 Albuterol 2.5 Mg /3 Ml Neb INHALATION 2.5 mg Q4H.RESPIRATORY P RN Administration SHORTNESS OF JEMIMA TH Atorvastatin Calci um 40 mg 08/24/22 21:00 08/26/22 21:27 Atorvastatin 40 Mg Tablet PO 40 mg BEDTIME DAVID Administration Carbidopa/Levodopa 2 each 08/24/22 09:00 08/27/22 15:34 Carbidopa-Levodo pa 25-100mg Tablet PO 2 each TID DAVID Administration Cetirizine HCl 10 mg 08/24/22 09:00 08/27/22 09:44 Cetirizine 10 Mg Tablet PO 10 mg DAILY DAVID Administration Clopidogrel Bisulf ate 75 mg 08/24/22 09:00 08/27/22 09:44 Clopidogrel 75 M g Tablet PO 75 mg DAILY DAVID Administration Donepezil HCl 10 mg 08/24/22 21:00 08/26/22 21:27 Donepezil 5 Mg T ablet PO 10 mg BEDTIME DAVID Administration Enoxaparin Sodium 40 mg 08/24/22 05:30 08/27/22 05:20 Enoxaparin 40 Mg /0.4 Ml Syringe SUBCUT 40 mg Q24H DAVID Administration Fluoxetine HCl 40 mg 08/24/22 06:00 08/27/22 05:24 Fluoxetine 20 Mg Capsule PO 40 mg QAM DAVID Administration Ceftriaxone Sodium 1,000 mg/ 50 mls @ 100 mls/ hr 08/25/22 04:30 08/27/22 05:56 Sodium Chloride IV Infused Q24H DAVID Infusion Protocol Azithromycin 500 m g/ Sodium 250 mls @ 250 mls /hr 08/25/22 04:30 08/27/22 05:04 Chloride IV Infused Q24H DAVID Infusion Protocol Levetiracetam 1,00 0 mg/ Sodium 110 mls @ 440 mls /hr 08/24/22 06:30 08/27/22 14:55 Chloride IV Infused Q12H DAVID Infusion Insulin Human Lisp ro 0 unit 08/24/22 08:00 08/27/22 17:34 Insulin Lispro 1 00 Unit/1 Ml SUBCUT 2 unit TIDWM DAVID Administration Protocol Levothyroxine Sodi um 75 mcg 08/24/22 09:00 08/27/22 09:44 Levothyroxine 75 Mcg Tablet PO 75 mcg DAILY DAVID Administration Meclizine HCl 12.5 mg 08/26/22 21:00 08/27/22 09:45 Meclizine 25 Mg Tablet PO 12.5 mg BID@0900,2100 [facility] Administration Metoprolol Tartrat e 25 mg 08/24/22 09:00 08/27/22 17:34 Metoprolol Tartr ate 25 Mg Tablet PO 25 mg BID DAVID Administration Pantoprazole Sodiu m 40 mg 08/24/22 05:13 08/27/22 05:20 Pantoprazole 40 Mg Sdv IVP 40 mg Q24H DAVID Administration Phenytoin 200 mg 08/24/22 09:00 08/27/22 17:34 Phenytoin Er 100 Mg Capsule PO 200 mg BID DAVID Administration Vitamin D 5,000 unit 08/24/22 09:00 08/27/22 09:45 Cholecalciferol (Vitamin D3) 5,000 Unit Tablet PO 5,000 unit DAILY DAVID Administration Vitals/I&O/Wt Last Vital Signs Temp 98.2 F 08/27/22 16:00 Pulse 83 08/27/22 16:00 Resp 18 08/27/22 16:00 BP 120/75 08/27/22 16:00 Pulse Ox 92 08/27/22 16:00 O2 Del Method 08/27/22 16:00 O2 Flow Rate 2 08/26/22 20:41 08/27/22 08/27/22 08/27/22 06:59 14:59 22:59 Intake Total 410 / 860 350 / 350 240 / 590 Output Total 275 / 275 Balance 135 / 585 350 / 350 240 / 590 Physical Exam Narrative: Alert awake, with slow response, though she is able to tell me her name. Resp: COMMON NORMALS: normal respiratory effort, No retractions, No use of accessory muscles and clear to auscultation bilaterally EFFORT & INSPECTION: Yes symmetric chest movement AUSCULTATION: clear to auscultation bilaterally Cardio: COMMON NORMALS: regular rate, regular rhythm, S1 normal heart sound present, S2 normal heart sound present, No gallops present (Cardio), No murmurs present (Cardio), No rub (Cardio) and Peripheral pulses 2+ throughout RATE: regular rate RHYTHM: regular rhythm HEART SOUNDS: S1 normal heart sound present and S2 normal heart sound present PERIPHERAL PULSES: Peripheral pulses 2+ throughout GI: COMMON NORMALS: Normal to inspection, nondistended, normoactive bowel sounds present, Soft to palpation, non-tender, No hepatosplenomegaly present and no masses AUSCULTATION: Yes normoactive bowel sounds PALPATION: Yes Soft to palpation and Yes No hepatosplenomegaly present RECTAL EXAM: deferred Extremity: COMMON NORMALS: no clubbing, cyanosis or edema and no pedal edema Urinary Catheter Management: Jay: Cath Placed During This Visit: yes Reason for Continuing Indwelling Catheter: Other Urinary Catheter Date of Insertion: 08/24/22 Urinary Catheter Time of Insertion: 04:00 Data 08/27/22 03:09 08/27/22 05:12 Micro: Microbiology 08/24/22 03:00 Urine Culture - Final Urine Catheterized A&P Assessment and plan (1) Fever: (2) Aspiration pneumonia: (3) Generalized epilepsy: (4) Hypothyroidism, unspecified: Qualifiers: Hypothyroidism type: acquired Qualified Code(s): E03.9 - Hypothyroidism, unspecified (5) Acute encephalopathy: (6) UTI (urinary tract infection): Plan -Crackles on examination -Possible aspiration pneumonia -UA has some evidence of UTI, Urine cx negative to date -Had acute encephalopathy, which is now resolved - fever resolved - CT chest abdomen pelvis ?Bibasilar atelectasis. No focal consolidation or pleural fluid. No acute abdominal process. -Continue Rocephin, azithromycin for treatment -Monitor blood cultures, sputum cultures -Monitor respiratory status -Aspiration precautions, speech therapy eval- currently stage 4 dysphagia diet Type 2 diabetes mellitus, low-dose sliding scale Hypothyroidism continue home medications Generalized epilepsy continue home medications Patient is clinically much improved, encephalopathy resolved.Currently patient is awaiting placement to rehab. Attestations Medical Necessity Statement*: Awaiting placement to rehab. Coding Level of Care Code Acute Zig Zag Stitcher for Chg Fwd Diagnoses Fever R50.9 Aspiration pneumonia J69.0 Generalized epilepsy G40.309 Hypothyroidism, unspecified E03.9 Hypothyroidism type: acquired Acute encephalopathy G93.40 UTI (urinary tract infection) N39.0
[2022-08-27] MEDS: atorvastatin 40 mg Tablet PO (20:51)
[2022-08-27] MEDS: donepezil 5 MG Tablet 10 MG PO (20:51)
[2022-08-27 21:09] LABS: Glucose Point of Care 141 mg/dL (70-110)
[2022-08-28 04:00] VITALS: BP 137/81; PULSE 84; RESP 16; TEMP 36.7; O2SAT 91
[2022-08-28] MEDS: cefTRIAXone 1,000 MG in sodium chloride 0.9% (plus) 50 ML 100 MG IV (04:30)
[2022-08-28] MEDS: enoxaparin 40 mg/0.4 mL Syringe SUBCUT (04:31)
[2022-08-28] MEDS: pantoprazole 40 mg SDV IVP (04:41)
[2022-08-28] MEDS: azithromycin 500 MG in sodium chloride 0.9% 250 ML 250 MG IV (05:06)
[2022-08-28] MEDS: fluoxetine 20 mg Capsule 40 MG PO (05:55)
[2022-08-28 06:00] VITALS: PULSE 89
[2022-08-28 06:44] LABS: Glucose Point of Care 118 mg/dL (70-110)
[2022-08-28 07:19] VITALS: PULSE 90; RESP 16; O2SAT 92
[2022-08-28 07:48] VITALS: BP 143/84; PULSE 86; RESP 18; TEMP 36.4; O2SAT 92
[2022-08-28] MEDS: phenytoin ER 100 mg Capsule 200 MG PO (08:46)
[2022-08-28] MEDS: meclizine 25 mg tablet 12.5 MG PO (08:46)
[2022-08-28] MEDS: cetirizine 10 mg Tablet PO (08:46)
[2022-08-28] MEDS: levothyroxine 75 mcg Tablet PO (08:46)
[2022-08-28] MEDS: metoprolol tartrate 25 mg Tablet PO (08:47)
[2022-08-28] MEDS: clopidogrel 75 mg Tablet PO (08:47)
[2022-08-28] MEDS: cholecalciferol (vitamin D3) 5,000 unit Tablet 5000 UNIT PO (08:47)
[2022-08-28] MEDS: carbidopa-levodopa 25-100mg Tablet 2 EACH PO (08:47)
[2022-08-28 11:33] LABS: Glucose Point of Care 134 mg/dL (70-110)
[2022-08-28 11:47] LABS: SARS Covid-2 Antigen negative (Negative)
--- NOTE | 2022-08-28 11:51 | PM.DCS ---
Discharge Providers Date of Admission: 08/24/22 04:20 Date of Discharge: August 28, 2022 Attending Provider at Admission: Arnulfo Wyatt MD Attending Provider at Discharge: Catalino Ibarra MD Primary Care Provider: CHAIM Elizalde Diagnoses at Discharge Discharge Diagnosis (1) Fever: Status: Acute (2) Aspiration pneumonia: Status: Acute (3) Generalized epilepsy: Status: Chronic (4) Hypothyroidism, unspecified: Status: Chronic Qualifiers: Hypothyroidism type: acquired Qualified Code(s): E03.9 - Hypothyroidism, unspecified (5) Acute encephalopathy: Status: Acute (6) UTI (urinary tract infection): Status: Acute Reason for Visit Reason for Visit: cough Hospital Course Hospital Course ?HPI: Arnulfo Wyatt MD 67 year old female with a past medical history of epilepsy, fibromyalgia, history of craniotomy, brain tumor removal, cognitive impairment, at baseline is mostly nonverbal, can say a few words here and there, can nod, can ambulate with a walker, lives at assisted living facility, who according to residential has had a week history of intermittent fevers, crackles on exam.? Patient's symptoms started on Saturday when she had crackles on exam, had fevers, was less responsive.? Her symptoms improved throughout the week, remained afebrile, responsiveness improved, however early this morning, she had episodes of tachycardia, low O2 sats, crackles on exam, thus she was sent to [facility] for evaluation.? Currently she is alert to her name, she opens her eyes, but does not follow commands, she is requiring 2 L, temp is 100.5 tachycardic heart rate 113, blood pressure 137/87, diffuse crackles and wheezing on exam. Hospital course: She was admitted for the management of acute metabolic encephalopathy secondary to UTI, possible aspiration pneumonia, generalized epilepsy fever,?CT chest abdomen pelvis??Bibasilar atelectasis. No focal consolidation or pleural fluid. No acute abdominal process.Blood culture was negative, urine culture was negative, she was empirically kept on ceftriaxone and azithromycin, aspiration precaution, dysphagia 4 diet, she responded well to above medical management, at the time of discharge she was hemodynamically stable, afebrile, at her baseline mentation. Metabolic encephalopathy was likely secondary to UTI. She was discharged on p.o. levofloxacin, for additional 3 days, to complete the course for UTI. This will also provide some additional coverage for pneumonia. She was continued to be managed for other comorbid condition, namely hypothyroidism diabetes generalized epilepsy. Patient responded well to above medical management, given her increased need, she was discharged to SNF. Physical Exam Narrative: Alert awake, with slow response, Resp: COMMON NORMALS: normal respiratory effort, No retractions, No use of accessory muscles and clear to auscultation bilaterally EFFORT & INSPECTION: Yes symmetric chest movement AUSCULTATION: clear to auscultation bilaterally Cardio: COMMON NORMALS: regular rate, regular rhythm, S1 normal heart sound present, S2 normal heart sound present, No gallops present (Cardio), No murmurs present (Cardio), No rub (Cardio) and Peripheral pulses 2+ throughout RATE: regular rate RHYTHM: regular rhythm HEART SOUNDS: S1 normal heart sound present and S2 normal heart sound present PERIPHERAL PULSES: Peripheral pulses 2+ throughout GI: COMMON NORMALS: Normal to inspection, nondistended, normoactive bowel sounds present, Soft to palpation, non-tender, No hepatosplenomegaly present and no masses AUSCULTATION: Yes normoactive bowel sounds PALPATION: Yes Soft to palpation and Yes No hepatosplenomegaly present RECTAL EXAM: deferred Extremity: COMMON NORMALS: no clubbing, cyanosis or edema and no pedal edema Urinary Catheter Management: Jay: Cath Placed During This Visit: yes Reason for Continuing Indwelling Catheter: Acute Urinary Retention or Obstruction Urinary Catheter Date of Insertion: 08/24/22 Urinary Catheter Time of Insertion: 04:00 Discharge Data Studies Completed and Pending Completed Studies During Hospitalization Category Date Time Status CT chest abdomen pelvis [[place] [id number] Cat Scan 08/24/22 04:05 Completed ] Stat XR chest 1V portable [id number] Stat Exams 08/24/22 01:02 Completed Pending at discharge Category Date Time Status Blood Culture Stat Lab 08/24/22 01:55 Results Sputum Culture and Gram Stain Stat Lab 08/24/22 04:35 Uncollected Radiology Impressions Chest X-Ray 08/24/22 01:02 IMPRESSION: Stable chest, no acute finding. No significant change from 4 days ago. Chest/Abdomen/Pelvis CT 08/24/22 04:05 IMPRESSION: 1. Shallow inspiration. Bibasilar atelectasis. No focal consolidation or pleural fluid. 2. Mild hepatomegaly. 3. Cholecystectomy. 4. IVC filter. 5. Jay catheter in place. 6. No evidence of high-grade small or large bowel obstruction. 7. No free fluid in the abdomen or pelvis. 8. No other acute findings. Laboratory Results WBC 6.5 10^3/uL (4.0-10.0) 08/27/22 03:09 RBC 4.02 10^6/uL (4.1-5.3) L 08/27/22 03:09 Hgb 12.4 g/dL (11.5-15.3) 08/27/22 03:09 Hct 39.0 % (37.0-47.0) 08/27/22 03:09 MCV 97.0 fl (81-99) 08/27/22 03:09 MCH 30.8 pg (28.0-34.0) 08/27/22 03:09 MCHC 31.8 g/dL (30.0-36.0) 08/27/22 03:09 RDW 12.5 % (12.1-15.1) 08/27/22 03:09 Plt Count 369 10^3/cmm (130-400) 08/27/22 03:09 MPV 9.4 fL (7.4-10.4) 08/27/22 03:09 Neut % (Auto) 51.6 % 08/27/22 03:09 Lymph % (Auto) 30.5 % 08/27/22 03:09 [place] % (Auto) 6.2 % 08/27/22 03:09 Eos % (Auto) 7.8 % 08/27/22 03:09 Baso % (Auto) 0.8 % 08/27/22 03:09 Neut # (Auto) 3.33 10^3/uL (1.8-7.7) 08/27/22 03:09 Lymph # (Auto) 2.0 10^3/uL (0.8-4.8) 08/27/22 03:09 [place] # (Auto) 0.4 10^3/uL (0.2-0.9) 08/27/22 03:09 Eos # (Auto) 0.5 10^3/uL (0.0-0.8) 08/27/22 03:09 Baso # (Auto) 0.1 10^3/uL (0.0-0.1) 08/27/22 03:09 Nucleated RBC % (auto) 0 % 08/27/22 03:09 Nucleated RBCs # 0.0 /100WBC 08/27/22 03:09 Sodium 145 mmol/L (136-145) 08/27/22 05:12 Potassium 3.6 mmol/L (3.5-5.1) 08/27/22 05:12 Chloride 108 mmol/L (98-107) H 08/27/22 05:12 Carbon Dioxide 26 mmol/L (22-29) 08/27/22 05:12 Anion Gap 14.6 (5-19) 08/27/22 05:12 BUN 12 mg/dL (8-23) 08/27/22 05:12 Creatinine 0.5 mg/dL (0.5-0.9) 08/27/22 05:12 GFR Calculation 123.4 mL/min (90-130) 08/27/22 05:12 Glucose 102 mg/dL (65-115) 08/27/22 05:12 POC Glucose 134 mg/dL (70-110) H 08/28/22 11:02 Estimat Average Glucose 114 08/24/22 01:39 Hemoglobin A1c 5.6 % (4.0-6.0) 08/24/22 01:39 Calculated Osmolality 300 mOsm/kg (285-295) H 08/27/22 05:12 Lactate 1.8 mmol/L (0.5-2.2) 08/24/22 01:39 Calcium 9.1 mg/dL (8.5-10.5) 08/27/22 05:12 Total Bilirubin 0.2 mg/dL (0.15-1.2) 08/27/22 05:12 AST 18 U/L (0-32) 08/27/22 05:12 ALT < 5 U/L (0-33) 08/27/22 05:12 Alkaline Phosphatase 219 U/L (35-105) H 08/27/22 05:12 Troponin T Baseline 8 ng/L (0-10) 08/24/22 01:39 C-Reactive Protein 284.7 mg/L (0.0-4.9) H 08/24/22 01:39 NT-Pro-B Natriuret Pep 250 pg/mL (0-125) H 08/24/22 01:39 Total Protein 7.3 g/dL (6.6-8.7) 08/27/22 05:12 Albumin 3.2 g/dL (3.5-5.2) L 08/27/22 05:12 Globulin 4.1 g/dL (1.3-4.6) 08/27/22 05:12 Procalcitonin 0.15 ng/mL (0-0.5) 08/24/22 01:39 TSH 5.88 uIU/mL (0.27-4.20) H 08/24/22 01:39 Urine Color Yellow (Yellow) 08/24/22 03:00 Urine Appearance Hazy (CLEAR) A 08/24/22 03:00 Urine pH 5 (5-7) 08/24/22 03:00 Ur Specific [place] 1.025 (1.005-1.030) 08/24/22 03:00 Urine Protein 1+ (Negative) H 08/24/22 03:00 Urine Glucose (UA) Norm (Normal) 08/24/22 03:00 Urine Ketones Negative (Negative) 08/24/22 03:00 Urine Blood 2+ (Negative) H 08/24/22 03:00 Urine Nitrate Negative (Negative) 08/24/22 03:00 Urine Bilirubin 1+ (Negative) H 08/24/22 03:00 Urine Urobilinogen 1 mg/dL (Negative) H 08/24/22 03:00 Ur Leukocyte Esterase Trace (Negative) H 08/24/22 03:00 Urine RBC 5-10 /hpf (0-2) H 08/24/22 03:00 Urine WBC 0-4 /hpf (0-5) H 08/24/22 03:00 Ur Squamous Epith Cells 15-25 /hpf (0-5) H 08/24/22 03:00 Amorphous Sediment Not Reportable 08/24/22 03:00 Urine Bacteria Trace /hpf (NONE) 08/24/22 03:00 Nasal Influ A H1 2008 PCR Not detected (NOT DETECT) 08/25/22 11:11 Adenovirus (PCR) Not detected (NOT DETECT) 08/25/22 11:11 C. pneumoniae DNA (PCR) Not detected (NOT DETECT) 08/25/22 11:11 Coronavirus 229E (PCR) Not detected (NOT DETECT) 08/25/22 11:11 Human Metapneumovir PCR Not detected (NOT DETECT) 08/25/22 11:11 Influenza A (H1) PCR Not detected (NOT DETECT) 08/25/22 11:11 Influenza A (H3) PCR Not detected (NOT DETECT) 08/25/22 11:11 Influenza Type A Ag negative (Negative) 08/24/22 03:00 Influenza Type A (PCR) Not detected (NOT DETECT) 08/25/22 11:11 Influenza Type B Ag negative (Negative) 08/24/22 03:00 Influenza Type B (PCR) Not detected (NOT DETECT) 08/25/22 11:11 M. pneumoniae (PCR) Not detected (NOT DETECT) 08/25/22 11:11 Parainfluenza 1 (PCR) Not detected (NOT DETECT) 08/25/22 11:11 Parainfluenza 2 (PCR) Not detected (NOT DETECT) 08/25/22 11:11 Parainfluenza 3 (PCR) Not detected (NOT DETECT) 08/25/22 11:11 Parainfluenza 4 (PCR) Not detected (NOT DETECT) 08/25/22 11:11 RSV Type A (PCR) Not detected (NOT DETECT) 08/25/22 11:11 RSV Type B (PCR) Not detected (NOT DETECT) 08/25/22 11:11 Entero/Rhino (PCR) Not detected (NOT DETECT) 08/25/22 11:11 SARS-CoV-2 (PCR) Not detected (NOT DETECT) 08/25/22 11:11 SARS-CoV-2 Ag (Rapid) negative (Negative) 08/28/22 11:25 Vitals Last Vital Signs Temp 97.6 F 08/28/22 07:48 Pulse 86 08/28/22 07:48 Resp 18 08/28/22 07:48 BP 143/84 08/28/22 07:48 Pulse Ox 92 08/28/22 07:48 O2 Del Method 08/28/22 07:19 O2 Flow Rate 2 08/26/22 20:41 Discharge Plan Discharge Patient Disposition: Home Condition: Stable Prescriptions: New levofloxacin 500 mg tablet 500 mg PO DAILY 3 Days Qty: 3 0RF Continued famotidine [Pepcid] 20 mg tablet 20 mg PO BID calcium carbonate [Calcium 600] 600 mg calcium (1,500 mg) tablet 600 mg PO QDAY carbidopa-levodopa [Sinemet] 25-100 mg tablet 2 tab PO TID clopidogrel [Plavix] 75 mg tablet 75 mg PO QDAY donepezil [Aricept] 10 mg tablet 10 mg PO BEDTIME Hold Instructions: Patient No Longer Taking fluoxetine 40 mg capsule 40 mg PO QAM magnesium oxide 400 mg magnesium capsule 400 mg PO QDAY meclizine 12.5 mg tablet 12.5 mg PO BID metoprolol tartrate 25 mg tablet 25 mg PO BID multivitamin [Daily Multi-Vitamin] Tablet 1 tab PO QAM simvastatin 40 mg tablet 40 mg PO BEDTIME acetaminophen 500 mg tablet 1,000 mg PO Q6H PRN (Reason: Pain) bismuth subsalicylate [Bismatrol] 262 mg tablet,chewable 2 tab PO BID PRN (Reason: UNKNOWN) metformin 500 mg tablet 500 mg PO BID witch remedios 86 % solution 10 ml topical .2 times day PRN Qty: 473 0RF levothyroxine 75 mcg tablet 75 mcg PO DAILY Qty: 30 5RF levetiracetam [Keppra] 1,000 mg tablet 1,000 mg PO BID cholecalciferol (vitamin D3) 125 mcg (5,000 unit) capsule 125 mcg PO DAILY cetirizine 10 mg tablet 10 mg PO DAILY Qty: 30 0RF Systane Gel 0.4-0.3 % Drops,Gel 1 drp OPHTHALMIC (EYE) BID loperamide 2 mg capsule 2 mg PO Q4H PRN (Reason: Constipation) bisacodyl 10 mg Suppository 10 mg SC DAILY PRN (Reason: Constipation) guaifenesin 400 mg Tablet 200 mg PO QID PRN (Reason: Congestion) hydrocortisone 1 % Solution 1 applic TOPICAL BID PRN (Reason: Itching) magnesium hydroxide [Milk of Magnesia] 400 mg/5 mL Suspension 16 ml PO BID PRN (Reason: Constipation) Beano 300 unit Tablet,Disintegrating 300 unit PO 6XD PRN (Reason: Gastrointestinal Spasms Or Cramping) Jixee 1.5 billion cell Capsule 1 cap PO DAILY phenytoin sodium extended 100 mg Capsule 200 mg PO BID Qty: 60 3RF Discharge Orders: Discharge Order (Routine); Ordered 08/28/22 Ordered By: Catalino Ibarra Referrals: Candido Higginbotham, [facility] [Primary Care Provider] - 1 week Patient Instructions: Opioid Safety Discharge Attestations Time Spent in Discharge Care*: greater than 30 min Quality Metrics Clinical Quality Measures [ No reported AMI, CVA or VTE this stay] Coding Level of Care Code Acute Chg FW DC note Diagnoses Fever R50.9 Aspiration pneumonia J69.0 Generalized epilepsy G40.309 Hypothyroidism, unspecified E03.9 Hypothyroidism type: acquired Acute encephalopathy G93.40 UTI (urinary tract infection) N39.0
--- NOTE | 2022-08-28 13:34 | PC.NURSE ---
Report called to RADHA Godoy, at [facility].
== END 2022-08-28 13:45 | disposition skilled nursing facility (03) | DRG 689 ==
LOC: ER 04:08 → MEDSURG 04:20
PROVIDERS: Student in an Organized Health Care Education/Training Program; Admitting Provider Family Medicine; Emergency Provider Emergency Medicine; PCP Nurse Practitioner; Visit Provider Internal Medicine
DX: N39.0 Urinary tract infection, site not specified (principal); G93.41 Metabolic encephalopathy; R47.01 Aphasia; G40.409 Other generalized epilepsy and epileptic syndromes, not intractable, without status epilepticus; E03.9 Hypothyroidism, unspecified; M79.7 Fibromyalgia; G31.84 Mild cognitive impairment of uncertain or unknown etiology; E11.9 Type 2 diabetes mellitus without complications; Z79.02 Long term (current) use of antithrombotics/antiplatelets; Z79.84 Long term (current) use of oral hypoglycemic drugs; K59.01 Slow transit constipation; E66.9 Obesity, unspecified; Z68.29 Body mass index [BMI] 29.0-29.9, adult; F41.9 Anxiety disorder, unspecified; Z88.1 Allergy status to other antibiotic agents; Z88.5 Allergy status to narcotic agent; Z88.0 Allergy status to penicillin; Z88.2 Allergy status to sulfonamides
CPT/HCPCS: 36415; 36416; 51702; 71045; 71250; 74176; 80053; 81001; 82962; 83036; 83605; 83880; 84145; 84443; 84484; 85025; 86140; 87040; 87086; 87426; 87486; 87581; 87633; 87804; 92523; 92610; 93005; 94640; 94664; 96365; 96367; 96372; 97110; 97162; 97167; 97530; 99285; C9113; J0456; J0696; J1650; J1815; J1953; J7030; J7050; J7613; J8597

== ENCOUNTER 2023-01-18 08:44 | Emergency (ER) | payer MEDICARE, SELFPAY ==
[2023-01-18] VITALS (8 sets, daily range): BP systolic 106–120; BP diastolic 60–86; PULSE 65–77; RESP 16; TEMP 36.7; O2SAT 93–97; BMI 32.1
--- NOTE | 2023-01-18 09:18 | ED_ITS ---
HPI - Weakness General: Chief complaint: Weakness Stated complaint: weakness Time Seen by Provider: 01/18/23 09:13 Limitations: other (Patient is not responding verbally to questioning.) History of Present Illness: Patient presents from [facility] with a 2-day history of lethargy and weakness. Patient is not responding verbally to questioning so history was taken from nursing notes. MD Complaint: generalized weakness (And lethargy) Onset (ago): day(s) (2 days ago) Review of Systems General: Reports: ROS unobtainable due to medical condition (Patient is not responding verbally) PFS ED PFSH: Medical History Acid reflux Acute encephalopathy Acute encephalopathy Altered mental status Anxiety Aspiration pneumonia Cognitive impairment Dependent for wheelchair mobility Dependent on walker for ambulation Fever Fibromyalgia Generalized epilepsy Hypothyroidism, unspecified Lives in assisted living facility Metabolic syndrome Obesity (BMI 30-39.9) Otitis media Refused influenza vaccine Sinusitis Slow transit constipation UTI (urinary tract infection) Surgical History History of bilateral tubal ligation 1986 History of brain surgery 2002 History of cholecystectomy August 2005 History of colonoscopy 2006 and 2012 History of eye surgery Right 2004 History of hysterectomy with unilateral oophorectomy Right 1991 History of removal of Port-a-Cath 2004 Family History Father Hypertension Mother Hypertension CAD (coronary artery disease) Social History Smoking and tobacco status: never smoked Second hand smoke exposure: No Smoking risk assessment/counseling performed?: No Alcohol intake: never Desire information about alcohol rehabilitation?: No Counseling given: No Substance/Drug Use: never Desire information about substance/drug rehabilitation?: No Counseling given: No Adopted: No Caregiver/support person: Yes Lives independently: No Household members: other Housing: Assisted Living Facility Marital status: Number of children: 2 service: No Current occupational status: disabled Current occupational exposures/hazards: No Pets and animals: No Do you think of yourself as: Straight/Heterosexual Current gender identity: Female Physical Exam Const: COMMON NORMALS: no acute distress, average body habitus, healthy appea ring, alert and well nourished EXAM LIMITATIONS: behavioral limitations ( Patient is not responding verbally to questioning) HENMT: COMMON NORMALS: normocephalic, atraumatic, external ears normal and Normal external nose present HEAD & SCALP: normocephalic and atraumatic NOSE: Normal external nose present EXTERNAL EAR: Yes external ears normal Eye: COMMON NORMALS: Equal, round and reactive pupils present, EOMs intact bilaterally, conjunctivae normal and no scleral icterus CONJUNCTIVA: Yes conjunctivae normal PUPIL: Yes Equal, round and reactive pupils present Neck/C-Spine: COMMON NORMALS: no JVD Chest: COMMONS NORMALS: normal inspection of the chest and normal palpation of entire chest wall Resp: COMMON NORMALS: normal respiratory effort, No retractions, No use of accessory muscles and clear to auscultation bilaterally AUSCULTATION: clear to auscultation bilaterally Cardio: COMMON NORMALS: no JVD, regular rhythm, S1 normal heart sound present, S2 normal heart sound present, No clicks present (Cardio), No murmurs present (Cardio) and No rub (Cardio) RHYTHM: regular rhythm HEART SOUNDS: S1 normal heart sound present and S2 normal heart sound present GI: COMMON NORMALS: Normal to inspection, nondistended, normoactive bowel sounds present, Soft to palpation, non-tender, No hepatosplenomegaly present and no masses PALPATION: Yes Soft to palpation and Yes No hepatosplenomegaly present Extremity: COMMON NORMALS: normal to inspection Neuro: SENSORIUM/ORIENTATION: Yes alert Course Vital Signs: Vital signs: Vital Signs Temperature 98.1 F 01/18/23 08:47 Pulse Rate 68 01/18/23 13:10 Respiratory Rate 16 01/18/23 08:47 Blood Pressure 106/75 01/18/23 13:10 Pulse Oximetry 95 01/18/23 13:10 Oxygen Delivery Me thod Room Air 01/18/23 08:47 MDM - Weakness Medical Decision Making Patient was sent from the [facility] with complaints of weakness and lethargy. Patient does not speak very much at all but will answer simple yes/no questions. Per the [facility] this is her baseline. Lab work was obtained which showed a urinary tract infection. Patient was given Cipro p.o. crushed here in ER and will be sent back to the [facility] with a prescription for Cipro. Patient should follow-up with her PCP with approximately 1 week or sooner as needed. Differential Diagnosis Unlikely acute myocardial infarction, anemia, hypoglycemia, hypothyroidism, rhabdomyolysis, sepsis or dehydration Medical Records I reviewed the patient's medical records. Lab Data I reviewed the patient's lab results. 01/18/23 11:03 01/18/23 12:26 Radiology Impressions Chest X-Ray 01/18/23 09:18 Impression: Minimal cardiomegaly. Laboratory Results WBC 7.8 10^3/uL (4.0-10.0) 01/18/23 11:03 RBC 5.39 10^6/uL (4.1-5.3) H 01/18/23 11:03 Hgb 16.5 g/dL (11.5-15.3) H 01/18/23 11:03 Hct 52.3 % (37.0-47.0) H 01/18/23 11:03 MCV 97.0 fl (81-99) 01/18/23 11:03 MCH 30.6 pg (28.0-34.0) 01/18/23 11:03 MCHC 31.5 g/dL (30.0-36.0) 01/18/23 11:03 RDW 11.9 % (12.1-15.1) L 01/18/23 11:03 Plt Count 273 10^3/cmm (130-400) 01/18/23 11:03 MPV 9.4 fL (7.4-10.4) 01/18/23 11:03 Neut % (Auto) 59.2 % 01/18/23 11:03 Lymph % (Auto) 25.7 % 01/18/23 11:03 [place] % (Auto) 8.6 % 01/18/23 11:03 Eos % (Auto) 5.4 % 01/18/23 11:03 Baso % (Auto) 0.8 % 01/18/23 11:03 Neut # (Auto) 4.64 10^3/uL (1.8-7.7) 01/18/23 11:03 Lymph # (Auto) 2.0 10^3/uL (0.8-4.8) 01/18/23 11:03 [place] # (Auto) 0.7 10^3/uL (0.2-0.9) 01/18/23 11:03 Eos # (Auto) 0.4 10^3/uL (0.0-0.8) 01/18/23 11:03 Baso # (Auto) 0.1 10^3/uL (0.0-0.1) 01/18/23 11:03 Nucleated RBC % (auto) 0 % 01/18/23 11:03 Nucleated RBCs # 0.0 /100WBC 01/18/23 11:03 Sodium 140 mmol/L (136-145) 01/18/23 12:26 Potassium 4.6 mmol/L (3.5-5.1) 01/18/23 12:26 Chloride 100 mmol/L (98-107) 01/18/23 12:26 Carbon Dioxide 29 mmol/L (22-29) 01/18/23 12:26 Anion Gap 15.6 (5-19) 01/18/23 12:26 BUN 10 mg/dL (8-23) 01/18/23 12:26 Creatinine 0.6 mg/dL (0.5-0.9) 01/18/23 12:26 GFR Calculation 100.0 mL/min (90-130) 01/18/23 12:26 Glucose 95 mg/dL (65-115) 01/18/23 12:26 Calculated Osmolality 289 mOsm/kg (285-295) 01/18/23 12:26 Calcium 9.0 mg/dL (8.5-10.5) 01/18/23 12:26 Magnesium 2.2 mg/dL (1.7-2.3) 01/18/23 12:26 Total Bilirubin 0.4 mg/dL (0.15-1.2) 01/18/23 12:26 AST 20 U/L (0-32) 01/18/23 12:26 ALT 15 U/L (0-33) 01/18/23 12:26 Alkaline Phosphatase 311 U/L (35-105) H 01/18/23 12:26 Troponin T Baseline 6 ng/L (0-10) 01/18/23 11:03 NT-Pro-B Natriuret Pep 36 pg/mL (0-125) 01/18/23 12:26 Total Protein 7.6 g/dL (6.6-8.7) 01/18/23 12:26 Albumin 4.1 g/dL (3.5-5.2) 01/18/23 12:26 Globulin 3.5 g/dL (1.3-4.6) 01/18/23 12:26 Urine Color Brown (Yellow) 01/18/23 09:56 Urine Appearance Cloudy (CLEAR) A 01/18/23 09:56 Urine pH 5 (5-7) 01/18/23 09:56 Ur Specific [place] 1.025 (1.005-1.030) 01/18/23 09:56 Urine Protein 1+ (Negative) H 01/18/23 09:56 Urine Glucose (UA) Norm (Normal) 01/18/23 09:56 Urine Ketones 1+ (Negative) H 01/18/23 09:56 Urine Blood 3+ (Negative) H 01/18/23 09:56 Urine Nitrate Negative (Negative) 01/18/23 09:56 Urine Bilirubin 1+ (Negative) H 01/18/23 09:56 Urine Urobilinogen 4 mg/dL (Negative) H 01/18/23 09:56 Ur Leukocyte Esterase Trace (Negative) H 01/18/23 09:56 Urine RBC 50-80 /hpf (0-2) H 01/18/23 09:56 Urine WBC 25-40 /hpf (0-5) H 01/18/23 09:56 Ur Squamous Epith Cells 0-4 /hpf (0-5) H 01/18/23 09:56 Calcium Oxalate Crystal 10-15 /hpf H 01/18/23 09:56 Amorphous Sediment Trace /hpf 01/18/23 09:56 Urine Bacteria 3+ /hpf (NONE) H 01/18/23 09:56 Urine Mucus 1+ /hpf 01/18/23 09:56 EKG Data EKG 1: I personally reviewed and interpreted this EKG as follows: EKG interpretation date: 01/18/23 EKG interpretation time: 09:29 Prior EKG tracings: not available for review Interpretation: EKG ventricular rate 65 bpm, MT interval 181, QRS duration 97, QTc of 425, pattern consistent with pulmonary disease, ST deviation moderate T wave abnormality consider anterior ischemia negative T waves in V3 and V4 EKG 2: I personally reviewed and interpreted this EKG as follows: EKG interpretation date: 01/18/23 EKG interpretation time: 11:06 Prior EKG tracings: available for review Interpretation: Ventricular rate 68 bpm, MT interval 179, QRS duration 97, QTc of 420, pattern consistent with pulmonary disease, ST deviation moderate T wave abnormality consider anterior ischemia secondary to negative T waves in V3 and V4 Discharge Plan Discharge Patient Disposition: Home Clinical Impression: Urinary tract infection Qualifiers: Urinary tract infection type: acute cystitis Hematuria presence: with hematuria Qualified Code(s): N30.01 - Acute cystitis with hematuria Condition: Stable Prescriptions: New ciprofloxacin HCl 500 mg tablet 500 mg PO BID Qty: 20 0RF No Action famotidine [Pepcid] 20 mg tablet 20 mg PO BID carbidopa-levodopa [Sinemet] 25-100 mg tablet 2 tab PO TID clopidogrel [Plavix] 75 mg tablet 75 mg PO DAILY donepezil [Aricept] 10 mg tablet 10 mg PO BEDTIME Hold Instructions: Patient No Longer Taking fluoxetine 40 mg capsule 40 mg PO QAM simvastatin 40 mg tablet 40 mg PO BEDTIME acetaminophen 500 mg tablet 1,000 mg PO Q6H PRN (Reason: Pain) Systane Gel 0.4-0.3 % Drops,Gel 1 drp OPHTHALMIC (EYE) BID loperamide 2 mg capsule 2 mg PO Q4H PRN (Reason: Loose Stool) bisacodyl 10 mg Suppository 10 mg MT DAILY PRN (Reason: Constipation) Rx Instructions: if no results from mom magnesium hydroxide [Milk of Magnesia] 400 mg/5 mL Suspension 30 ml PO .EVERY 72 HOURS PRN (Reason: if no bm in 3 days) phenytoin 125 mg/5 mL suspension 8 ml PO BID Rx Instructions: shake bottle well prior to pouring each dose guaifenesin 200 mg Tablet 200 mg PO QID PRN (Reason: Congestion) levothyroxine 100 mcg Tablet 100 mcg PO QAM hydrocortisone 1 % cream 1 applic topical BID PRN (Reason: unknown) levetiracetam 100 mg/mL solution 1,000 mg PO BID Fleet Enema 19-7 gram/118 mL Enema 118 ml MT DAILY PRN (Reason: Constipation) Rx Instructions: give fleets if no results from mom and dulcolax Dulcolax (bisacodyl) 5 mg Tablet,Delayed Release (Dr/Ec) 10 mg PO DAILY PRN (Reason: Constipation) Rx Instructions: if no results from mom Discharge Orders: Discharge ED (Routine); Ordered 01/18/23 Ordered By: Sergo Doshi Referrals: Candido Higginbotham, [employer] [Primary Care Provider] - 1 week Patient Instructions: Urinary Tract Infection in Women (DC) Activity Restrictions/Additional Instructions: Please take all your medicine as directed. Please follow-up with your PCP within 1 week. Return to the ER if signs and symptoms worsen or change. Coding Level of Care Code ED Manager Program Management for [facility]
--- NOTE | 2023-01-18 09:18 | XR_ITS ---
WS: [id number] Portable AP upright chest, 01/18/2023 Clinical Data: weakness Comparison: None. Findings: No nodules, masses or effusions are seen. The heart is enlarged. The pulmonary vascularity is not increased. No pneumonia or pneumothorax is seen. XR/XR chest 1V portable [id number] Impression: Minimal cardiomegaly.
--- NOTE | 2023-01-18 09:29 | ECG_ITS ---
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 Measurements Intervals [place] Rate: 65 P: 53 PA: 181 QRS: 219 QRSD: 97 T: 98 QT: 413 QTc: 431 Interpretive Statements SINUS RHYTHM INDETERMINATE AXIS LOW QRS VOLTAGE IN PRECORDIAL LEADS [QRS DEFLECTION < 1.0 mV IN CHEST LEADS] PATTERN CONSISTENT WITH PULMONARY DISEASE ST DEVIATION AND MODERATE T-WAVE ABNORMALITY, CONSIDER ANTERIOR ISCHEMIA [-0.1+ mV T-WAVE IN V3/V4] Compared to ECG 08/24/2022 06:19:43 Indeterminate axis now present Low QRS voltage now present T-wave abnormality now present Possible ischemia now present Sinus tachycardia no longer present Electronically Signed On 01-18-2023 12:30:26 CDT by Ynes Aguilera M.D. [id number]
[2023-01-18 11:02] LABS: Add Urine Microscopic? YES; Bilirubin Urine 1+ (Negative); Blood Urine 3+ (Negative); Glucose Urine UA Norm (Normal); Ketones Urine 1+ (Negative); Leukocyte Esterase Urine Trace (Negative); Nitrate Urine Negative (Negative); Protein Urine 1+ (Negative); Specific Gravity, Urine 1.025 (1.005-1.030); Urine Appearance Cloudy (CLEAR); Urine Color Brown (Yellow); Urobilinogen Urine 4 mg/dL (Negative); pH Urine 5 (5-7)
[2023-01-18 11:03] LABS: RBC Urine 50-80 /hpf (0-2); WBC Urine 25-40 /hpf (0-5)
[2023-01-18 11:04] LABS: Bacteria Urine 3+ /hpf; Mucus Urine 1+ /hpf; Squamous Epithelial Cell Urine 0-4 /hpf (0-5)
[2023-01-18 11:05] LABS: Add Urine Culture? Yes; Amorphous Sediment Urine TRACE /hpf
--- NOTE | 2023-01-18 11:06 | ECG_ITS ---
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 Measurements Intervals [place] Rate: 68 P: 48 ID: [id number] QRS: 226 QRSD: 97 T: 151 QT: 403 QTc: 430 Interpretive Statements SINUS RHYTHM INDETERMINATE AXIS LOW QRS VOLTAGE IN PRECORDIAL LEADS [QRS DEFLECTION < 1.0 mV IN CHEST LEADS] PATTERN CONSISTENT WITH PULMONARY DISEASE ST DEVIATION AND MODERATE T-WAVE ABNORMALITY, CONSIDER ANTERIOR ISCHEMIA [-0.1+ mV T-WAVE IN V3/V4] Compared to ECG 01/18/2023 09:29:41 No significant changes Electronically Signed On 01-18-2023 12:30:37 CDT by Ynes Aguilera M.D. [id number]
[2023-01-18 11:19] LABS: Basophils # 0.1 10^3/uL (0.0-0.1); Basophils % 0.8 %; Eosinophils # 0.4 10^3/uL (0.0-0.8); Eosinophils % 5.4 %; Hematocrit 52.3 % (37.0-47.0); Hemoglobin 16.5 g/dL (11.5-15.3); Lymphocytes % 25.7 %; Mean Corpuscular HGB Conc 31.5 g/dL (30.0-36.0); Mean Corpuscular Hemoglobin 30.6 pg (28.0-34.0); Mean Platelet Volume 9.4 fL (7.4-10.4); Monocytes # 0.7 10^3/uL (0.2-0.9); Monocytes % 8.6 %; Neutrophils # 4.64 10^3/uL (1.8-7.7); Neutrophils % 59.2 %; Nucleated Red Blood Cells % 0 %; Platelet Count 273 10^3/cmm (130-400); Red Blood Count 5.39 10^6/uL (4.1-5.3); Red Cell Distribution Width 11.9 % (12.1-15.1); White Blood Count 7.8 10^3/uL (4.0-10.0)
[2023-01-18 11:46] LABS: Troponin(5th) Baseline 6 ng/L (0-10)
--- NOTE | 2023-01-18 12:14 | PC.PHAR ---
pt is from [facility], [facility] [phone]- mirza hatfield from [facility] states the pt hasnt had any medications today
[2023-01-18 13:06] LABS: Alanine Aminotransferase 15 U/L (0-33); Albumin Level 4.1 g/dL (3.5-5.2); Alkaline Phosphatase 311 U/L (35-105); Blood Urea Nitrogen 10 mg/dL (8-23); Carbon Dioxide 29 mmol/L (22-29); Chloride 100 mmol/L (98-107); Globulin 3.5 g/dL (1.3-4.6); Glucose 95 mg/dL (65-115); Magnesium 2.2 mg/dL (1.7-2.3); NT Pro B Type Natriuretic Pept 36 pg/mL (0-125); Osmolality Calculated 289 mOsm/kg (285-295); Sodium 140 mmol/L (136-145); Total Bilirubin 0.4 mg/dL (0.15-1.2); Total Protein 7.6 g/dL (6.6-8.7)
[2023-01-18 13:10] LABS: Anion Gap 15.6 (5-19); Aspartate Amino Transferase 20 U/L (0-32); Potassium 4.6 mmol/L (3.5-5.1)
[2023-01-18] MEDS: ciprofloxacin 500 mg Tablet PO (13:38)
== END 2023-01-18 15:06 | disposition home or self-care (01) ==
PROVIDERS: Emergency Provider Emergency Medicine; PCP Nurse Practitioner
DX: N30.01 Acute cystitis with hematuria (principal); Z79.02 Long term (current) use of antithrombotics/antiplatelets; Z87.440 Personal history of urinary (tract) infections
CPT/HCPCS: 36415; 71045; 80053; 81001; 83735; 83880; 84484; 85025; 87086; 93005; 99285

== ENCOUNTER 2025-04-22 16:13 | Emergency (ER) | payer OTHER, SELFPAY ==
[2025-04-22 16:19] VITALS: BP 117/79; PULSE 84; RESP 16; TEMP 36.7; O2SAT 97; BMI 38.9
[2025-04-22 16:26] VITALS: BP 117/79; PULSE 84; RESP 16; TEMP 36.7; O2SAT 97
[2025-04-22 17:24] VITALS: BP 132/75; PULSE 72; O2SAT 92
--- NOTE | 2025-04-22 17:31 | W.ED.WEAKNES ---
HPI - Weakness General: Chief complaint: Weakness Stated complaint: general weakness Time Seen by Provider: 04/22/25 16:16 Source: other (long-term staff) Mode of arrival: EMS Limitations: physical limitation (History of stroke, expressive aphasia) History of Present Illness: This patient is a 69-year-old female with a history of stroke resulting in expressive aphasia, presenting for evaluation of issues swallowing and suspected thrush. Patient cannot provide any history due to her aphasia. long-term staff specifically reported the concern for thrush, and she arrives nontoxic-appearing with normal vitals. She does not appear to be in any respiratory distress, and appears to have no difficulty handling secretions. long-term staff did not report any recent fevers, weight loss, or vomiting. Related Data Home Medications ?Medication ?Instructions ?Recorded ?Confirmed acetaminophen 500 mg tablet 1,000 mg PO Q6H PRN Pain 09/11/19 01/18/23 carbidopa 25 mg-levodopa 100 mg 2 tab PO TID 09/11/19 01/18/23 tablet (Sinemet) clopidogrel 75 mg tablet (Plavix) 75 mg PO DAILY 09/11/19 01/18/23 donepezil 10 mg tablet (Aricept) 10 mg PO BEDTIME 09/11/19 01/18/23 fluoxetine 40 mg capsule 40 mg PO QAM 09/11/19 01/18/23 simvastatin 40 mg tablet 40 mg PO BEDTIME 09/11/19 01/18/23 peg 400-propylene glycol 0.4 %-0.3 1 drp ophthalmic (eye) BID 04/21/20 01/18/23 % eye gel drops (Systane Gel) famotidine 20 mg tablet (Pepcid) 20 mg PO BID 12/21/20 01/18/23 loperamide 2 mg capsule 2 mg PO Q4H PRN Loose Stool 02/15/21 01/18/23 magnesium hydroxide 400 mg/5 mL 30 ml PO .EVERY 72 HOURS PRN if no 05/10/22 01/18/23 oral suspension (Milk of Magnesia) bm in 3 days bisacodyl 10 mg rectal suppository 10 mg NV DAILY PRN Constipation 08/24/22 01/18/23 bisacodyl 5 mg tablet,delayed 10 mg PO DAILY PRN Constipation 01/18/23 01/18/23 release (Dulcolax (bisacodyl)) guaifenesin 200 mg tablet 200 mg PO QID PRN Congestion 01/18/23 01/18/23 hydrocortisone 1 % topical cream 1 applic topical BID PRN unknown 01/18/23 01/18/23 levetiracetam 100 mg/mL oral 1,000 mg PO BID 01/18/23 01/18/23 solution levothyroxine 100 mcg tablet 100 mcg PO QAM 01/18/23 01/18/23 phenytoin 125 mg/5 mL oral 8 ml PO BID 01/18/23 01/18/23 suspension sodium phosphates 19 gram-7 118 ml NV DAILY PRN Constipation 01/18/23 01/18/23 gram/118 mL enema (Fleet Enema) Previous Rx's ?Medication ?Instructions ?Recorded ciprofloxacin HCl 500 mg tablet 500 mg PO BID #20 tabs 01/18/23 fluconazole 100 mg tablet 100 mg PO DAILY 14 days #14 tabs 04/22/25 Allergies Allergy/AdvReac Type Severity Reaction Status Date / Time amoxicillin Allergy Unknown Verified 08/24/22 12:20 aspirin Allergy Unknown Verified 01/18/23 11:35 doxepin Allergy Unknown Verified 08/24/22 12:20 hydrocodone Allergy Unknown Verified 01/18/23 11:35 metronidazole (From Flagyl) Allergy Unknown Verified 01/18/23 11:35 ondansetron (From Zofran) Allergy Unknown Verified 08/24/22 12:20 Penicillins Allergy ALGY-Hives Verified 01/18/23 11:35 Sulfa (Sulfonamide Allergy Unknown Verified 01/18/23 11:35 Antibiotics) nitrofurantoin (From AdvReac ADR-Itching Verified 01/18/23 11:35 Macrobid) Review of Systems General: Reports: ROS unobtainable due to medical condition PFSH ED PFSH: Medical History UTI (urinary tract infection) Acute encephalopathy Aspiration pneumonia Fever Otitis media Acute encephalopathy Sinusitis Altered mental status Obesity (BMI 30-39.9) Refused influenza vaccine Slow transit constipation Anxiety Metabolic syndrome Dependent for wheelchair mobility Acid reflux Generalized epilepsy Fibromyalgia Hypothyroidism, unspecified Lives in assisted living facility Cognitive impairment Dependent on walker for ambulation Surgical History History of removal of Port-a-Cath 2005 History of eye surgery Right 2005 History of bilateral tubal ligation 1987 History of hysterectomy with unilateral oophorectomy Right 1991 History of colonoscopy 2006 and 2011 History of cholecystectomy August 2005 History of brain surgery 2002 Family History Father Hypertension Mother Hypertension CAD (coronary artery disease) Social History Smoking and tobacco/nicotine status: never used tobacco/nicotine Second hand smoke exposure: No Alcohol intake: never Substance/Drug Use: never Adopted: No Caregiver/support person: Yes Lives independently: No Household members: other Housing: Assisted Living Facility Marital status: Number of children: 2 service: No Current occupational status: disabled Current occupational exposures/hazards: No Pets and animals: No Do you think of yourself as: Straight/Heterosexual Current gender identity: Female Physical Exam Const: OTHER: Patient is sleeping, but is easily arousable. She is nontoxic-appearing, handling secretions. Does not appear to be any active respiratory distress. HENMT: COMMON NORMALS: normocephalic and atraumatic HEAD & SCALP: normocephalic and atraumatic OTHER: Examination of the patient's tongue reveals a whitish plaque that I am able to scrape off with tongue depressor, revealing underlying erythematous base. Patient has an intact gag reflex with tongue depressor, with appropriate palatal elevation. Eye: COMMON NORMALS: Equal, round and reactive pupils present, EOMs intact bilaterally and conjunctivae normal CONJUNCTIVA: Yes conjunctivae normal PUPIL: Yes Equal, round and reactive pupils present Neck/C-Spine: COMMON NORMALS: full ROM and no meningeal signs OTHER: No neck masses palpable Resp: COMMON NORMALS: normal respiratory effort, No retractions, No use of accessory muscles and clear to auscultation bilaterally AUSCULTATION: clear to auscultation bilaterally OTHER: No Rales or crackles on pulmonary auscultation Cardio: COMMON NORMALS: regular rate and regular rhythm RATE: regular rate RHYTHM: regular rhythm GI: COMMON NORMALS: Soft to palpation and non-tender PALPATION: Yes Soft to palpation Extremity: COMMON NORMALS: normal to inspection Neuro: MENINGEAL SIGNS: Yes no meningeal signs OTHER: Chronic expressive aphasia. Intact gag reflex. Responds to verbal cues. Course Vital Signs: Vital signs: Vital Signs Temperature 98.1 F 04/22/25 16:26 Pulse Rate 84 04/22/25 16:26 Respiratory Rate 16 04/22/25 16:26 Blood Pressure 117/79 04/22/25 16:26 Pulse Oximetry 97 04/22/25 16:26 Oxygen Delivery Me thod Room Air 04/22/25 16:26 MDM - Weakness Medical Decision Making This patient is a snf resident with history of prior stroke and expressive aphasia, presenting with snf concerns of dysphagia and possible oral thrush. Patient cannot provide any history, collateral obtained from nursing report from sn[facility]. On exam patient nontoxic with normal vitals, an intact gag reflex, and retaining the ability to swallow. Oral exam was notable for whitish/greenish coating on the tongue, most consistent with oral candidiasis. No neck masses palpated, no respiratory stress, and no evidence of systemic infection. This likely could be poststroke dysphagia which is posing as baseline risk, could also be poor oral hygiene or medication related coating. Less likely this is a structural esophageal pathology, plan to treat presumptive oral candidiasis with topical nystatin. Will provide supportive oral hygiene at the snf and indications for labs not indicated acutely. No evidence of airway compromise or systemic illness, making outpatient treatment appropriate at this time. No radiology studies performed this visit Discharge Plan Discharge Patient Disposition: Home Clinical Impression: Candidiasis of mouth Condition: Stable Prescriptions: New fluconazole 100 mg tablet 100 mg PO DAILY 14 Days Qty: 14 0RF No Action famotidine [Pepcid] 20 mg tablet 20 mg PO BID carbidopa-levodopa [Sinemet] 25-100 mg tablet 2 tab PO TID clopidogrel [Plavix] 75 mg tablet 75 mg PO DAILY donepezil [Aricept] 10 mg tablet 10 mg PO BEDTIME fluoxetine 40 mg capsule 40 mg PO QAM simvastatin 40 mg tablet 40 mg PO BEDTIME acetaminophen 500 mg tablet 1,000 mg PO Q6H PRN (Reason: Pain) Systane Gel 0.4-0.3 % Drops,Gel 1 drp OPHTHALMIC (EYE) BID loperamide 2 mg capsule 2 mg PO Q4H PRN (Reason: Loose Stool) bisacodyl 10 mg Suppository 10 mg NV DAILY PRN (Reason: Constipation) Rx Instructions: if no results from mom magnesium hydroxide [Milk of Magnesia] 400 mg/5 mL Suspension 30 ml PO .EVERY 72 HOURS PRN (Reason: if no bm in 3 days) phenytoin 125 mg/5 mL suspension 8 ml PO BID Rx Instructions: shake bottle well prior to pouring each dose guaifenesin 200 mg Tablet 200 mg PO QID PRN (Reason: Congestion) levothyroxine 100 mcg Tablet 100 mcg PO QAM hydrocortisone 1 % cream 1 applic topical BID PRN (Reason: unknown) levetiracetam 100 mg/mL solution 1,000 mg PO BID Fleet Enema 19-7 gram/118 mL Enema 118 ml NV DAILY PRN (Reason: Constipation) Rx Instructions: give fleets if no results from mom and dulcolax Dulcolax (bisacodyl) 5 mg Tablet,Delayed Release (Dr/Ec) 10 mg PO DAILY PRN (Reason: Constipation) Rx Instructions: if no results from mom ciprofloxacin HCl 500 mg tablet 500 mg PO BID Qty: 20 0RF Discharge Orders: Discharge ED (Routine); Ordered 04/22/25 Ordered By: Flo Truong Referrals: Candido Higginbotham, CHAIM [Primary Care Provider, [facility]] Patient Instructions: Patient Portal & Amelia Instructions Activity Restrictions/Additional Instructions: Oral Candidiasis Discharge Instructions Diagnosis: Oropharyngeal candidiasis (oral thrush) Medication: Fluconazole 100 mg orally once daily for 14 days Administration: - Fluconazole may be administered as a tablet or oral suspension. For patients with dysphagia, oral suspension is preferred to reduce aspiration risk. - The medication can be given with or without food; absorption is not affected by food or gastric pH. - If using the oral suspension, ensure it is prepared according to pharmacy instructions and shaken well before administration. Monitoring: - Assess for clinical improvement (resolution of oral lesions, pain, or dysphagia) within several days. Continue therapy for the full 14 days to minimize relapse risk. - Monitor for adverse effects, including rash, vomiting, diarrhea, and signs of anemia or renal dysfunction, which may be more common in elderly patients. - Renal function should be monitored periodically, as fluconazole is renally excreted and dose adjustment may be necessary in patients with impaired renal function. If creatinine clearance is reduced, consult pharmacy or prescriber for dose adjustment. Precautions: - Observe for signs of aspiration during administration, especially given the patient's history of dysphagia. Administer medication in an upright position and consider speech therapy input if swallowing safety is uncertain. - If the patient uses dentures, ensure daily cleaning and disinfection to reduce risk of recurrent infection. - Be alert for new or worsening symptoms, including fever, persistent oral lesions, or difficulty swallowing, and report promptly. Communication: - Due to expressive aphasia, monitor for non-verbal cues of discomfort or adverse effects. - Document administration, patient tolerance, and any observed side effects in the medical record. Other Considerations: - Avoid concomitant use of medications known to interact with fluconazole (e.g., erythromycin, which may increase risk of QT prolongation). - If the patient is unable to tolerate oral administration, notify the prescriber for alternative routes or therapies. Follow-up: - Schedule follow-up with primary care or infectious disease provider at completion of therapy, or sooner if symptoms persist or worsen. Print Language: Colombian Coding Level of Care Code ED [employer] for [facility]
[2025-04-22 18:19] VITALS: BP 123/73; PULSE 71; O2SAT 94
== END 2025-04-22 18:21 | disposition home or self-care (01) ==
PROVIDERS: Emergency Provider Physician Assistant; PCP Nurse Practitioner
DX: B37.0 Candidal stomatitis (principal); Z79.02 Long term (current) use of antithrombotics/antiplatelets
CPT/HCPCS: 99283

== ENCOUNTER 2025-06-23 18:08 | Emergency (ER) | payer OTHER, SELFPAY ==
[2025-06-23 18:09] VITALS: BP 113/79; RESP 18; TEMP 36.8; O2SAT 98; BMI 32.9
--- NOTE | 2025-06-23 18:13 | CTR_ITS ---
PROCEDURE INFORMATION: Exam: CT Head Without Contrast Exam date and time: 06/23/2025 6:16 PM Age: 70 years old Clinical indication: Stroke-like symptoms; Left facial droop; Additional info: Symptoms of acute stroke TECHNIQUE: Imaging protocol: Computed tomography of the head without contrast. Radiation optimization: All CT scans at this facility use at least one of these dose optimization techniques: automated exposure control; mA and/or kV adjustment per patient size (includes targeted exams where dose is matched to clinical indication); or iterative reconstruction. Other technique: STROKE PROTOCOL was implemented. COMPARISON: 1. MR head wo con* [id number] 05/14/2022 8:[address] head wo con* [id number] 05/10/2022 3:33 PM RADIATION DOSE METRICS: Total DLP (mGy-cm): 1104.91 FINDINGS: Brain: Moderate diffuse cortical volume loss. Stable large region of encephalomalacia in the right temporal lobe. Moderate-severe hypodensities in supratentorial periventricular and subcortical white matter, consistent with microangiopathy. No intracranial hemorrhage. Stable parenchymal calcifications in the shana and right parietal lobe. Cerebral ventricles: No ventriculomegaly. Paranasal sinuses: Visualized sinuses are unremarkable. No fluid levels. Mastoid air cells: Visualized mastoid air cells are well aerated. Bones: Right frontotemporal craniotomy defect. No fracture. Soft tissues: Unremarkable. Vasculature: No hyperdense artery. CT/CT head thrombolytic [id number] IMPRESSION: No acute intracranial abnormality. ASSESSMENT: ASPECTS ([place] Stroke Program Early CT Score) is 10.
--- NOTE | 2025-06-23 18:13 | ECG_ITS ---
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 Measurements Intervals [place] Rate: 86 P: 81 UT: 179 QRS: 158 QRSD: 88 T: 91 QT: 356 QTc: 426 Interpretive Statements SINUS RHYTHM LOW VOLTAGE IN FRONTAL LEADS POSSIBLE RIGHT VENTRICULAR HYPERTROPHY [SOME/ALL OF: PROMINENT R IN V1, LATE TRANSITION, RAD, BRAD, SSS] NONSPECIFIC T WAVE FLATTENING Compared to ECG 01/18/2023 11:06:40 ST DEPRESSION AND T WAVE INVERSIONS NO LONGER PRESENT Electronically Signed On 06-26-2025 20:31:09 CDT by Perez Yepez M.D. [email or web address]
--- NOTE | 2025-06-23 18:21 | W.ED.NEUROSD ---
HPI - Neuro Symptoms/Deficit General: Chief Complaint: Neuro Symptoms/Deficit Stated Complaint: STROKE Time Seen by Provider: 06/23/25 18:12 History of Present Illness: 70-year-old female with a history of left-sided hemiplegia, seizure disorder, right sided brain tumor that was removed and radiated in the past, hypothyroidism, cognitive impairment, and anxiety who presents emergency room from care home with concern for worsening stroke symptoms. EMS witnessed that she had more drawn back on her left face and since then that is resolved. Initially she was a bit somnolent. Related Data Home Medications ?Medication ?Instructions ?Recorded ?Confirmed acetaminophen 500 mg tablet 1,000 mg PO Q6H PRN Pain 09/11/19 01/18/23 carbidopa 25 mg-levodopa 100 mg 2 tab PO TID 09/11/19 01/18/23 tablet (Sinemet) clopidogrel 75 mg tablet (Plavix) 75 mg PO DAILY 09/11/19 01/18/23 donepezil 10 mg tablet (Aricept) 10 mg PO BEDTIME 09/11/19 01/18/23 fluoxetine 40 mg capsule 40 mg PO QAM 09/11/19 01/18/23 simvastatin 40 mg tablet 40 mg PO BEDTIME 09/11/19 01/18/23 peg 400-propylene glycol 0.4 %-0.3 1 drp ophthalmic (eye) BID 04/21/20 01/18/23 % eye gel drops (Systane Gel) famotidine 20 mg tablet (Pepcid) 20 mg PO BID 12/21/20 01/18/23 loperamide 2 mg capsule 2 mg PO Q4H PRN Loose Stool 02/15/21 01/18/23 magnesium hydroxide 400 mg/5 mL 30 ml PO .EVERY 72 HOURS PRN if no 05/10/22 01/18/23 oral suspension (Milk of Magnesia) bm in 3 days bisacodyl 10 mg rectal suppository 10 mg [place] DAILY PRN Constipation 08/24/22 01/18/23 bisacodyl 5 mg tablet,delayed 10 mg PO DAILY PRN Constipation 01/18/23 01/18/23 release (Dulcolax (bisacodyl)) guaifenesin 200 mg tablet 200 mg PO QID PRN Congestion 01/18/23 01/18/23 hydrocortisone 1 % topical cream 1 applic topical BID PRN unknown 01/18/23 01/18/23 levetiracetam 100 mg/mL oral 1,000 mg PO BID 01/18/23 01/18/23 solution levothyroxine 100 mcg tablet 100 mcg PO QAM 01/18/23 01/18/23 phenytoin 125 mg/5 mL oral 8 ml PO BID 01/18/23 01/18/23 suspension sodium phosphates 19 gram-7 118 ml [place] DAILY PRN Constipation 01/18/23 01/18/23 gram/118 mL enema (Fleet Enema) Previous Rx's ?Medication ?Instructions ?Recorded ciprofloxacin HCl 500 mg tablet 500 mg PO BID #20 tabs 01/18/23 Allergies Allergy/AdvReac Type Severity Reaction Status Date / Time amoxicillin Allergy Unknown Verified 08/24/22 12:20 aspirin Allergy Unknown Verified 01/18/23 11:35 doxepin Allergy Unknown Verified 08/24/22 12:20 hydrocodone Allergy Unknown Verified 01/18/23 11:35 metronidazole (From Flagyl) Allergy Unknown Verified 01/18/23 11:35 ondansetron (From Zofran) Allergy Unknown Verified 08/24/22 12:20 Penicillins Allergy ALGY-Hives Verified 01/18/23 11:35 Sulfa (Sulfonamide Allergy Unknown Verified 01/18/23 11:35 Antibiotics) nitrofurantoin (From AdvReac ADR-Itching Verified 01/18/23 11:35 Macrobid) Review of Systems Narrative: Constitutional symptoms: Negative except as documented in HPI. Skin symptoms: Negative except as documented in HPI. Eye symptoms: Negative except as documented in HPI. ENMT symptoms: Negative except as documented in HPI. Respiratory symptoms: Negative except as documented in HPI. Cardiovascular symptoms: Negative except as documented in HPI. Gastrointestinal symptoms: Negative except as documented in HPI. Genitourinary symptoms: Negative except as documented in HPI. Musculoskeletal symptoms: Negative except as documented in HPI. Neurologic symptoms: Negative except as documented in HPI. Psychiatric symptoms: Negative except as documented in HPI. Endocrine symptoms: Negative except as documented in HPI. PFSH ED PFSH: Medical History (Updated 06/23/25 @ 19:01 by aJyde Barragan MD) UTI (urinary tract infection) Acute encephalopathy Aspiration pneumonia Fever Otitis media Acute encephalopathy Sinusitis Altered mental status Obesity (BMI 30-39.9) Refused influenza vaccine Slow transit constipation Anxiety Metabolic syndrome Dependent for wheelchair mobility Acid reflux Generalized epilepsy Fibromyalgia Hypothyroidism, unspecified Lives in assisted living facility Cognitive impairment Dependent on walker for ambulation Surgical History History of removal of Port-a-Cath 2005 History of eye surgery Right 2005 History of bilateral tubal ligation 1987 History of hysterectomy with unilateral oophorectomy Right 1991 History of colonoscopy 2006 and 2011 History of cholecystectomy August 2005 History of brain surgery 2002 Family History Father Hypertension Mother Hypertension CAD (coronary artery disease) Social History Smoking and tobacco/nicotine status: never used tobacco/nicotine Second hand smoke exposure: No Alcohol intake: never Substance/Drug Use: never Adopted: No Caregiver/support person: Yes Lives independently: No Household members: other Housing: Assisted Living Facility Marital status: Number of children: 2 service: No Current occupational status: disabled Current occupational exposures/hazards: No Pets and animals: No Do you think of yourself as: Straight/Heterosexual Current gender identity: Female Physical Exam Narrative: EXAM NARRATIVE: General: Alert, no acute distress. Skin: Warm, dry. Head: Normocephalic, atraumatic. Neck: Supple, trachea midline. Eye: Extraocular movements are intact. Ears, nose, mouth and throat: mucosa moist. Cardiovascular: Regular, Normal peripheral perfusion. Respiratory: Lungs are clear to auscultation, respirations are non-labored, breath sounds are equal, Symmetrical chest wall expansion. Gastrointestinal: Soft, Nontender, Non distended Musculoskeletal: Normal ROM, no deformity. Neurological: Patient is a bit slow to answer questions initially. She can tell me her name. She has left arm and leg weakness with left facial droop. This appears to be old as she has some contractures of her left hand. I confirmed this later with her family. Psychiatric: Cooperative, appropriate mood & affect. Course Vital Signs: Vital signs: Vital Signs Temperature 98.2 F 06/23/25 18:09 Pulse Rate 85 06/23/25 18:32 Respiratory Rate 16 06/23/25 18:32 Blood Pressure 120/83 06/23/25 18:32 Pulse Oximetry 94 06/23/25 18:32 Oxygen Delivery Me thod Room Air 06/23/25 18:32 MDM - Neuro Symptoms/Deficit Medical Decision Making Medical decision making: Patient's reason for coming to the emergency room: Neurologic symptoms Social determinants: Patient is a care home patient I reviewed the patient's medical record. 70-year-old female with a history of left-sided hemiplegia, seizure disorder, right sided brain tumor that was removed and radiated in the past, hypothyroidism, cognitive impairment, and anxiety I reviewed the patient's current home meds Patient is on Keppra and Dilantin. Also carbidopa levodopa. Alternate historians: I obtain more history from the daughter. She says she did have history of seizures but said she has been taking her meds she has not had any in quite some time. Differential diagnosis for patient with focal neurologic deficit(s) includes but not limited to and based on the above HPI, review of systems and physical exam: ischemic stroke, hemorrhagic stroke and embolic stroke secondary to atrial fibrillation), TIA, Jack's palsy, metabolic encephalopathy with previous stroke. Orders placed to evaluate differential diagnosis based on the above differential, HPI and physical exam Last known well time is unclear. She appears to be at her baseline at this point. During dinner she had what may have been a worsening of her left facial droop which is still present. She also has left arm and leg weakness but apparently this is her baseline. CT head: Right temporal encephalomalacia. No acute intracranial process. No intracranial hemorrhage, no evidence of infarct. No evidence of acute fracture. This was reviewed and interpreted by myself the emergency room physician. I also reviewed the radiology report. EKG: Time 1828. Rate 86. Normal sinus rhythm, No ST-T changes, no ectopy, normal AZ & QRS intervals, This was reviewed and interpreted by myself the ER physician at 1835. Lab Review: Laboratory results were reviewed and interpreted by myself the emergency room physician. No leukocytosis. No anemia. No renal failure. Assessment of risk: Level of risk: Moderate Hospitalization considerations: This was considered but patient has resolved completely and does have a history of seizures. Reexamination: Patient is much more alert now and able to speak with me. I discussed findings with her and her family. No increased work of breathing. Consultation: I spoke with Dr. Barriga who believes this was a seizure. She saw the pictures that were taken by EMS and this appears to be a seizure and she had some twitching of her face with that. She recommends increase of the patient's Keppra to 1250 mg twice daily. Assessment and plan: Seizure ?1000 mg IV loading dose of Keppra. - Discharged home - Discussed plan with patient. Answered any questions. - Evaluation and treatment of this problem were appropriate in the emergency setting. Lab Data 06/23/25 18:30 06/23/25 18:[address] 06/23/25 18:13 IMPRESSION: No acute intracranial abnormality. ASSESSMENT: ASPECTS ([place] Stroke Program Early CT Score) is 10. ADDENDUM: 06/23/25 4945 THIS REPORT CONTAINS FINDINGS THAT MAY BE CRITICAL TO PATIENT CARE. The findings were verbally communicated via telephone conference with JAYDE BARRAGAN at 6:37 PM CDT on 06/23/2025. The findings were acknowledged and understood. Laboratory Results WBC 8.46 10^3/uL (3.29-11.43) 06/23/25 18:30 RBC 4.80 10^6/uL (3.85-5.65) 06/23/25 18:30 Hgb 14.60 g/dL (11.27-16.99) 06/23/25 18: Hct 44.8 % (36-47) 06/23/25 18: MCV 93.3 fl (85-98) 06/23/25 18:30 MCH 30.4 pg (27-33) 06/23/25 18: MCHC 32.6 g/dL (30-55) 06/23/25 18:30 RDW 13.5 % (12.1-15.1) 06/23/25 18: Plt Count 314 10^3/cmm (157-399) 06/23/25 18: MPV 8.7 fL (7.4-10.4) 06/23/25 18:30 Neut % (Auto) 67.4 % 06/23/25 18:30 Lymph % (Auto) 21.6 % 06/23/25 18:30 [place] % (Auto) 5.6 % 06/23/25 18:30 Eos % (Auto) 4.4 % 06/23/25 18:30 Baso % (Auto) 0.4 % 06/23/25 18:30 Neut # (Auto) 5.71 10^3/uL (1.8-7.7) 06/23/25 18: Lymph # (Auto) 1.8 10^3/uL (0.8-4.8) 06/23/25 18:30 [place] # (Auto) 0.5 10^3/uL (0.2-0.9) 06/23/25 18: Eos # (Auto) 0.4 10^3/uL (0.0-0.8) 06/23/25 18: Baso # (Auto) 0.0 10^3/uL (0.0-0.1) 06/23/25 18: Nucleated RBC % (auto) 0 % 06/23/25 18: Nucleated RBCs # 0.0 /100WBC 06/23/25 18:30 PT 12.70 SECONDS (12.1-14.9) 06/23/25 18: INR 0.89 (0.8-1.2) 06/23/25 18: APTT 23.2 SECONDS (23.9-36.7) L 06/23/25 18:30 Sodium 137 mmol/L (136-145) 06/23/25 18: Potassium 4.1 mmol/L (3.5-5.1) 06/23/25 18: Chloride 97 mmol/L (98-107) L 06/23/25 18: Carbon Dioxide 28 mmol/L (22-29) 06/23/25 18: Anion Gap 16.1 (5-19) 06/23/25 18: BUN 7 mg/dL (8-23) L 06/23/25 18: Creatinine 0.5 mg/dL (0.5-0.9) 06/23/25 18: GFR Calculation 122.3 mL/min (90-130) 06/23/25 18: Glucose 152 mg/dL (65-115) H 06/23/25 18: Calculated Osmolality 285 mOsm/kg (285-295) 06/23/25 18: Calcium 9.1 mg/dL (8.5-10.5) 06/23/25 18: Total Bilirubin 0.2 mg/dL (0.15-1.2) 06/23/25 18:30 AST 14 U/L (0-32) 06/23/25 18:30 ALT < 5 U/L (0-33) 06/23/25 18:30 Alkaline Phosphatase 279 U/L (35-105) H 06/23/25 18:30 Total Protein 7.7 g/dL (6.6-8.7) 06/23/25 18:30 Albumin 4.1 g/dL (3.5-5.2) 06/23/25 18:30 Globulin 3.6 g/dL (1.3-4.6) 06/23/25 18:30 All radiology interpretation(s) finalized by discharge Discharge Plan Discharge Patient Disposition: Home Clinical Impression: Seizure Condition: Stable Prescriptions: No Action famotidine [Pepcid] 20 mg tablet 20 mg PO BID carbidopa-levodopa [Sinemet] 25-100 mg tablet 2 tab PO TID clopidogrel [Plavix] 75 mg tablet 75 mg PO DAILY donepezil [Aricept] 10 mg tablet 10 mg PO BEDTIME fluoxetine 40 mg capsule 40 mg PO QAM simvastatin 40 mg tablet 40 mg PO BEDTIME acetaminophen 500 mg tablet 1,000 mg PO Q6H PRN (Reason: Pain) Systane Gel 0.4-0.3 % Drops,Gel 1 drp OPHTHALMIC (EYE) BID loperamide 2 mg capsule 2 mg PO Q4H PRN (Reason: Loose Stool) bisacodyl 10 mg Suppository 10 mg [place] DAILY PRN (Reason: Constipation) Rx Instructions: if no results from mom magnesium hydroxide [Milk of Magnesia] 400 mg/5 mL Suspension 30 ml PO .EVERY 72 HOURS PRN (Reason: if no bm in 3 days) phenytoin 125 mg/5 mL suspension 8 ml PO BID Rx Instructions: shake bottle well prior to pouring each dose guaifenesin 200 mg Tablet 200 mg PO QID PRN (Reason: Congestion) levothyroxine 100 mcg Tablet 100 mcg PO QAM hydrocortisone 1 % cream 1 applic topical BID PRN (Reason: unknown) levetiracetam 100 mg/mL solution 1,000 mg PO BID Fleet Enema 19-7 gram/118 mL Enema 118 ml [place] DAILY PRN (Reason: Constipation) Rx Instructions: give fleets if no results from mom and dulcolax Dulcolax (bisacodyl) 5 mg Tablet,Delayed Release (Dr/Ec) 10 mg PO DAILY PRN (Reason: Constipation) Rx Instructions: if no results from mom ciprofloxacin HCl 500 mg tablet 500 mg PO BID Qty: 20 0RF Discharge Orders: Discharge ED (Routine); Ordered 06/23/25 Ordered By: Jayde Barragan Referrals: Candido Higginbotham, [facility] [Primary Care Provider, Family Practice] Discharge Diet: Usual diet Discharge Activity: Increase activity as tolerated Patient Instructions: Epilepsy in Older Adults (ED), Opioid Safety, Pain Management, Patient Portal & [place] Instructions Activity Restrictions/Additional Instructions: Increase Keppra dose to 1250 mg twice daily. Thank you for choosing [facility] [place] for your healthcare needs today. You have been screened and evaluated and felt safe for discharge. Health conditions do change or evolve sometimes and as such it is important that you follow up with your Primary Doctor to be re checked, 3-5 days is a general good time frame for follow up. You are always welcome to return to the ED for re assessment if your symptoms are worsening or you have new concerns Print Language: Nepali Coding Level of Care Code ED Clinical Engineering Manager for [facility]
--- NOTE | 2025-06-23 18:22 | PC.NURSE ---
STROKE SCALE COMPLETE. UNABLE TO COMPLETE FULL STROKE ASSESSMENT APPROPRIATELY DUE TO PATIENT UNWILLING TO ANSWER QUESTIONS AND HAS DEFICITS FROM PREVIOUS STROKE.
--- OUTSIDE RECORDS SUMMARY | 2025-06-23 18:22 | XMS_ITS | Continuity of Care Document ---
Author Organization [employer] [facility] ([facility]) Address [address] [place] [id number] Problems Condition ICD9 code ICD10 code SNOMED code Start Date End Date S tatus Generalized idiopathic epilepsy and epileptic syndromes, not intractable, without status epilepticus G40.309 08/28/2022 Active 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 J69.0 08/28/2022 Active Hemiplegia and hemiparesis following cerebral infarction affecting left non-dominant side I69.354 08/28/2022 Active Dysphagia following cerebral infarction I69.391 08/30/2022 Activ e [facility] (current) use of antithrombotics/antiplate lets Z79.02 08/28/2022 Active Unspecified dementia, moderate, with agitation F03.B11 12/18/2022 Active Unspecified dementia, moderate, with mood disturbance F03.B3 12/18/2022 Active Other symptoms and signs involving cognitive functions and awareness R41.89 08/28/2022 A ctive Parkinson's disease without dyskinesia, without mention of fluctuations G20.A1 05/26/2023 Active Fibromyalgia M79.7 08/28/2022 Active Depression, unspecified F32.A 08/28/2022 Active Hypothyroidism, unspecified E03.9 08/28/2022 Active Obesity, unspecified E66.9 08/28/2022 Active Body mass index (BMI) 32.0-32.9, adult Z68.32 06/26/2024 Active Gastro-esophageal reflux disease without esophagitis K21.9 08/28/2022 Active Chronic sinusitis, unspecified J32.9 08/28/2022 Active Dry eye syndrome of unspecified lacrimal gland H04.129 03/24/2024 Active Unspecified acute noninfective otitis externa, unspecified ear H60.509 07/07/2024 Active Impacted cerumen, right ear H61.21 07/07/2024 Active Do not resuscitate Z66 08/28/2022 Ac tive Constipation, unspecified K59.00 11/09/2024 Active Candidal stomatitis B37.0 12/21/2024 A ctive Dysphagia, oropharyngeal phase R13.12 04/19/2025 Active Aphasia R47.01 04/22/2025 Active Body mass index (BMI) 36.0-36.9, adult Z68.36 03/28/2025 Active Candidal stomatitis B37.0 04/22/2025 A ctive Muscle weakness (generalized) M62.81 04/14/2025 Active Results Test Result Date/Time Value / Unit Interp. Refere nce Range COVID-19 Test Viral Antigen null flavor [null] 06/15/2024 05:00 PM See note NEG COVID-19 Test Viral Antigen COVID-19 Test Viral Antigen null flavor [null] 06/08/2024 05:00 PM See note NEG COVID-19 Test Viral Antigen COVID-19 Test Viral Antigen null flavor [null] 06/01/2024 05:00 PM See note NEG COVID-19 Test Viral Antigen COVID-19 Test Viral Antigen null flavor [null] 05/25/2024 05:00 PM See note NEG COVID-19 Test Viral Antigen COVID-19 Test Viral Antigen null flavor [null] 05/18/2024 05:00 PM See note NEG COVID-19 Test Viral Antigen COVID-19 Test Viral Antigen null flavor [null] 05/11/2024 05:00 PM See note NEG COVID-19 Test Viral Antigen Allergies, adverse reactions, alerts Substance Reaction Date Status Type aspirin 05/16/2022 Non Drug hydrocodone 05/16/2022 Non Drug metronidazole 05/16/2022 Non Drug nitrofurantoin 05/16/2022 Non Drug Penicillins 05/16/2022 Non Drug Sulfa (Sulfonamide Antibiotics) 05/16/2022 Non Drug Immunizations Vaccine Route Date Status COVID-19 Vaccine Unassigned Route of Administration Completed COVID-19 Vaccine Unassigned Route of Administration Completed COVID-19 Vaccine Unassigned Route of Administration Completed COVID-19 Vaccine Unassigned Route of Administration Completed Influenza Vaccine Unassigned Route of Administration 1 Completed Influenza Vaccine Unassigned Route of Administration 1 Completed Influenza Vaccine Unassigned Route of Administration 1 Completed Pneumococcal Vaccine Unassigned Route of Administratio n 06/24/2023 Completed RSV Vaccine Unassigned Route of Administration 2022 Completed Influenza Vaccine Unassigned Route of Administration 1 Completed COVID-19 Vaccine Unassigned Route of Administration Completed Medications Medication Instructions Route Dosage Frequency Start Date Stop Date Indications Status Aricept (donepezil) 10 mg tablet (Aricept (donepezil)) 1 tab, oral, At Bedtime oral 1.0 11/09 Unspecified dementia, moderate, with agitation Active Calmoseptine (menthol-zinc oxide) 0.44-20.6 % ointment (Calmoseptine (menthol-zinc oxide)) 1 application, topical, Twice A Day, Apply thin layer to shayla area and buttock BID. topical 1.0 12.0 h 2023 Active carbidopa-levod opa 25-100 mg tablet (carbidopa-levo dopa) 2 tabs, oral, Three Times A Day oral 1.0 8.0 h 2022 Parkinson's disease without dyskinesia, without mention of fluctuations Active Dulcolax (bisacodyl) (bisacodyl) 10 mg suppository (Dulcolax (bisacodyl) (bisacodyl)) 1 suppository, rectal, Once A Day - PRN, Give rectally if can't take p/o, if no results from [facility] rectal 1.0 1.0 d 2022 Active Dulcolax (bisacodyl) (bisacodyl) 5 mg tablet,delayed release (DR/EC) (Dulcolax (bisacodyl) (bisacodyl)) 2 tabs/10mg, oral, Once A Day - PRN, Give if [place] [facility] [place] 1.0 1.0 d 2022 Active Fleet Enema (sodium phosphates) 19-7 gram/118 mL enema (Fleet Enema (sodium phosphates)) 1 application, rectal, Once A Day - PRN, Give fleets if no results from [facility] and Dulcolax rectal 1.0 1.0 d 2022 Active fluoxetine 10 mg capsule (fluoxetine) 3 caps (30 mg), oral, Once A Day oral 1.0 1.0 d 09/15 Depression, unspecified Active guaifenesin 200 mg tablet (guaifenesin) 1 tab, oral, Four Times A Day - PRN oral 1.0 6.0 h 2022 Dysphagia following cerebral infarction Active levetiracetam 1,000 mg tablet (levetiracetam) 1, oral, Twice A Day oral 1.0 12.0 h 2023 Generalized idiopathic epilepsy and epileptic syndromes, not intractable, without status epilepticus Active levothyroxine 112 mcg capsule (levothyroxine) 1, oral, Once A Day oral 1.0 1.0 d 2023 Hypothyroidis m, unspecified Active Milk of Magnesia (magnesium hydroxide) 400 mg/5 mL suspension (Milk of Magnesia (magnesium hydroxide)) 30 ml, oral, Once A Day - PRN, if no BM in 3 days oral 1.0 1.0 d 2022 Active Pepcid (famotidine) 20 mg tablet (Pepcid (famotidine)) 1 tab, oral, Twice A Day oral 1.0 12.0 h 04/12 Gastro-esopha geal reflux disease without esophagitis Active Phenytek (phenytoin sodium extended) 200 mg capsule (Phenytek (phenytoin sodium extended)) 1, oral, Twice A Day oral 1.0 12.0 h 2023 Generalized idiopathic epilepsy and epileptic syndromes, not intractable, without status epilepticus Active Plavix (clopidogrel) 75 mg tablet (Plavix (clopidogrel)) 1 tab, oral, Once A Day oral 1.0 1.0 d 2022 Active Selsun Blue (pyrithione zinc) (pyrithione zinc) 1 % shampoo (Selsun Blue (pyrithione zinc) (pyrithione zinc)) as directed, scalp, Once A Day on Sat, Use Selsun blue to wash hair on shower days 1.0 1.0 d 05/03 Active simvastatin 40 mg tablet (simvastatin) 1 tab, oral, At Bedtime oral 1.0 12/24 Active Sweet Oil (olive oil) - oil (Sweet Oil (olive oil)) 2-4 gtt each ear, miscellaneous , Once A Day 1.0 1.0 d 2023 Active Systane Gel (peg 400-propylene glycol) 0.4-0.3 % drops,gel (Systane Gel (peg 400-propylene glycol)) 1 drop each eye, ophthalmic (eye), Twice A Day 1.0 12.0 h 2022 Active Tylenol Extra Strength (acetaminophen) 500 mg tablet (Tylenol Extra Strength (acetaminophen) ) 2 tabs, oral, Every 6 Hours - PRN oral 1.0 6.0 h 2022 Active ciprofloxacin-d examethasone 0.3-0.1 % drops,suspensio n (ciprofloxacin- dexamethasone) 4gtts Rt ear, otic (ear), Three Times A Day, Administer 4gtts to Rt ear TID x 5 days 1.0 8.0 h 07/17 Active Debrox (carbamide peroxide) 6.5 % drops (Debrox (carbamide peroxide)) 5-10 gtts Rt ear, otic (ear), Twice A Day, Administer 5-10gtts to Rt ear BID x 5days then flush 1.0 12.0 h 07/12 Active fluoxetine 10 mg capsule (fluoxetine) 2 caps, oral, Once A Day oral 1.0 1.0 d 09/16 Depression, unspecified Active fluoxetine 10 mg capsule (fluoxetine) 2 caps (30 mg), oral, Once A Day oral 1.0 1.0 d 09/15 Depression, unspecified Active fluoxetine 20 mg capsule (fluoxetine) 1 cap, oral, Once A Day oral 1.0 1.0 d 2024 Depression, unspecified Active Sarna Sensitive (pramoxine) 1 % lotion (Sarna Sensitive (pramoxine)) as directed, topical, Every Shift - PRN, Apply to skin for itching as needed topical 1.0 8.0 h 2024 Active Miralax (polyethylene glycol 3350) 17 gram/dose powder (Miralax (polyethylene glycol 3350)) 17grams, oral, Once A Day, Mix 17 grams in 8 oz of water or juice daily hold if loose stools oral 1.0 1.0 d 2024 Active Debrox (carbamide peroxide) 6.5 % drops (Debrox (carbamide peroxide)) 3gtt, otic (ear), Once A Day, 3 drops right ear on 5th days flush ear with water 1.0 1.0 d 12/22 Active Debrox (carbamide peroxide) 6.5 % drops (Debrox (carbamide peroxide)) 3gtt, otic (ear), Once A Day, 3 drops right ear on 5th days flush ear with water 1.0 1.0 d 12/25 Active Debrox (carbamide peroxide) 6.5 % drops (Debrox (carbamide peroxide)) 3gtt, otic (ear), Once A Day, 3 drops right ear on 5th days flush ear with water 1.0 1.0 d 12/21 Active fluconazole 200 mg tablet (fluconazole) 2, oral, Once - One Time oral 1.0 12/21 Active fluconazole 200 mg tablet (fluconazole) 1, oral, Once A Day oral 1.0 1.0 d 01/05 Active fluconazole 200 mg tablet (fluconazole) 1, oral, Once A Day oral 1.0 1.0 d 05/13 Active furosemide 40 mg tablet (furosemide) 1, oral, Once A Day oral 1.0 1.0 d 2024 Active nystatin 100,000 unit/mL suspension (nystatin) 1ml, oral, Four Times A Day, swish and swallow oral 1.0 6.0 h 05/07 Active omeprazole 20 mg capsule,delayed release(DR/EC) (omeprazole) 1, oral, Once A Day oral 1.0 1.0 d 2024 Active potassium chloride 10 mEq capsule, extended release (potassium chloride) 1, oral, Once A Day oral 1.0 1.0 d 2024 Active fluconazole 200 mg tablet (fluconazole) 2 tablets, oral, Once - One Time oral 1.0 04/22 Active hydrocortisone 2.5 % cream (hydrocortisone ) apply brow and forehead, topical, Once A Day on Sat, Sat, Sat, apply to flaky area of brows AND FOREHEAD topical 1.0 1.0 d 04/26 Active ketoconazole 2 % shampoo (ketoconazole) wash scalp, topical, Once A Day on Sat, Sat, Sat, Wash scalp with shampoo 3 x weekly allowing to sit 5 min at least topical 1.0 1.0 d 04/26 Active ofloxacin 0.3 % drops (ofloxacin) 5, otic (ear), Twice A Day 1.0 12.0 h 04/25 Active Selsun Blue (pyrithione zinc) (pyrithione zinc) 1 % shampoo (Selsun Blue (pyrithione zinc) (pyrithione zinc)) as directed, scalp, Once A Day on Sat, Sat, Use Selsun blue to wash hair on shower days 1.0 1.0 d 2024 Active ofloxacin 0.3 % drops (ofloxacin) 5 gtts, otic (ear), Twice A Day, Right ear: 5gtts twice daily MUST BE DONE DUE TO DR MUÑOZ ON THE .0 12.0 h 06/14 Active Afluria 9016-1422 (3yr up)(PF) (flu vac [id number] 36mos up(pf)) 45 mcg (15 mcg x 3)/0.5 m syringe (Afluria 2478-1867 (3yr up)(PF) (flu vac [id number] 36mos up(pf))) 0.5ml, intramuscular , Once - One Time intramusc ular 1.0 06/08 Active Afluria 4631-5534 (3yr up)(PF) (flu vac [id number] 36mos up(pf)) 45 mcg (15 mcg x 3)/0.5 m syringe (Afluria 2574-3622 (3yr up)(PF) (flu vac [id number] 36mos up(pf))) 0.5ml, intramuscular , Once - One Time intramusc ular 1.0 06/08 Active Vital Signs Date Vital Result Comment 08/05/2024 09:51 AM Temperature (8310-5) 97.8 [degF] Oxygen Saturation (81027-2) 93 % Respiratory Rate (9279-1) 16 /min Heart Rate (8867-4) 87 /min Blood Pressure Systolic (8480-6) 131 mm[Hg] Blood Pressure Diastolic (8462-4) 78 mm[Hg] 07/30/2024 12:09 PM Body Weight (23033-7) 185 [lb_av] Body Mass Index (50414-3) 33.83 kg/m2 07/29/2024 11:00 AM Body Weight (69072-0) 186 [lb_av] Body Mass Index (80185-5) 34.02 kg/m2 07/29/2024 09:18 AM Temperature (8310-5) 97.8 [degF] Oxygen Saturation (18802-6) 99 % Respiratory Rate (9279-1) 16 /min Heart Rate (8867-4) 85 /min Blood Pressure Systolic (8480-6) 136 mm[Hg] Blood Pressure Diastolic (8462-4) 81 mm[Hg] 07/28/2024 09:15 AM Body Weight (26933-3) 184.8 [lb_av ] Body Mass Index (00495-8) 33.8 kg/m2 07/27/2024 04:20 PM Body Weight (80744-7) 184.6 [lb_av ] Body Mass Index (51552-4) 33.76 kg/m2 07/26/2024 10:00 AM Body Weight (34992-4) 185 [lb_av] Body Mass Index (68289-4) 33.83 kg/m2 07/22/2024 08:07 AM Temperature (8310-5) 98.1 [degF] Oxygen Saturation (80730-7) 93 % Respiratory Rate (9279-1) 16 /min Heart Rate (8867-4) 81 /min Blood Pressure Systolic (8480-6) 116 mm[Hg] Blood Pressure Diastolic (8462-4) 66 mm[Hg] 07/15/2024 09:27 AM Temperature (8310-5) 98 [degF] Oxygen Saturation (76788-0) 92 % Respiratory Rate (9279-1) 18 /min Heart Rate (8867-4) 93 /min Blood Pressure Systolic (8480-6) 134 mm[Hg] Blood Pressure Diastolic (8462-4) 81 mm[Hg] 07/08/2024 09:55 AM Temperature (8310-5) 97.3 [degF] Oxygen Saturation (89671-1) 95 % Respiratory Rate (9279-1) 16 /min Heart Rate (8867-4) 88 /min Blood Pressure Systolic (8480-6) 118 mm[Hg] Blood Pressure Diastolic (8462-4) 77 mm[Hg] 07/01/2024 01:55 PM Body Weight (42201-8) 178.4 [lb_av ] Body Mass Index (61183-1) 32.63 kg/m2 07/01/2024 11:00 AM Temperature (8310-5) 97.9 [degF] Oxygen Saturation (86128-9) 97 % Respiratory Rate (9279-1) 18 /min Heart Rate (8867-4) 84 /min Blood Pressure Systolic (8480-6) 133 mm[Hg] Blood Pressure Diastolic (8462-4) 75 mm[Hg] 06/30/2024 05:41 PM Body Weight (48924-7) 180.4 [lb_av ] Body Mass Index (31018-8) 32.99 kg/m2 06/29/2024 03:37 PM Body Weight (61330-2) 181.6 [lb_av ] Body Mass Index (51884-1) 33.21 kg/m2 06/26/2024 11:40 AM Body Weight (95036-2) 178.4 [lb_av ] Body Mass Index (36665-1) 32.63 kg/m2 06/26/2024 12:29 AM Temperature (8310-5) 97.9 [degF] 06/25/2024 09:48 AM Temperature (8310-5) 98.3 [degF] 06/24/2024 10:47 PM Temperature (8310-5) 98 [degF] 06/24/2024 04:01 PM Oxygen Saturation (76808-6) 92 % Respiratory Rate (9279-1) 16 /min Heart Rate (8867-4) 81 /min Blood Pressure Systolic (8480-6) 106 mm[Hg] Blood Pressure Diastolic (8462-4) 68 mm[Hg] 06/24/2024 03:59 PM Temperature (8310-5) 98.2 [degF] 06/17/2024 09:39 AM Oxygen Saturation (19682-1) 97 % Respiratory Rate (9279-1) 18 /min Heart Rate (8867-4) 87 /min Blood Pressure Systolic (8480-6) 110 mm[Hg] Blood Pressure Diastolic (8462-4) 70 mm[Hg] 06/10/2024 09:19 AM Oxygen Saturation (41523-0) 94 % Respiratory Rate (9279-1) 18 /min Heart Rate (8867-4) 64 /min Blood Pressure Systolic (8480-6) 115 mm[Hg] Blood Pressure Diastolic (8462-4) 74 mm[Hg] 06/03/2024 08:00 AM Oxygen Saturation (95502-3) 93 % Respiratory Rate (9279-1) 18 /min Heart Rate (8867-4) 70 /min Blood Pressure Systolic (8480-6) 124 mm[Hg] Blood Pressure Diastolic (8462-4) 79 mm[Hg] 05/26/2024 07:39 AM Body Weight (20006-9) 171.8 [lb_av ] Body Mass Index (86761-6) 31.42 kg/m2 05/21/2022 10:51 AM Body Height (8302-2) 62 [in_us] 08/12/2024 05:35 PM Temperature (8310-5) 98.6 [degF] Oxygen Saturation (73178-1) 98 % Respiratory Rate (9279-1) 16 /min Heart Rate (8867-4) 82 /min Blood Pressure Systolic (8480-6) 135 mm[Hg] Blood Pressure Diastolic (8462-4) 88 mm[Hg] 08/19/2024 11:38 AM Temperature (8310-5) 98.1 [degF] Oxygen Saturation (01234-9) 97 % Respiratory Rate (9279-1) 17 /min Heart Rate (8867-4) 84 /min Blood Pressure Systolic (8480-6) 116 mm[Hg] Blood Pressure Diastolic (8462-4) 69 mm[Hg] 08/26/2024 10:08 AM Temperature (8310-5) 98.6 [degF] Oxygen Saturation (34882-3) 96 % Respiratory Rate (9279-1) 17 /min Heart Rate (8867-4) 91 /min Blood Pressure Systolic (8480-6) 124 mm[Hg] Blood Pressure Diastolic (8462-4) 72 mm[Hg] Body Weight (88258-2) 187 [lb_av] Body Mass Index (71032-0) 34.2 kg/m2 09/02/2024 08:36 AM Temperature (8310-5) 98.3 [degF] Oxygen Saturation (94026-3) 94 % Respiratory Rate (9279-1) 18 /min Heart Rate (8867-4) 89 /min Blood Pressure Systolic (8480-6) 126 mm[Hg] Blood Pressure Diastolic (8462-4) 75 mm[Hg] 09/09/2024 09:33 AM Temperature (8310-5) 97.1 [degF] Oxygen Saturation (31566-8) 98 % Respiratory Rate (9279-1) 16 /min Heart Rate (8867-4) 62 /min Blood Pressure Systolic (8480-6) 133 mm[Hg] Blood Pressure Diastolic (8462-4) 64 mm[Hg] 09/16/2024 09:31 AM Temperature (8310-5) 97.6 [degF] Oxygen Saturation (73489-2) 94 % Respiratory Rate (9279-1) 18 /min Heart Rate (8867-4) 90 /min Blood Pressure Systolic (8480-6) 125 mm[Hg] Blood Pressure Diastolic (8462-4) 76 mm[Hg] 09/23/2024 05:44 PM Temperature (8310-5) 98.5 [degF] Oxygen Saturation (19364-3) 94 % Respiratory Rate (9279-1) 16 /min Heart Rate (8867-4) 88 /min Blood Pressure Systolic (8480-6) 159 mm[Hg] Blood Pressure Diastolic (8462-4) 88 mm[Hg] 09/26/2024 01:28 PM Body Weight (90285-5) 192.8 [lb_av ] Body Mass Index (22527-6) 35.26 kg/m2 09/28/2024 01:40 PM Body Weight (84191-8) 193 [lb_av] Body Mass Index (51991-6) 35.3 kg/m2 09/29/2024 12:34 PM Body Weight (30031-1) 193.2 [lb_av ] Body Mass Index (45017-6) 35.33 kg/m2 09/30/2024 10:55 AM Body Weight (30861-5) 172.2 [lb_av ] Body Mass Index (70575-5) 31.49 kg/m2 09/30/2024 09:22 AM Temperature (8310-5) 99.1 [degF] Oxygen Saturation (49655-1) 99 % Respiratory Rate (9279-1) 16 /min Heart Rate (8867-4) 83 /min Blood Pressure Systolic (8480-6) 136 mm[Hg] Blood Pressure Diastolic (8462-4) 78 mm[Hg] 10/01/2024 03:03 PM Body Weight (97108-7) 172.2 [lb_av ] Body Mass Index (04554-9) 31.49 kg/m2 10/02/2024 12:15 PM Body Weight (31228-7) 188.8 [lb_av ] Body Mass Index (41475-2) 34.53 kg/m2 10/04/2024 08:48 AM Body Weight (31312-0) 189 [lb_av] Body Mass Index (24203-4) 34.56 kg/m2 10/07/2024 11:35 AM Temperature (8310-5) 97.6 [degF] Oxygen Saturation (27338-6) 94 % Respiratory Rate (9279-1) 16 /min Heart Rate (8867-4) 87 /min Blood Pressure Systolic (8480-6) 121 mm[Hg] Blood Pressure Diastolic (8462-4) 69 mm[Hg] 10/14/2024 10:20 AM Temperature (8310-5) 98 [degF] Oxygen Saturation (88165-8) 96 % Respiratory Rate (9279-1) 16 /min Heart Rate (8867-4) 86 /min Blood Pressure Systolic (8480-6) 132 mm[Hg] Blood Pressure Diastolic (8462-4) 72 mm[Hg] 10/21/2024 08:44 AM Temperature (8310-5) 98.3 [degF] Oxygen Saturation (12557-9) 94 % Respiratory Rate (9279-1) 17 /min Heart Rate (8867-4) 80 /min Blood Pressure Systolic (8480-6) 138 mm[Hg] Blood Pressure Diastolic (8462-4) 77 mm[Hg] 10/28/2024 09:31 AM Temperature (8310-5) 97.9 [degF] Oxygen Saturation (62303-5) 92 % Respiratory Rate (9279-1) 18 /min Heart Rate (8867-4) 81 /min Blood Pressure Systolic (8480-6) 124 mm[Hg] Blood Pressure Diastolic (8462-4) 83 mm[Hg] 11/04/2024 10:24 AM Temperature (8310-5) 99.8 [degF] Oxygen Saturation (04869-8) 94 % Respiratory Rate (9279-1) 18 /min Heart Rate (8867-4) 93 /min Blood Pressure Systolic (8480-6) 136 mm[Hg] Blood Pressure Diastolic (8462-4) 81 mm[Hg] 11/07/2024 02:45 PM Body Weight (05669-6) 188.4 [lb_av ] Body Mass Index (90134-3) 34.46 kg/m2 11/11/2024 08:49 AM Temperature (8310-5) 98.1 [degF] Oxygen Saturation (92623-3) 98 % Respiratory Rate (9279-1) 16 /min Heart Rate (8867-4) 84 /min Blood Pressure Systolic (8480-6) 114 mm[Hg] Blood Pressure Diastolic (8462-4) 87 mm[Hg] 11/18/2024 05:01 PM Temperature (8310-5) 98 [degF] Oxygen Saturation (83631-0) 93 % Respiratory Rate (9279-1) 18 /min Heart Rate (8867-4) 79 /min Blood Pressure Systolic (8480-6) 137 mm[Hg] Blood Pressure Diastolic (8462-4) 76 mm[Hg] 11/24/2024 08:26 AM Body Weight (36518-1) 187.8 [lb_av ] Body Mass Index (57003-8) 34.35 kg/m2 11/25/2024 08:45 AM Temperature (8310-5) 97.6 [degF] Oxygen Saturation (21195-2) 94 % Respiratory Rate (9279-1) 18 /min Heart Rate (8867-4) 93 /min Blood Pressure Systolic (8480-6) 108 mm[Hg] Blood Pressure Diastolic (8462-4) 74 mm[Hg] 12/02/2024 04:55 PM Temperature (8310-5) 98.5 [degF] Oxygen Saturation (89536-3) 95 % Respiratory Rate (9279-1) 20 /min Heart Rate (8867-4) 100 /min Blood Pressure Systolic (8480-6) 120 mm[Hg] Blood Pressure Diastolic (8462-4) 75 mm[Hg] 12/09/2024 08:52 AM Temperature (8310-5) 97.5 [degF] Oxygen Saturation (38280-5) 97 % Respiratory Rate (9279-1) 16 /min Heart Rate (8867-4) 100 /min Blood Pressure Systolic (8480-6) 117 mm[Hg] Blood Pressure Diastolic (8462-4) 71 mm[Hg] 12/16/2024 10:29 AM Temperature (8310-5) 98.1 [degF] Oxygen Saturation (90730-1) 97 % Respiratory Rate (9279-1) 16 /min Heart Rate (8867-4) 79 /min Blood Pressure Systolic (8480-6) 131 mm[Hg] Blood Pressure Diastolic (8462-4) 79 mm[Hg] 12/23/2024 09:16 AM Temperature (8310-5) 97.2 [degF] Oxygen Saturation (31782-4) 96 % Respiratory Rate (9279-1) 17 /min Heart Rate (8867-4) 84 /min Blood Pressure Systolic (8480-6) 101 mm[Hg] Blood Pressure Diastolic (8462-4) 68 mm[Hg] 12/24/2024 08:15 AM Body Weight (04755-6) 188.2 [lb_av ] Body Mass Index (94697-0) 34.42 kg/m2 04/29/2025 04:41 PM Body Weight (98481-8) 180 [lb_av] Body Mass Index (68375-4) 32.92 kg/m2 04/16/2025 11:42 AM Body Weight (23126-6) 197.6 [lb_av ] Body Mass Index (47306-8) 36.14 kg/m2 04/21/2025 11:33 AM Body Weight (37998-6) 194.5 [lb_av ] Body Mass Index (42935-0) 35.57 kg/m2 2025 03:05 PM Body Weight (02334-7) 182 [lb_av] Body Mass Index (76788-4) 33.28 kg/m2 04/15/2025 11:03 PM Temperature (8310-5) 97.2 [degF] Oxygen Saturation (25944-2) 97 % Respiratory Rate (9279-1) 18 /min Heart Rate (8867-4) 83 /min Blood Pressure Systolic (8480-6) 125 mm[Hg] Blood Pressure Diastolic (8462-4) 74 mm[Hg] 03/12/2025 03:51 PM Body Weight (36490-7) 192.2 [lb_av ] Body Mass Index (65772-5) 35.15 kg/m2 04/12/2025 03:28 PM Body Weight (95042-0) 196.2 [lb_av ] Body Mass Index (95594-2) 35.88 kg/m2 04/10/2025 11:19 AM Body Weight (16605-4) 196.4 [lb_av ] Body Mass Index (06706-2) 35.92 kg/m2 04/01/2025 09:12 AM Body Weight (95431-4) 195.7 [lb_av ] Body Mass Index (85524-5) 35.79 kg/m2 04/18/2025 09:41 AM Body Weight (96036-8) 196.8 [lb_av ] Body Mass Index (38042-9) 35.99 kg/m2 03/05/2025 07:16 AM Body Weight (56596-2) 192.8 [lb_av ] Body Mass Index (75565-9) 35.26 kg/m2 03/01/2025 04:37 PM Body Weight (10164-3) 193.1 [lb_av ] Body Mass Index (77794-8) 35.31 kg/m2 04/17/2025 07:13 AM Body Weight (44139-2) 194.6 [lb_av ] Body Mass Index (22660-6) 35.59 kg/m2 04/08/2025 11:50 AM Body Weight (21294-2) 197.3 [lb_av ] Body Mass Index (34579-1) 36.08 kg/m2 04/06/2025 12:01 PM Body Weight (43555-8) 198.6 [lb_av ] Body Mass Index (65675-4) 36.32 kg/m2 03/28/2025 08:23 AM Body Weight (95446-4) 196.9 [lb_av ] Body Mass Index (50667-8) 36.01 kg/m2 04/27/2025 10:01 AM Body Weight (70544-9) 180.6 [lb_av ] Body Mass Index (22783-3) 33.03 kg/m2 04/23/2025 05:08 PM Body Weight (73800-7) 195 [lb_av] Body Mass Index (31221-6) 35.66 kg/m2 04/11/2025 08:34 AM Body Weight (26687-5) 196 [lb_av] Body Mass Index (48251-6) 35.84 kg/m2 04/05/2025 06:27 PM Body Weight (11694-2) 195.2 [lb_av ] Body Mass Index (53971-9) 35.7 kg/m2 03/24/2025 12:42 PM Body Weight (33702-9) 196 [lb_av] Body Mass Index (77890-8) 35.84 kg/m2 03/08/2025 05:24 PM Body Weight (75115-9) 190.6 [lb_av ] Body Mass Index (09150-1) 34.86 kg/m2 03/02/2025 11:39 AM Body Weight (10315-5) 191 [lb_av] Body Mass Index (56468-1) 34.93 kg/m2 04/15/2025 04:24 PM Body Weight (65181-8) 193.3 [lb_av ] Body Mass Index (77550-9) 35.35 kg/m2 04/08/2025 07:53 PM Temperature (8310-5) 97 [degF] Oxygen Saturation (51517-2) 98 % Respiratory Rate (9279-1) 20 /min Heart Rate (8867-4) 90 /min Blood Pressure Systolic (8480-6) 122 mm[Hg] Blood Pressure Diastolic (8462-4) 78 mm[Hg] 03/31/2025 08:46 AM Temperature (8310-5) 97.2 [degF] Oxygen Saturation (83362-7) 95 % Respiratory Rate (9279-1) 17 /min Heart Rate (8867-4) 94 /min Blood Pressure Systolic (8480-6) 122 mm[Hg] Blood Pressure Diastolic (8462-4) 70 mm[Hg] 03/17/2025 12:15 PM Temperature (8310-5) 97.2 [degF] Oxygen Saturation (61090-9) 98 % Respiratory Rate (9279-1) 20 /min Heart Rate (8867-4) 82 /min Blood Pressure Systolic (8480-6) 124 mm[Hg] Blood Pressure Diastolic (8462-4) 86 mm[Hg] Body Weight (47983-5) 192 [lb_av] Body Mass Index (73006-2) 35.11 kg/m2 03/03/2025 09:44 AM Body Weight (44039-7) 196.8 [lb_av ] Body Mass Index (40993-9) 35.99 kg/m2 04/20/2025 04:15 PM Body Weight (70441-9) 194.6 [lb_av ] Body Mass Index (78462-4) 35.59 kg/m2 04/19/2025 03:22 PM Body Weight (26986-6) 195 [lb_av] Body Mass Index (75204-2) 35.66 kg/m2 04/04/2025 08:27 AM Body Weight (85350-3) 196.4 [lb_av ] Body Mass Index (60553-3) 35.92 kg/m2 03/22/2025 01:32 PM Body Weight (05421-7) 200 [lb_av] Body Mass Index (75165-7) 36.58 kg/m2 03/18/2025 12:30 PM Body Weight (27368-0) 194.8 [lb_av ] Body Mass Index (36530-1) 35.63 kg/m2 03/07/2025 01:53 PM Body Weight (56326-5) 192.2 [lb_av ] Body Mass Index (08811-1) 35.15 kg/m2 03/11/2025 05:16 PM Body Weight (39570-0) 193 [lb_av] Body Mass Index (88283-0) 35.3 kg/m2 02/28/2025 04:55 PM Body Weight (76323-8) 92.2 [lb_av] Body Mass Index (46233-4) 16.86 kg/m2 04/07/2025 01:31 PM Body Weight (13016-4) 197.9 [lb_av ] Body Mass Index (84045-5) 36.19 kg/m2 03/06/2025 05:23 PM Body Weight (16786-6) 194.4 [lb_av ] Body Mass Index (04674-9) 35.55 kg/m2 04/30/2025 02:33 AM Temperature (8310-5) 98.6 [degF] Oxygen Saturation (38235-5) 96 % Respiratory Rate (9279-1) 17 /min Heart Rate (8867-4) 72 /min Blood Pressure Systolic (8480-6) 137 mm[Hg] Blood Pressure Diastolic (8462-4) 69 mm[Hg] 04/29/2025 01:10 PM Body Weight (92309-5) 180 [lb_av] Body Mass Index (00001-5) 32.92 kg/m2 03/26/2025 08:23 AM Body Weight (76533-6) 197.4 [lb_av ] Body Mass Index (46916-0) 36.1 kg/m2 03/03/2025 08:34 AM Temperature (8310-5) 97.5 [degF] Oxygen Saturation (89803-3) 97 % Respiratory Rate (9279-1) 16 /min Heart Rate (8867-4) 84 /min Blood Pressure Systolic (8480-6) 113 mm[Hg] Blood Pressure Diastolic (8462-4) 77 mm[Hg] 04/09/2025 02:24 PM Body Weight (84326-1) 196.8 [lb_av ] Body Mass Index (71730-5) 35.99 kg/m2 04/28/2025 04:16 PM Body Weight (09276-1) 183 [lb_av] Body Mass Index (09095-6) 33.47 kg/m2 03/31/2025 08:54 AM Body Weight (47146-1) 194.8 [lb_av ] Body Mass Index (64730-6) 35.63 kg/m2 03/21/2025 12:07 PM Body Weight (49876-3) 196.8 [lb_av ] Body Mass Index (76978-6) 35.99 kg/m2 03/29/2025 09:56 AM Body Weight (41388-0) 195.2 [lb_av ] Body Mass Index (49076-3) 35.7 kg/m2 03/13/2025 08:30 AM Body Weight (14052-2) 192.2 [lb_av ] Body Mass Index (57931-8) 35.15 kg/m2 03/25/2025 11:51 AM Body Weight (19032-8) 195.7 [lb_av ] Body Mass Index (50309-8) 35.79 kg/m2 02/26/2025 10:58 AM Body Weight (29858-0) 193.6 [lb_av ] Body Mass Index (82259-1) 35.41 kg/m2 04/03/2025 09:14 AM Body Weight (10554-5) 195.6 [lb_av ] Body Mass Index (53076-0) 35.77 kg/m2 03/27/2025 02:41 PM Body Weight (93827-0) 197.4 [lb_av ] Body Mass Index (02558-3) 36.1 kg/m2 02/27/2025 08:36 AM Body Weight (02874-1) 192.2 [lb_av ] Body Mass Index (45888-3) 35.15 kg/m2 04/07/2025 10:07 AM Temperature (8310-5) 97.7 [degF] Oxygen Saturation (30261-5) 97 % Respiratory Rate (9279-1) 16 /min Heart Rate (8867-4) 93 /min Blood Pressure Systolic (8480-6) 126 mm[Hg] Blood Pressure Diastolic (8462-4) 84 mm[Hg] 03/24/2025 09:14 AM Temperature (8310-5) 97.4 [degF] Oxygen Saturation (74407-1) 94 % Respiratory Rate (9279-1) 15 /min Heart Rate (8867-4) 70 /min Blood Pressure Systolic (8480-6) 102 mm[Hg] Blood Pressure Diastolic (8462-4) 69 mm[Hg] 03/15/2025 06:39 PM Body Weight (73079-8) 194 [lb_av] Body Mass Index (78348-4) 35.48 kg/m2 03/14/2025 08:46 AM Body Weight (15007-6) 193.2 [lb_av ] Body Mass Index (62097-7) 35.33 kg/m2 04/13/2025 04:47 PM Body Weight (06795-1) 196.5 [lb_av ] Body Mass Index (64853-3) 35.94 kg/m2 04/14/2025 11:59 AM Body Weight (52066-1) 193.2 [lb_av ] Body Mass Index (72936-6) 35.33 kg/m2 03/30/2025 01:42 PM Body Weight (29151-5) 195 [lb_av] Body Mass Index (44160-4) 35.66 kg/m2 03/19/2025 02:37 PM Body Weight (11588-4) 198 [lb_av] Body Mass Index (85028-5) 36.21 kg/m2 03/16/2025 12:32 PM Body Weight (47001-8) 192.2 [lb_av ] Body Mass Index (13100-1) 35.15 kg/m2 03/10/2025 08:51 AM Temperature (8310-5) 97.6 [degF] Oxygen Saturation (13761-0) 96 % Respiratory Rate (9279-1) 16 /min Heart Rate (8867-4) 84 /min Blood Pressure Systolic (8480-6) 107 mm[Hg] Blood Pressure Diastolic (8462-4) 66 mm[Hg] Body Weight (42279-1) 192.8 [lb_av] Body Mass Index (23684-3) 35.26 kg/m2 03/04/2025 09:20 AM Body Weight (58717-3) 194.8 [lb_av ] Body Mass Index (85354-9) 35.63 kg/m2 02/17/2025 01:00 PM Body Weight (83322-5) 190.8 [lb_av ] Body Mass Index (94567-2) 34.89 kg/m2 02/24/2025 08:24 AM Temperature (8310-5) 97.1 [degF] Oxygen Saturation (92254-0) 94 % Respiratory Rate (9279-1) 15 /min Heart Rate (8867-4) 83 /min Blood Pressure Systolic (8480-6) 115 mm[Hg] Blood Pressure Diastolic (8462-4) 73 mm[Hg] 02/21/2025 09:05 AM Body Weight (57677-5) 196.6 [lb_av ] Body Mass Index (38762-0) 35.95 kg/m2 02/20/2025 01:20 PM Body Weight (69636-1) 195 [lb_av] Body Mass Index (29539-1) 35.66 kg/m2 02/24/2025 03:04 PM Body Weight (77241-5) 196.4 [lb_av ] Body Mass Index (51204-6) 35.92 kg/m2 02/23/2025 09:12 AM Body Weight (97371-3) 196 [lb_av] Body Mass Index (60850-8) 35.84 kg/m2 02/15/2025 03:59 PM Body Weight (94655-8) 196.2 [lb_av ] Body Mass Index (16399-1) 35.88 kg/m2 02/22/2025 08:54 AM Body Weight (79211-2) 197 [lb_av] Body Mass Index (14164-7) 36.03 kg/m2 02/25/2025 03:49 PM Body Weight (86321-6) 195.4 [lb_av ] Body Mass Index (07955-9) 35.74 kg/m2 02/18/2025 08:07 AM Body Weight (95765-4) 190.2 [lb_av ] Body Mass Index (35157-9) 34.78 kg/m2 02/14/2025 11:44 AM Body Weight (99279-5) 188.2 [lb_av ] Body Mass Index (47247-4) 34.42 kg/m2 02/16/2025 09:30 AM Body Weight (82743-3) 188.2 [lb_av ] Body Mass Index (85765-5) 34.42 kg/m2 02/19/2025 11:29 AM Body Weight (14515-6) 192.7 [lb_av ] Body Mass Index (30465-4) 35.24 kg/m2 02/12/2025 12:53 PM Body Weight (27608-5) 188 [lb_av] Body Mass Index (59687-9) 34.38 kg/m2 02/11/2025 02:07 PM Body Weight (51179-2) 191.2 [lb_av ] Body Mass Index (29636-1) 34.97 kg/m2 01/30/2025 05:25 PM Body Weight (18093-7) 194.8 [lb_av ] Body Mass Index (99066-5) 35.63 kg/m2 01/31/2025 04:16 PM Body Weight (38293-0) 194.9 [lb_av ] Body Mass Index (36512-2) 35.64 kg/m2 02/13/2025 08:42 AM Body Weight (05770-1) 188.4 [lb_av ] Body Mass Index (94516-2) 34.46 kg/m2 02/05/2025 04:33 PM Body Weight (57349-1) 193.9 [lb_av ] Body Mass Index (40290-7) 35.46 kg/m2 02/03/2025 01:31 PM Body Weight (89462-9) 193.6 [lb_av ] Body Mass Index (22891-8) 35.41 kg/m2 02/02/2025 12:47 PM Body Weight (94217-8) 193.8 [lb_av ] Body Mass Index (30541-2) 35.44 kg/m2 02/04/2025 12:04 PM Body Weight (18531-1) 193.4 [lb_av ] Body Mass Index (75601-0) 35.37 kg/m2 02/08/2025 09:54 AM Body Weight (29396-3) 193.4 [lb_av ] Body Mass Index (48502-8) 35.37 kg/m2 02/01/2025 03:07 PM Body Weight (95391-6) 193.2 [lb_av ] Body Mass Index (82348-4) 35.33 kg/m2 05/01/2025 09:00 AM Body Weight (98742-8) 183 [lb_av] Body Mass Index (26706-2) 33.47 kg/m2 05/02/2025 12:01 PM Body Weight (43968-5) 184 [lb_av] Body Mass Index (76901-4) 33.65 kg/m2 05/03/2025 02:45 PM Body Weight (86990-1) 184 [lb_av] Body Mass Index (24831-7) 33.65 kg/m2 05/04/2025 02:16 PM Body Weight (11853-0) 186.2 [lb_av ] Body Mass Index (87135-8) 34.05 kg/m2 05/05/2025 02:35 PM Body Weight (59151-1) 186 [lb_av] Body Mass Index (05805-3) 34.02 kg/m2 05/06/2025 04:14 PM Body Weight (57212-4) 186.1 [lb_av ] Body Mass Index (46127-5) 34.03 kg/m2 05/06/2025 08:36 PM Temperature (8310-5) 97 [degF] Oxygen Saturation (03020-8) 95 % Respiratory Rate (9279-1) 18 /min Heart Rate (8867-4) 68 /min Blood Pressure Systolic (8480-6) 124 mm[Hg] Blood Pressure Diastolic (8462-4) 76 mm[Hg] 05/07/2025 05:50 PM Body Weight (73159-0) 188 [lb_av] Body Mass Index (26650-9) 34.38 kg/m2 05/08/2025 09:11 AM Body Weight (98204-0) 186.6 [lb_av ] Body Mass Index (40909-6) 34.13 kg/m2 05/09/2025 10:49 AM Body Weight (31808-9) 186.9 [lb_av ] Body Mass Index (16106-3) 34.18 kg/m2 05/10/2025 02:02 PM Body Weight (98848-1) 187.8 [lb_av ] Body Mass Index (32967-5) 34.35 kg/m2 05/11/2025 05:21 PM Body Weight (78432-7) 179.6 [lb_av ] Body Mass Index (22796-9) 32.85 kg/m2 05/13/2025 05:12 PM Body Weight (28612-8) 179 [lb_av] Body Mass Index (28416-9) 32.74 kg/m2 05/13/2025 11:06 PM Temperature (8310-5) 97.8 [degF] Oxygen Saturation (31242-3) 96 % Respiratory Rate (9279-1) 18 /min Heart Rate (8867-4) 70 /min Blood Pressure Systolic (8480-6) 130 mm[Hg] Blood Pressure Diastolic (8462-4) 75 mm[Hg] 05/14/2025 09:53 AM Body Weight (52900-1) 181.4 [lb_av ] Body Mass Index (87051-7) 33.17 kg/m2 05/15/2025 05:04 PM Body Weight (62711-5) 181.9 [lb_av ] Body Mass Index (02720-8) 33.27 kg/m2 05/16/2025 01:17 PM Body Weight (23088-0) 186.8 [lb_av ] Body Mass Index (49044-0) 34.16 kg/m2 05/17/2025 03:52 PM Body Weight (73782-2) 185.8 [lb_av ] Body Mass Index (06404-1) 33.98 kg/m2 05/18/2025 06:29 PM Body Weight (83374-5) 186.4 [lb_av ] Body Mass Index (88376-2) 34.09 kg/m2 05/19/2025 06:28 PM Body Weight (92222-2) 181.4 [lb_av ] Body Mass Index (92260-5) 33.17 kg/m2 05/20/2025 12:31 PM Body Weight (95790-5) 182.4 [lb_av ] Body Mass Index (73856-8) 33.36 kg/m2 05/20/2025 09:06 PM Temperature (8310-5) 97.6 [degF] Oxygen Saturation (54128-0) 97 % Respiratory Rate (9279-1) 18 /min Heart Rate (8867-4) 73 /min Blood Pressure Systolic (8480-6) 126 mm[Hg] Blood Pressure Diastolic (8462-4) 71 mm[Hg] 05/21/2025 02:48 PM Body Weight (14271-9) 182.1 [lb_av ] Body Mass Index (06916-7) 33.3 kg/m2 05/22/2025 04:27 PM Body Weight (11850-9) 182.4 [lb_av ] Body Mass Index (53856-3) 33.36 kg/m2 05/23/2025 10:52 AM Body Weight (60234-9) 200.6 [lb_av ] Body Mass Index (99245-3) 36.69 kg/m2 05/24/2025 10:42 AM Body Weight (07813-7) 190 [lb_av] Body Mass Index (36267-7) 34.75 kg/m2 05/25/2025 04:20 PM Body Weight (66293-9) 190.2 [lb_av ] Body Mass Index (17364-6) 34.78 kg/m2 05/26/2025 04:44 PM Body Weight (53130-0) 186.4 [lb_av ] Body Mass Index (42941-7) 34.09 kg/m2 05/27/2025 09:23 PM Temperature (8310-5) 96.5 [degF] Oxygen Saturation (15361-4) 94 % Respiratory Rate (9279-1) 22 /min Heart Rate (8867-4) 90 /min Blood Pressure Systolic (8480-6) 110 mm[Hg] Blood Pressure Diastolic (8462-4) 64 mm[Hg] 05/27/2025 05:34 PM Body Weight (43743-0) 188.6 [lb_av ] Body Mass Index (13706-3) 34.49 kg/m2 05/28/2025 03:45 PM Body Weight (28137-2) 190 [lb_av] Body Mass Index (46165-7) 34.75 kg/m2 05/29/2025 01:06 PM Body Weight (26281-4) 192 [lb_av] Body Mass Index (67754-4) 35.11 kg/m2 05/30/2025 07:31 PM Body Weight (42936-3) 189.5 [lb_av ] Body Mass Index (20017-1) 34.66 kg/m2 05/31/2025 12:58 PM Body Weight (58000-3) 189.2 [lb_av ] Body Mass Index (73527-9) 34.6 kg/m2 06/03/2025 02:40 PM Body Weight (76991-5) 186.3 [lb_av ] Body Mass Index (32516-6) 34.07 kg/m2 06/03/2025 08:15 PM Temperature (8310-5) 98.5 [degF] Oxygen Saturation (19437-6) 96 % Respiratory Rate (9279-1) 18 /min Heart Rate (8867-4) 88 /min Blood Pressure Systolic (8480-6) 118 mm[Hg] Blood Pressure Diastolic (8462-4) 82 mm[Hg] 06/08/2025 03:37 PM Temperature (8310-5) 97.7 [degF] 06/08/2025 03:38 PM Temperature (8310-5) 97.7 [degF] 06/08/2025 10:24 PM Temperature (8310-5) 97.4 [degF] 06/09/2025 03:36 PM Temperature (8310-5) 97.5 [degF] 06/10/2025 07:57 PM Temperature (8310-5) 98.9 [degF] Oxygen Saturation (39006-9) 98 % Respiratory Rate (9279-1) 16 /min Heart Rate (8867-4) 76 /min Blood Pressure Systolic (8480-6) 110 mm[Hg] Blood Pressure Diastolic (8462-4) 74 mm[Hg] 06/17/2025 06:24 PM Temperature (8310-5) 97.6 [degF] Oxygen Saturation (93359-5) 95 % Respiratory Rate (9279-1) 17 /min Heart Rate (8867-4) 89 /min Blood Pressure Systolic (8480-6) 150 mm[Hg] Blood Pressure Diastolic (8462-4) 85 mm[Hg] 06/23/2025 09:10 AM Temperature (8310-5) 97.9 [degF] Oxygen Saturation (45596-3) 93 % Respiratory Rate (9279-1) 19 /min Heart Rate (8867-4) 91 /min Blood Pressure Systolic (8480-6) 144 mm[Hg] Blood Pressure Diastolic (8462-4) 86 mm[Hg] Social History Element Description Date Comment Tobacco smoking status NHIS Never smoker Encounters Type CPT Code Date Location Provider Indication s encounter report 08/28/2022 02:22 PM Birgit Pereyra DO 02 Advance Directives Directive Description Verification Date Supporting Document(s) Resuscitation
--- OUTSIDE RECORDS SUMMARY | 2025-06-23 18:23 | XMS_ITS | Continuity of Care Document ---
Author Organization [facility] Address [address] [place] [address] Care Team Providers Care Pricing Manager Name Role Phone Dr. Tim Pereyra DO Attending Physician Medications Medication Frequency Instructions Diagnosis Start Date End Date Last Administered Calmoseptine (menthol-zinc oxide) 0.44-20.6 % ointment Twice A Day 1 application, topical, Twice A Day, Apply thin layer to shayla area and buttock BID. 024 06/17/2025 07:40 PM carbidopa-levodo pa 25-100 mg tablet Three Times A Day 2 tabs, oral, Three Times A Day G20.A1 : Parkinson's disease without dyskinesia, without mention of fluctuations 023 06/17/2025 07:40 PM Dulcolax (bisacodyl) (bisacodyl) 5 mg tablet,delayed release (DR/EC) Once A Day - PRN 2 tabs/10mg, oral, Once A Day - PRN, Give if no results from [facility] 023 06/17/2025 09:28 AM Dulcolax (bisacodyl) (bisacodyl) 10 mg suppository Once A Day - PRN 1 suppository, rectal, Once A Day - PRN, Give rectally if can't take p/o, if no results from [facility] 023 Fleet Enema (sodium phosphates) 19-7 gram/118 mL enema Once A Day - PRN 1 application, rectal, Once A Day - PRN, Give fleets if no results from [facility] and Dulcolax 023 fluoxetine 20 mg capsule Once A Day 1 cap, oral, Once A Day F32.A : Depression, unspecified 025 06/17/2025 09:05 AM furosemide 40 mg tablet Once A Day 1, oral, Once A Day 025 06/17/2025 09:05 AM guaifenesin 200 mg tablet Four Times A Day - PRN 1 tab, oral, Four Times A Day - PRN 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 023 11/19/2024 06:09 AM levetiracetam 1,000 mg tablet Twice A Day 1, oral, Twice A Day 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, not intractable, without status epilepticus 024 06/17/2025 07:40 PM levothyroxine 112 mcg capsule Once A Day 1, oral, Once A Day E03.9 : Hypothyroidism, unspecified 024 06/17/2025 09:05 AM Milk of Magnesia (magnesium hydroxide) 400 mg/5 mL suspension Once A Day - PRN 30 ml, oral, Once A Day - PRN, if no BM in 3 days 023 02/21/2025 02:59 PM Miralax (polyethylene glycol 3350) 17 gram/dose powder Once A Day 17grams, oral, Once A Day, Mix 17 grams in 8 oz of water or juice daily hold if loose stools 025 06/17/2025 09:05 AM omeprazole 20 mg capsule,delayed release(DR/EC) Once A Day 1, oral, Once A Day 025 06/17/2025 09:05 AM Phenytek (phenytoin sodium extended) 200 mg capsule Twice A Day 1, oral, Twice A Day 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, not intractable, without status epilepticus 024 06/17/2025 07:40 PM Plavix (clopidogrel) 75 mg tablet Once A Day 1 tab, oral, Once A Day 023 06/17/2025 09:05 AM potassium chloride 10 mEq capsule, extended release Once A Day 1, oral, Once A Day 025 06/17/2025 09:05 AM Sarna Sensitive (pramoxine) 1 % lotion Every Shift - PRN as directed, topical, Every Shift - PRN, Apply to skin for itching as needed Selsun Blue (pyrithione zinc) (pyrithione zinc) 1 % shampoo Once A Day on Sat, Sat as directed, scalp, Once A Day on Sat, Use Selsun blue to wash hair on shower days 025 06/16/2025 09:46 PM Sweet Oil (olive oil) - oil Once A Day 2-4 gtt each ear, miscellaneous, Once A Day 024 06/14/2025 01:31 PM Systane Gel (peg 400-propylene glycol) 0.4-0.3 % drops,gel Twice A Day 1 drop each eye, ophthalmic (eye), Twice A Day 023 06/17/2025 07:40 PM Tylenol Extra Strength (acetaminophen) 500 mg tablet Every 6 Hours - PRN 2 tabs, oral, Every 6 Hours - PRN 023 05/30/2025 06:50 AM Afluria 8645-5650 (3yr up)(PF) (flu vac hw5269-88 36mos up(pf)) 45 mcg (15 mcg x 3)/0.5 m syringe Once - One Time 0.5ml, intramuscular, Once - One Time 025 202406/08/2025 03:38 PM Afluria 3789-1262 (3yr up)(PF) (flu vac kg9426-38 36mos up(pf)) 45 mcg (15 mcg x 3)/0.5 m syringe Once - One Time 0.5ml, intramuscular, Once - One Time 025 2024 ofloxacin 0.3 % drops Twice A Day 5 gtts, otic (ear), Twice A Day, Right ear: 5gtts twice daily MUST BE DONE DUE TO DR MUÑOZ ON THE 202406/14/2025 07:52 AM Problems Code Type Problem ICD Code Effective Date Status ICD-10 Generalized idiopath ic epilepsy and epileptic syndromes, not intractable, without status epilepticus G40.309 08/28/2022 Active ICD-10 Pneumonitis due to i nhalation of food and vomit J69.0 08/28/2022 Active ICD-10 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 I69.354 08/28/2022 Active ICD-10 Dysphagia following cerebral infarction I69.391 08/30/2022 Active ICD-10 Dysphagia, oropharyngeal phase R13.12 04/19 Active ICD-10 Aphasia R47.01 04/22/2025 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 Z79.02 08/28/2022 Active ICD-10 Unspecified dementia , moderate, with agitation F03.B11 12/18/2022 Active ICD-10 Unspecified dementia , moderate, with mood disturbance F03.B3 12/18/2022 Active ICD-10 Other symptoms and s igns involving cognitive functions and awareness R41.89 08/28/2022 Active ICD-10 Parkinson's disease without dyskinesia, without mention of fluctuations G20.A1 05/26/2023 Active ICD-10 Fibromyalgia M79.7 08/28/2022 Active ICD-10 Depression, unspecified F32.A 08/28/2022 A ctive ICD-10 Hypothyroidism, unspecified E03.9 08/28/19 23 Active ICD-10 Obesity, unspecified E66.9 08/28/2022 Acti ve ICD-10 Body mass index [BMI] 36.0-36.9, adult Z68.36 03/28/2025 Active ICD-10 Gastro-esophageal re flux disease without esophagitis K21.9 08/28/2022 Active ICD-10 Chronic sinusitis, unspecified J32.9 08/28 Active ICD-10 Candidal stomatitis B37.0 04/22/2025 Activ e ICD-10 Constipation, unspecified K59.00 11/09/2024 Active ICD-10 Muscle weakness (generalized) M62.81 2024 Active ICD-10 Do not resuscitate Z66 08/28/2022 Active Current Allergies and Intolerances Category Substance Type Reaction Severity Begin Date Status Drug allergy aspirin Allergy 05/16/2022 Active Drug allergy hydrocodone Allergy 05/16/2022 Acti ve Drug allergy metronidazole Allergy 05/16/2022 Ac tive Drug allergy nitrofurantoin Allergy 05/16/2022 A ctive Drug allergy Penicillins Allergy 05/16/2022 Acti ve Drug allergy Sulfa (Sulfonamide Antibiotics) Allergy 05/16/2022 Active Vital Signs Height: 62.0 in Date / Time Temperature Pulse (per minute) Respirations (per minute) Systolic BP (mmHg) Diastolic BP (mmHg) O2 Saturation (%) Weight BMI 2024 06:24 PM 97.6 F 89 17 150 85 95.0 2024 07:57 PM 98.9 F 76 16 110 74 98.0 2024 03:36 PM 97.5 F 2024 10:24 PM 97.4 F 2024 03:38 PM 97.7 F 2024 03:37 PM 97.7 F 2024 08:15 PM 98.5 F 88 18 118 82 96.0 2024 02:40 PM 186.3 lbs 34.0 7 2024 12:58 PM 189.2 lbs 34.6 2024 07:31 PM 189.5 lbs 34.6 6 2024 01:06 PM 192.0 lbs 35.1 1 2024 03:45 PM 190.0 lbs 34.7 5 2024 09:23 PM 96.5 F 90 22 110 64 94.0 2024 05:34 PM 188.6 lbs 34.4 9 2024 04:44 PM 186.4 lbs 34.0 9 2024 04:20 PM 190.2 lbs 34.7 8 2024 10:42 AM 190.0 lbs 34.7 5 2024 10:52 AM 200.6 lbs 36.6 9 2024 04:27 PM 182.4 lbs 33.3 6 2024 02:48 PM 182.1 lbs 33.3 2024 09:06 PM 97.6 F 73 18 126 71 97.0 2024 12:31 PM 182.4 lbs 33.3 6 2024 06:28 PM 181.4 lbs 33.1 7 2024 06:29 PM 186.4 lbs 34.0 9 2024 03:52 PM 185.8 lbs 33.9 8 2024 01:17 PM 186.8 lbs 34.1 6 2024 05:04 PM 181.9 lbs 33.2 7 2024 09:53 AM 181.4 lbs 33.1 7 2024 11:06 PM 97.8 F 70 18 130 75 96.0 2024 05:12 PM 179.0 lbs 32.7 4 2024 05:21 PM 179.6 lbs 32.8 5 2024 02:02 PM 187.8 lbs 34.3 5 2024 10:49 AM 186.9 lbs 34.1 8 2024 09:11 AM 186.6 lbs 34.1 3 2024 05:50 PM 188.0 lbs 34.3 8 2024 08:36 PM 68 18 124 76 95.0 2024 04:14 PM 186.1 lbs 34.0 3 2024 02:35 PM 186.0 lbs 34.0 2 2024 02:16 PM 186.2 lbs 34.0 5 2024 02:45 PM 184.0 lbs 33.6 5 2024 12:01 PM 184.0 lbs 33.6 5 2024 09:00 AM 183.0 lbs 33.4 7 2024 02:33 AM 72 17 137 69 96.0 2024 04:41 PM 180.0 lbs 32.9 2 2024 01:10 PM 180.0 lbs 32.9 2 2024 04:16 PM 183.0 lbs 33.4 7 2024 10:01 AM 180.6 lbs 33.0 3 2024 03:05 PM 182.0 lbs 33.2 8 2024 05:08 PM 195.0 lbs 35.6 6 2024 11:33 AM 194.5 lbs 35.5 7 2024 04:15 PM 194.6 lbs 35.5 9 2024 03:22 PM 195.0 lbs 35.6 6 2024 09:41 AM 196.8 lbs 35.9 9 2024 07:13 AM 194.6 lbs 35.5 9 2024 11:42 AM 197.6 lbs 36.1 4 2024 11:03 PM 83 18 125 74 97.0 2024 04:24 PM 193.3 lbs 35.3 5 2024 11:59 AM 193.2 lbs 35.3 3 2024 04:47 PM 196.5 lbs 35.9 4 2024 03:28 PM 196.2 lbs 35.8 8 2024 08:34 AM 196.0 lbs 35.8 4 2024 11:19 AM 196.4 lbs 35.9 2 2024 02:24 PM 196.8 lbs 35.9 9 2024 07:53 PM 90 20 122 78 98.0 2024 11:50 AM 197.3 lbs 36.0 8 2024 01:31 PM 197.9 lbs 36.1 9 2024 12:01 PM 198.6 lbs 36.3 2 2024 06:27 PM 195.2 lbs 35.7 2024 08:27 AM 196.4 lbs 35.9 2 2024 09:14 AM 195.6 lbs 35.7 7 2024 09:12 AM 195.7 lbs 35.7 9 2024 08:54 AM 194.8 lbs 35.6 3 2024 01:42 PM 195.0 lbs 35.6 6 2024 09:56 AM 195.2 lbs 35.7 2024 08:23 AM 196.9 lbs 36.0 1 2024 02:41 PM 197.4 lbs 36.1 2024 08:23 AM 197.4 lbs 36.1 2024 11:51 AM 195.7 lbs 35.7 9 2024 12:42 PM 196.0 lbs 35.8 4 2024 01:32 PM 200.0 lbs 36.5 8 2024 12:07 PM 196.8 lbs 35.9 9 Advance Directives Directive Note Do Not Resuscitate (DNR) Insurance Providers Payer Policy type Group Name Group number Policy ID Address Ph one Medicare Part A Medicare Part A [id number] Phone: Fax: [facility] Levels [employer] Commercial Insurance [id number] Phone: Fax: [facility] - Vaccines - [facility] Like Medicare Part B [id number] [address] [address] [place] [address] Phone: Fax: [facility] - % of Charges - [facility] Commercial Insurance [id number] 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 Date Status Dose Series Complete COVID-19 Vaccine 06/10/2025 Completed Unknown Ye s COVID-19 Vaccine [employer] 24-25 06/24/2024 Completed Unknown COVID-19 Vaccine comirnaty 12/26/2023 Completed 4 COVID-19 Vaccine Pizer Comirnaty 08/27/2023 Completed Unknow n Yes COVID-19 Vaccine Moderna 11/28/2022 Completed Booster Bivalent Yes Influenza Vaccine Alfuria 06/08/2025 Completed Influenza Vaccine Alfuria 06/04/2024 Completed Influenza Vaccine Alfuria Quadrivalent 06/19/2023 Completed Influenza Vaccine Afluria 05/29/2022 Completed Pneumococcal Vaccine 06/24/2023 Completed Unknown Pneumococcal Vaccine 05/29/2022 Completed RSV Vaccine Pfizer 06/20/2023 Completed Procedures Not available for this record Results Not available for this record Goals Goal Date Will achieve maximal independence with l east restrictive side rail use. 07/14/2025 ADL approaches will meet the resident?s needs to enhance ability, maintain abilities, or provide quality. 07/14/2025 Resident will remain free from injury Resident will stand upright with contact guard to minimal assistance. 07/14/2025 Resident will remain free from injury. 1 09/13/2024 Resident will not exhibit si gns of drug related sedation, hypotension, or anticholinergic symptoms. 07/14/2025 Jayde will wear her hearing aids to promo te optimal functional hearing. 07/14/2025 Jayde will maintain or improve nutritiona l status thru next review 07/14/2025 Will have a BM at least ever y 3 days for 120 days since update/last review AND/OR will not experience any complications r/t to colostomy for 120 days from update/ last review AND/OR Will not experience any GI complications for 120 days since update/last review AND/OR Will remain clean, dry between incontinent episodes thru 120days from update/last review 07/14/2025 Will adjust to change in rel ationships and accept support from staff for 120days from update/last review AND/OR Will be at ease interacting with others, expressing preferences daily for 120days from update/last review 07/14/2025 Advanced directives will be honored as outlined by patient/family on daily basis thru 120days from update/last review 07/14/2025 Will have positive responses to activities of my choice weekly through next assessment. 07/14/2025 Jayde will not exhibit compli cations r/t seizure activity thru 120 days from update/ last review. 07/14/2025 Social History Subject Status Smoking status Never smoker Encounters Admission Date Discharge Date Description MRN Visit Count 08/28/2022 14:22 LTPAC Admission [id number]
[2025-06-23 18:27] VITALS: BP 120/83; PULSE 85; RESP 18; O2SAT 95
[2025-06-23 18:32] VITALS: BP 120/83; PULSE 85; RESP 16; O2SAT 94
[2025-06-23 18:39] LABS: Hematocrit 44.8 % (36-47); Hemoglobin 14.60 g/dL (11.27-16.99); Mean Corpuscular HGB Conc 32.6 g/dL (30-55); Mean Corpuscular Hemoglobin 30.4 pg (27-33); Mean Corpuscular Volume 93.3 fl (85-98); Nucleated Red Blood Cells % 0 %; Platelet Count 314 10^3/cmm (157-399); Red Blood Count 4.80 10^6/uL (3.85-5.65); White Blood Count 8.46 10^3/uL (3.29-11.43)
[2025-06-23 18:48] LABS: INR 0.89 (0.8-1.2); Prothrombin Time 12.70 SECONDS (12.1-14.9)
[2025-06-23 18:49] LABS: Partial Thromboplastin Time 23.2 SECONDS (23.9-36.7)
--- NOTE | 2025-06-23 18:51 | P.PNCC_ITS ---
Stroke Alert Activation ED Arrival Date: 06/23/25 ED Arrival Time: 18:23 ED Physican at Bedside: 18:21 Last Known Normal/at Baseline: < 1 hour ago Stroke Alert Activated by: vasyl sy Stroke Alert Activation Time: 18:13 Stroke MD @ Bedside Time: 18:15 NIH Stroke Scale Time: 18:20 NIH stroke score NIHSS: Level Of Consciousness - 1a: 3 Level Of Consciousness Questions - 1b: Neither Correct Level Of Consciousness Commands - 1c: Neither Correct Best Gaze - 2: Normal Visual Silva - 3: Partial Hemianopia Facial Palsy - 4: Partial Paralysis Motor Arm Right - 5: Drift Motor Arm Left - 5: No Effort Against [place] Motor Leg Right - 6: No Drift Motor Leg Left - 6: Drift Limb Ataxia - 7: Absent Sensory - 8: Mild To Moderate Loss Best Language - 9: Mild/Moderate Aphasia Dysarthia - 10: Severe Dysarthia Extinction And Inattention - 11: 0 Score: Total Score: 19 Stroke Alert Data/Treatment Time to CT of Head: 18:13 CT Results Time: 18:37 CT Impression: Brain: Moderate diffuse cortical volume loss. Stable large region of encephalomalacia in the right temporal lobe. Moderate-severe hypodensities in supratentorial periventricular and subcortical white matter, consistent with microangiopathy. No intracranial hemorrhage. Stable parenchymal calcifications in the shana and right parietal lobe. Cerebral ventricles: No ventriculomegaly. Paranasal sinuses: Visualized sinuses are unremarkable. No fluid levels. Mastoid air cells: Visualized mastoid air cells are well aerated. Bones: Right frontotemporal craniotomy defect. No fracture. Soft tissues: Unremarkable. Vasculature: No hyperdense artery. CT/CT head thrombolytic 31249 IMPRESSION: No acute intracranial abnormality. tPA Contraindication: tPA Contraindication: Treatment not indcated tPA Admin Prior to Arrival: No Patient & Family Educated on: Treament Plan Other Patient & Family Education: Stroke alert was called and I came immediately to the emergency department. I stopped and CT where the patient was getting a CT head and I reviewed the images on the monitor and followed the patient back to the emergency department. [facility] called stroke alert took a photograph of what they observed when they picked the patient up she was clearly having a focal seizure involving the left side of the face. They describe that there was twitching of the left side of the face in addition to the weakness of the face. When I came to the ER, she had profound left facial weakness and she could not answer questions. I was called to another room to evaluate another stroke and when I returned 15 minutes later, the patient's daughter was at the bedside. She indicates that the patient has a seizure disorder that has been under fairly good control. She is on 1000 mg of Keppra twice daily along with 200 mg of Dilantin twice daily. We will get Dilantin and Keppra levels. Increase Keppra 1250 mg twice daily. Follow-up with Dr. Pereyra. 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 She was seen by Dr. Ibarra . 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 At the time of her neurologic evaluation by Dr. Ibarra, her motor exam was pretty unremarkable. She was actually able to perform tandem gait at that time. Between 2013 she had an episode of disorientation and possibly seizures and by that time her gait had deteriorated on exam. She now resides at [facility]. Her daughter says that she has been diagnosed with Parkinson's and that her speech is very difficult to understand. She does not ambulate. Other Information: Plan to transfer back to [facility] on levetiracetam 1250 mg twice daily and 200 mg phenytoin twice daily. Check levetiracetam and phenytoin levels. Critical Care Time Critical Care Time: 30 - 74 mins A&P Assessment and plan 1. Seizure: She clearly had a focal seizure. She is doing better. Increase Keppra and send her back to the nursing. Discussed with Dr. Barragan. PDMP PDMP Reviewed: Not Reviewed Coding Level of Care Code Acute Code for Chg Fwd Diagnoses Seizure R56.9
[2025-06-23 18:54] LABS: Alanine Aminotransferase < 5 U/L (0-33); Albumin Level 4.1 g/dL (3.5-5.2); Alkaline Phosphatase 279 U/L (35-105); Anion Gap 16.1 (5-19); Aspartate Amino Transferase 14 U/L (0-32); Blood Urea Nitrogen 7 mg/dL (8-23); Calcium 9.1 mg/dL (8.5-10.5); Carbon Dioxide 28 mmol/L (22-29); Chloride 97 mmol/L (98-107); Creatinine Clr Calc Pharmacy 65.7132; Globulin 3.6 g/dL (1.3-4.6); Glucose 152 mg/dL (65-115); Osmolality Calculated 285 mOsm/kg (285-295); Potassium 4.1 mmol/L (3.5-5.1); Sodium 137 mmol/L (136-145); Total Protein 7.7 g/dL (6.6-8.7)
[2025-06-23] MEDS: levETIRAcetam 1,000 MG/100 ML PREMIX 400 MG IV (19:05)
[2025-06-23 20:00] VITALS: BP 126/78; PULSE 86; RESP 14; O2SAT 98
[2025-06-23 21:38] VITALS: BP 129/85; PULSE 81; RESP 14; O2SAT 95
== END 2025-06-23 21:45 | disposition home or self-care (01) ==
PROVIDERS: Emergency Provider Emergency Medicine; PCP Nurse Practitioner
DX: R56.9 Unspecified convulsions (principal); Z79.02 Long term (current) use of antithrombotics/antiplatelets
CPT/HCPCS: 36416; 70450; 80053; 80185; 82962; 85025; 85610; 85730; 93005; 96374; 99285; J1953

== ENCOUNTER 2025-06-25 17:35 | Emergency (ER) | payer OTHER, SELFPAY ==
[2025-06-25 17:38] VITALS: BP 153/92; PULSE 125; RESP 18; TEMP 36.7; O2SAT 96
--- OUTSIDE RECORDS SUMMARY | 2025-06-25 17:41 | XMS_ITS | Continuity of Care Document ---
Author Organization [facility] ([facility]) Address [address] [place] [address] Insurance Providers Payer Plan Claims Address Claims Phone Policy Number Group Number Relation Employer Guarantor Name Guarantor Guarantor Address Guarantor Phone [employer]an [id number] Self Jayde Ojedaley [address] [place] [id number] Problems Condition ICD9 code ICD10 code SNOMED code Start Date End Date S tatus Generalized idiopathic epilepsy and epileptic syndromes, not intractable, without status epilepticus G40.309 08/28/2022 Active 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 J69.0 08/28/2022 Active Hemiplegia and hemiparesis following cerebral infarction affecting left non-dominant side I69.354 08/28/2022 Active Dysphagia following cerebral infarction I69.391 08/30/2022 Activ e [employer] (current) use of antithrombotics/antiplate lets Z79.02 08/28/2022 [...] PRN, Give if no results from MOM oral 1.0 1.0 d 2022 Active Fleet [...] - One Time oral 1.0 04/22 Active ketoconazole 2 % shampoo (ketoconazole) wash scalp, topical, Once A Day on Sat, Sat, Wash scalp with shampoo 3 x weekly allowing to sit 5 min at least topical 1.0 1.0 d 04/26 Active hydrocortisone 2.5 % cream (hydrocortisone ) apply brow and forehead, topical, Once A Day on Sat, Sat, Sat, apply to flaky area of brows AND FOREHEAD topical 1.0 1.0 d 04/26 Active ofloxacin [...] DONE DUE TO DR MUÑOZ ON THE 1.0 12.0 h 06/14 Active Afluria 2920-5844 (3yr up)(PF) (flu vac [id number] 36mos up(pf)) 45 mcg (15 mcg x 3)/0.5 m syringe (Afluria (3yr up)(PF) (flu vac [id number] 36mos up(pf))) 0.5ml, intramuscular , Once - One Time intramusc ular 1.0 06/08 Active Afluria 2958-0782 (3yr up)(PF) (flu vac [id number] 36mos up(pf)) 45 mcg (15 mcg x 3)/0.5 m syringe (Afluria (3yr up)(PF) (flu vac [id number] 36mos up(pf))) 0.5ml, intramuscular , Once - One Time intramusc ular 1.0 06/08 Active doxycycline hyclate 100 mg capsule (doxycycline hyclate) 1, oral, Twice A Day oral 1.0 12.0 h 07/01 Active levetiracetam 250 mg tablet (levetiracetam) 1, oral, Twice A Day oral 1.0 12.0 h 2024 Generalized idiopathic epilepsy and epileptic syndromes, not intractable, without status epilepticus Active Vital Signs Date Vital Result Comment 08/05/2024 09:51 AM Temperature (8310-5) 97.8 [degF] Oxygen Saturation (35976-4) 93 % Respiratory Rate (9279-1) 16 /min Heart Rate (8867-4) 87 /min Blood Pressure Systolic (8480-6) 131 mm[Hg] Blood Pressure Diastolic (8462-4) 78 mm[Hg] 07/30/2024 12:09 PM Body Weight (60747-7) 185 [lb_av] Body Mass Index (02763-8) 33.83 kg/m2 07/29/2024 11:00 AM Body Weight (24744-4) 186 [lb_av] Body Mass Index (45379-1) 34.02 kg/m2 07/29/2024 09:18 AM Temperature (8310-5) 97.8 [degF] Oxygen Saturation (55749-0) 99 % Respiratory Rate (9279-1) 16 /min Heart Rate (8867-4) 85 /min Blood Pressure Systolic (8480-6) 136 mm[Hg] Blood Pressure Diastolic (8462-4) 81 mm[Hg] 07/28/2024 09:15 AM Body Weight (03979-7) 184.8 [lb_av ] Body Mass Index (54859-7) 33.8 kg/m2 07/27/2024 04:20 PM Body Weight (89214-7) 184.6 [lb_av ] Body Mass Index (53082-2) 33.76 kg/m2 07/26/2024 10:00 AM Body Weight (69507-0) 185 [lb_av] Body Mass Index (93756-6) 33.83 kg/m2 07/22/2024 08:07 AM Temperature (8310-5) 98.1 [degF] Oxygen Saturation (13443-7) 93 % Respiratory Rate (9279-1) 16 /min Heart Rate (8867-4) 81 /min Blood Pressure Systolic (8480-6) 116 mm[Hg] Blood Pressure Diastolic (8462-4) 66 mm[Hg] 07/15/2024 09:27 AM Temperature (8310-5) 98 [degF] Oxygen Saturation (59176-0) 92 % Respiratory Rate (9279-1) 18 /min Heart Rate (8867-4) 93 /min Blood Pressure Systolic (8480-6) 134 mm[Hg] Blood Pressure Diastolic (8462-4) 81 mm[Hg] 07/08/2024 09:55 AM Temperature (8310-5) 97.3 [degF] Oxygen Saturation (87652-1) 95 % Respiratory Rate (9279-1) 16 /min Heart Rate (8867-4) 88 /min Blood Pressure Systolic (8480-6) 118 mm[Hg] Blood Pressure Diastolic (8462-4) 77 mm[Hg] 07/01/2024 01:55 PM Body Weight (70802-1) 178.4 [lb_av ] Body Mass Index (88126-6) 32.63 kg/m2 07/01/2024 11:00 AM Temperature (8310-5) 97.9 [degF] Oxygen Saturation (55844-3) 97 % Respiratory Rate (9279-1) 18 /min Heart Rate (8867-4) 84 /min Blood Pressure Systolic (8480-6) 133 mm[Hg] Blood Pressure Diastolic (8462-4) 75 mm[Hg] 06/30/2024 05:41 PM Body Weight (56383-1) 180.4 [lb_av ] Body Mass Index (11658-7) 32.99 kg/m2 06/29/2024 03:37 PM Body Weight (30905-4) 181.6 [lb_av ] Body Mass Index (27249-8) 33.21 kg/m2 06/26/2024 11:40 AM Body Weight (28142-8) 178.4 [lb_av ] Body Mass Index (99754-9) 32.63 kg/m2 06/26/2024 12:29 AM Temperature (8310-5) 97.9 [degF] 06/25/2024 09:48 AM Temperature (8310-5) 98.3 [degF] 06/24/2024 10:47 PM Temperature (8310-5) 98 [degF] 06/24/2024 04:01 PM Oxygen Saturation (68201-9) 92 % Respiratory Rate (9279-1) 16 /min Heart Rate (8867-4) 81 /min Blood Pressure Systolic (8480-6) 106 mm[Hg] Blood Pressure Diastolic (8462-4) 68 mm[Hg] 06/24/2024 03:59 PM Temperature (8310-5) 98.2 [degF] 06/17/2024 09:39 AM Oxygen Saturation (55875-7) 97 % Respiratory Rate (9279-1) 18 /min Heart Rate (8867-4) 87 /min Blood Pressure Systolic (8480-6) 110 mm[Hg] Blood Pressure Diastolic (8462-4) 70 mm[Hg] 06/10/2024 09:19 AM Oxygen Saturation (66096-8) 94 % Respiratory Rate (9279-1) 18 /min Heart Rate (8867-4) 64 /min Blood Pressure Systolic (8480-6) 115 mm[Hg] Blood Pressure Diastolic (8462-4) 74 mm[Hg] 06/03/2024 08:00 AM Oxygen Saturation (69546-8) 93 % Respiratory Rate (9279-1) 18 /min Heart Rate (8867-4) 70 /min Blood Pressure Systolic (8480-6) 124 mm[Hg] Blood Pressure Diastolic (8462-4) 79 mm[Hg] 05/26/2024 07:39 AM Body Weight (74284-4) 171.8 [lb_av ] Body Mass Index (54340-8) 31.42 kg/m2 05/21/2022 10:51 AM Body Height (8302-2) 62 [in_us] 08/12/2024 05:35 PM Temperature (8310-5) 98.6 [degF] Oxygen Saturation (76341-9) 98 % Respiratory Rate (9279-1) 16 /min Heart Rate (8867-4) 82 /min Blood Pressure Systolic (8480-6) 135 mm[Hg] Blood Pressure Diastolic (8462-4) 88 mm[Hg] 08/19/2024 11:38 AM Temperature (8310-5) 98.1 [degF] Oxygen Saturation (24488-5) 97 % Respiratory Rate (9279-1) 17 /min Heart Rate (8867-4) 84 /min Blood Pressure Systolic (8480-6) 116 mm[Hg] Blood Pressure Diastolic (8462-4) 69 mm[Hg] 08/26/2024 10:08 AM Temperature (8310-5) 98.6 [degF] Oxygen Saturation (10154-3) 96 % Respiratory Rate (9279-1) 17 /min Heart Rate (8867-4) 91 /min Blood Pressure Systolic (8480-6) 124 mm[Hg] Blood Pressure Diastolic (8462-4) 72 mm[Hg] Body Weight (34754-3) 187 [lb_av] Body Mass Index (96355-5) 34.2 kg/m2 09/02/2024 08:36 AM Temperature (8310-5) 98.3 [degF] Oxygen Saturation (18290-3) 94 % Respiratory Rate (9279-1) 18 /min Heart Rate (8867-4) 89 /min Blood Pressure Systolic (8480-6) 126 mm[Hg] Blood Pressure Diastolic (8462-4) 75 mm[Hg] 09/09/2024 09:33 AM Temperature (8310-5) 97.1 [degF] Oxygen Saturation (00579-9) 98 % Respiratory Rate (9279-1) 16 /min Heart Rate (8867-4) 62 /min Blood Pressure Systolic (8480-6) 133 mm[Hg] Blood Pressure Diastolic (8462-4) 64 mm[Hg] 09/16/2024 09:31 AM Temperature (8310-5) 97.6 [degF] Oxygen Saturation (05226-9) 94 % Respiratory Rate (9279-1) 18 /min Heart Rate (8867-4) 90 /min Blood Pressure Systolic (8480-6) 125 mm[Hg] Blood Pressure Diastolic (8462-4) 76 mm[Hg] 09/23/2024 05:44 PM Temperature (8310-5) 98.5 [degF] Oxygen Saturation (23654-6) 94 % Respiratory Rate (9279-1) 16 /min Heart Rate (8867-4) 88 /min Blood Pressure Systolic (8480-6) 159 mm[Hg] Blood Pressure Diastolic (8462-4) 88 mm[Hg] 09/26/2024 01:28 PM Body Weight (48922-1) 192.8 [lb_av ] Body Mass Index (80190-4) 35.26 kg/m2 09/28/2024 01:40 PM Body Weight (63348-6) 193 [lb_av] Body Mass Index (32891-2) 35.3 kg/m2 09/29/2024 12:34 PM Body Weight (12980-9) 193.2 [lb_av ] Body Mass Index (97590-7) 35.33 kg/m2 09/30/2024 10:55 AM Body Weight (65275-1) 172.2 [lb_av ] Body Mass Index (62593-5) 31.49 kg/m2 09/30/2024 09:22 AM Temperature (8310-5) 99.1 [degF] Oxygen Saturation (49124-0) 99 % Respiratory Rate (9279-1) 16 /min Heart Rate (8867-4) 83 /min Blood Pressure Systolic (8480-6) 136 mm[Hg] Blood Pressure Diastolic (8462-4) 78 mm[Hg] 10/01/2024 03:03 PM Body Weight (69705-1) 172.2 [lb_av ] Body Mass Index (00159-1) 31.49 kg/m2 10/02/2024 12:15 PM Body Weight (60212-1) 188.8 [lb_av ] Body Mass Index (96684-8) 34.53 kg/m2 10/04/2024 08:48 AM Body Weight (35154-8) 189 [lb_av] Body Mass Index (24026-5) 34.56 kg/m2 10/07/2024 11:35 AM Temperature (8310-5) 97.6 [degF] Oxygen Saturation (41833-5) 94 % Respiratory Rate (9279-1) 16 /min Heart Rate (8867-4) 87 /min Blood Pressure Systolic (8480-6) 121 mm[Hg] Blood Pressure Diastolic (8462-4) 69 mm[Hg] 10/14/2024 10:20 AM Temperature (8310-5) 98 [degF] Oxygen Saturation (53721-6) 96 % Respiratory Rate (9279-1) 16 /min Heart Rate (8867-4) 86 /min Blood Pressure Systolic (8480-6) 132 mm[Hg] Blood Pressure Diastolic (8462-4) 72 mm[Hg] 10/21/2024 08:44 AM Temperature (8310-5) 98.3 [degF] Oxygen Saturation (54928-1) 94 % Respiratory Rate (9279-1) 17 /min Heart Rate (8867-4) 80 /min Blood Pressure Systolic (8480-6) 138 mm[Hg] Blood Pressure Diastolic (8462-4) 77 mm[Hg] 10/28/2024 09:31 AM Temperature (8310-5) 97.9 [degF] Oxygen Saturation (66053-8) 92 % Respiratory Rate (9279-1) 18 /min Heart Rate (8867-4) 81 /min Blood Pressure Systolic (8480-6) 124 mm[Hg] Blood Pressure Diastolic (8462-4) 83 mm[Hg] 11/04/2024 10:24 AM Temperature (8310-5) 99.8 [degF] Oxygen Saturation (25407-9) 94 % Respiratory Rate (9279-1) 18 /min Heart Rate (8867-4) 93 /min Blood Pressure Systolic (8480-6) 136 mm[Hg] Blood Pressure Diastolic (8462-4) 81 mm[Hg] 11/07/2024 02:45 PM Body Weight (65789-7) 188.4 [lb_av ] Body Mass Index (21097-1) 34.46 kg/m2 11/11/2024 08:49 AM Temperature (8310-5) 98.1 [degF] Oxygen Saturation (22829-0) 98 % Respiratory Rate (9279-1) 16 /min Heart Rate (8867-4) 84 /min Blood Pressure Systolic (8480-6) 114 mm[Hg] Blood Pressure Diastolic (8462-4) 87 mm[Hg] 11/18/2024 05:01 PM Temperature (8310-5) 98 [degF] Oxygen Saturation (20117-6) 93 % Respiratory Rate (9279-1) 18 /min Heart Rate (8867-4) 79 /min Blood Pressure Systolic (8480-6) 137 mm[Hg] Blood Pressure Diastolic (8462-4) 76 mm[Hg] 11/24/2024 08:26 AM Body Weight (31421-5) 187.8 [lb_av ] Body Mass Index (37242-2) 34.35 kg/m2 11/25/2024 08:45 AM Temperature (8310-5) 97.6 [degF] Oxygen Saturation (96307-3) 94 % Respiratory Rate (9279-1) 18 /min Heart Rate (8867-4) 93 /min Blood Pressure Systolic (8480-6) 108 mm[Hg] Blood Pressure Diastolic (8462-4) 74 mm[Hg] 12/02/2024 04:55 PM Temperature (8310-5) 98.5 [degF] Oxygen Saturation (98302-2) 95 % Respiratory Rate (9279-1) 20 /min Heart Rate (8867-4) 100 /min Blood Pressure Systolic (8480-6) 120 mm[Hg] Blood Pressure Diastolic (8462-4) 75 mm[Hg] 12/09/2024 08:52 AM Temperature (8310-5) 97.5 [degF] Oxygen Saturation (71004-5) 97 % Respiratory Rate (9279-1) 16 /min Heart Rate (8867-4) 100 /min Blood Pressure Systolic (8480-6) 117 mm[Hg] Blood Pressure Diastolic (8462-4) 71 mm[Hg] 12/16/2024 10:29 AM Temperature (8310-5) 98.1 [degF] Oxygen Saturation (14347-5) 97 % Respiratory Rate (9279-1) 16 /min Heart Rate (8867-4) 79 /min Blood Pressure Systolic (8480-6) 131 mm[Hg] Blood Pressure Diastolic (8462-4) 79 mm[Hg] 12/23/2024 09:16 AM Temperature (8310-5) 97.2 [degF] Oxygen Saturation (83621-2) 96 % Respiratory Rate (9279-1) 17 /min Heart Rate (8867-4) 84 /min Blood Pressure Systolic (8480-6) 101 mm[Hg] Blood Pressure Diastolic (8462-4) 68 mm[Hg] 12/24/2024 08:15 AM Body Weight (45625-6) 188.2 [lb_av ] Body Mass Index (75540-3) 34.42 kg/m2 04/23/2025 05:08 PM Body Weight (59904-4) 195 [lb_av] Body Mass Index (98593-1) 35.66 kg/m2 2025 03:05 PM Body Weight (42861-1) 182 [lb_av] Body Mass Index (22808-4) 33.28 kg/m2 04/29/2025 01:10 PM Body Weight (77953-7) 180 [lb_av] Body Mass Index (84897-7) 32.92 kg/m2 04/04/2025 08:27 AM Body Weight (31653-7) 196.4 [lb_av ] Body Mass Index (15567-1) 35.92 kg/m2 03/22/2025 01:32 PM Body Weight (81102-0) 200 [lb_av] Body Mass Index (87522-8) 36.58 kg/m2 03/03/2025 08:34 AM Temperature (8310-5) 97.5 [degF] Oxygen Saturation (04806-5) 97 % Respiratory Rate (9279-1) 16 /min Heart Rate (8867-4) 84 /min Blood Pressure Systolic (8480-6) 113 mm[Hg] Blood Pressure Diastolic (8462-4) 77 mm[Hg] 03/01/2025 04:37 PM Body Weight (30495-0) 193.1 [lb_av ] Body Mass Index (64700-5) 35.31 kg/m2 02/23/2025 09:12 AM Body Weight (65586-6) 196 [lb_av] Body Mass Index (70194-1) 35.84 kg/m2 03/28/2025 08:23 AM Body Weight (67963-3) 196.9 [lb_av ] Body Mass Index (21487-0) 36.01 kg/m2 04/20/2025 04:15 PM Body Weight (05072-9) 194.6 [lb_av ] Body Mass Index (71375-9) 35.59 kg/m2 03/19/2025 02:37 PM Body Weight (74998-9) 198 [lb_av] Body Mass Index (51921-0) 36.21 kg/m2 04/16/2025 11:42 AM Body Weight (38804-1) 197.6 [lb_av ] Body Mass Index (69680-4) 36.14 kg/m2 04/06/2025 12:01 PM Body Weight (42025-9) 198.6 [lb_av ] Body Mass Index (39850-3) 36.32 kg/m2 04/03/2025 09:14 AM Body Weight (49860-9) 195.6 [lb_av ] Body Mass Index (32565-1) 35.77 kg/m2 03/29/2025 09:56 AM Body Weight (21526-0) 195.2 [lb_av ] Body Mass Index (55959-9) 35.7 kg/m2 03/12/2025 03:51 PM Body Weight (12274-2) 192.2 [lb_av ] Body Mass Index (87784-2) 35.15 kg/m2 04/30/2025 02:33 AM Temperature (8310-5) 98.6 [degF] Oxygen Saturation (23107-3) 96 % Respiratory Rate (9279-1) 17 /min Heart Rate (8867-4) 72 /min Blood Pressure Systolic (8480-6) 137 mm[Hg] Blood Pressure Diastolic (8462-4) 69 mm[Hg] 04/18/2025 09:41 AM Body Weight (72824-6) 196.8 [lb_av ] Body Mass Index (83103-4) 35.99 kg/m2 04/05/2025 06:27 PM Body Weight (45368-3) 195.2 [lb_av ] Body Mass Index (12769-3) 35.7 kg/m2 04/07/2025 01:31 PM Body Weight (95416-9) 197.9 [lb_av ] Body Mass Index (83944-1) 36.19 kg/m2 04/01/2025 09:12 AM Body Weight (78037-9) 195.7 [lb_av ] Body Mass Index (27788-7) 35.79 kg/m2 04/14/2025 11:59 AM Body Weight (37240-5) 193.2 [lb_av ] Body Mass Index (58388-6) 35.33 kg/m2 03/30/2025 01:42 PM Body Weight (00186-9) 195 [lb_av] Body Mass Index (95784-6) 35.66 kg/m2 03/08/2025 05:24 PM Body Weight (38842-5) 190.6 [lb_av ] Body Mass Index (52509-2) 34.86 kg/m2 02/19/2025 11:29 AM Body Weight (11661-6) 192.7 [lb_av ] Body Mass Index (87774-4) 35.24 kg/m2 04/12/2025 03:28 PM Body Weight (31515-2) 196.2 [lb_av ] Body Mass Index (98484-2) 35.88 kg/m2 04/11/2025 08:34 AM Body Weight (85670-4) 196 [lb_av] Body Mass Index (10220-6) 35.84 kg/m2 04/08/2025 07:53 PM Temperature (8310-5) 97 [degF] Oxygen Saturation (14227-9) 98 % Respiratory Rate (9279-1) 20 /min Heart Rate (8867-4) 90 /min Blood Pressure Systolic (8480-6) 122 mm[Hg] Blood Pressure Diastolic (8462-4) 78 mm[Hg] 03/10/2025 08:51 AM Temperature (8310-5) 97.6 [degF] Oxygen Saturation (97361-0) 96 % Respiratory Rate (9279-1) 16 /min Heart Rate (8867-4) 84 /min Blood Pressure Systolic (8480-6) 107 mm[Hg] Blood Pressure Diastolic (8462-4) 66 mm[Hg] Body Weight (25738-4) 192.8 [lb_av] Body Mass Index (69246-7) 35.26 kg/m2 03/02/2025 11:39 AM Body Weight (54249-5) 191 [lb_av] Body Mass Index (05057-7) 34.93 kg/m2 02/25/2025 03:49 PM Body Weight (77880-9) 195.4 [lb_av ] Body Mass Index (10965-5) 35.74 kg/m2 02/21/2025 09:05 AM Body Weight (44944-2) 196.6 [lb_av ] Body Mass Index (59196-9) 35.95 kg/m2 03/21/2025 12:07 PM Body Weight (40656-6) 196.8 [lb_av ] Body Mass Index (72465-3) 35.99 kg/m2 03/14/2025 08:46 AM Body Weight (00591-6) 193.2 [lb_av ] Body Mass Index (90385-5) 35.33 kg/m2 03/05/2025 07:16 AM Body Weight (26605-9) 192.8 [lb_av ] Body Mass Index (08716-4) 35.26 kg/m2 02/26/2025 10:58 AM Body Weight (04264-7) 193.6 [lb_av ] Body Mass Index (12515-6) 35.41 kg/m2 02/24/2025 03:04 PM Body Weight (61865-9) 196.4 [lb_av ] Body Mass Index (49410-2) 35.92 kg/m2 02/18/2025 08:07 AM Body Weight (99696-0) 190.2 [lb_av ] Body Mass Index (28432-5) 34.78 kg/m2 04/27/2025 10:01 AM Body Weight (18733-0) 180.6 [lb_av ] Body Mass Index (93035-7) 33.03 kg/m2 04/08/2025 11:50 AM Body Weight (84561-1) 197.3 [lb_av ] Body Mass Index (11909-7) 36.08 kg/m2 04/07/2025 10:07 AM Temperature (8310-5) 97.7 [degF] Oxygen Saturation (60585-8) 97 % Respiratory Rate (9279-1) 16 /min Heart Rate (8867-4) 93 /min Blood Pressure Systolic (8480-6) 126 mm[Hg] Blood Pressure Diastolic (8462-4) 84 mm[Hg] 03/26/2025 08:23 AM Body Weight (03420-0) 197.4 [lb_av ] Body Mass Index (24845-8) 36.1 kg/m2 03/17/2025 12:15 PM Temperature (8310-5) 97.2 [degF] Oxygen Saturation (88774-5) 98 % Respiratory Rate (9279-1) 20 /min Heart Rate (8867-4) 82 /min Blood Pressure Systolic (8480-6) 124 mm[Hg] Blood Pressure Diastolic (8462-4) 86 mm[Hg] Body Weight (14490-2) 192 [lb_av] Body Mass Index (12171-1) 35.11 kg/m2 03/16/2025 12:32 PM Body Weight (03296-6) 192.2 [lb_av ] Body Mass Index (99645-6) 35.15 kg/m2 03/13/2025 08:30 AM Body Weight (29443-6) 192.2 [lb_av ] Body Mass Index (74985-7) 35.15 kg/m2 04/15/2025 11:03 PM Temperature (8310-5) 97.2 [degF] Oxygen Saturation (26367-9) 97 % Respiratory Rate (9279-1) 18 /min Heart Rate (8867-4) 83 /min Blood Pressure Systolic (8480-6) 125 mm[Hg] Blood Pressure Diastolic (8462-4) 74 mm[Hg] 03/31/2025 08:46 AM Temperature (8310-5) 97.2 [degF] Oxygen Saturation (06411-7) 95 % Respiratory Rate (9279-1) 17 /min Heart Rate (8867-4) 94 /min Blood Pressure Systolic (8480-6) 122 mm[Hg] Blood Pressure Diastolic (8462-4) 70 mm[Hg] 03/11/2025 05:16 PM Body Weight (95482-6) 193 [lb_av] Body Mass Index (48688-9) 35.3 kg/m2 03/24/2025 12:42 PM Body Weight (32822-2) 196 [lb_av] Body Mass Index (40552-9) 35.84 kg/m2 03/06/2025 05:23 PM Body Weight (08141-6) 194.4 [lb_av ] Body Mass Index (01148-2) 35.55 kg/m2 02/15/2025 03:59 PM Body Weight (64981-0) 196.2 [lb_av ] Body Mass Index (30939-0) 35.88 kg/m2 03/25/2025 11:51 AM Body Weight (08190-9) 195.7 [lb_av ] Body Mass Index (04707-1) 35.79 kg/m2 03/24/2025 09:14 AM Temperature (8310-5) 97.4 [degF] Oxygen Saturation (66625-4) 94 % Respiratory Rate (9279-1) 15 /min Heart Rate (8867-4) 70 /min Blood Pressure Systolic (8480-6) 102 mm[Hg] Blood Pressure Diastolic (8462-4) 69 mm[Hg] 03/03/2025 09:44 AM Body Weight (47664-5) 196.8 [lb_av ] Body Mass Index (40424-4) 35.99 kg/m2 03/04/2025 09:20 AM Body Weight (88449-8) 194.8 [lb_av ] Body Mass Index (70146-1) 35.63 kg/m2 02/28/2025 04:55 PM Body Weight (43493-8) 92.2 [lb_av] Body Mass Index (40393-1) 16.86 kg/m2 02/22/2025 08:54 AM Body Weight (57612-4) 197 [lb_av] Body Mass Index (36146-8) 36.03 kg/m2 02/17/2025 01:00 PM Body Weight (30302-8) 190.8 [lb_av ] Body Mass Index (20628-2) 34.89 kg/m2 02/16/2025 09:30 AM Body Weight (26031-0) 188.2 [lb_av ] Body Mass Index (56843-1) 34.42 kg/m2 04/13/2025 04:47 PM Body Weight (53920-3) 196.5 [lb_av ] Body Mass Index (23989-4) 35.94 kg/m2 02/24/2025 08:24 AM Temperature (8310-5) 97.1 [degF] Oxygen Saturation (75449-2) 94 % Respiratory Rate (9279-1) 15 /min Heart Rate (8867-4) 83 /min Blood Pressure Systolic (8480-6) 115 mm[Hg] Blood Pressure Diastolic (8462-4) 73 mm[Hg] 04/21/2025 11:33 AM Body Weight (26045-8) 194.5 [lb_av ] Body Mass Index (95755-0) 35.57 kg/m2 04/17/2025 07:13 AM Body Weight (25618-3) 194.6 [lb_av ] Body Mass Index (65567-1) 35.59 kg/m2 04/10/2025 11:19 AM Body Weight (31808-9) 196.4 [lb_av ] Body Mass Index (31648-2) 35.92 kg/m2 02/27/2025 08:36 AM Body Weight (27741-4) 192.2 [lb_av ] Body Mass Index (29571-3) 35.15 kg/m2 02/14/2025 11:44 AM Body Weight (33059-7) 188.2 [lb_av ] Body Mass Index (58815-4) 34.42 kg/m2 04/29/2025 04:41 PM Body Weight (29445-2) 180 [lb_av] Body Mass Index (73349-7) 32.92 kg/m2 04/28/2025 04:16 PM Body Weight (08427-5) 183 [lb_av] Body Mass Index (54088-2) 33.47 kg/m2 04/19/2025 03:22 PM Body Weight (30240-1) 195 [lb_av] Body Mass Index (87382-7) 35.66 kg/m2 04/15/2025 04:24 PM Body Weight (02272-7) 193.3 [lb_av ] Body Mass Index (89480-3) 35.35 kg/m2 04/09/2025 02:24 PM Body Weight (51678-5) 196.8 [lb_av ] Body Mass Index (16974-2) 35.99 kg/m2 03/31/2025 08:54 AM Body Weight (35203-8) 194.8 [lb_av ] Body Mass Index (70976-7) 35.63 kg/m2 03/07/2025 01:53 PM Body Weight (74256-9) 192.2 [lb_av ] Body Mass Index (43860-0) 35.15 kg/m2 02/20/2025 01:20 PM Body Weight (29203-8) 195 [lb_av] Body Mass Index (88681-8) 35.66 kg/m2 03/27/2025 02:41 PM Body Weight (59199-8) 197.4 [lb_av ] Body Mass Index (74740-3) 36.1 kg/m2 03/18/2025 12:30 PM Body Weight (92840-8) 194.8 [lb_av ] Body Mass Index (78901-3) 35.63 kg/m2 03/15/2025 06:39 PM Body Weight (63904-6) 194 [lb_av] Body Mass Index (29583-5) 35.48 kg/m2 02/11/2025 02:07 PM Body Weight (43877-0) 191.2 [lb_av ] Body Mass Index (53878-5) 34.97 kg/m2 02/08/2025 09:54 AM Body Weight (86203-0) 193.4 [lb_av ] Body Mass Index (59621-8) 35.37 kg/m2 02/02/2025 12:47 PM Body Weight (97255-5) 193.8 [lb_av ] Body Mass Index (74637-2) 35.44 kg/m2 01/31/2025 04:16 PM Body Weight (33871-9) 194.9 [lb_av ] Body Mass Index (85400-6) 35.64 kg/m2 02/12/2025 12:53 PM Body Weight (01223-3) 188 [lb_av] Body Mass Index (95460-8) 34.38 kg/m2 02/03/2025 01:31 PM Body Weight (65938-4) 193.6 [lb_av ] Body Mass Index (38931-0) 35.41 kg/m2 01/30/2025 05:25 PM Body Weight (37636-1) 194.8 [lb_av ] Body Mass Index (62464-2) 35.63 kg/m2 02/04/2025 12:04 PM Body Weight (30160-2) 193.4 [lb_av ] Body Mass Index (08949-8) 35.37 kg/m2 02/01/2025 03:07 PM Body Weight (85230-5) 193.2 [lb_av ] Body Mass Index (43538-7) 35.33 kg/m2 02/13/2025 08:42 AM Body Weight (29368-4) 188.4 [lb_av ] Body Mass Index (26332-6) 34.46 kg/m2 02/05/2025 04:33 PM Body Weight (12164-0) 193.9 [lb_av ] Body Mass Index (90879-5) 35.46 kg/m2 05/01/2025 09:00 AM Body Weight (58992-4) 183 [lb_av] Body Mass Index (52099-7) 33.47 kg/m2 05/02/2025 12:01 PM Body Weight (48220-1) 184 [lb_av] Body Mass Index (74255-5) 33.65 kg/m2 05/03/2025 02:45 PM Body Weight (06076-1) 184 [lb_av] Body Mass Index (04665-0) 33.65 kg/m2 05/04/2025 02:16 PM Body Weight (97784-1) 186.2 [lb_av ] Body Mass Index (49013-1) 34.05 kg/m2 05/05/2025 02:35 PM Body Weight (01968-6) 186 [lb_av] Body Mass Index (95650-2) 34.02 kg/m2 05/06/2025 04:14 PM Body Weight (46452-9) 186.1 [lb_av ] Body Mass Index (06608-3) 34.03 kg/m2 05/06/2025 08:36 PM Temperature (8310-5) 97 [degF] Oxygen Saturation (85485-9) 95 % Respiratory Rate (9279-1) 18 /min Heart Rate (8867-4) 68 /min Blood Pressure Systolic (8480-6) 124 mm[Hg] Blood Pressure Diastolic (8462-4) 76 mm[Hg] 05/07/2025 05:50 PM Body Weight (69211-5) 188 [lb_av] Body Mass Index (51231-7) 34.38 kg/m2 05/08/2025 09:11 AM Body Weight (08998-8) 186.6 [lb_av ] Body Mass Index (36467-0) 34.13 kg/m2 05/09/2025 10:49 AM Body Weight (99450-5) 186.9 [lb_av ] Body Mass Index (71003-7) 34.18 kg/m2 05/10/2025 02:02 PM Body Weight (13618-4) 187.8 [lb_av ] Body Mass Index (40612-9) 34.35 kg/m2 05/11/2025 05:21 PM Body Weight (22911-9) 179.6 [lb_av ] Body Mass Index (10304-3) 32.85 kg/m2 05/13/2025 05:12 PM Body Weight (37565-0) 179 [lb_av] Body Mass Index (38905-7) 32.74 kg/m2 05/13/2025 11:06 PM Temperature (8310-5) 97.8 [degF] Oxygen Saturation (96326-0) 96 % Respiratory Rate (9279-1) 18 /min Heart Rate (8867-4) 70 /min Blood Pressure Systolic (8480-6) 130 mm[Hg] Blood Pressure Diastolic (8462-4) 75 mm[Hg] 05/14/2025 09:53 AM Body Weight (13858-8) 181.4 [lb_av ] Body Mass Index (85720-3) 33.17 kg/m2 05/15/2025 05:04 PM Body Weight (07113-1) 181.9 [lb_av ] Body Mass Index (62637-0) 33.27 kg/m2 05/16/2025 01:17 PM Body Weight (04188-9) 186.8 [lb_av ] Body Mass Index (06896-3) 34.16 kg/m2 05/17/2025 03:52 PM Body Weight (59917-0) 185.8 [lb_av ] Body Mass Index (45549-9) 33.98 kg/m2 05/18/2025 06:29 PM Body Weight (71613-8) 186.4 [lb_av ] Body Mass Index (21995-5) 34.09 kg/m2 05/19/2025 06:28 PM Body Weight (12125-4) 181.4 [lb_av ] Body Mass Index (11584-4) 33.17 kg/m2 05/20/2025 12:31 PM Body Weight (00774-5) 182.4 [lb_av ] Body Mass Index (09240-1) 33.36 kg/m2 05/20/2025 09:06 PM Temperature (8310-5) 97.6 [degF] Oxygen Saturation (16354-8) 97 % Respiratory Rate (9279-1) 18 /min Heart Rate (8867-4) 73 /min Blood Pressure Systolic (8480-6) 126 mm[Hg] Blood Pressure Diastolic (8462-4) 71 mm[Hg] 05/21/2025 02:48 PM Body Weight (41263-6) 182.1 [lb_av ] Body Mass Index (80270-7) 33.3 kg/m2 05/22/2025 04:27 PM Body Weight (55737-1) 182.4 [lb_av ] Body Mass Index (33679-2) 33.36 kg/m2 05/23/2025 10:52 AM Body Weight (91321-7) 200.6 [lb_av ] Body Mass Index (93639-4) 36.69 kg/m2 05/24/2025 10:42 AM Body Weight (83074-8) 190 [lb_av] Body Mass Index (07800-9) 34.75 kg/m2 05/25/2025 04:20 PM Body Weight (73329-5) 190.2 [lb_av ] Body Mass Index (13340-9) 34.78 kg/m2 05/26/2025 04:44 PM Body Weight (64142-9) 186.4 [lb_av ] Body Mass Index (26836-2) 34.09 kg/m2 05/27/2025 09:23 PM Temperature (8310-5) 96.5 [degF] Oxygen Saturation (77878-6) 94 % Respiratory Rate (9279-1) 22 /min Heart Rate (8867-4) 90 /min Blood Pressure Systolic (8480-6) 110 mm[Hg] Blood Pressure Diastolic (8462-4) 64 mm[Hg] 05/27/2025 05:34 PM Body Weight (55212-2) 188.6 [lb_av ] Body Mass Index (75959-9) 34.49 kg/m2 05/28/2025 03:45 PM Body Weight (50923-1) 190 [lb_av] Body Mass Index (06157-3) 34.75 kg/m2 05/29/2025 01:06 PM Body Weight (37568-7) 192 [lb_av] Body Mass Index (62744-4) 35.11 kg/m2 05/30/2025 07:31 PM Body Weight (69162-2) 189.5 [lb_av ] Body Mass Index (15455-3) 34.66 kg/m2 05/31/2025 12:58 PM Body Weight (32109-5) 189.2 [lb_av ] Body Mass Index (52588-8) 34.6 kg/m2 06/03/2025 02:40 PM Body Weight (70014-5) 186.3 [lb_av ] Body Mass Index (70809-4) 34.07 kg/m2 06/03/2025 08:15 PM Temperature (8310-5) 98.5 [degF] Oxygen Saturation (22823-2) 96 % Respiratory Rate (9279-1) 18 /min Heart Rate (8867-4) 88 /min Blood Pressure Systolic (8480-6) 118 mm[Hg] Blood Pressure Diastolic (8462-4) 82 mm[Hg] 06/08/2025 03:38 PM Temperature (8310-5) 97.7 [degF] 06/08/2025 03:37 PM Temperature (8310-5) 97.7 [degF] 06/08/2025 10:24 PM Temperature (8310-5) 97.4 [degF] 06/09/2025 03:36 PM Temperature (8310-5) 97.5 [degF] 06/10/2025 07:57 PM Temperature (8310-5) 98.9 [degF] Oxygen Saturation (79451-2) 98 % Respiratory Rate (9279-1) 16 /min Heart Rate (8867-4) 76 /min Blood Pressure Systolic (8480-6) 110 mm[Hg] Blood Pressure Diastolic (8462-4) 74 mm[Hg] 06/17/2025 06:24 PM Temperature (8310-5) 97.6 [degF] Oxygen Saturation (03079-9) 95 % Respiratory Rate (9279-1) 17 /min Heart Rate (8867-4) 89 /min Blood Pressure Systolic (8480-6) 150 mm[Hg] Blood Pressure Diastolic (8462-4) 85 mm[Hg] 06/23/2025 09:10 AM Temperature (8310-5) 97.9 [degF] Oxygen Saturation (77437-8) 93 % Respiratory Rate (9279-1) 19 /min Heart Rate (8867-4) 91 /min Blood Pressure Systolic (8480-6) 144 mm[Hg] Blood Pressure Diastolic (8462-4) 86 mm[Hg] 06/24/2025 08:15 PM Temperature (8310-5) 98.7 [degF] Oxygen Saturation (01459-4) 94 % Respiratory Rate (9279-1) 20 /min Heart Rate (8867-4) 84 /min Blood Pressure Systolic (8480-6) 134 mm[Hg] Blood Pressure Diastolic (8462-4) 80 mm[Hg] Social History No smoking Hx information available Encounters Type CPT Code Date Location Provider Indication s encounter report 08/28/2022 02:22 PM Birgit Pereyra DO 02 Advance Directives Directive Description Verification Date Supporting Document(s) Resuscitation
[2025-06-25 17:44] VITALS: BP 136/87; PULSE 123; RESP 17; O2SAT 97
--- NOTE | 2025-06-25 18:11 | W.ED.SEIZURE ---
Documented by User: JOSE A Shafer 06/25/25 22:47 HPI - Seizure General: Chief Complaint: Seizure Stated Complaint: seizure Time Seen by Provider: 06/25/25 17:41 Source: family Mode of arrival: EMS Limitations: physical limitation History of Present Illness: HPI Narrative: This patient is a 70-year-old female with history of seizure disorder, prior stroke with mild left-sided weakness, and expressive aphasia presenting from [facility] for evaluation after reported seizure. According nursing staff, seizure lasted approximately 15 minutes. EMS did not witness the event but found the patient postictal upon arrival. She has since returned to her baseline mental status, as confirmed by family at bedside. This patient was seen in the emergency department 2 days ago for similar event, which was reportedly her first seizure in several years. At that time, her Keppra dose was increased to 1 g p.o. twice daily, she also had consulted with neurology, Dr. Barriga at that time. Despite this recent adjustment, she experienced another seizure today. Family is denying any recent illness, fevers, infectious symptoms, and there are no reports of new complaints. Patient is unable to provide any review of systems however due to her physical condition. There is no reported trauma from today. Tachycardic at this time. MD complaint: seizure Witnessed: Yes - by Other ([facility]) Trauma: No Seizure History: Yes Place: [place] Possible Precipitating Event: none Treatments prior to arrival: none Related Data Home Medications ?Medication ?Instructions ?Recorded ?Confirmed acetaminophen 500 mg tablet 1,000 mg PO Q6H PRN Pain 09/11/19 01/18/23 carbidopa 25 mg-levodopa 100 mg 2 tab PO TID 09/11/19 01/18/23 tablet (Sinemet) clopidogrel 75 mg tablet (Plavix) 75 mg PO DAILY 09/11/19 01/18/23 donepezil 10 mg tablet (Aricept) 10 mg PO BEDTIME 09/11/19 01/18/23 fluoxetine 40 mg capsule 40 mg PO QAM 09/11/19 01/18/23 simvastatin 40 mg tablet 40 mg PO BEDTIME 09/11/19 01/18/23 peg 400-propylene glycol 0.4 %-0.3 1 drp ophthalmic (eye) BID 04/21/20 01/18/23 % eye gel drops (Systane Gel) famotidine 20 mg tablet (Pepcid) 20 mg PO BID 12/21/20 01/18/23 loperamide 2 mg capsule 2 mg PO Q4H PRN Loose Stool 02/15/21 01/18/23 magnesium hydroxide 400 mg/5 mL 30 ml PO .EVERY 72 HOURS PRN if no 05/10/22 01/18/23 oral suspension (Milk of Magnesia) bm in 3 days bisacodyl 10 mg rectal suppository 10 mg ND DAILY PRN Constipation 08/24/22 01/18/23 bisacodyl 5 mg tablet,delayed 10 mg PO DAILY PRN Constipation 01/18/23 01/18/23 release (Dulcolax (bisacodyl)) guaifenesin 200 mg tablet 200 mg PO QID PRN Congestion 01/18/23 01/18/23 hydrocortisone 1 % topical cream 1 applic topical BID PRN unknown 01/18/23 01/18/23 levetiracetam 100 mg/mL oral 1,000 mg PO BID 01/18/23 01/18/23 solution levothyroxine 100 mcg tablet 100 mcg PO QAM 01/18/23 01/18/23 phenytoin 125 mg/5 mL oral 8 ml PO BID 01/18/23 01/18/23 suspension sodium phosphates 19 gram-7 118 ml ND DAILY PRN Constipation 01/18/23 01/18/23 gram/118 mL enema (Fleet Enema) Previous Rx's ?Medication ?Instructions ?Recorded ciprofloxacin HCl 500 mg tablet 500 mg PO BID #20 tabs 01/18/23 Allergies Allergy/AdvReac Type Severity Reaction Status Date / Time amoxicillin Allergy Unknown Verified 08/24/22 12:20 aspirin Allergy Unknown Verified 01/18/23 11:35 doxepin Allergy Unknown Verified 08/24/22 12:20 hydrocodone Allergy Unknown Verified 01/18/23 11:35 metronidazole (From Flagyl) Allergy Unknown Verified 01/18/23 11:35 ondansetron (From Zofran) Allergy Unknown Verified 08/24/22 12:20 Penicillins Allergy ALGY-Hives Verified 01/18/23 11:35 Sulfa (Sulfonamide Allergy Unknown Verified 01/18/23 11:35 Antibiotics) nitrofurantoin (From AdvReac ADR-Itching Verified 01/18/23 11:35 Macrobid) Review of Systems General: Reports: ROS unobtainable due to medical condition PFSH ED PFSH: Medical History UTI (urinary tract infection) Acute encephalopathy Aspiration pneumonia Fever Otitis media Acute encephalopathy Sinusitis Altered mental status Obesity (BMI 30-39.9) Refused influenza vaccine Slow transit constipation Anxiety Metabolic syndrome Dependent for wheelchair mobility Acid reflux Generalized epilepsy Fibromyalgia Hypothyroidism, unspecified Lives in assisted living facility Cognitive impairment Dependent on walker for ambulation Surgical History History of removal of Port-a-Cath 2005 History of eye surgery Right 2005 History of bilateral tubal ligation 1987 History of hysterectomy with unilateral oophorectomy Right 1991 History of colonoscopy 2006 and 2011 History of cholecystectomy August 2005 History of brain surgery 2002 Family History Father Hypertension Mother Hypertension CAD (coronary artery disease) Social History Smoking and tobacco/nicotine status: never used tobacco/nicotine Second hand smoke exposure: No Alcohol intake: never Substance/Drug Use: never Adopted: No Caregiver/support person: Yes Lives independently: No Household members: other Housing: Assisted Living Facility Marital status: Number of children: 2 service: No Current occupational status: disabled Current occupational exposures/hazards: No Pets and animals: No Do you think of yourself as: Straight/Heterosexual Current gender identity: Female Physical Exam Const: COMMON NORMALS: no acute distress and alert GENERAL APPEARANCE: cooperative and comfortable ORIENTATION/CONSCIOUSNESS: Yes awake OTHER: Nontoxic, at baseline HENMT: COMMON NORMALS: normocephalic and atraumatic HEAD & SCALP: normocephalic and atraumatic Eye: COMMON NORMALS: Equal, round and reactive pupils present, EOMs intact bilaterally and conjunctivae normal CONJUNCTIVA: Yes conjunctivae normal PUPIL: Yes Equal, round and reactive pupils present Neck/C-Spine: COMMON NORMALS: full ROM and supple Resp: COMMON NORMALS: normal respiratory effort, No retractions, No use of accessory muscles and clear to auscultation bilaterally AUSCULTATION: clear to auscultation bilaterally Cardio: COMMON NORMALS: regular rhythm, No gallops present (Cardio), No clicks present (Cardio) and No murmurs present (Cardio) RATE: tachycardic RHYTHM: regular rhythm GI: COMMON NORMALS: Soft to palpation and non-tender INSPECTION: Yes central obesity PALPATION: Yes Soft to palpation Extremity: COMMON NORMALS: normal to inspection and full ROM Neuro: COMMON NORMALS: moves all extremities and no sensory deficits noted SENSORIUM/ORIENTATION: Yes alert SPEECH: expressive aphasia (baseline) OTHER: At baseline mentation. No verbal feedback to do history of expressive aphasia from stroke but does follow commands. Chronic left-sided motor deficit. No tremors or fasciculations. Skin: COMMON NORMALS: no rashes or lesions noted GENERAL SKIN EXAM: no rashes or lesions noted Course Vital Signs: Vital signs: Vital Signs Temperature 98.1 F 06/25/25 17:38 Pulse Rate 105 H 06/25/25 21:36 Respiratory Rate 17 06/25/25 17:44 Blood Pressure 136/87 06/25/25 17:44 Pulse Oximetry 92 06/25/25 21:36 Oxygen Delivery Me thod Room Air 06/25/25 21:36 MDM - Seizure MDM Narrative Medical decision making narrative: Patient present by ambulance for seizure, reportedly at the [facility] had a 50-minute seizure. EMS arrived stated she was postictal, she has not had any recurrence of seizure prehospital or here in the ED during workup. Of note few days ago she had a seizure and had full workup at that time, CT head was negative. No focal deficit at time of exam, she was at baseline mentation, though history primarily from family member due to her history of CVA. First lactic 6.9 likely secondary to seizure, rest of her lab work unremarkable other than mildly decreased potassium of which she was given p.o. potassium here in the ED. EKG unremarkable. She recently had dose of Keppra increased, she is to continue taking the gram twice a day but overall stable for discharge home as she has returned to baseline no further seizure-like activity here no need for hospital admit at this time. Return precautions are given she we discharged back to [facility] and continue Keppra. Strict return precautions are given. Lab Data 06/25/25 18:42 06/25/25 18:42 Labs: Laboratory Results WBC 11.42 10^3/uL (3.29-11.43) 06/25/25 18:42 RBC 4.70 10^6/uL (3.85-5.65) 06/25/25 18:42 Hgb 14.90 g/dL (11.27-16.99) 06/25/25 18:42 Hct 46.7 % (36-47) 06/25/25 18:42 MCV 99.4 fl (85-98) H 06/25/25 18:42 MCH 31.7 pg (27-33) 06/25/25 18:42 MCHC 31.9 g/dL (30-55) 06/25/25 18:42 RDW 13.4 % (12.1-15.1) 06/25/25 18:42 Plt Count 330 10^3/cmm (157-399) 06/25/25 18:42 MPV 8.9 fL (7.4-10.4) 06/25/25 18:42 Neut % (Auto) 76.4 % 06/25/25 18:42 Lymph % (Auto) 14.1 % 06/25/25 18:42 [place] % (Auto) 6.0 % 06/25/25 18:42 Eos % (Auto) 2.1 % 06/25/25 18:42 Baso % (Auto) 0.5 % 06/25/25 18:42 Neut # (Auto) 8.73 10^3/uL (1.8-7.7) H 06/25/25 18:42 Lymph # (Auto) 1.6 10^3/uL (0.8-4.8) 06/25/25 18:42 [place] # (Auto) 0.7 10^3/uL (0.2-0.9) 06/25/25 18:42 Eos # (Auto) 0.2 10^3/uL (0.0-0.8) 06/25/25 18:42 Baso # (Auto) 0.1 10^3/uL (0.0-0.1) 06/25/25 18:42 Nucleated RBC % (auto) 0 % 06/25/25 18:42 Nucleated RBCs # 0.0 /100WBC 06/25/25 18:42 Sodium 140 mmol/L (136-145) 06/25/25 18:42 Potassium 3.1 mmol/L (3.5-5.1) L 06/25/25 18:42 Chloride 97 mmol/L (98-107) L 06/25/25 18:42 Carbon Dioxide 22 mmol/L (22-29) 06/25/25 18:42 Anion Gap 24.1 (5-19) H 06/25/25 18:42 BUN 7 mg/dL (8-23) L 06/25/25 18:42 Creatinine 0.6 mg/dL (0.5-0.9) 06/25/25 18:42 GFR Calculation 99.1 mL/min (90-130) 06/25/25 18:42 Glucose 166 mg/dL (65-115) H 06/25/25 18:42 Calculated Osmolality 292 mOsm/kg (285-295) 06/25/25 18:42 Lactic Acid 6.9 mmol/L (0.5-2.2) H* 06/25/25 18:42 Lactic Acid (Sepsis) 3.7 mmol/L (0.5-2.2) H 06/25/25 22:00 Calcium 9.1 mg/dL (8.5-10.5) 06/25/25 18:42 Magnesium 2.0 mg/dL (1.7-2.3) 06/25/25 18:42 Total Bilirubin 0.3 mg/dL (0.15-1.2) 06/25/25 18:42 AST 12 U/L (0-32) 06/25/25 18:42 ALT < 5 U/L (0-33) 06/25/25 18:42 Alkaline Phosphatase 272 U/L (35-105) H 06/25/25 18:42 Total Protein 7.8 g/dL (6.6-8.7) 06/25/25 18:42 Albumin 4.0 g/dL (3.5-5.2) 06/25/25 18:42 Globulin 3.8 g/dL (1.3-4.6) 06/25/25 18:42 Urine Color Yellow (Yellow) 06/25/25 19:40 Urine Appearance Clear (CLEAR) 06/25/25 19:40 Urine pH 5.5 (5-7) 06/25/25 19:40 Ur Specific [place] 1.019 (1.005-1.030) 06/25/25 19:40 Urine Protein 1+ (Negative) A 06/25/25 19:40 Urine Glucose (UA) Negative (Normal) 06/25/25 19:40 Urine Ketones 1+ (Negative) H 06/25/25 19:40 Urine Blood Negative (Negative) 06/25/25 19:40 Urine Nitrate Negative (Negative) 06/25/25 19:40 Urine Bilirubin Negative (Negative) 06/25/25 19:40 Urine Urobilinogen 0.2 mg/dL (Negative) 06/25/25 19:40 Ur Leukocyte Esterase Trace (Negative) A 06/25/25 19:40 Urine RBC 3-5 /hpf (0-2) 06/25/25 19:40 Urine WBC 11-20 /hpf (0-5) H 06/25/25 19:40 Ur Squamous Epith Cells 0-5 /hpf (0-5) 06/25/25 19:40 Amorphous Sediment Not Reportable 06/25/25 19:40 Urine Bacteria None seen /hpf (NONE) 06/25/25 19:40 Hyaline Casts 2.46 /lpf 06/25/25 19:40 No radiology studies performed this visit Discharge Plan Discharge Patient Disposition: Home Clinical Impression: Seizure Condition: Stable Prescriptions: No Action famotidine [Pepcid] 20 mg tablet 20 mg PO BID carbidopa-levodopa [Sinemet] 25-100 mg tablet 2 tab PO TID clopidogrel [Plavix] 75 mg tablet 75 mg PO DAILY donepezil [Aricept] 10 mg tablet 10 mg PO BEDTIME fluoxetine 40 mg capsule 40 mg PO QAM simvastatin 40 mg tablet 40 mg PO BEDTIME acetaminophen 500 mg tablet 1,000 mg PO Q6H PRN (Reason: Pain) Systane Gel 0.4-0.3 % Drops,Gel 1 drp OPHTHALMIC (EYE) BID loperamide 2 mg capsule 2 mg PO Q4H PRN (Reason: Loose Stool) bisacodyl 10 mg Suppository 10 mg ND DAILY PRN (Reason: Constipation) Rx Instructions: if no results from mom magnesium hydroxide [Milk of Magnesia] 400 mg/5 mL Suspension 30 ml PO .EVERY 72 HOURS PRN (Reason: if no bm in 3 days) phenytoin 125 mg/5 mL suspension 8 ml PO BID Rx Instructions: shake bottle well prior to pouring each dose guaifenesin 200 mg Tablet 200 mg PO QID PRN (Reason: Congestion) levothyroxine 100 mcg Tablet 100 mcg PO QAM hydrocortisone 1 % cream 1 applic topical BID PRN (Reason: unknown) levetiracetam 100 mg/mL solution 1,000 mg PO BID Fleet Enema 19-7 gram/118 mL Enema 118 ml ND DAILY PRN (Reason: Constipation) Rx Instructions: give fleets if no results from mom and dulcolax Dulcolax (bisacodyl) 5 mg Tablet,Delayed Release (Dr/Ec) 10 mg PO DAILY PRN (Reason: Constipation) Rx Instructions: if no results from mom ciprofloxacin HCl 500 mg tablet 500 mg PO BID Qty: 20 0RF Discharge Orders: Discharge ED (Routine); Ordered 06/25/25 Ordered By: Flo Truong Referrals: Tim Pereyra DO [Primary Care Provider, Internal Medicine] Patient Instructions: Patient Portal & Amelia Instructions Activity Restrictions/Additional Instructions: The patient is being discharged back to [facility] after evaluation for seizure. She is currently back to her baseline mental status. Continue her Keppra 1 g by mouth twice daily as prescribed. Ensure she takes her medication consistently and monitor closely for any signs of seizure activity. Her potassium was mildly low during this visit, was replaced here in the emergency department. Encourage adequate hydration and nutrition, and recheck electrolytes as directed by care team. Monitor for any new or worsening symptoms, including recurrent seizures, prolonged confusion, weakness, or any other sudden changes in her condition. If any of these occur, or if she becomes unresponsive, seek immediate medical attention. Follow-up with neurology or primary care provider within the next 1 to 2 days for medication review and ongoing care. 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 [employer] Fwd Documented by User: Dirk Rivera DO 06/26/25 00:15 HPI - Seizure General: Chief Complaint: Seizure Stated Complaint: seizure Time Seen by Provider: 06/25/25 17:41 Related Data Home Medications ?Medication ?Instructions ?Recorded ?Confirmed acetaminophen 500 mg tablet 1,000 mg PO Q6H PRN Pain 09/11/19 01/18/23 carbidopa 25 mg-levodopa 100 mg 2 tab PO TID 09/11/19 01/18/23 tablet (Sinemet) clopidogrel 75 mg tablet (Plavix) 75 mg PO DAILY 09/11/19 01/18/23 donepezil 10 mg tablet (Aricept) 10 mg PO BEDTIME 09/11/19 01/18/23 fluoxetine 40 mg capsule 40 mg PO QAM 09/11/19 01/18/23 simvastatin 40 mg tablet 40 mg PO BEDTIME 09/11/19 01/18/23 peg 400-propylene glycol 0.4 %-0.3 1 drp ophthalmic (eye) BID 04/21/20 01/18/23 % eye gel drops (Systane Gel) famotidine 20 mg tablet (Pepcid) 20 mg PO BID 12/21/20 01/18/23 loperamide 2 mg capsule 2 mg PO Q4H PRN Loose Stool 02/15/21 01/18/23 magnesium hydroxide 400 mg/5 mL 30 ml PO .EVERY 72 HOURS PRN if no 05/10/22 01/18/23 oral suspension (Milk of Magnesia) bm in 3 days bisacodyl 10 mg rectal suppository 10 mg ND DAILY PRN Constipation 08/24/22 01/18/23 bisacodyl 5 mg tablet,delayed 10 mg PO DAILY PRN Constipation 01/18/23 01/18/23 release (Dulcolax (bisacodyl)) guaifenesin 200 mg tablet 200 mg PO QID PRN Congestion 01/18/23 01/18/23 hydrocortisone 1 % topical cream 1 applic topical BID PRN unknown 01/18/23 01/18/23 levetiracetam 100 mg/mL oral 1,000 mg PO BID 01/18/23 01/18/23 solution levothyroxine 100 mcg tablet 100 mcg PO QAM 01/18/23 01/18/23 phenytoin 125 mg/5 mL oral 8 ml PO BID 01/18/23 01/18/23 suspension sodium phosphates 19 gram-7 118 ml ND DAILY PRN Constipation 01/18/23 01/18/23 gram/118 mL enema (Fleet Enema) Previous Rx's ?Medication ?Instructions ?Recorded ciprofloxacin HCl 500 mg tablet 500 mg PO BID #20 tabs 01/18/23 Allergies Allergy/AdvReac Type Severity Reaction Status Date / Time amoxicillin Allergy Unknown Verified 08/24/22 12:20 aspirin Allergy Unknown Verified 01/18/23 11:35 doxepin Allergy Unknown Verified 08/24/22 12:20 hydrocodone Allergy Unknown Verified 01/18/23 11:35 metronidazole (From Flagyl) Allergy Unknown Verified 01/18/23 11:35 ondansetron (From Zofran) Allergy Unknown Verified 08/24/22 12:20 Penicillins Allergy ALGY-Hives Verified 01/18/23 11:35 Sulfa (Sulfonamide Allergy Unknown Verified 01/18/23 11:35 Antibiotics) nitrofurantoin (From AdvReac ADR-Itching Verified 01/18/23 11:35 Macrobid) PFSH ED PFSH: Medical History UTI (urinary tract infection) Acute encephalopathy Aspiration pneumonia Fever Otitis media Acute encephalopathy Sinusitis Altered mental status Obesity (BMI 30-39.9) Refused influenza vaccine Slow transit constipation Anxiety Metabolic syndrome Dependent for wheelchair mobility Acid reflux Generalized epilepsy Fibromyalgia Hypothyroidism, unspecified Lives in assisted living facility Cognitive impairment Dependent on walker for ambulation Surgical History History of removal of Port-a-Cath 2005 History of eye surgery Right 2005 History of bilateral tubal ligation 1987 History of hysterectomy with unilateral oophorectomy Right 1991 History of colonoscopy 2006 and 2011 History of cholecystectomy August 2005 History of brain surgery 2002 Family History Father Hypertension Mother Hypertension CAD (coronary artery disease) Social History Smoking and tobacco/nicotine status: never used tobacco/nicotine Second hand smoke exposure: No Alcohol intake: never Substance/Drug Use: never Adopted: No Caregiver/support person: Yes Lives independently: No Household members: other Housing: Assisted Living Facility Marital status: Number of children: 2 service: No Current occupational status: disabled Current occupational exposures/hazards: No Pets and animals: No Do you think of yourself as: Straight/Heterosexual Current gender identity: Female Course Vital Signs: Vital signs: Vital Signs Temperature 98.1 F 06/25/25 17:38 Pulse Rate 105 H 06/25/25 21:36 Respiratory Rate 17 06/25/25 17:44 Blood Pressure 136/87 06/25/25 17:44 Pulse Oximetry 92 06/25/25 21:36 Oxygen Delivery Me thod Room Air 06/25/25 21:36 MDM - Seizure MDM Narrative Medical decision making narrative: Patient present by ambulance for seizure, reportedly at the [facility] had a 50-minute seizure. EMS arrived stated she was postictal, she has not had any recurrence of seizure prehospital or here in the ED during workup. Of note few days ago she had a seizure and had full workup at that time, CT head was negative. No focal deficit at time of exam, she was at baseline mentation, though history primarily from family member due to her history of CVA. First lactic 6.9 likely secondary to seizure, rest of her lab work unremarkable other than mildly decreased potassium of which she was given p.o. potassium here in the ED. EKG unremarkable. She recently had dose of Keppra increased, she is to continue taking the gram twice a day but overall stable for discharge home as she has returned to baseline no further seizure-like activity here no need for hospital admit at this time. Return precautions are given she we discharged back to [facility] and continue Keppra. Strict return precautions are given. Patient was originally seen by Mr. Alexi PA-C. I agree with his history, evaluation, and management. Lab Data 06/25/25 18:42 06/25/25 18:42 Labs: Laboratory Results WBC 11.42 10^3/uL (3.29-11.43) 06/25/25 18:42 RBC 4.70 10^6/uL (3.85-5.65) 06/25/25 18:42 Hgb 14.90 g/dL (11.27-16.99) 06/25/25 18:42 Hct 46.7 % (36-47) 06/25/25 18:42 MCV 99.4 fl (85-98) H 06/25/25 18:42 MCH 31.7 pg (27-33) 06/25/25 18:42 MCHC 31.9 g/dL (30-55) 06/25/25 18:42 RDW 13.4 % (12.1-15.1) 06/25/25 18:42 Plt Count 330 10^3/cmm (157-399) 06/25/25 18:42 MPV 8.9 fL (7.4-10.4) 06/25/25 18:42 Neut % (Auto) 76.4 % 06/25/25 18:42 Lymph % (Auto) 14.1 % 06/25/25 18:42 [place] % (Auto) 6.0 % 06/25/25 18:42 Eos % (Auto) 2.1 % 06/25/25 18:42 Baso % (Auto) 0.5 % 06/25/25 18:42 Neut # (Auto) 8.73 10^3/uL (1.8-7.7) H 06/25/25 18:42 Lymph # (Auto) 1.6 10^3/uL (0.8-4.8) 06/25/25 18:42 [place] # (Auto) 0.7 10^3/uL (0.2-0.9) 06/25/25 18:42 Eos # (Auto) 0.2 10^3/uL (0.0-0.8) 06/25/25 18:42 Baso # (Auto) 0.1 10^3/uL (0.0-0.1) 06/25/25 18:42 Nucleated RBC % (auto) 0 % 06/25/25 18:42 Nucleated RBCs # 0.0 /100WBC 06/25/25 18:42 Sodium 140 mmol/L (136-145) 06/25/25 18:42 Potassium 3.1 mmol/L (3.5-5.1) L 06/25/25 18:42 Chloride 97 mmol/L (98-107) L 06/25/25 18:42 Carbon Dioxide 22 mmol/L (22-29) 06/25/25 18:42 Anion Gap 24.1 (5-19) H 06/25/25 18:42 BUN 7 mg/dL (8-23) L 06/25/25 18:42 Creatinine 0.6 mg/dL (0.5-0.9) 06/25/25 18:42 GFR Calculation 99.1 mL/min (90-130) 06/25/25 18:42 Glucose 166 mg/dL (65-115) H 06/25/25 18:42 Calculated Osmolality 292 mOsm/kg (285-295) 06/25/25 18:42 Lactic Acid 6.9 mmol/L (0.5-2.2) H* 06/25/25 18:42 Lactic Acid (Sepsis) 3.7 mmol/L (0.5-2.2) H 06/25/25 22:00 Calcium 9.1 mg/dL (8.5-10.5) 06/25/25 18:42 Magnesium 2.0 mg/dL (1.7-2.3) 06/25/25 18: Total Bilirubin 0.3 mg/dL (0.15-1.2) 06/25/25 18:42 AST 12 U/L (0-32) 06/25/25 18:42 ALT < 5 U/L (0-33) 06/25/25 18:42 Alkaline Phosphatase 272 U/L (35-105) H 06/25/25 18:42 Total Protein 7.8 g/dL (6.6-8.7) 06/25/25 18:42 Albumin 4.0 g/dL (3.5-5.2) 06/25/25 18:42 Globulin 3.8 g/dL (1.3-4.6) 06/25/25 18:42 Urine Color Yellow (Yellow) 06/25/25 19:40 Urine Appearance Clear (CLEAR) 06/25/25 19:40 Urine pH 5.5 (5-7) 06/25/25 19:40 Ur Specific [place] 1.019 (1.005-1.030) 06/25/25 19:40 Urine Protein 1+ (Negative) A 06/25/25 19:40 Urine Glucose (UA) Negative (Normal) 06/25/25 19:40 Urine Ketones 1+ (Negative) H 06/25/25 19:40 Urine Blood Negative (Negative) 06/25/25 19:40 Urine Nitrate Negative (Negative) 06/25/25 19:40 Urine Bilirubin Negative (Negative) 06/25/25 19:40 Urine Urobilinogen 0.2 mg/dL (Negative) 06/25/25 19:40 Ur Leukocyte Esterase Trace (Negative) A 06/25/25 19:40 Urine RBC 3-5 /hpf (0-2) 06/25/25 19:40 Urine WBC 11-20 /hpf (0-5) H 06/25/25 19:40 Ur Squamous Epith Cells 0-5 /hpf (0-5) 06/25/25 19:40 Amorphous Sediment Not Reportable 06/25/25 19:40 Urine Bacteria None seen /hpf (NONE) 06/25/25 19:40 Hyaline Casts 2.46 /lpf 06/25/25 19:40 Discharge Plan Discharge Patient Disposition: Home Clinical Impression: Seizure Condition: Stable Prescriptions: No Action famotidine [Pepcid] 20 mg tablet 20 mg PO BID carbidopa-levodopa [Sinemet] 25-100 mg tablet 2 tab PO TID clopidogrel [Plavix] 75 mg tablet 75 mg PO DAILY donepezil [Aricept] 10 mg tablet 10 mg PO BEDTIME fluoxetine 40 mg capsule 40 mg PO QAM simvastatin 40 mg tablet 40 mg PO BEDTIME acetaminophen 500 mg tablet 1,000 mg PO Q6H PRN (Reason: Pain) Systane Gel 0.4-0.3 % Drops,Gel 1 drp OPHTHALMIC (EYE) BID loperamide 2 mg capsule 2 mg PO Q4H PRN (Reason: Loose Stool) bisacodyl 10 mg Suppository 10 mg ND DAILY PRN (Reason: Constipation) Rx Instructions: if no results from mom magnesium hydroxide [Milk of Magnesia] 400 mg/5 mL Suspension 30 ml PO .EVERY 72 HOURS PRN (Reason: if no bm in 3 days) phenytoin 125 mg/5 mL suspension 8 ml PO BID Rx Instructions: shake bottle well prior to pouring each dose guaifenesin 200 mg Tablet 200 mg PO QID PRN (Reason: Congestion) levothyroxine 100 mcg Tablet 100 mcg PO QAM hydrocortisone 1 % cream 1 applic topical BID PRN (Reason: unknown) levetiracetam 100 mg/mL solution 1,000 mg PO BID Fleet Enema 19-7 gram/118 mL Enema 118 ml ND DAILY PRN (Reason: Constipation) Rx Instructions: give fleets if no results from mom and dulcolax Dulcolax (bisacodyl) 5 mg Tablet,Delayed Release (Dr/Ec) 10 mg PO DAILY PRN (Reason: Constipation) Rx Instructions: if no results from mom ciprofloxacin HCl 500 mg tablet 500 mg PO BID Qty: 20 0RF Discharge Orders: Discharge ED (Routine); Ordered 06/25/25 Ordered By: Flo Truong Referrals: Tim Pereyra DO [Primary Care Provider, Internal Medicine] Patient Instructions: Patient Portal & Amelia Instructions Activity Restrictions/Additional Instructions: The patient is being discharged back to [facility] after evaluation for seizure. She is currently back to her baseline mental status. Continue her Keppra 1 g by mouth twice daily as prescribed. Ensure she takes her medication consistently and monitor closely for any signs of seizure activity. Her potassium was mildly low during this visit, was replaced here in the emergency department. Encourage adequate hydration and nutrition, and recheck electrolytes as directed by care team. Monitor for any new or worsening symptoms, including recurrent seizures, prolonged confusion, weakness, or any other sudden changes in her condition. If any of these occur, or if she becomes unresponsive, seek immediate medical attention. Follow-up with neurology or primary care provider within the next 1 to 2 days for medication review and ongoing care. 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
--- NOTE | 2025-06-25 18:44 | ECG_ITS ---
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1955 Requested By: Flo Potts Order Number: [id number] Ayaka MD: JESSIE WEBB Measurements Intervals [place] Rate: 118 P: 36 WI: 170 QRS: 170 QRSD: 90 T: 14 QT: 313 QTc: 439 Interpretive Statements SINUS TACHYCARDIA POSSIBLE RIGHT VENTRICULAR HYPERTROPHY [SOME/ALL OF: PROMINENT R IN V1, LATE TRANSITION, RAD, BRAD, SSS] POSSIBLE ANTERIOR MYOCARDIAL INFARCTION , OF INDETERMINATE AGE [30 ms Q WAVE IN V3/V4, OR R < 0.2 mV IN V4] Compared to ECG 06/23/2025 18:28:10 Myocardial infarct finding now present Sinus rhythm no longer present Electronically Signed On 06-26-2025 21:20:15 CDT by JESSIE WEBB [email or web address] [id number]
[2025-06-25 18:58] LABS: Hematocrit 46.7 % (36-47); Hemoglobin 14.90 g/dL (11.27-16.99); Mean Corpuscular HGB Conc 31.9 g/dL (30-55); Mean Corpuscular Hemoglobin 31.7 pg (27-33); Mean Corpuscular Volume 99.4 fl (85-98); Nucleated Red Blood Cells % 0 %; Platelet Count 330 10^3/cmm (157-399); Red Blood Count 4.70 10^6/uL (3.85-5.65); White Blood Count 11.42 10^3/uL (3.29-11.43)
[2025-06-25 19:15] LABS: Alanine Aminotransferase < 5 U/L (0-33); Albumin Level 4.0 g/dL (3.5-5.2); Alkaline Phosphatase 272 U/L (35-105); Anion Gap 24.1 (5-19); Aspartate Amino Transferase 12 U/L (0-32); Blood Urea Nitrogen 7 mg/dL (8-23); Calcium 9.1 mg/dL (8.5-10.5); Carbon Dioxide 22 mmol/L (22-29); Chloride 97 mmol/L (98-107); Globulin 3.8 g/dL (1.3-4.6); Glucose 166 mg/dL (65-115); Magnesium 2.0 mg/dL (1.7-2.3); Osmolality Calculated 292 mOsm/kg (285-295); Potassium 3.1 mmol/L (3.5-5.1); Sodium 140 mmol/L (136-145); Total Protein 7.8 g/dL (6.6-8.7)
[2025-06-25 19:20] LABS: Lactic Sepsis W/Reflex 6.9 mmol/L (0.5-2.2)
[2025-06-25 19:31] LABS: Reflex Lactate Order REFLEX LACTIC ORDERD
[2025-06-25 19:47] LABS: Glucose Urine UA Negative (Normal); Nitrate Urine Negative (Negative); Specific Gravity, Urine 1.019 (1.005-1.030)
[2025-06-25 19:52] LABS: Add Urine Microscopic? YES; Universal Test for UA Present (0)
[2025-06-25 21:36] VITALS: PULSE 105; O2SAT 92
[2025-06-25 22:22] LABS: Lactic Acid level (Lactate) 3.7 mmol/L (0.5-2.2)
== END 2025-06-25 23:19 | disposition home or self-care (01) ==
PROVIDERS: Emergency Provider Physician Assistant; PCP Internal Medicine
DX: E56.9 Vitamin deficiency, unspecified (principal); Z79.02 Long term (current) use of antithrombotics/antiplatelets
CPT/HCPCS: 36415; 80053; 81001; 83605; 83735; 85025; 93005; 99284; J7030; J9999

== ENCOUNTER 2025-07-09 11:06 | Emergency (ER) | payer MEDICARE, MEDICAID, SELFPAY ==
[2025-07-09] VITALS (9 sets, daily range): BP systolic 106–127; BP diastolic 63–90; PULSE 99–115; RESP 14–21; TEMP 36.9–37.3; O2SAT 90–95; BMI 31.7
--- NOTE | 2025-07-09 11:07 | ECG_ITS ---
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 Measurements Intervals [place] Rate: 111 P: 43 SD: 151 QRS: 143 QRSD: 86 T: 41 QT: 296 QTc: 402 Interpretive Statements SINUS TACHYCARDIA PATTERN CONSISTENT WITH PULMONARY DISEASE POSSIBLE RIGHT VENTRICULAR HYPERTROPHY [SOME/ALL OF: PROMINENT R IN V1, LATE TRANSITION, RAD, BRAD, SSS] MINIMAL ST DEPRESSION [0.025+ mV ST DEPRESSION] Compared to ECG 06/25/2025 18:44:53 ST (T wave) deviation now present Myocardial infarct finding no longer present Electronically Signed On 07-09-2025 13:04:59 SOFTWARE ENGINEERING MANAGER by Campbell Mchugh M.D. [id number]
--- NOTE | 2025-07-09 11:13 | W.ED.WEAKNES ---
HPI - Weakness General: Chief complaint: Weakness Stated complaint: dehydration Time Seen by Provider: 07/09/25 11:07 History of Present Illness: 70-year-old female presents to the emergency room complaints of dehydration and thrush per the custodial staff they are concerned because not been able to take her oral medications she is being treated for cystitis and has not been taking the antibiotics. Patient lives in assisted living is significant cognitive impairment she can answer a few simple questions but is not particular helpful with a history. She does have moderate abdominal tenderness. Is mildly tachycardic with a low-grade fever. Associated symptoms: Reports fever(s); Denies chest pain, chills or dysuria Related Data Home Medications ?Medication ?Instructions ?Recorded ?Confirmed acetaminophen 500 mg tablet 1,000 mg PO Q6H PRN Pain 09/11/19 01/18/23 carbidopa 25 mg-levodopa 100 mg 2 tab PO TID 09/11/19 01/18/23 tablet (Sinemet) clopidogrel 75 mg tablet (Plavix) 75 mg PO DAILY 09/11/19 01/18/23 donepezil 10 mg tablet (Aricept) 10 mg PO BEDTIME 09/11/19 01/18/23 fluoxetine 40 mg capsule 40 mg PO QAM 09/11/19 01/18/23 simvastatin 40 mg tablet 40 mg PO BEDTIME 09/11/19 01/18/23 peg 400-propylene glycol 0.4 %-0.3 1 drp ophthalmic (eye) BID 04/21/20 01/18/23 % eye gel drops (Systane Gel) famotidine 20 mg tablet (Pepcid) 20 mg PO BID 12/21/20 01/18/23 loperamide 2 mg capsule 2 mg PO Q4H PRN Loose Stool 02/15/21 01/18/23 magnesium hydroxide 400 mg/5 mL 30 ml PO .EVERY 72 HOURS PRN if no 05/10/22 01/18/23 oral suspension (Milk of Magnesia) bm in 3 days bisacodyl 10 mg rectal suppository 10 mg WA DAILY PRN Constipation 08/24/22 01/18/23 bisacodyl 5 mg tablet,delayed 10 mg PO DAILY PRN Constipation 01/18/23 01/18/23 release (Dulcolax (bisacodyl)) guaifenesin 200 mg tablet 200 mg PO QID PRN Congestion 01/18/23 01/18/23 hydrocortisone 1 % topical cream 1 applic topical BID PRN unknown 01/18/23 01/18/23 levetiracetam 100 mg/mL oral 1,000 mg PO BID 01/18/23 01/18/23 solution levothyroxine 100 mcg tablet 100 mcg PO QAM 01/18/23 01/18/23 phenytoin 125 mg/5 mL oral 8 ml PO BID 01/18/23 01/18/23 suspension sodium phosphates 19 gram-7 118 ml WA DAILY PRN Constipation 01/18/23 01/18/23 gram/118 mL enema (Fleet Enema) Previous Rx's ?Medication ?Instructions ?Recorded ciprofloxacin HCl 500 mg tablet 500 mg PO BID #20 tabs 01/18/23 Allergies Allergy/AdvReac Type Severity Reaction Status Date / Time amoxicillin Allergy Unknown Verified 08/24/22 12:20 aspirin Allergy Unknown Verified 01/18/23 11:35 doxepin Allergy Unknown Verified 08/24/22 12:20 hydrocodone Allergy Unknown Verified 01/18/23 11:35 metronidazole (From Flagyl) Allergy Unknown Verified 01/18/23 11:35 ondansetron (From Zofran) Allergy Unknown Verified 08/24/22 12:20 Penicillins Allergy ALGY-Hives Verified 01/18/23 11:35 Sulfa (Sulfonamide Allergy Unknown Verified 01/18/23 11:35 Antibiotics) nitrofurantoin (From AdvReac ADR-Itching Verified 01/18/23 11:35 Macrobid) Review of Systems Const: Reports: fever(s); Denies: chills Card: Denies: chest pain Resp: Denies: dyspnea GI: Denies: abdominal pain : Denies: dysuria, urinary frequency or urinary urgency Musc: Denies: neck pain or back pain Skin/Breast: Denies: rash PFSH ED PFSH: Medical History UTI (urinary tract infection) Acute encephalopathy Aspiration pneumonia Fever Otitis media Acute encephalopathy Sinusitis Altered mental status Obesity (BMI 30-39.9) Refused influenza vaccine Slow transit constipation Anxiety Metabolic syndrome Dependent for wheelchair mobility Acid reflux Generalized epilepsy Fibromyalgia Hypothyroidism, unspecified Lives in assisted living facility Cognitive impairment Dependent on walker for ambulation Surgical History History of removal of Port-a-Cath 2005 History of eye surgery Right 2005 History of bilateral tubal ligation 1987 History of hysterectomy with unilateral oophorectomy Right 1991 History of colonoscopy 2006 and 2011 History of cholecystectomy August 2005 History of brain surgery 2002 Family History Father Hypertension Mother Hypertension CAD (coronary artery disease) Social History Smoking and tobacco/nicotine status: never used tobacco/nicotine Second hand smoke exposure: No Alcohol intake: never Substance/Drug Use: never Adopted: No Caregiver/support person: Yes Lives independently: No Household members: other Housing: Assisted Living Facility Marital status: Number of children: 2 service: No Current occupational status: disabled Current occupational exposures/hazards: No Pets and animals: No Do you think of yourself as: Straight/Heterosexual Current gender identity: Female Physical Exam HENMT: COMMON NORMALS: normocephalic, atraumatic and hearing grossly normal bilaterally HEAD & SCALP: normocephalic and atraumatic Resp: COMMON NORMALS: normal respiratory effort, No retractions, No use of accessory muscles and clear to auscultation bilaterally AUSCULTATION: clear to auscultation bilaterally Cardio: COMMON NORMALS: regular rhythm and No murmurs present (Cardio) RATE: tachycardic RHYTHM: regular rhythm GI: COMMON NORMALS: Soft to palpation and No hepatosplenomegaly present AUSCULTATION: Yes normoactive bowel sounds PALPATION: Yes Soft to palpation, No Tenderness to palpation present (GI), No Guarding due to palpation present (GI) and Yes No hepatosplenomegaly present Extremity: COMMON NORMALS: normal to inspection, capillary refill normal, no clubbing, cyanosis or edema, no calf tenderness and no pedal edema Skin: COMMON NORMALS: no rashes or lesions noted GENERAL SKIN EXAM: no rashes or lesions noted Course Vital Signs: Vital signs: Vital Signs Temperature 99.0 F 07/09/25 18:07 Pulse Rate 101 H 07/09/25 18:40 Respiratory Rate 14 07/09/25 18:40 Blood Pressure 115/69 07/09/25 18:40 Pulse Oximetry 90 07/09/25 18:40 Oxygen Delivery Me thod Room Air 07/09/25 17:31 MDM - Weakness Medical Decision Making Leukocytosis tachycardia with fever lactate is normal. She has no obstructive pyelonephritis with a stone in the left renal pelvis that appears to be having a ball-valve like effect intermittently obstructing. Stone is quite large at 13 x 10 mm. We do not have available urology here and she may likely need a stent. Antibiotics initiated discussed with urology will transfer to [facility] in [place] via ambulance. Patient remained stable at the time of transport. Medical Records I reviewed the patient's medical records. Lab Data I reviewed the patient's lab results. 07/09/25 10:55 07/09/25 10:55 Radiology Impressions Abdomen/Pelvis CT 07/09/25 12:05 IMPRESSION: 1. Large central LEFT renal stone has developed since 08/24/2022. Stone in the LEFT renal pelvis measures 13 x 10 mm and there is significant surrounding edema and inflammation consistent with pyelonephritis. No renal obstruction. Neither ureter is dilated. 2. IVC filter. 3. No appendicitis. No GI tract obstruction. 4. Stable 10 mm low-attenuation mass in the RIGHT lobe of the liver is probably a cyst. 5. Prior cholecystectomy. Laboratory Results WBC 12.37 10^3/uL (3.29-11.43) H 07/09/25 10:55 RBC 5.21 10^6/uL (3.85-5.65) 07/09/25 10:55 Hgb 15.90 g/dL (11.27-16.99) 07/09/25 10:55 Hct 50.5 % (36-47) H 07/09/25 10:55 MCV 96.9 fl (85-98) 07/09/25 10:55 MCH 30.5 pg (27-33) 07/09/25 10:55 MCHC 31.5 g/dL (30-55) 07/09/25 10:55 RDW 14.2 % (12.1-15.1) 07/09/25 10:55 Plt Count 360 10^3/cmm (157-399) 07/09/25 10:55 MPV 10.0 fL (7.4-10.4) 07/09/25 10:55 Neut % (Auto) 72.1 % 07/09/25 10:55 Lymph % (Auto) 17.1 % 07/09/25 10:55 [place] % (Auto) 6.0 % 07/09/25 10:55 Eos % (Auto) 4.0 % 07/09/25 10:55 Baso % (Auto) 0.3 % 07/09/25 10:55 Neut # (Auto) 8.91 10^3/uL (1.8-7.7) H 07/09/25 10:55 Lymph # (Auto) 2.1 10^3/uL (0.8-4.8) 07/09/25 10:55 [place] # (Auto) 0.7 10^3/uL (0.2-0.9) 07/09/25 10:55 Eos # (Auto) 0.5 10^3/uL (0.0-0.8) 07/09/25 10:55 Baso # (Auto) 0.0 10^3/uL (0.0-0.1) 07/09/25 10:55 Nucleated RBC % (auto) 0 % 07/09/25 10:55 Nucleated RBCs # 0.0 /100WBC 07/09/25 10:55 Sodium 155 mmol/L (136-145) H 07/09/25 10:55 Potassium 3.7 mmol/L (3.5-5.1) 07/09/25 10:55 Chloride 113 mmol/L (98-107) H 07/09/25 10:55 Carbon Dioxide 26 mmol/L (22-29) 07/09/25 10:55 Anion Gap 19.7 (5-19) H 07/09/25 10:55 BUN 20 mg/dL (8-23) 07/09/25 10:55 Creatinine 0.7 mg/dL (0.5-0.9) 07/09/25 10:55 GFR Calculation 83.0 mL/min (90-130) L 07/09/25 10:55 Glucose 151 mg/dL (65-115) H 07/09/25 10:55 Calculated Osmolality 326 mOsm/kg (285-295) H 07/09/25 10:55 Lactic Acid 1.7 mmol/L (0.5-2.2) 07/09/25 10:55 Calcium 9.3 mg/dL (8.5-10.5) 07/09/25 10:55 Total Bilirubin 0.5 mg/dL (0.15-1.2) 07/09/25 10:55 AST 15 U/L (0-32) 07/09/25 10:55 ALT 15 U/L (0-33) 07/09/25 10:55 Alkaline Phosphatase 329 U/L (35-105) H 07/09/25 10:55 Total Protein 8.0 g/dL (6.6-8.7) 07/09/25 10:55 Albumin 4.1 g/dL (3.5-5.2) 07/09/25 10:55 Globulin 3.9 g/dL (1.3-4.6) 07/09/25 10:55 Lipase 26 U/L (13-60) 07/09/25 10:55 Urine Color Dark yellow (Yellow) A 07/09/25 11:30 Urine Appearance Cloudy (CLEAR) A 07/09/25 11:30 Urine pH 5.5 (5-7) 07/09/25 11:30 Ur Specific [place] 1.031 (1.005-1.030) H 07/09/25 11:30 Urine Protein 2+ (Negative) A 07/09/25 11:30 Urine Glucose (UA) Negative (Normal) 07/09/25 11:30 Urine Ketones 1+ (Negative) H 07/09/25 11:30 Urine Blood 3+ (Negative) A 07/09/25 11:30 Urine Nitrate Negative (Negative) 07/09/25 11:30 Urine Bilirubin 2+ (Negative) H 07/09/25 11:30 Urine Urobilinogen 1.0 mg/dL (Negative) 07/09/25 11:30 Ur Leukocyte Esterase 2+ (Negative) A 07/09/25 11:30 Urine RBC >100 /hpf (0-2) H 07/09/25 11:30 Urine WBC 51-100 /hpf (0-5) H 07/09/25 11:30 Ur Squamous Epith Cells 0-5 /hpf (0-5) 07/09/25 11:30 Amorphous Sediment Not Reportable 07/09/25 11:30 Urine Bacteria None seen /hpf (NONE) 07/09/25 11:30 Hyaline Casts 8.26 /lpf 07/09/25 11:30 All radiology interpretation(s) finalized by discharge Discharge Plan Discharge Patient Disposition: Xfer Short-Term Hosp Clinical Impression: Left nephrolithiasis, Cystitis Condition: Stable Referrals: Tim Pereyra DO [Primary Care Provider, Internal Medicine] Print Language: Cook Islander Coding Level of Care Code ED 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
[2025-07-09 11:18] LABS: Hematocrit 50.5 % (36-47); Hemoglobin 15.90 g/dL (11.27-16.99); Mean Corpuscular HGB Conc 31.5 g/dL (30-55); Mean Corpuscular Hemoglobin 30.5 pg (27-33); Mean Corpuscular Volume 96.9 fl (85-98); Nucleated Red Blood Cells % 0 %; Platelet Count 360 10^3/cmm (157-399); Red Blood Count 5.21 10^6/uL (3.85-5.65); White Blood Count 12.37 10^3/uL (3.29-11.43)
[2025-07-09 11:39] LABS: Alanine Aminotransferase 15 U/L (0-33); Albumin Level 4.1 g/dL (3.5-5.2); Alkaline Phosphatase 329 U/L (35-105); Aspartate Amino Transferase 15 U/L (0-32); Blood Urea Nitrogen 20 mg/dL (8-23); Calcium 9.3 mg/dL (8.5-10.5); Carbon Dioxide 26 mmol/L (22-29); Chloride 113 mmol/L (98-107); Globulin 3.9 g/dL (1.3-4.6); Glucose 151 mg/dL (65-115); Lipase 26 U/L (13-60); Osmolality Calculated 326 mOsm/kg (285-295); Sodium 155 mmol/L (136-145); Total Protein 8.0 g/dL (6.6-8.7)
[2025-07-09 11:41] LABS: Anion Gap 19.7 (5-19); Potassium 3.7 mmol/L (3.5-5.1)
[2025-07-09 11:43] LABS: Glucose Urine UA Negative (Normal); Nitrate Urine Negative (Negative)
[2025-07-09 11:48] LABS: Add Urine Microscopic? YES
[2025-07-09 12:01] LABS: Specific Gravity, Urine 1.031 (1.005-1.030); UA Slide Review UA Slide Review Perf
--- NOTE | 2025-07-09 12:05 | CT_ITS ---
WS: [id number] CT ABDOMEN AND PELVIS NONCONTRAST HISTORY: flank pain TECHNIQUE: Imaging performed through the abdomen and pelvis. Coronal and sagittal reformats are submitted. All CT scans at [facility] use at least one of these dose optimization techniques: automated exposure control; mA and/or kV adjustment per patient size (includes targeted exams where dose is matched to clinical indication); or iterative reconstruction. DLP: 953.60 mGy.cm COMPARISON: 08/24/2022 Lower thorax: Dependent changes and motion at the lung bases. Normal size heart. No hiatal hernia. Liver: Normal size liver. Area of decreased attenuation in the RIGHT lobe of the liver measures 10 mm and was present on the study from 08/24/2022. Gallbladder: Prior cholecystectomy. Pancreas: Mild diffuse atrophy. No pancreatic duct dilatation. Normal size common bile duct. Spleen: Normal. Adrenal glands: Normal. No mass. Right kidney: Normal size kidney with nonobstructing renal calcifications. No hydronephrosis. Left kidney: Normal size kidney. Large calcification in the LEFT renal pelvis measures 13 x 10 mm. There is surrounding edema and inflammatory changes in the renal pelvis. No obstruction. LEFT ureter is normal caliber. Aorta: Mild atherosclerosis abdominal aorta with no aneurysm. IVC filter. No free fluid, intraperitoneal air or significant lymphadenopathy. GI tract: No obstruction. Mild constipation. No colitis. Abdominal wall: Negative. No hernia. Pelvis: No free fluid or adenopathy. No pelvic mass. Osseous structures: Unremarkable. CT/CT kidney stone [id number] IMPRESSION: 1. Large central LEFT renal stone has developed since 08/24/2022. Stone in the LEFT renal pelvis measures 13 x 10 mm and there is significant surrounding reinaldo ma and inflammation consistent with pyelonephritis. No renal obstruction. Neith er ureter is dilated. 2. IVC filter. 3. No appendicitis. No GI tract obstruction. 4. Stable 10 mm low-attenuation mass in the RIGHT lobe of the liver is probabl y a cyst. 5. Prior cholecystectomy.
--- NOTE | 2025-07-09 12:08 | PC.NURSE ---
antibiotic delayed d/t pending blood culture's being obtained
[2025-07-09 12:33] LABS: Lactic Sepsis W/Reflex 1.7 mmol/L (0.5-2.2)
[2025-07-09] MEDS: cefTRIAXone 1,000 mg SDV 1000 MG IVP (12:50)
--- NOTE | 2025-07-09 14:05 | PC.NURSE ---
pt rolled to R side, placed pillow under L hip
--- NOTE | 2025-07-09 15:46 | PC.NURSE ---
report called to ANA Lee at [facility] in [place], [place]. Bed#[id number] Report #
--- NOTE | 2025-07-09 16:50 | PC.NURSE ---
family at bedside, gave update on pt status and transfer status. no further questions
--- NOTE | 2025-07-09 18:24 | PC.NURSE ---
removed pillow from pt's L side, placed pt in partial trendelenburg.
== END 2025-07-09 18:41 | disposition short-term general hospital (02) ==
PROVIDERS: Emergency Provider Family Medicine; PCP Internal Medicine
DX: N20.0 Calculus of kidney (principal); N30.90 Cystitis, unspecified without hematuria
CPT/HCPCS: 36415; 74176; 80053; 81001; 83605; 83690; 85025; 87040; 87086; 93005; 96361; 96374; 99285; J0696; J7030